=== PATIENT | female | born 1955 | race African-American/Black ===

== ENCOUNTER 2016-06-04 17:39 | Emergency (ER) | payer OTHER ==
[~2016-06-04] VITALS: Ht 170.2 cm; Wt 108.9 kg
[~2016-06-04 17:39] MED LIST: AMIT25TA PO; AMLO5TAB2 PO; ASPI81TA9 PO; ATOR20TA58 PO; ATOR40TA59 PO; BACL10TA PO; BUME1TAB PO; DICY10CA3 PO; GLYB5TAB3 PO; HYDR-2762 PO; HYDR25TA9 PO; INSU100I17 SQ; INSU100I27 SQ; LISI40TA PO; METF10002 PO; METO25TA4 PO; OMEP20CA9 PO; SERT100T8 PO; SPIR25TA PO
[2016-06-04 19:06] VITALS: BP 163/85
--- NOTE | 2016-06-04 19:37 | PHYS DOC ---
Past Medical History Past Medical History: Depression, Diabetes-Type II, GERD, High Cholesterol, Hypertension Past Surgical History: Tubal ligation, Other Additional Past Surgical Histo: BREAST REDUCTION Alcohol Use: None Drug Use: None Adult General Chief Complaint Chief Complaint: UPPER EXTREMITY PAIN HPI HPI Patient is a 60 year old female presents to emergency department stating that she has having stinging tingling pain in her left arm. Patient states this is been occurring for the last 2-3 months. Patient had appeared to be hospitalized here in February for altered mental status. Patient states during that time she thinks she had been bitten by some type of a bug with the poison going down into her left arm. She'll states that she is unable to open her hand up or unable to solar project engineer or do anything with the right hand. Patient does has equal solar project engineer bilaterally. Peripheral pulses are 2+ cap refill brisk less than 2 seconds. Shunt denies any injury or trauma to the arm. She states that she has been using [id number]-[id number] medication without relief. Patient states that she has been unable to maintain personal hygiene habits due to the left hand numbness and tingling. Patient does appear to be well-kept. She is right-hand dominant Review of Systems Review of Systems Constitutional: Denies fever or chills [] Eyes: Denies change in visual acuity, redness, or eye pain [] HENT: Denies nasal congestion or sore throat [] Respiratory: Denies cough or shortness of breath [] Cardiovascular: No additional information not addressed in HPI [] Musculoskeletal: Denies back pain. C/o numbness and tingling to the left hand Integument: Denies rash or skin lesions [] Neurologic: Denies headache, focal weakness or sensory changes [] Allergies Allergies Allergies Coded Allergies Type Severity Reaction Last Updated Verified No Known Drug Allergies 07/20/13 No Physical Exam Physical Exam Constitutional: Well developed, well nourished, no acute distress, non-toxic appearance. [] HENT: Normocephalic, atraumatic, bilateral external ears normal, oropharynx moist, no oral exudates, nose normal. [] Eyes: PERRLA, EOMI, conjunctiva normal, no discharge. [] Neck: Normal range of motion, no tenderness, supple, no stridor. [] Cardiovascular:Heart rate regular rhythm, no murmur [] Lungs & Thorax: Bilateral breath sounds clear to auscultation [] Skin: Warm, dry, no erythema, no rash. [] Back: No tenderness Extremities: No tenderness, no cyanosis, no clubbing, ROM intact, no edema. Peripheral pulses 2+. Patient with equal subeditor bilaterally equal strength noted in upper extremity. Neurologic: Alert and oriented X 3, normal motor function, normal sensory function, no focal deficits noted. [] Psychologic: Affect normal, judgement normal, mood normal. [] Current Patient Data Vital Signs Vital Signs Date Time Temp Pulse Resp B/P Pulse Ox O2 Delivery O2 Flow Rate FiO2 06/04/16 19:06 98.4 75 18 95 Room Air 98.4 EKG EKG [] Radiology/Procedures Radiology/Procedures [] Course & Med Decision Making Course & Med Decision Making Pertinent Labs and Imaging studies reviewed. (See chart for details) This time I do not feel that an x-ray is necessary as the patient has had no injury or trauma. Patient has been hospitalized since the numbness and tingling had started with a no workup noted as well as no report of the symptoms. Patient will be placed in a wrist splint with recommendations to follow-up with orthopedic recommended elevation as much as possible Tylenol and ibuprofen for pain and discomfort. Patient will be discharged home in stable condition signs and symptoms to return back to emergency department as been provided. [] Dragon Disclaimer Dragon Disclaimer This electronic medical record was generated, in whole or in part, using a voice recognition dictation system. Departure Departure Impression: Primary Impression: Hand pain, left Disposition: 01 HOME, SELF-CARE Condition: STABLE Referrals: NO PCP (PCP) Patient Instructions: Sprain Additional Instructions: Wear the splint on the left hand for the next 3-5 days. Ice packs on 20 minutes off 20 minutes several times a day. Elevation as much as possible. Follow-up with orthopedic in the next week. Return back to emergency prior signs symptoms become worse. ELI ODONNELL NP Jun 04, 2016 19:37
== END 2016-06-04 19:45 | disposition home or self-care (01) ==
LOC: ER 17:39
DX: M79.642 Pain in left hand (principal); R20.2 Paresthesia of skin; E11.9 Type 2 diabetes mellitus without complications; E78.00 Pure hypercholesterolemia, unspecified; I10 Essential (primary) hypertension; F32.9 Major depressive disorder, single episode, unspecified
CPT/HCPCS: 99281

== ENCOUNTER 2020-12-13 22:40 | Emergency (ER) | payer MEDICAID, OTHER ==
[~2020-12-13] VITALS: Ht 177.8 cm; Wt 86.3 kg
[~2020-12-13 22:40] MED LIST changes: +AMLO-186 PO; -AMLO5TAB2 PO; +AMOX1TAB61 PO; +ASPI-886 PO; -ASPI81TA9 PO; -BUME1TAB PO; +BUME1TAB3 PO; +HYDR-2145 PO; -HYDR-2762 PO; +HYDR-2765 PO; -HYDR25TA9 PO; +LISI-130 PO; -LISI40TA PO; -METF10002 PO; +METF10007 PO; +OMEP20CA16 PO; -OMEP20CA9 PO; +SERT-268 PO; -SERT100T8 PO
[2020-12-13 22:50] VITALS: BP 170/83
--- NOTE | 2020-12-13 23:04 | PHYS DOC ---
Past Medical History Past Medical History: Depression, Diabetes-Type II, GERD, High Cholesterol, Hypertension Past Surgical History: Tubal ligation, Other Additional Past Surgical Histo: BREAST REDUCTION Smoking Status: Unknown if ever smoked Alcohol Use: None Drug Use: None General Adult EDM: Chief Complaint: PAIN ON URINATION HPI: HPI: Patient is a 65 year old female presents presents via EMS from [facility] for the evaluation of dysuria and altered mental status. assisted states patient complained of dysuria today. assisted also states this evening patient was in the [place] and was aggressive towards other residents. On exam patient is alert to self which I was told was her baseline. She is not combative or argumentative. Patient is calm and cooperative. Patient denies any any pain. Patient specifically denies any pain on urination. Review of Systems: Review of Systems: Unable to obtain due to medical condition Heart Score: C/O Chest Pain: N/A Risk Factors: Risk Factors: DM, Current or recent (<one month) smoker, HTN, HLP, family history of CAD, obesity. Risk Scores: Score 0 - 3: 2.5% MACE over next 6 weeks - Discharge Home Score 4 - 6: 20.3% MACE over next 6 weeks - Admit for Clinical Observation Score 7 - 10: 72.7% MACE over next 6 weeks - Early Invasive Strategies Allergies: Allergies: Allergies Coded Allergies Type Severity Reaction Last Updated Verified No Known Drug Allergies 07/20/13 No Physical Exam: PE: Constitutional: Well developed, well nourished, no acute distress, non-toxic appearance. [] HENT: Normocephalic, atraumatic, bilateral external ears normal, oropharynx moist, no oral exudates, nose normal. [] Eyes: PERRLA, EOMI, conjunctiva normal, no discharge. [] Neck: Normal range of motion, no tenderness, supple, no stridor. [] Cardiovascular:Heart rate regular rhythm, no murmur [] Lungs & Thorax: Bilateral breath sounds clear to auscultation [] Abdomen: Bowel sounds normal, soft, no tenderness, no masses, no pulsatile masses. [] Skin: Warm, dry, no erythema, no rash. [] Back: No tenderness, no CVA tenderness. [] Extremities: No tenderness, no cyanosis, no clubbing, ROM intact, no edema. [] Neurologic: Alert, normal motor function, normal sensory function, no focal deficits noted. [] EKG: EKG: [] Radiology/Procedures: Radiology/Procedures: [] Impression: R CHEST 1V INDICATION: altered mental status / Spl. Instructions: / History: . COMPARISON STUDY: 01/23/2018. FINDINGS: Lungs: Low lung volume. No pulmonary mass or consolidation. The tracheobronchial tree and hilar structures are normal. Pleura: No pleural effusion or pneumothorax. Heart and Mediastinum: Cardiomegaly. Great vessels of the thorax are normal. IMPRESSION: Low lung volume. No consolidation. Course & Med Decision Making: Course & Med Decision Making Pertinent Labs and Imaging studies reviewed. (See chart for details) [] Dragon Disclaimer: Dragon Disclaimer: This electronic medical record was generated, in whole or in part, using a voice recognition dictation system. Departure Departure Impression: Primary Impression: Dysuria Disposition: HOME / SELF CARE / HOMELESS Condition: STABLE Referrals: CRISTIANO CEBALLOS MD, [facility] (PCP) Patient Instructions: Dysuria Scripts Nitrofurantoin Monohyd/M-Cryst (MACROBID 100 MG CAPSULE) 100 Mg Capsule 1 CAP PO BID for 5 Days, #10 CAP 0 Refills Prov: MAGNO CAN DO 12/14/20 MAGNO CAN DO Dec 13, 2020 23:04
[2020-12-13 23:32] LABS: BILIRUBIN,URINE NEGATIVE (NEG); CLARITY,URINE CLEAR; COLOR,URINE YELLOW; NITRITE,URINE NEGATIVE (NEG); PH,URINE 6.5 (<5.0-8.0); PROTEIN,URINE >=300 mg/dL (NEG-TRACE)
[2020-12-13 23:36] LABS: BACTERIA,URINE 0 /HPF (0-FEW); RBC,URINE OCC /HPF (0-2)
[2020-12-13 23:37] LABS: AMORPHOUS SEDIMENT,UR PRESENT /HPF; WBC,URINE RARE /HPF (0-4)
[2020-12-13 23:46] LABS: BASO # 0.1 x10^3/uL (0.0-0.2); BASO % 1 % (0-3); EOS # 0.4 x10^3/uL (0.0-0.7); EOS % 3 % (0-3); HEMATOCRIT 33.4 % (36.0-47.0); HEMOGLOBIN 10.4 g/dL (12.0-15.5); LYMPH # 1.1 x10^3/uL (1.0-4.8); LYMPH % 9 % (24-48); MEAN CORPUSCULAR HEMOGLOBIN 24 pg (25-35); MEAN CORPUSCULAR HGB CONC 31 g/dL (31-37); MEAN CORPUSCULAR VOLUME 79 fL (79-100); MONO # 0.8 x10^3/uL (0.0-1.1); MONO % 6 % (0-9); NEUT # 9.6 x10^3/uL (1.8-7.7); NEUT % 81 % (31-73); PLATELET COUNT 371 x10^3/uL (140-400); RED BLOOD COUNT 4.25 x10^6/uL (3.50-5.40); RED CELL DISTRIBUTION WIDTH 20.6 % (11.5-14.5)
[2020-12-13 23:55] LABS: CALCIUM 9.2 mg/dL (8.5-10.1); CREATININE 1.5 mg/dL (0.6-1.0); GFR 42.3; POTASSIUM 3.3 mmol/L (3.5-5.1)
[2020-12-14 00:03] LABS: ALBUMIN 2.4 g/dL (3.4-5.0); ALBUMIN/GLOBULIN RATIO 0.5 (1.0-1.7); TOTAL BILIRUBIN 0.4 mg/dL (0.2-1.0); TOTAL PROTEIN 7.2 g/dL (6.4-8.2)
[2020-12-14 00:18] LABS: PLT ESTIMATE ADEQUATE (ADEQUATE)
[2020-12-14 00:19] LABS: ANISOCYTOSIS MOD; HYPOCHROMIA SLIGHT
--- NOTE | 2020-12-14 01:07 | RAD ---
XR CHEST 1V INDICATION: altered mental status / Spl. Instructions: / History: . COMPARISON STUDY: 01/23/2018. FINDINGS: Lungs: Low lung volume. No pulmonary mass or consolidation. The tracheobronchial tree and hilar struc tures are normal. Pleura: No pleural effusion or pneumothorax. Heart and Mediastinum: Cardiomegaly. Great vessels of the thorax are normal. IMPRESSION: Low lung volume. No consolidation. Electronically signed by: Oswald Perez MD (12/14/2020 1:05 AM) [facility]
[2020-12-14] MEDS ORDERED: NITR100C62 PO (02:14)
[2020-12-14] MEDS ORDERED: FUROSEMIDE 40 MG/4 ML VIAL. IVP ONE (02:15)
== END 2020-12-14 02:20 | disposition home or self-care (01) ==
LOC: ER 22:40
DX: R30.0 Dysuria (principal); R41.82 Altered mental status, unspecified; E11.9 Type 2 diabetes mellitus without complications; E78.00 Pure hypercholesterolemia, unspecified; I10 Essential (primary) hypertension; K21.9 Gastro-esophageal reflux disease without esophagitis; Z98.51 Tubal ligation status
CPT/HCPCS: 36415; 71045; 80053; 81001; 84484; 85025; 99284

== ENCOUNTER 2020-12-20 18:31 | Emergency (ER) | payer MEDICAID ==
[~2020-12-20] VITALS: Ht 170.2 cm; Wt 76.0 kg
[~2020-12-20 18:31] MED LIST changes: +NITR100C62 PO
[2020-12-20] MEDS ORDERED: LIDOCAINE (700MG/PATCH) PATCH. ONE (18:56)
--- NOTE | 2020-12-20 19:00 | PHYS DOC ---
Past Medical History Past Medical History: Depression, Diabetes-Type II, GERD, High Cholesterol, Hypertension Past Surgical History: Tubal ligation, Other Additional Past Surgical Histo: BREAST REDUCTION Smoking Status: Unknown if ever smoked Alcohol Use: None Drug Use: None General Adult HPI: HPI: 65 yo F PMH Depression, DM, GERD, HTN and HLD presents to the ed BIBEM[facility] with c/o left shoulder and left scapular pain after pt fell from her wheelchair. Pt denies any head or neck injury. History limited due to patient's underlying dementia. Initially, on ED arrival. History obtained from RN, nursing documents and EMS verbal report to RN. Review of Systems: Review of Systems: Review of systems limited Heart Score: C/O Chest Pain: No Risk Factors: Risk Factors: DM, Current or recent (<one month) smoker, HTN, HLP, family history of CAD, obesity. Risk Scores: Score 0 - 3: 2.5% MACE over next 6 weeks - Discharge Home Score 4 - 6: 20.3% MACE over next 6 weeks - Admit for Clinical Observation Score 7 - 10: 72.7% MACE over next 6 weeks - Early Invasive Strategies Current Medications: Current Medications Medications (Trade) Dose Ordered Sig/Es Start Time Stop Time Status Last Admin Dose Admin Lidocaine (Lidoderm) 1 patch DAILY 12/21/20 09:00 UNV Allergies: Allergies: Allergies Coded Allergies Type Severity Reaction Last Updated Verified No Known Drug Allergies 07/20/13 No Physical Exam: PE: Constitutional: no acute distress, non-toxic appearance. HENT: Normocephalic, atraumatic, no signs of trauma Eyes: EOMI, conjunctiva normal, no discharge. Neck: Normal range of motion, nexus C-spine criteria are negative: There is no post midline tenderness, the patient is not intoxicated, there is a normal level of alertness, there are no focal neurologic deficits and there are no distracting injuries, Cardiovascular: S1/2 present, regular rhythm Lungs & Thorax: Speaking in full sentences, bilateral equal chest rise, no tachypnea or increased work of breathing Abdomen: soft, no tenderness, Skin: Warm, dry, no erythema, no rash, no skin break, no signs of contusion /petechiae or injury Back: No tenderness, no CVA tenderness. [] Extremities: No tenderness, no cyanosis, no joint deformities, points to anterior left shoulder as site of pain although patient with full L shoulder/elbow/hand range of motion, shoulder abduction/adduction/internal and external rotation intact, equal radial pulses, also points to the left upper trapezius muscle tenderness and pain just above the spine of the scapula, Neurologic: Alert -no she is at [place], normal motor function, normal se nsory function, no focal deficits noted. [] Psychologic: Initially, normal affect EKG: EKG: [] Radiology/Procedures: Radiology/Procedures: IMAGING REPORT Signed PATIENT: MERA HENLEY AACCOUNT: [id number] : 1955 LOCATION: ER AGE: 65 SEX: F EXAM STATUS: REG ER ORD. PHYSICIAN: TAJ SMITH DO REASON: fall? PROCEDURE: CT HEAD AND CERVICAL SPINE WO CT head without contrast. CT cervical spine without contrast. PQRS statement: CT scans at this facility use dose reduction including either au tomated exposure control, iterative reconstructions, and /or weight based radiation dosing via mA and kV modification when appropriate to reduce radiation dose to as low as reasonably achievable. HISTORY: Fall injury. CT head findings: There is encephalomalacia left occipital lobe consistent with a chronic WATCH BAND ASSEMBLER territory infarct. This is new from prior imaging. Areas of cerebral white matter hypoattenuation may represent chronic microvascular ischemic injury. No acute ischemic injury evident. No intracranial hemorrhage, mass or hydrocephalus. Orbits, mastoids and bones are unremarkable. IMPRESSION: No acute intracranial abnormality. 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 See above. CT cervical spine findings: Cervical scoliosis. Craniocervical junction intact. Cervical vertebral body height and alignment intact. No fracture of the cervical spine. Cervical disc bulges/protrusions and disc osteophytes along with uncovertebral spurring contributes to spinal canal, lateral recess and neural foraminal stenoses with the greatest degree of stenotic disease likely present at C3-C4, C4-C5 and C5-C6. IMPRESSION: No acute osseous injury of the cervical spine. Cervical disc disease as described above. Electronically signed by: Nessa Spence MD (12/20/2020 8:02 PM) [facility] [place] DICTATED and SIGNED BY: NESSA SPENCE MD DATE: 12/20/[id number] 0 IMAGING REPORT Signed PATIENT: MERA HENLEY AACCOUNT: [id number] : 1955 LOCATION: ER AGE: 65 SEX: F EXAM STATUS: REG ER ORD. PHYSICIAN: TAJ SMITH DO REASON: left shoulder pain PROCEDURE: SHOULDER 2+V LEFT Exam: Left shoulder 3 views. Left scapula 2 views INDICATION: Left shoulder pain TECHNIQUE: Frontal view of the left shoulder with internal and external rotation and transscapular Y views. Frontal and lateral views of the scapula Comparisons: None FINDINGS: Shoulder: Bone mineralization is normal. No acute or healed fractures. Soft tissues are unremarkable. Joint spaces are well-maintained. Scapula: Bone mineralization is normal. No acute or healed fractures. Soft tissues are unremarkable. Joint spaces are well-maintained. IMPRESSION: No acute osseous abnormality of the left shoulder or left scapula. Electronically signed by: Khushbu Lopez MD (12/20/2020 8:24 PM) [facility] DICTATED and SIGNED BY: KHUSHBU LOPEZ MD DATE: 12/20/[id number] 0 Course & Med Decision Making: Course & Med Decision Making Pertinent Labs and Imaging studies reviewed. (See chart for details) Concern for fall from wheelchair with no apparent injury on physical exam. CT imaging and x-ray imaging with no obvious fracture. Patient with full range of motion of extremities and neck. In ED patient became agitated and was screa jessica, demanding to be sent back home, was unable to be verbally deescalated. Facility reported that patient has suspected underlying dementia-IM Geodon was given to calm patient prior to transfer. Patient tolerated this medication and was stable at time of transfer. Patient with no complications with this medication, no delirium or apnea/stable at time of transfer. Will discharge home with strict ED return precautions were given for focal neurologic deficits, headache, persistent nausea or vomiting or repeat head injury. Encouraged urgent outpatient follow-up with PMD. Life-threatening processes were considered but are low suspicion at this time, given history, physical exam and ED workup. Pt was educated on all prescription medications and adverse effects. All patient's questions were answered and pt was stable at time of discharge. Life/limb-threatening differential includes but is not limited to, intracranial hemorrhage, diffuse axonal injury, spinal cord syndrome, unstable cervical fracture or SCIWORA, fractures or joint dislocations, neurovascular injuries, organ injury or laceration, pneumothorax, pneumoperitoneum, pericardial tamponade, unstable pelvic fracture, compartment syndrome, flail chest or respiratory distress, burn injury or asphyxiation I have spoken with the patient and/or caregivers. I explained the patient's condition, diagnoses and treatment plan based on the information available to me at this time. I have answered the patient and/or caregiver's questions and addressed any concerns. The patient and/or caregivers have a good understanding of patient's diagnosis, condition and treatment plan as can be expected at this point. Vital signs have been stable. Patient's condition is stable and appropriate for discharge from the emergency department. Patient will pursue further outpatient evaluation with primary care physician or other designated or consulting physician as outlined in the discharge instructions. The patient and/or caregivers are agreeable to this plan of care and follow-up instructions have been explained in detail. The patient and/or caregivers have received these instructions in written form and have expressed an understanding of the discharge instructions. The patient and/or caregivers are aware that any significant change of condition or worsening of symptoms should prompt immediate return to this or the closest emergency department or c all to 911. Donya Disclaimer: Donya Disclaimer: This electronic medical record was generated, in whole or in part, using a voice recognition dictation system. Departure Departure Impression: Primary Impression: Left shoulder pain Additional Impressions: Dementia Agitation requiring sedation protocol Disposition: HOME / SELF CARE / HOMELESS Condition: STABLE Referrals: CRISTIANO CEBALLOS MD, [facility] (PCP) in 1-2 days Patient Instructions: Dementia, Shoulder Pain, Ziprasidone injection Additional Instructions: EMERGENCY DEPARTMENT GENERAL DISCHARGE INSTRUCTIONS Thank you for coming to [facility] Emergency Department (ED) today and trusting us with you care. We trust that you had a positive experience in our Emergency Department. If you wish to speak to the department management, you may call the Director at [phone]. YOUR FOLLOW UP INSTRUCTIONS ARE FOLLOWS: 1. Do you have a private Doctor? If you do not have a private doctor, please ask for a resource list of physicians or clinics that may be able to assist you with follow up care. 2. The Emergency Physicain has interpreted your x-rays. The X-Ray specialist will also review them. If there is a change in the findings, you will be notified in 48 hours when at all possible. ADDITIONAL INSTRUCTIONS AND INFORMATION: 1. Your care today has been supervised by a physician who is specially trained in emergency care. Many problems require more than one evaluation for a complete diagnosis and treatment. We recommend that you schedule your follow up appointment as recommended to ensure complete treatment of you illness or injury. If you are unable to obtain follow up care and continue to have a problem, or if your condition worsens, we recommend that you return to the ED. 2. We are not able to safely determine your condition over the phone nor are we able to give sound medical advice over the phone. For these safety reasons, if you call for medical advice we will ask you to come to the ED for further evaluation. 3. If you have any questions regarding these discharge instructions please call the ED at [phone]. SAFETY INFORMATION: In the interest of safety, wellness, and injury prevention; we encourage you to wear your sealbelt, if you smoke; quite smoking, and we encourage family to use a protective helmet for bicycling and other sporting events that present an increased risk for head injury. IF YOUR SYMPTOMS WORSEN OR NEW SYMPTOMS DEVELOP, OR YOU HAVE CONCERNS ABOUT YOUR CONDITION; OR IF YOUR CONDITION WORSENS WHILE YOU ARE WAITING FOR YOUR FOLLOW UP APPOINTMENT; EITHER CONTACT YOUR PRIMARY CARE DOCTOR, THE PHYSICIAN WHOSE NAME AND NUMBER YOU WERE GIVEN, OR RETURN TO THE ED IMMEDIATELY. TAJ HOWELL DO Dec 20, 2020 19:00
[2020-12-20 20:02] LABS: BILIRUBIN,URINE NEGATIVE (NEG); CLARITY,URINE CLEAR; COLOR,URINE YELLOW; NITRITE,URINE NEGATIVE (NEG); PROTEIN,URINE >=300 mg/dL (NEG-TRACE)
--- NOTE | 2020-12-20 20:04 | RAD ---
CT head without contrast. CT cervical spine without contrast. PQRS statement: CT scans at this facility use dose reduction including either automated exposure cont rol, iterative reconstructions, and /or weight based radiation dosing via mA and kV modification when appropriate to reduce radiation dose to as low as reasonably achievable. HISTORY: Fall injury. CT head findings: There is encephalomalacia left occipital lobe consistent with a chronic WARD NURSE territo ry infarct. This is new from prior imaging. Areas of cerebral white matter hypoattenuation may repres ent chronic microvascular ischemic injury. No acute ischemic injury evident. No intracranial hemorrha ge, mass or hydrocephalus. Orbits, mastoids and bones are unremarkable. IMPRESSION: No acute intracranial abnormality. Chronic left WARD NURSE territory infarct with encephalomalac ia of the left occipital lobe. See above. CT cervical spine findings: Cervical scoliosis. Craniocervical junction intact. Cervical vertebral margarita dy height and alignment intact. No fracture of the cervical spine. Cervical disc bulges/protrusions a nd disc osteophytes along with uncovertebral spurring contributes to spinal canal, lateral recess and neural foraminal stenoses with the greatest degree of stenotic disease likely present at C3-C4, C4-C 5 and C5-C6. IMPRESSION: No acute osseous injury of the cervical spine. Cervical disc disease as described above. Electronically signed by: Donnell Spence MD (12/20/2020 8:02 PM) [facility]
[2020-12-20 20:08] LABS: BACTERIA,URINE 0 /HPF (0-FEW); HYALINE CASTS, URINE FEW /HPF; RBC,URINE 0 /HPF (0-2); WBC,URINE OCC /HPF (0-4)
--- NOTE | 2020-12-20 20:26 | RAD ---
Exam: Left shoulder 3 views. Left scapula 2 views INDICATION: Left shoulder pain TECHNIQUE: Frontal view of the left shoulder with internal and external rotation and transscapular Y views. Frontal and lateral views of the scapula Comparisons: None FINDINGS: Shoulder: Bone mineralization is normal. No acute or healed fractures. Soft tissues are unremarkable. Joint spa yun are well-maintained. Scapula: Bone mineralization is normal. No acute or healed fractures. Soft tissues are unremarkable. Joint spa yun are well-maintained. IMPRESSION: No acute osseous abnormality of the left shoulder or left scapula. Electronically signed by: Khushbu Sena MD (12/20/2020 8:24 PM) [facility]
[2020-12-20] MEDS ORDERED: ZIPRASIDONE IM 20 MG VIAL. IM ONE ×2 (20:40→21:00)
[2020-12-20 21:25] VITALS: BP 167/101
[2020-12-21] MEDS ORDERED: LIDOCAINE (700MG/PATCH) PATCH. TD SCH (09:00)
== END 2020-12-20 22:30 | disposition home or self-care (01) ==
LOC: ER 18:31
DX: M25.512 Pain in left shoulder (principal); G89.11 Acute pain due to trauma; F03.90 Unspecified dementia, unspecified severity, without behavioral disturbance, psychotic disturbance, mood disturbance, and anxiety; R45.1 Restlessness and agitation; E11.9 Type 2 diabetes mellitus without complications; K21.9 Gastro-esophageal reflux disease without esophagitis; E78.00 Pure hypercholesterolemia, unspecified; I10 Essential (primary) hypertension; W05.0XXA Fall from non-moving wheelchair, initial encounter; Y93.89 Activity, other specified; Y92.89 Other specified places as the place of occurrence of the external cause; Y99.8 Other external cause status
CPT/HCPCS: 51701; 70450; 72125; 73010; 73030; 81001; 96372; 99285; J3486

== ENCOUNTER 2021-01-29 18:56 | Inpatient (IN) | payer MEDICAID ==
[~2021-01-29] VITALS: Ht 170.2 cm; Wt 81.0 kg
[2021-01-29] MEDS ORDERED: IV NORMAL SALINE 1000ML BAG 1,000 ML IV ONE ×3 (19:30→22:00)
[2021-01-29 19:33] LABS: BILIRUBIN,URINE MODERATE (NEG); CLARITY,URINE CLOUDY; COLOR,URINE AMBER; NITRITE,URINE NEGATIVE (NEG); PROTEIN,URINE >=300 mg/dL (NEG-TRACE)
[2021-01-29 19:39] LABS: BARBITURATES NEG (NEG); BENZODIAZEPINES POS (NEG); CANNABINOIDS NEG (NEG); COCAINE NEG (NEG); HYALINE CASTS, URINE MANY /HPF; METHADONE NEG (NEG); OPIATES NEG (NEG); PHENCYCLIDINE NEG (NEG)
[2021-01-29 19:40] LABS: AMORPHOUS SEDIMENT,UR PRESENT /HPF; BACTERIA,URINE FEW /HPF (0-FEW)
[2021-01-29 19:41] LABS: AMPHETAMINE/METHAMPHETAMINE NEG (NEG)
[2021-01-29 20:10] LABS: BASO # 0.1 x10^3/uL (0.0-0.2); BASO % 1 % (0-3); EOS % 0 % (0-3); HEMATOCRIT 34.1 % (36.0-47.0); LYMPH % 9 % (24-48); MEAN CORPUSCULAR HEMOGLOBIN 28 pg (25-35); MEAN CORPUSCULAR HGB CONC 32 g/dL (31-37); MEAN CORPUSCULAR VOLUME 86 fL (79-100); MONO # 0.5 x10^3/uL (0.0-1.1); MONO % 4 % (0-9); NEUT # 10.4 x10^3/uL (1.8-7.7); NEUT % 87 % (31-73); PLATELET COUNT 255 x10^3/uL (140-400); RED BLOOD COUNT 3.98 x10^6/uL (3.50-5.40)
[2021-01-29 20:21] LABS: CALCIUM 9.5 mg/dL (8.5-10.1); CREATININE 3.2 mg/dL (0.6-1.0); GFR 17.6; POTASSIUM 4.7 mmol/L (3.5-5.1)
[2021-01-29 20:27] LABS: ALBUMIN 2.6 g/dL (3.4-5.0); ALBUMIN/GLOBULIN RATIO 0.5 (1.0-1.7); MAGNESIUM 1.9 mg/dL (1.8-2.4); TOTAL BILIRUBIN 0.4 mg/dL (0.2-1.0); TOTAL PROTEIN 7.6 g/dL (6.4-8.2)
[2021-01-29] MEDS ORDERED: levETIRAcetam 1,000 MG in IV DEXTROSE 5% 100ML 100 ML IV ONE (20:30)
--- NOTE | 2021-01-29 20:55 | RAD ---
Exam: CT head INDICATION: Seizure TECHNIQUE: Sequential axial images through the head were obtained without the administration of IV co ntrast. Exposure: One or more of the following in the visualized dose reduction techniques were utilized for this examination: 1. Automated exposure control 2. Adjustment of the MA and/or KV according to patient size 3. Use of iterative of reconstructive technique Comparisons: 12/20/2020 FINDINGS: No focal parenchymal lesion or hemorrhage is identified. There is no midline shift or sulcal effaceme nt. Chronic infarct at the left ELECTRIC METER TESTER SHOP distribution. There is patchy hypodensity in the periventricular whit e matter is similar when compared to the prior exam. No acute vascular territory infarction is identi fied. Perez-white distinction is preserved. The ventricular system is within normal limits without compression hydrocephalus. The basal cisterns are well maintained. The visualized portions of the paranasal sinuses and mastoid air cells are well-pneumatized. No acute fractures. IMPRESSION: Chronic changes without acute intracranial abnormality. Electronically signed by: Khushbu Sena MD (01/29/2021 8:52 PM) [facility]
[2021-01-29 20:57] LABS: % LYMPHS 7 % (24-48); % MONOS 3 % (0-10); % SEGS 90 % (35-66); PLT ESTIMATE ADEQUATE (ADEQUATE)
--- NOTE | 2021-01-29 21:07 | PHYS DOC ---
Past Medical History Past Medical History: Depression, Diabetes-Type II, GERD, High Cholesterol, Hypertension (MASHA PELAYO TIGER MACHINE OPERATOR) Past Surgical History: Tubal ligation, Other Additional Past Surgical Histo: BREAST REDUCTION (MASHA PELAYO TIGER MACHINE OPERATOR) Smoking Status: Never Smoker Alcohol Use: None Drug Use: None (MASHA PELAYO TIGER MACHINE OPERATOR) General Adult EDM: Chief Complaint: SEIZURE HPI: HPI: Patient is a 65 year old female with a history of diabetes type 2, blindness, hypertension, high cholesterol, among other illnesses who presents to the ED today via EMS from a local alf. Patient is nonverbal, we do not know her baseline. Patient was sent to the ED for having seizures since 2 PM today. Patient has history of seizures. jail staff also informed EMS patient has nasal congestion and difficulty swallowing, unknown when this began. (MASHA PELAYO TIGER MACHINE OPERATOR) Review of Systems: Review of Systems: Constitutional: Unable to assess due to mentation HENT: jail staff reports nasal congestion. [] Respiratory: Unable to assess due to mentation h. [] Cardiovascular: Unable to assess due to mentation GI: Unable to assess due to mentation : Unable to assess due to mentation Musculoskeletal: Unable to assess due to mentation Neurologic: EMS reports seizures. Psychiatric: Unable to assess due to mentation (LONGMASHA BOWMAN TIGER MACHINE OPERATOR) Heart Score: C/O Chest Pain: N/A Risk Factors: Risk Factors: DM, Current or recent (<one month) smoker, HTN, HLP, family history of CAD, obesity. Risk Scores: Score 0 - 3: 2.5% MACE over next 6 weeks - Discharge Home Score 4 - 6: 20.3% MACE over next 6 weeks - Admit for Clinical Observation Score 7 - 10: 72.7% MACE over next 6 weeks - Early Invasive Strategies (MASHA PELAYO TIGER MACHINE OPERATOR) Current Medications: Current Medications Medications (Trade) Dose Ordered Sig/Es Start Time Stop Time Status Last Admin Dose Admin Levetiracetam 1000 mg/Dextrose 110 ml @ 440 mls/hr 1X ONCE 01/29/21 20:30 01/29/21 20:44 DC 01/29/21 20:43 440 MLS/HR Lorazepam (Ativan Inj) 1 mg 1X ONCE 01/29/21 19:45 01/29/21 19:46 DC 01/29/21 19:45 1 MG Sodium Chloride 1,000 ml @ 1,000 mls/hr 1X ONCE 01/29/21 21:00 01/29/21 21:59 (MASHA PELAYO TIGER MACHINE OPERATOR) Allergies: Allergies: Allergies Coded Allergies Type Severity Reaction Last Updated Verified No Known Drug Allergies 07/20/13 No (MASHA PELAYO TIGER MACHINE OPERATOR) Physical Exam: PE: Constitutional: Well developed, well nourished, no acute distress, non-toxic appearance. [] HENT: Normocephalic, atraumatic, bilateral external ears normal, oropharynx moist, no oral exudates, nose normal. [] Eyes: Patient is blind, conjunctiva normal, no discharge. [] Neck: Normal range of motion, no tenderness, supple, no stridor. [] Cardiovascular:Heart rate regular rhythm Lungs & Thorax: Diminished breath sounds Abdomen: Bowel sounds normal, soft, no tenderness, no masses, no pulsatile masses. [] Skin: Dry skin Back: No tenderness, no CVA tenderness. [] Extremities: No tenderness, no cyanosis, no clubbing, ROM intact, no edema. [] Neurologic: Alert and oriented X 1, normal motor function, normal sensory function, no focal deficits noted. Cranial nerves II through XII intact Psychologic: Flat affect (MASHA PELAYO TIGER MACHINE OPERATOR) Current Patient Data: Labs: Laboratory Tests Test 01/29/21 19:15 01/29/21 20:00 Urine Collection Type U cath Urine Color Betty Urine Clarity Cloudy Urine pH 5.0 (<5.0-8.0) Urine Specific [place] >=1.030 (1.000-1.030) Urine Protein >=300 mg/dL (NEG-TRACE) Urine Glucose (UA) 100 mg/dL (NEG) Urine Ketones (Stick) Trace mg/dL (NEG) Urine Blood Small (NEG) Urine Nitrite Negative (NEG) Urine Bilirubin Moderate (NEG) Urine Urobilinogen Dipstick 1.0 mg/dL (0.2 mg/dL) Urine Leukocyte Esterase Small (NEG) Urine RBC 1-2 /HPF (0-2) Urine WBC 5-10 /HPF (0-4) Urine Squamous Epithelial Cells Many /LPF Urine Amorphous Sediment Present /HPF Urine Bacteria Few /HPF (0-FEW) Urine Hyaline Casts Many /HPF Urine Mucus Marked /LPF Urine Opiates Screen Neg (NEG) Urine Methadone Screen Neg (NEG) Urine Barbiturates Neg (NEG) Urine Phencyclidine Screen Neg (NEG) Urine Amphetamine/Methamphetamine Neg (NEG) Urine Benzodiazepines Screen Pos (NEG) Urine Cocaine Screen Neg (NEG) Urine Cannabinoids Screen Neg (NEG) Urine Ethyl Alcohol Neg (NEG) White Blood Count 12.0 x10^3/uL (4.0-11.0) H Red Blood Count 3.98 x10^6/uL (3.50-5.40) Hemoglobin 11.0 g/dL (12.0-15.5) L Hematocrit 34.1 % (36.0-47.0) L Mean Corpuscular Volume 86 fL (79-100) Mean Corpuscular Hemoglobin 28 pg (25-35) Mean Corpuscular Hemoglobin Concent 32 g/dL (31-37) Red Cell Distribution Width 17.0 % (11.5-14.5) H Platelet Count 255 x10^3/uL (140-400) Neutrophils (%) (Auto) 87 % (31-73) H Lymphocytes (%) (Auto) 9 % (24-48) L Monocytes (%) (Auto) 4 % (0-9) Eosinophils (%) (Auto) 0 % (0-3) Basophils (%) (Auto) 1 % (0-3) Neutrophils # (Auto) 10.4 x10^3/uL (1.8-7.7) H Lymphocytes # (Auto) 1.0 x10^3/uL (1.0-4.8) Monocytes # (Auto) 0.5 x10^3/uL (0.0-1.1) Eosinophils # (Auto) 0.0 x10^3/uL (0.0-0.7) Basophils # (Auto) 0.1 x10^3/uL (0.0-0.2) Segmented Neutrophils % 90 % (35-66) H Lymphocytes % 7 % (24-48) L Monocytes % 3 % (0-10) Platelet Estimate Adequate (ADEQUATE) Sodium Level 144 mmol/L (136-145) Potassium Level 4.7 mmol/L (3.5-5.1) Chloride Level 108 mmol/L (98-107) H Carbon Dioxide Level 28 mmol/L (21-32) Anion Gap 8 (6-14) Blood Urea Nitrogen 34 mg/dL (7-20) H Creatinine 3.2 mg/dL (0.6-1.0) H Estimated GFR (Cockcroft-Gault) 17.6 BUN/Creatinine Ratio 11 (6-20) Glucose Level 179 mg/dL (70-99) H Calcium Level 9.5 mg/dL (8.5-10.1) Magnesium Level 1.9 mg/dL (1.8-2.4) Total Bilirubin 0.4 mg/dL (0.2-1.0) Aspartate Amino Transferase (AST) 26 U/L (15-37) Alanine Aminotransferase (ALT) 31 U/L (14-59) Alkaline Phosphatase 138 U/L (46-116) H Troponin I Quantitative 0.028 ng/mL (0.000-0.055) FQ-Ptr-Z-Type Natriuretic Peptide 604 pg/mL (0-124) H Total Protein 7.6 g/dL (6.4-8.2) Albumin 2.6 g/dL (3.4-5.0) L Albumin/Globulin Ratio 0.5 (1.0-1.7) L Thyroid Stimulating Hormone (TSH) 1.144 uIU/mL (0.358-3.74) Laboratory Tests 01/29/21 20:00 Laboratory Tests 01/29/21 20:00 Vital Signs: Vital Signs Date Time Temp Pulse Resp B/P (MAP) Pulse Ox O2 Delivery O2 Flow Rate FiO2 01/29/21 20:34 94 16 100 01/29/21 19:00 99.2 153/88 (123) Nasal Cannula 2.0 99.2 (MASHA PELAYO TIGER MACHINE OPERATOR) EKG: EK interpreted by Dr. Blunt sinus rhythm, nonspecific ST depressions no STEMI [address] Blunt sinus rhythm heart rate [address] depressions, no STEMI EKG compared to the one done in [address] depressions are noted on this EKG that is similar to to the ones on the 2 EKGs done today. (MASHA PELAYO APRN) Radiology/Procedures: Radiology/Procedures: []PROCEDURE: CT HEAD WO CONTRAST Exam: CT head INDICATION: Seizure TECHNIQUE: Sequential axial images through the head were obtained without the administration of IV contrast. Exposure: One or more of the following in the visualized dose reduction techniques were utilized for this examination: 1. Automated exposure control 2. Adjustment of the MA and/or KV according to patient size 3. Use of iterative of reconstructive technique Comparisons: 12/20/2020 FINDINGS: No focal parenchymal lesion or hemorrhage is identified. There is no midline shift or sulcal effacement. 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 There is patchy hypodensity in the periventricular white matter is similar when compared to the prior exam. No acute vascular territory infarction is identified. Perez-white distinction is preserved. The ventricular system is within normal limits without compression hydrocephalus. The basal cisterns are well maintained. The visualized portions of the paranasal sinuses and mastoid air cells are well- pneumatized. No acute fractures. IMPRESSION: Chronic changes without acute intracranial abnormality. Electronically signed by: Khushbu Lopez MD (01/29/2021 8:52 PM) [facility] DICTATED and SIGNED BY: KHUSHBU LOPEZ MD DATE: 01/29/[id number] 0 PROCEDURE: PORTABLE CHEST 1V Exam: Chest one view INDICATION: Altered mental status TECHNIQUE: Frontal view of the chest Comparisons: 12/14/2020 FINDINGS: Heart is enlarged. Pulmonary vessels are within normal limits. The lung and pleural spaces are clear. IMPRESSION: No acute pulmonary process. Electronically signed by: Khushbu Lopez MD (01/29/2021 10:07 PM) [facility] DICTATED and SIGNED BY: KHUSHBU LOPEZ MD DATE: 01/29/[id number] 0 (MASHA PELAYO APRN) Course & Med Decision Making: Course & Med Decision Making Pertinent Labs and Imaging studies reviewed. (See chart for details) This is a 65-year-old female patient presented to the ED today from a alf to be evaluated after having seizures since 2 PM. Patient is nonverbal, unknown if this is her baseline. Vitals on arrival to the ED temperature 99.2, heart rate 98, O2 sats 99% on room air, respirations 16, blood pressure 153/88 Patient had a seizure on arrival to the ED. Was given Ativan CT of the head is negative for any acute findings, chest x-ray is negative. EKG noted for nonspecific ST depressions. CT of the head is negative for any acute findings. Chest x-ray is negative for any acute findings CBC with a WBC of 12.0, hemoglobin 11.0, hematocrit 34.1. CMP with creatinine of 3.2, BUN of 34, sodium was 144, potassium is normal, glucose 179. Patient was started on IV fluids in the ED, 2 L given while in the ED. I spoke to Dr. Casillas, he requested we continue giving patient IV fluids I spoke with Dr. Bain who accepted patient for admission (MASHA PELAYO APRN) Dragon Disclaimer: Dragon Disclaimer: This electronic medical record was generated, in whole or in part, using a voice recognition dictation system. (MASHA PELAYO APRN) Departure Departure Impression: Primary Impression: Altered mental status Qualified Codes: R41.82 - Altered mental status, unspecified Additional Impressions: Acute renal failure Qualified Codes: N17.9 - Acute kidney failure, unspecified Seizure Urinary tract infection Qualified Codes: N39.0 - Urinary tract infection, site not specified Disposition: ADMITTED INPATIENT Condition: STABLE Referrals: CRISTIANO CEBALLOS MD, M[facility] (PCP) Attending Signature Attending Signature I have reviewed the PA/MARKETING AMBASSADOR's note and plan of care. I was available for consultation as needed during the patient's visit in the emergency department. I agree with the clinical impression, plan, and disposition. (ALYSSA BLUNT DO) MASHA PELAYO APRN Jan 29, 2021 21:07 ALYSSA BLUNT DO Jan 30, 2021 00:42
[2021-01-29 21:19] LABS: INFLUENZA A PATIENT NEGATIVE (NEGATIVE); INFLUENZA B PATIENT NEGATIVE (NEGATIVE)
[2021-01-29] MEDS ORDERED: cefTRIAXone IV Push 1 GM VIAL. IVP ONE (22:00)
[2021-01-29] MEDS ORDERED: ONDANSETRON PF 4 MG/2 ML VIAL. IVP PRN (22:00)
--- NOTE | 2021-01-29 22:10 | RAD ---
Exam: Chest one view INDICATION: Altered mental status TECHNIQUE: Frontal view of the chest Comparisons: 12/14/2020 FINDINGS: Heart is enlarged. Pulmonary vessels are within normal limits. The lung and pleural spaces are clear. IMPRESSION: No acute pulmonary process. Electronically signed by: Khushbu Sena MD (01/29/2021 10:07 PM) RUPERTO
[2021-01-29 23:00] VITALS: BP 140/91
[2021-01-29] MEDS ORDERED: LACO200T PO (23:21)
[2021-01-29] MEDS ORDERED: METF500T16 PO (23:21)
[2021-01-29] MEDS ORDERED: LEVE500T56 PO (23:21)
[2021-01-29] MEDS ORDERED: ALPR1TAB6 PO (23:21)
[2021-01-29] MEDS ORDERED: OLAN20TA3 PO (23:21)
[2021-01-29] MEDS ORDERED: ACET325T9 PO (23:21)
[2021-01-29] MEDS ORDERED: CARV25TA2 PO (23:21)
[2021-01-29] MEDS ORDERED: AMLO-187 PO (23:21)
[2021-01-29] MEDS ORDERED: TRAZ-118 PO (23:21)
--- NOTE | 2021-01-30 00:48 | EKG ---
[facility] [address] [place] [address] Test Date: 2021-01-29 Test Time: 19:56:29 Pat Name: MERA HENLEY Department: Room: Gender: F College President: : 1955 Requested By: MASHA PELAYO Order Number: [id number] Reading MD: Measurements Intervals [place] Rate: 93 P: 13 RI: 170 QRS: 36 QRSD: 92 T: 176 QT: 354 QTc: 443 Interpretive Statements SINUS RHYTHM LEFT ATRIAL ABNORMALITY ST & T ABNORMALITY, CONSIDER ANTEROLATERAL ISCHEMIA OR LEFT VENTRICULAR STRAIN T ABNORMALITY IN INFEROLATERAL LEADS ABNORMAL ECG RI6.02 Compared to ECG 01/29/2021 19:12:50 No significant changes
--- NOTE | 2021-01-30 00:49 | EKG ---
[facility] [address] [place] [address] Test Date: 2021-01-29 Test Time: 19:12:50 Pat Name: MERA HENLEY Department: Room: Gender: F Call Center Manager: : 1955 Requested By: MASHA PELAYO Order Number: [id number] Reading MD: Measurements Intervals [place] Rate: 96 P: 3 MD: 164 QRS: 26 QRSD: 92 T: 164 QT: 352 QTc: 451 Interpretive Statements SINUS RHYTHM LEFT ATRIAL ABNORMALITY ST & T ABNORMALITY, CONSIDER ANTEROLATERAL ISCHEMIA OR LEFT VENTRICULAR STRAIN T ABNORMALITY IN INFEROLATERAL LEADS ABNORMAL ECG RI6.02 No previous ECG available for comparison
[2021-01-30 03:31] VITALS: BP 150/81
[2021-01-30 07:00] VITALS: BP 168/79
[2021-01-30 07:08] LABS: BASO % 0 % (0-3); EOS # 0.1 x10^3/uL (0.0-0.7); EOS % 1 % (0-3); HEMATOCRIT 30.5 % (36.0-47.0); HEMOGLOBIN 9.7 g/dL (12.0-15.5); LYMPH # 1.8 x10^3/uL (1.0-4.8); LYMPH % 16 % (24-48); MEAN CORPUSCULAR HEMOGLOBIN 27 pg (25-35); MEAN CORPUSCULAR HGB CONC 32 g/dL (31-37); MEAN CORPUSCULAR VOLUME 86 fL (79-100); MONO # 1.3 x10^3/uL (0.0-1.1); MONO % 12 % (0-9); NEUT % 72 % (31-73); PLATELET COUNT 279 x10^3/uL (140-400); RED BLOOD COUNT 3.54 x10^6/uL (3.50-5.40); RED CELL DISTRIBUTION WIDTH 16.8 % (11.5-14.5); WHITE BLOOD COUNT 11.1 x10^3/uL (4.0-11.0)
[2021-01-30 07:44] LABS: CREATININE 2.3 mg/dL (0.6-1.0); GFR 25.8
[2021-01-30 07:48] LABS: ALBUMIN/GLOBULIN RATIO 0.4 (1.0-1.7); CALCIUM 8.7 mg/dL (8.5-10.1); POTASSIUM 4.4 mmol/L (3.5-5.1); TOTAL BILIRUBIN 0.4 mg/dL (0.2-1.0); TOTAL PROTEIN 6.5 g/dL (6.4-8.2)
[2021-01-30] MEDS ORDERED: ACETAMINOPHEN 325 MG TABLET. PO PRN (08:45)
[2021-01-30] MEDS: ASPIRIN ENTERIC COATED 81 MG TABLET.DR. PO SCH (09:00)
[2021-01-30] MEDS: CARVEDILOL 12.5 MG TABLET. PO SCH ×2 (09:00→14:17)
[2021-01-30] MEDS ORDERED: LACOSAMIDE 200 MG TABLET PO SCH (09:00)
[2021-01-30] MEDS: SERTRALINE 50 MG TABLET. PO SCH ×2 (09:00→19:42)
[2021-01-30] MEDS ORDERED: levETIRAcetam 500 MG TABLET PO SCH (09:00)
[2021-01-30] MEDS: PANTOPRAZOLE 40 MG TABLET.DR. PO SCH (09:00)
[2021-01-30] MEDS: IV NORMAL SALINE 1000ML BAG 1,000 ML IV SCH (10:23)
[2021-01-30] MEDS: hydrALAZINE 20 MG/ML VIAL. IVP PRN ×2 (10:23→20:26)
[2021-01-30] MEDS ORDERED: levETIRAcetam 500 MG in IV DEXTROSE 5% 100ML 100 ML IV SCH (10:30)
[2021-01-30 11:00] VITALS: BP 147/77
[2021-01-30] MEDS: INSULIN LISPRO 300 UNITS/3 ML VIAL. SQ SCH ×2 (11:40→16:49)
--- NOTE | 2021-01-30 14:03 | CONS ---
DATE OF CONSULTATION: 01/30/2021 NEPHROLOGY CONSULTATION REFERRING PHYSICIAN: Hospitalist. REASON FOR CONSULTATION: Renal failure. HISTORY OF PRESENT ILLNESS: A 65-year-old female with history of diabetes mellitus, hypertension, blindness, and apparent nonverbal state with unknown baseline as to the same. The patient admitted to the hospital with a seizure from her nursing facility. She has an increased level of azotemia and as such, Nephrology evaluation requested. It is unknown as to whether there is a history of underlying chronic kidney disease. PAST MEDICAL HISTORY: Diabetes mellitus, hypertension, hyperlipidemia, blindness. ALLERGIES: None. MEDICATIONS: Reviewed per medication list. FAMILY HISTORY: Unknown. SOCIAL HISTORY: The patient resides at [facility]. REVIEW OF SYSTEMS: Unable to assess due to the patient's mental state. PHYSICAL EXAMINATION: Due to PUI COVID-19, bedside examination not pursued. LABORATORY DATA: White count 11.1, hemoglobin 9.7, hematocrit 30.5, platelets are 279. On presentation creatinine 3.2, GFR 17.6. Currently, sodium 146, potassium 4.4, chloride 112, CO2 of 24, BUN 34, creatinine 2.3, GFR 25.8. Urine specific gravity greater than 1.030, 100 mg percent glucose, trace ketones, small blood, negative nitrite. IMPRESSION: Renal failure -- acute, likely at least in part dehydration. Unknown underlying renal status. She does have a history of diabetes mellitus, hypertension, which certainly could be contributing to underlying renal insufficiency. Overall, her renal function is improving with hydration. RECOMMENDATION: Continue hydration. Trend labs. Further investigation is warranted per response to the above. XENIA DR: Lyndsay TID: [id number]
[2021-01-30 15:00] VITALS: BP 143/101
--- NOTE | 2021-01-30 15:26 | PDOC1 ---
History and Physical Date of Service: DOS: DATE: 01/30/21 TIME: 15:18 Chief Complaint: Problems: (1) Altered mental status (2) Seizure (3) Acute renal failure (4) Hyperglycemia Chief Complain: Seizure History of Present Illness: HPI: HPI from emergency room "Patient is a 65 year old female with a history of diabetes type 2, blindness, hypertension, high cholesterol, among other illnesses who presents to the ED today [facility]. Patient is nonverbal, we do not know her baseline. Patient was sent to the ED for having seizures since 2 PM today. Patient has history of seizures. [facility] staff also informed EMS patient has nasal congestion and difficulty swallowing, unknown when this began." When I evaluated the patient she was in bed saying many nonsensical things. Unable to take any further history and patient unable to follow any commands.. Will attempt to contact her facility to establish some sort of baseline for the patient. Nephro and neurology consulted. Past Medical/Surgical History: PMH/PSH: Type 2 diabetes, hypertension, hyperlipidemia, blindness, depression Allergies: Allergies: Coded Allergies: No Known Drug Allergies (Unverified , 07/20/13) Family History: Family History: Unknown Social History: Social History: No alcohol tobacco or drug use per outside documentation. Current Medications: Current Medications Current Medications Lorazepam (Ativan Inj) 2 mg STK-MED ONCE .ROUTE ; Start 01/29/21 at 19:07; Stop 01/29/21 at 19:08; Status DC Lorazepam (Ativan Inj) 1 mg 1X ONCE IVP Last administered on 01/29/21at 19:45; Start 01/29/21 at 19:45; Stop 01/29/21 at 19:46; Status DC Sodium Chloride 1,000 ml @ 1,000 mls/hr 1X ONCE IV Last administered on 01/29/21at 20:42; Start 01/29/21 at 19:30; Stop 01/29/21 at 20:29; Status DC Levetiracetam 1000 mg/Dextrose 110 ml @ 440 mls/hr 1X ONCE IV Last administered on 01/29/21at 20:43; Start 01/29/21 at 20:30; Stop 01/29/21 at 20:44; Status DC Sodium Chloride 1,000 ml @ 1,000 mls/hr 1X ONCE IV Last administered on 01/29/21at 21:00; Start 01/29/21 at 21:00; Stop 01/29/21 at 21:59; Status DC Ondansetron HCl (Zofran) 4 mg PRN Q8HRS PRN IVP NAUSEA/VOMITING; Start 01/29/21 at 22:00; Stop 01/30/21 at 21:59 Sodium Chloride 1,000 ml @ 150 mls/hr 1X ONCE IV Last administered on 01/30/21at 00:16; Start 01/29/21 at 22:00; Stop 01/30/21 at 04:39; Status DC Ceftriaxone Sodium (Rocephin) 1 gm 1X ONCE IVP Last administered on 01/29/21at 23:38; Start 01/29/21 at 22:00; Stop 01/29/21 at 22:12; Status DC Acetaminophen (Tylenol) 650 mg PRN Q4HRS PRN PO MILD PAIN / TEMP > 100.3'F; Start 01/30/21 at 08:45 Amitriptyline HCl (Elavil) 25 mg HS PO ; Start 01/30/21 at 21:00 Amlodipine Besylate (Norvasc) 10 mg DAILY PO ; Start 01/30/21 at 09:00 Aspirin (Ecotrin) 81 mg DAILYWBKFT PO ; Start 01/30/21 at 09:00 Atorvastatin Calcium (Lipitor) 40 mg QHS PO ; Start 01/30/21 at 21:00 Lacosamide (Vimpat) 200 mg BID PO ; Start 01/30/21 at 09:00 Levetiracetam (Keppra) 500 mg BID PO ; Start 01/30/21 at 09:00; Stop 01/30/21 at 09:51; Status DC Trazodone HCl (Desyrel) 50 mg QHS PO ; Start 01/30/21 at 21:00 Carvedilol (Coreg) 25 mg BIDWMEALS PO ; Start 01/30/21 at 09:00 Insulin Human Lispro (HumaLOG) 4 units TIDWMEALS SQ Last administered on 01/30/21at 11:40; Start 01/30/21 at 12:00 Insulin Glargine (Lantus Syringe) 20 unit QHS SQ ; Start 01/30/21 at 21:00 Pantoprazole Sodium (Protonix) 40 mg DAILYAC PO ; Start 01/30/21 at 09:00 Sertraline HCl (Zoloft) 100 mg BID PO ; Start 01/30/21 at 09:00 Lorazepam (Ativan Inj) 2 mg PRN Q4HRS PRN IVP seizure Last administered on 01/30/21at 15:05; Start 01/30/21 at 08:45 Levetiracetam 500 mg/Dextrose 105 ml @ 420 mls/hr Q12HR IV Last administered on 01/30/21at 10:23; Start 01/30/21 at 10:30 Hydralazine HCl (Apresoline Inj) 10 mg PRN Q4HRS PRN IVP ELEVATED BP, SEE COMMENTS Last administered on 01/30/21at 10:23; Start 01/30/21 at 10:00 Sodium Chloride 1,000 ml @ 75 mls/hr [id number] IV Last administered on 01/30/21at 10:23; Start 01/30/21 at 10:00 Active Scripts Active Macrobid 100 Mg Capsule (Nitrofurantoin Monohyd/M-Cryst) 100 Mg Capsule 1 Cap PO BID 5 Days Augmentin 875-125 Tablet (Amoxicillin/Potassium Clav) 1 Each Tablet 1 Tab PO BID Aldactone (Spironolactone) 25 Mg Tablet 25 Mg PO DAILY 30 Days Metoprolol Tartrate 25 Mg Tablet 25 Mg PO BID 30 Days Levemir Flextouch (Insulin Detemir) 100 Unit/1 Ml Insuln.pen 20 Units SQ QHS 30 Days Novolog Flexpen (Insulin Aspart) 100 Unit/1 Ml Insuln.pen 4 Units SQ TIDAC 30 Days Bumetanide 1 Mg Tablet 1 Mg PO DAILY 30 Days Atorvastatin Calcium 40 Mg Tablet 40 Mg PO QHS 30 Days Aspirin Ec (Aspirin) 81 Mg Tablet.dr 81 Mg PO DAILYWBKFT 30 Days Reported Zyprexa (Olanzapine) 20 Mg Tablet 25 Mg PO DAILY Trazodone Hcl 50 Mg Tablet 1 Tab PO QHS Metformin Hcl 500 Mg Tablet 500 Mg PO DAILY Vimpat (Lacosamide) 200 Mg Tablet 200 Mg PO BID Keppra (Levetiracetam) 500 Mg Tablet 1 Tab PO BID 30 Days Carvedilol 25 Mg Tablet 25 Mg PO BIDWMEALS Amlodipine Besylate 10 Mg Tablet 10 Mg PO DAILY Alprazolam 1 Mg Tablet 1 Tab PO TID Tylenol (Acetaminophen) 325 Mg Tablet 2 Tab PO PRN Q4HRS Hydrocodone-Apap 7.5-325 (Hydrocodone Bit/Acetaminophen) 1 Each Tablet 1 Tab PO PRN Q6HRS PRN Amlodipine Besylate 5 Mg Tablet 5 Mg PO DAILY Baclofen 10 Mg Tablet 10 Mg PO BID Amitriptyline Hcl 25 Mg Tablet 25 Mg PO HS Hydrochlorothiazide Tablet (Hydrochlorothiazide) 25 Mg Tablet 25 Mg PO DAILY Dicyclomine Hcl 10 Mg Capsule 10 Mg PO BID Glyburide 5 Mg Tablet 5 Mg PO DAILY Lisinopril 40 Mg Tablet 40 Mg PO DAILY Sertraline Hcl 100 Mg Tablet 100 Mg PO BID Omeprazole 20 Mg Capsule.dr 20 Mg PO DAILY ROS: Review of Systems Review of System Cannot obtain Physical Exam: Vital Signs: Vital Signs Date Time Temp Pulse Resp B/P (MAP) Pulse Ox O2 Delivery O2 Flow Rate FiO2 01/30/21 14:17 98 147/77 01/30/21 11:00 98.2 18 99 Nasal Cannula 2.0 98.2 Physcial Exam: GEN: AAO x0, unintelligible speech HEENT: Normal cephalic, atraumatic, poor dentition EYES: Extraocular muscles are intact, MUSCULOSKELETAL: Well developed , well nourished, good range of motion LUNGS: Clear to auscultation in all lung holcomb without rhonchi or wheezing HEART: RRR, S1, S2 present. Peripheral pulses intact, no obvious murmurs noted ABDOMEN: Soft, nontender. Positive bowel sounds, no organomegaly, normal bowel sounds EXTREMITIES: Without clubbing, cyanosis, or edema. Pedal pulses intact. Negative Homans sign NEUROLOGIC: Unable to understand speech A&O x 0, moves all extremities, PSYCHIATRIC: Cannot be obtained SKIN: No ulcerations or rashes, good skin turgor, no jaundice VASCULAR: Good capillary refill, neurovascular bundle appears to be intact Labs: Labs: Laboratory Tests Test 01/29/21 19:15 01/29/21 20:00 01/29/21 20:45 01/29/21 21:00 Urine Collection Type U cath Urine Color Betty Urine Clarity Cloudy Urine pH 5.0 (<5.0-8.0) Urine Specific [place] >=1.030 (1.000-1.030) Urine Protein >=300 mg/dL (NEG-TRACE) Urine Glucose (UA) 100 mg/dL (NEG) Urine Ketones (Stick) Trace mg/dL (NEG) Urine Blood Small (NEG) Urine Nitrite Negative (NEG) Urine Bilirubin Moderate (NEG) Urine Urobilinogen Dipstick 1.0 mg/dL (0.2 mg/dL) Urine Leukocyte Esterase Small (NEG) Urine RBC 1-2 /HPF (0-2) Urine WBC 5-10 /HPF (0-4) Urine Squamous Epithelial Cells Many /LPF Urine Amorphous Sediment Present /HPF Urine Bacteria Few /HPF (0-FEW) Urine Hyaline Casts Many /HPF Urine Mucus Marked /LPF Urine Opiates Screen Neg (NEG) Urine Methadone Screen Neg (NEG) Urine Barbiturates Neg (NEG) Urine Phencyclidine Screen Neg (NEG) Urine Amphetamine/Methamphetamine Neg (NEG) Urine Benzodiazepines Screen Pos (NEG) Urine Cocaine Screen Neg (NEG) Urine Cannabinoids Screen Neg (NEG) Urine Ethyl Alcohol Neg (NEG) White Blood Count 12.0 x10^3/uL (4.0-11.0) Red Blood Count 3.98 x10^6/uL (3.50-5.40) Hemoglobin 11.0 g/dL (12.0-15.5) Hematocrit 34.1 % (36.0-47.0) Mean Corpuscular Volume 86 fL (79-100) Mean Corpuscular Hemoglobin 28 pg (25-35) Mean Corpuscular Hemoglobin Concent 32 g/dL (31-37) Red Cell Distribution Width 17.0 % (11.5-14.5) Platelet Count 255 x10^3/uL (140-400) Neutrophils (%) (Auto) 87 % (31-73) Lymphocytes (%) (Auto) 9 % (24-48) Monocytes (%) (Auto) 4 % (0-9) Eosinophils (%) (Auto) 0 % (0-3) Basophils (%) (Auto) 1 % (0-3) Neutrophils # (Auto) 10.4 x10^3/uL (1.8-7.7) Lymphocytes # (Auto) 1.0 x10^3/uL (1.0-4.8) Monocytes # (Auto) 0.5 x10^3/uL (0.0-1.1) Eosinophils # (Auto) 0.0 x10^3/uL (0.0-0.7) Basophils # (Auto) 0.1 x10^3/uL (0.0-0.2) Segmented Neutrophils % 90 % (35-66) Lymphocytes % 7 % (24-48) Monocytes % 3 % (0-10) Platelet Estimate Adequate (ADEQUATE) Sodium Level 144 mmol/L (136-145) Potassium Level 4.7 mmol/L (3.5-5.1) Chloride Level 108 mmol/L (98-107) Carbon Dioxide Level 28 mmol/L (21-32) Anion Gap 8 (6-14) Blood Urea Nitrogen 34 mg/dL (7-20) Creatinine 3.2 mg/dL (0.6-1.0) Estimated GFR (Cockcroft-Gault) 17.6 BUN/Creatinine Ratio 11 (6-20) Glucose Level 179 mg/dL (70-99) Calcium Level 9.5 mg/dL (8.5-10.1) Magnesium Level 1.9 mg/dL (1.8-2.4) Total Bilirubin 0.4 mg/dL (0.2-1.0) Aspartate Amino Transf (AST/SGOT) 26 U/L (15-37) Alanine Aminotransferase (ALT/SGPT) 31 U/L (14-59) Alkaline Phosphatase 138 U/L (46-116) Troponin I Quantitative 0.028 ng/mL (0.000-0.055) YC-Lnx-O-Type Natriuretic Peptide 604 pg/mL (0-124) Total Protein 7.6 g/dL (6.4-8.2) Albumin 2.6 g/dL (3.4-5.0) Albumin/Globulin Ratio 0.5 (1.0-1.7) Procalcitonin 0.10 ng/mL (0.00-0.10) Thyroid Stimulating Hormone (TSH) 1.144 uIU/mL (0.358-3.74) Influenza Type A Antigen Negative (NEGATIVE) Influenza Type B Antigen Negative (NEGATIVE) SARS-CoV-2 RNA (CARLA) Negative (Negative) SARS-CoV-2 Antigen (Rapid) Negative (NEGATIVE) Lactic Acid Level 1.3 mmol/L (0.4-2.0) Test 01/30/21 01:50 9/6/21 04:55 01/30/21 08:12 01/30/21 11:30 Troponin I Quantitative 0.041 ng/mL (0.000-0.055) White Blood Count 11.1 x10^3/uL (4.0-11.0) Red Blood Count 3.54 x10^6/uL (3.50-5.40) Hemoglobin 9.7 g/dL (12.0-15.5) Hematocrit 30.5 % (36.0-47.0) Mean Corpuscular Volume 86 fL (79-100) Mean Corpuscular Hemoglobin 27 pg (25-35) Mean Corpuscular Hemoglobin Concent 32 g/dL (31-37) Red Cell Distribution Width 16.8 % (11.5-14.5) Platelet Count 279 x10^3/uL (140-400) Neutrophils (%) (Auto) 72 % (31-73) Lymphocytes (%) (Auto) 16 % (24-48) Monocytes (%) (Auto) 12 % (0-9) Eosinophils (%) (Auto) 1 % (0-3) Basophils (%) (Auto) 0 % (0-3) Neutrophils # (Auto) 8.0 x10^3/uL (1.8-7.7) Lymphocytes # (Auto) 1.8 x10^3/uL (1.0-4.8) Monocytes # (Auto) 1.3 x10^3/uL (0.0-1.1) Eosinophils # (Auto) 0.1 x10^3/uL (0.0-0.7) Basophils # (Auto) 0.0 x10^3/uL (0.0-0.2) Sodium Level 146 mmol/L (136-145) Potassium Level 4.4 mmol/L (3.5-5.1) Chloride Level 112 mmol/L (98-107) Carbon Dioxide Level 24 mmol/L (21-32) Anion Gap 10 (6-14) Blood Urea Nitrogen 34 mg/dL (7-20) Creatinine 2.3 mg/dL (0.6-1.0) Estimated GFR (Cockcroft-Gault) 25.8 BUN/Creatinine Ratio 15 (6-20) Glucose Level 118 mg/dL (70-99) Calcium Level 8.7 mg/dL (8.5-10.1) Total Bilirubin 0.4 mg/dL (0.2-1.0) Aspartate Amino Transf (AST/SGOT) 33 U/L (15-37) Alanine Aminotransferase (ALT/SGPT) 24 U/L (14-59) Alkaline Phosphatase 110 U/L (46-116) Total Protein 6.5 g/dL (6.4-8.2) Albumin 2.0 g/dL (3.4-5.0) Albumin/Globulin Ratio 0.4 (1.0-1.7) Glucose (Fingerstick) 121 mg/dL (70-99) 190 mg/dL (70-99) Laboratory Tests Test 01/29/21 19:15 01/29/21 20:00 01/29/21 20:45 01/29/21 21:00 Urine Collection Type U cath Urine Color Betty Urine Clarity Cloudy Urine pH 5.0 (<5.0-8.0) Urine Specific [place] >=1.030 (1.000-1.030) Urine Protein >=300 mg/dL (NEG-TRACE) Urine Glucose (UA) 100 mg/dL (NEG) Urine Ketones (Stick) Trace mg/dL (NEG) Urine Blood Small (NEG) Urine Nitrite Negative (NEG) Urine Bilirubin Moderate (NEG) Urine Urobilinogen Dipstick 1.0 mg/dL (0.2 mg/dL) Urine Leukocyte Esterase Small (NEG) Urine RBC 1-2 /HPF (0-2) Urine WBC 5-10 /HPF (0-4) Urine Squamous Epithelial Cells Many /LPF Urine Amorphous Sediment Present /HPF Urine Bacteria Few /HPF (0-FEW) Urine Hyaline Casts Many /HPF Urine Mucus Marked /LPF Urine Opiates Screen Neg (NEG) Urine Methadone Screen Neg (NEG) Urine Barbiturates Neg (NEG) Urine Phencyclidine Screen Neg (NEG) Urine Amphetamine/Methamphetamine Neg (NEG) Urine Benzodiazepines Screen Pos (NEG) Urine Cocaine Screen Neg (NEG) Urine Cannabinoids Screen Neg (NEG) Urine Ethyl Alcohol Neg (NEG) White Blood Count 12.0 x10^3/uL (4.0-11.0) Red Blood Count 3.98 x10^6/uL (3.50-5.40) Hemoglobin 11.0 g/dL (12.0-15.5) Hematocrit 34.1 % (36.0-47.0) Mean Corpuscular Volume 86 fL (79-100) Mean Corpuscular Hemoglobin 28 pg (25-35) Mean Corpuscular Hemoglobin Concent 32 g/dL (31-37) Red Cell Distribution Width 17.0 % (11.5-14.5) Platelet Count 255 x10^3/uL (140-400) Neutrophils (%) (Auto) 87 % (31-73) Lymphocytes (%) (Auto) 9 % (24-48) Monocytes (%) (Auto) 4 % (0-9) Eosinophils (%) (Auto) 0 % (0-3) Basophils (%) (Auto) 1 % (0-3) Neutrophils # (Auto) 10.4 x10^3/uL (1.8-7.7) Lymphocytes # (Auto) 1.0 x10^3/uL (1.0-4.8) Monocytes # (Auto) 0.5 x10^3/uL (0.0-1.1) Eosinophils # (Auto) 0.0 x10^3/uL (0.0-0.7) Basophils # (Auto) 0.1 x10^3/uL (0.0-0.2) Segmented Neutrophils % 90 % (35-66) Lymphocytes % 7 % (24-48) Monocytes % 3 % (0-10) Platelet Estimate Adequate (ADEQUATE) Sodium Level 144 mmol/L (136-145) Potassium Level 4.7 mmol/L (3.5-5.1) Chloride Level 108 mmol/L (98-107) Carbon Dioxide Level 28 mmol/L (21-32) Anion Gap 8 (6-14) Blood Urea Nitrogen 34 mg/dL (7-20) Creatinine 3.2 mg/dL (0.6-1.0) Estimated GFR (Cockcroft-Gault) 17.6 BUN/Creatinine Ratio 11 (6-20) Glucose Level 179 mg/dL (70-99) Calcium Level 9.5 mg/dL (8.5-10.1) Magnesium Level 1.9 mg/dL (1.8-2.4) Total Bilirubin 0.4 mg/dL (0.2-1.0) Aspartate Amino Transf (AST/SGOT) 26 U/L (15-37) Alanine Aminotransferase (ALT/SGPT) 31 U/L (14-59) Alkaline Phosphatase 138 U/L (46-116) Troponin I Quantitative 0.028 ng/mL (0.000-0.055) LN-Piz-L-Type Natriuretic Peptide 604 pg/mL (0-124) Total Protein 7.6 g/dL (6.4-8.2) Albumin 2.6 g/dL (3.4-5.0) Albumin/Globulin Ratio 0.5 (1.0-1.7) Procalcitonin 0.10 ng/mL (0.00-0.10) Thyroid Stimulating Hormone (TSH) 1.144 uIU/mL (0.358-3.74) Influenza Type A Antigen Negative (NEGATIVE) Influenza Type B Antigen Negative (NEGATIVE) SARS-CoV-2 RNA (CARLA) Negative (Negative) SARS-CoV-2 Antigen (Rapid) Negative (NEGATIVE) Lactic Acid Level 1.3 mmol/L (0.4-2.0) Test 01/30/21 01:50 01/30/21 04:55 01/30/21 08:12 01/30/21 11:30 Troponin I Quantitative 0.041 ng/mL (0.000-0.055) White Blood Count 11.1 x10^3/uL (4.0-11.0) Red Blood Count 3.54 x10^6/uL (3.50-5.40) Hemoglobin 9.7 g/dL (12.0-15.5) Hematocrit 30.5 % (36.0-47.0) Mean Corpuscular Volume 86 fL (79-100) Mean Corpuscular Hemoglobin 27 pg (25-35) Mean Corpuscular Hemoglobin Concent 32 g/dL (31-37) Red Cell Distribution Width 16.8 % (11.5-14.5) Platelet Count 279 x10^3/uL (140-400) Neutrophils (%) (Auto) 72 % (31-73) Lymphocytes (%) (Auto) 16 % (24-48) Monocytes (%) (Auto) 12 % (0-9) Eosinophils (%) (Auto) 1 % (0-3) Basophils (%) (Auto) 0 % (0-3) Neutrophils # (Auto) 8.0 x10^3/uL (1.8-7.7) Lymphocytes # (Auto) 1.8 x10^3/uL (1.0-4.8) Monocytes # (Auto) 1.3 x10^3/uL (0.0-1.1) Eosinophils # (Auto) 0.1 x10^3/uL (0.0-0.7) Basophils # (Auto) 0.0 x10^3/uL (0.0-0.2) Sodium Level 146 mmol/L (136-145) Potassium Level 4.4 mmol/L (3.5-5.1) Chloride Level 112 mmol/L (98-107) Carbon Dioxide Level 24 mmol/L (21-32) Anion Gap 10 (6-14) Blood Urea Nitrogen 34 mg/dL (7-20) Creatinine 2.3 mg/dL (0.6-1.0) Estimated GFR (Cockcroft-Gault) 25.8 BUN/Creatinine Ratio 15 (6-20) Glucose Level 118 mg/dL (70-99) Calcium Level 8.7 mg/dL (8.5-10.1) Total Bilirubin 0.4 mg/dL (0.2-1.0) Aspartate Amino Transf (AST/SGOT) 33 U/L (15-37) Alanine Aminotransferase (ALT/SGPT) 24 U/L (14-59) Alkaline Phosphatase 110 U/L (46-116) Total Protein 6.5 g/dL (6.4-8.2) Albumin 2.0 g/dL (3.4-5.0) Albumin/Globulin Ratio 0.4 (1.0-1.7) Glucose (Fingerstick) 121 mg/dL (70-99) 190 mg/dL (70-99) Assessment/Plan Assessment/Plan Seizure disorder, altered mental status, acute kidney injury secondary to vasomotor nephropathy, type 2 diabetes -Presented from outside facility with altered mental status and seizure-like activity -Had seizure in emergency room and she was given Ativan along with Keppra loaded with seizure cessation -Unknown patient's baseline status, no family around at bedside will attempt to contact her facility -Neurology consulted -Elevated creatinine on presentation, suspect due to dehydration; nephrology following -Home meds resumed as indicated -Patient started on insulin for blood sugar control -N.p.o. until speech evaluation Justifications for Admission Other Justification ALEXANDRIA ALVARADO MD Jan 30, 2021 15:26
[2021-01-30 19:00] VITALS: BP 181/91
[2021-01-30] MEDS ORDERED: LACOSAMIDE 200 MG in IV DEXTROSE 5% 50 ML IV ONE (19:30)
[2021-01-30] MEDS: INSULIN GLARGINE SYRINGE. SQ SCH (19:37)
[2021-01-30] MEDS: AMITRIPTYLINE HCL 25 MG TABLET. PO SCH (19:42)
[2021-01-30] MEDS: ATORVASTATIN CALCIUM 40 MG TABLET. PO SCH (19:42)
[2021-01-30] MEDS: traZODone 50 MG TABLET. PO SCH (19:42)
[2021-01-30] MEDS: levETIRAcetam 250 MG in IV DEXTROSE 5% 100ML 100 ML IV SCH (21:00)
[2021-01-30 23:30] VITALS: BP 174/100
[2021-01-31] MEDS: IV NORMAL SALINE 1000ML BAG 1,000 ML IV SCH (00:20)
[2021-01-31] MEDS: hydrALAZINE 20 MG/ML VIAL. IVP PRN ×2 (00:27→04:27)
[2021-01-31] MEDS ORDERED: HALOPERIDOL LACTATE 5 MG/ML VIAL. IM ONE (01:00)
--- NOTE | 2021-01-31 01:48 | CONS ---
DATE OF CONSULTATION: 01/30/2021 REFERRING PHYSICIAN: Dr. Werner Soriano. REASON FOR CONSULTATION: Seizure. HISTORY OF PRESENT ILLNESS: The patient is a 65-year-old woman who is residing in a [facility]. They contacted EMS because of nasal congestion, difficulty swallowing and seizure. At the time of presentation to our emergency room, she was nonverbal and the baseline was not known. She had a seizure at 2:00 p.m. today. According to the records, she does have a history of seizure, but it does not sound as if she was on anticonvulsant. She also has a history of diabetes, blindness, hypertension and high cholesterol. In review of some of her records, she also has a history of polysubstance abuse with overdosage requiring ventilatory support. The patient is not able to provide any meaningful history. I did speak with her nurse who states that the day nurses did contact the facility and her baseline is confused and talking to people that are not there. PAST MEDICAL HISTORY: 1. Type 2 diabetes. 2. Hypertension. 3. Hyperlipidemia. 4. Blindness. 5. Depression. 6. History of substance abuse with overdose. ALLERGIES: No known allergies to drugs. MEDICATIONS PRIOR TO ADMISSION: Tylenol as needed, alprazolam 1 mg 3 times per day, amitriptyline 25 mg at night, amlodipine 10 mg daily, Augmentin twice per day for 14 days, aspirin 81 mg, atorvastatin 40 mg, baclofen 10 mg twice per day, bumetanide 1 mg, carvedilol 25 mg twice per day, dicyclomine 10 mg twice per day, glyburide 5 mg, hydrochlorothiazide 25 mg, hydrocodone/acetaminophen every 6 hours as needed, insulin, lacosamide 200 mg twice per day, levetiracetam 500 mg twice per day, lisinopril 40 mg, metformin 500 mg, metoprolol 25 mg twice per day, nitrofurantoin twice per day, olanzapine 25 mg, omeprazole 20 mg, sertraline 100 mg twice per day, spironolactone 25 mg and trazodone 50 mg at night. FAMILY HISTORY: Noncontributory. SOCIAL HISTORY: She is residing in a facility. REVIEW OF SYSTEMS: She is not a reliable historian. She denies pain. She denies shortness of breath. PHYSICAL EXAMINATION: VITAL SIGNS: Blood pressure was 143/100, pulse 93, respirations 18, temperature 98.7 degrees Fahrenheit. Oximetry was 98% on 2 liters nasal cannula. Her weight was 84.1 kilograms, height 67 inches with a calculated body mass index of 29. NEUROLOGIC: She was in her bed towards the top of her bed, putting her weight on her side and on her right shoulder. She would not lie back. She was minimally cooperative for the examination. She was able to say a few words. She was not oriented in the slightest. Examination of the cranial nerves revealed that visual holcomb were not testable due to blindness. The eyes were conjugate. Pupils appeared 3 mm. Facial sensation was intact to sharp. She had a left facial droop. Hearing was intact to loud clap. She did try to protrude her tongue, but did not accomplish the task. Muscle bulk appeared symmetric. She resisted movement. Power was difficult to assess due to lack of cooperation. Reflexes appeared 1-2/4 and symmetric. Toes were not upgoing. Sensory exam was intact to cold thermal, vibration and sharp. Gait was not testable. Auscultation of the carotid arteries did not reveal a bruit. HEART: Rhythm was regular. EXTREMITIES: Peripheral pulses were symmetric in the wrists. LABORATORY RESULTS: CBC revealed a white count of 11.1, hemoglobin of 9.7, hematocrit 30.5 and platelet count 279. Chemistries were performed on 01/30/2021 revealing a sodium of 146. Chloride was elevated to 112. Potassium and CO2 were normal. BUN was elevated to 34 and creatinine 2.3 with a GFR that calculated at 25.8. Glucose was 118. Calcium was normal. Liver enzymes were not elevated. Total protein was normal, but albumin was low at 2. TSH from 01/29/2021 was normal. Procalcitonin from the same date was not elevated. Troponin was not elevated. BNP was elevated to 604. Urine drug screen was positive for benzodiazepine. Serology revealed SARS-CoV-2 RNA as well as antigen were both negative. Influenza negative. Urinalysis revealed a high specific gravity of urine of greater than 1.030. There were 300 mg/dL of protein, 100 mg/dL of glucose, trace ketones, small blood, moderate bilirubin, small leukocyte esterase, 1-2 red cells, 5-10 white cells, many squamous epithelial cells, few bacteria and many, hyaline casts. DIAGNOSTIC RESULTS: Head CT was performed on 01/29/2021 revealing chronic changes without any acute intracranial abnormality. Chest x-ray was performed on 01/29/2021 revealing no acute pulmonary process. IMPRESSION: The patient is a 65-year-old woman who resides in a [facility] with severe cognitive deficit. In review of records, she was here in 2018 and 2016. These admissions were related to substance abuse and overdose. I am not certain what has happened in the intervening 3 years. It sounds as if her baseline is now confused. Her current state makes it very difficult to perform an exam and she is awake enough to resist. She would not get off of her left side in a curled up position. RECOMMENDATIONS: We will arrange for an MRI brain for the morning to see if there is evidence for an acute process. In looking at her medications, she is already on anticonvulsants at good dosages. I have taken the liberty to temporarily reduce the levetiracetam dosage until her renal function improves due to it would be accumulating. Her GFR only calculates to 25. I have reduced the levetiracetam to 250 mg twice per day. She is receiving extra 1000 mg in the emergency room. I appreciate being involved in her care. JOSEPH/ROMANA/ALYSSIA DR: Maciej TID: [id number] CC: MARICEL TORRES MD
[2021-01-31 03:07] VITALS: BP 197/125
[2021-01-31 06:33] LABS: ALBUMIN 2.4 g/dL (3.4-5.0); ALBUMIN/GLOBULIN RATIO 0.5 (1.0-1.7); CREATININE 1.3 mg/dL (0.6-1.0); GFR 49.9; POTASSIUM 3.7 mmol/L (3.5-5.1); TOTAL BILIRUBIN 0.6 mg/dL (0.2-1.0); TOTAL PROTEIN 7.1 g/dL (6.4-8.2)
[2021-01-31 07:00] VITALS: BP 168/81
[2021-01-31] MEDS: INSULIN LISPRO 300 UNITS/3 ML VIAL. SQ SCH ×3 (08:00→18:25)
[2021-01-31] MEDS: PANTOPRAZOLE 40 MG TABLET.DR. PO SCH (08:21)
[2021-01-31] MEDS: CARVEDILOL 12.5 MG TABLET. PO SCH ×2 (08:21→18:21)
[2021-01-31] MEDS: ASPIRIN ENTERIC COATED 81 MG TABLET.DR. PO SCH (08:22)
[2021-01-31] MEDS: SERTRALINE 50 MG TABLET. PO SCH ×2 (08:22→20:55)
[2021-01-31] MEDS: LACOSAMIDE 150 MG in IV DEXTROSE 5% 50 ML IV SCH ×2 (08:24→20:53)
[2021-01-31] MEDS: levETIRAcetam 250 MG in IV DEXTROSE 5% 100ML 100 ML IV SCH (09:59)
--- NOTE | 2021-01-31 10:50 | NUR ---
SW following. Discussed with RN. PT from [facility], 2L, NPO -speech eval pending. PT/OT/ST ordered. COVID-19 negative. Pt on IV Keppra. SW will continue to follow.
[2021-01-31 11:00] VITALS: BP 155/72
--- NOTE | 2021-01-31 11:23 | PDOC ---
Renal-Progress Notes Subjective Notes Notes NO COMPLAINTS History of Present Illness Hx of present illness CONFUSED Vitals Vitals Vital Signs Date Time Temp Pulse Resp B/P (MAP) Pulse Ox O2 Delivery O2 Flow Rate FiO2 01/31/21 07:00 98.2 90 20 168/81 (110) 99 Nasal Cannula 2.0 98.2 Weight Weight [ ] I.O. Intake and Output Intake and Output 01/31/21 07:00 Intake Total 0 ml Balance 0 ml Intake Oral 0 ml # Voids 4 Labs Labs Laboratory Tests Test 01/30/21 11:30 01/30/21 16:46 01/30/21 19:22 01/31/21 05:55 Glucose (Fingerstick) 190 mg/dL (70-99) 113 mg/dL (70-99) 144 mg/dL (70-99) Sodium Level 149 mmol/L (136-145) Potassium Level 3.7 mmol/L (3.5-5.1) Chloride Level 115 mmol/L (98-107) Carbon Dioxide Level 26 mmol/L (21-32) Anion Gap 8 (6-14) Blood Urea Nitrogen 18 mg/dL (7-20) Creatinine 1.3 mg/dL (0.6-1.0) Estimated GFR (Cockcroft-Gault) 49.9 BUN/Creatinine Ratio 14 (6-20) Glucose Level 161 mg/dL (70-99) Calcium Level 9.0 mg/dL (8.5-10.1) Total Bilirubin 0.6 mg/dL (0.2-1.0) Aspartate Amino Transf (AST/SGOT) 36 U/L (15-37) Alanine Aminotransferase (ALT/SGPT) 24 U/L (14-59) Alkaline Phosphatase 123 U/L (46-116) Total Protein 7.1 g/dL (6.4-8.2) Albumin 2.4 g/dL (3.4-5.0) Albumin/Globulin Ratio 0.5 (1.0-1.7) Test 01/31/21 08:26 Glucose (Fingerstick) 188 mg/dL (70-99) Micro Micro Microbiology 01/29/21 Blood Culture - Preliminary, Resulted NO GROWTH AFTER 1 DAY Review of Systems Constitutional: yes: other (CONFUSED) Physical Exam General Appearance: no apparent distress Skin: warm Respiratory: bilateral CTA Heart: S1S2 Abdomen: soft, bowel sounds present Musculoskeletal: Osteoarthritis Assessment Assessment IMP MEHDI-IMIPROVED WITH CR OF 1.3 FROM 3.2-NO CKD DEHYDRATION HYPERNATREMIA SEIZURE DM II PLAN CONT SUPPORTIVE CARE CHANGE IV TO HYPOTONIC SALINE LABS IN AM WILL FOLLOW QAMAR DOUGLAS MD Jan 31, 2021 11:23
[2021-01-31] MEDS: IV 1/2 NORMAL SALINE 1,000 ML IV SCH (12:08)
--- NOTE | 2021-01-31 14:46 | PDOC ---
PROGRESS NOTES Date of Service DATE: 01/31/21 TIME: 14:37 Assessment Problems Medical Problems: (1) Acute renal failure Status: Acute (2) Altered mental status Status: Acute (3) Seizure Status: Acute (4) Urinary tract infection Status: Acute Epilepsy, seizure, shelter resident Metabolic encephalopathy, urinary tract infection, acute kidney injury with dehydration and hypernatremia Blindness History of polysubstance abuse with overdoses Type 2 diabetes, hypertension, hyperlipidemia, depression. Plan Await MRI brain Temporarily reduced the levetiracetam dosage until her renal function improves, continue lacosasmide, both IV for now Treat medical issues Objective Vital Signs Date Time Temp Pulse Resp B/P (MAP) Pulse Ox O2 Delivery O2 Flow Rate FiO2 01/31/21 11:00 97.7 94 18 155/72 (99) 98 Nasal Cannula 2.0 97.7 Intake and Output 01/31/21 07:00 Intake Total 0 ml Balance 0 ml Intake Oral 0 ml # Voids 4 PHYSICAL EXAM Alert. Oriented only to person. PERRL. EOMI. CN: Bilateral blindness Muscle tone: gegenhalten tone Muscle strength: 3/5 DTR: 1+ Plantar reflex: silent Gait: not examined in bed. Sensory exam: no abnormal findings. No cerebellar signs elicited. Review of Relevant I have reviewed the following items toan (where applicable) has been applied. Labs Laboratory Tests Test 01/29/21 19:15 01/29/21 20:00 01/29/21 20:45 01/29/21 21:00 Urine Collection Type U cath Urine Color Betty Urine Clarity Cloudy Urine pH 5.0 (<5.0-8.0) Urine Specific [place] >=1.030 (1.000-1.030) Urine Protein >=300 mg/dL (NEG-TRACE) Urine Glucose (UA) 100 mg/dL (NEG) Urine Ketones (Stick) Trace mg/dL (NEG) Urine Blood Small (NEG) Urine Nitrite Negative (NEG) Urine Bilirubin Moderate (NEG) Urine Urobilinogen Dipstick 1.0 mg/dL (0.2 mg/dL) Urine Leukocyte Esterase Small (NEG) Urine RBC 1-2 /HPF (0-2) Urine WBC 5-10 /HPF (0-4) Urine Squamous Epithelial Cells Many /LPF Urine Amorphous Sediment Present /HPF Urine Bacteria Few /HPF (0-FEW) Urine Hyaline Casts Many /HPF Urine Mucus Marked /LPF Urine Opiates Screen Neg (NEG) Urine Methadone Screen Neg (NEG) Urine Barbiturates Neg (NEG) Urine Phencyclidine Screen Neg (NEG) Urine Amphetamine/Methamphetamine Neg (NEG) Urine Benzodiazepines Screen Pos (NEG) Urine Cocaine Screen Neg (NEG) Urine Cannabinoids Screen Neg (NEG) Urine Ethyl Alcohol Neg (NEG) White Blood Count 12.0 x10^3/uL (4.0-11.0) Red Blood Count 3.98 x10^6/uL (3.50-5.40) Hemoglobin 11.0 g/dL (12.0-15.5) Hematocrit 34.1 % (36.0-47.0) Mean Corpuscular Volume 86 fL (79-100) Mean Corpuscular Hemoglobin 28 pg (25-35) Mean Corpuscular Hemoglobin Concent 32 g/dL (31-37) Red Cell Distribution Width 17.0 % (11.5-14.5) Platelet Count 255 x10^3/uL (140-400) Neutrophils (%) (Auto) 87 % (31-73) Lymphocytes (%) (Auto) 9 % (24-48) Monocytes (%) (Auto) 4 % (0-9) Eosinophils (%) (Auto) 0 % (0-3) Basophils (%) (Auto) 1 % (0-3) Neutrophils # (Auto) 10.4 x10^3/uL (1.8-7.7) Lymphocytes # (Auto) 1.0 x10^3/uL (1.0-4.8) Monocytes # (Auto) 0.5 x10^3/uL (0.0-1.1) Eosinophils # (Auto) 0.0 x10^3/uL (0.0-0.7) Basophils # (Auto) 0.1 x10^3/uL (0.0-0.2) Segmented Neutrophils % 90 % (35-66) Lymphocytes % 7 % (24-48) Monocytes % 3 % (0-10) Platelet Estimate Adequate (ADEQUATE) Sodium Level 144 mmol/L (136-145) Potassium Level 4.7 mmol/L (3.5-5.1) Chloride Level 108 mmol/L (98-107) Carbon Dioxide Level 28 mmol/L (21-32) Anion Gap 8 (6-14) Blood Urea Nitrogen 34 mg/dL (7-20) Creatinine 3.2 mg/dL (0.6-1.0) Estimated GFR (Cockcroft-Gault) 17.6 BUN/Creatinine Ratio 11 (6-20) Glucose Level 179 mg/dL (70-99) Calcium Level 9.5 mg/dL (8.5-10.1) Magnesium Level 1.9 mg/dL (1.8-2.4) Total Bilirubin 0.4 mg/dL (0.2-1.0) Aspartate Amino Transf (AST/SGOT) 26 U/L (15-37) Alanine Aminotransferase (ALT/SGPT) 31 U/L (14-59) Alkaline Phosphatase 138 U/L (46-116) Troponin I Quantitative 0.028 ng/mL (0.000-0.055) EX-Gxp-B-Type Natriuretic Peptide 604 pg/mL (0-124) Total Protein 7.6 g/dL (6.4-8.2) Albumin 2.6 g/dL (3.4-5.0) Albumin/Globulin Ratio 0.5 (1.0-1.7) Procalcitonin 0.10 ng/mL (0.00-0.10) Thyroid Stimulating Hormone (TSH) 1.144 uIU/mL (0.358-3.74) Influenza Type A Antigen Negative (NEGATIVE) Influenza Type B Antigen Negative (NEGATIVE) SARS-CoV-2 RNA (CARLA) Negative (Negative) SARS-CoV-2 Antigen (Rapid) Negative (NEGATIVE) Lactic Acid Level 1.3 mmol/L (0.4-2.0) Test 01/30/21 01:50 01/30/21 04:55 01/30/21 08:12 01/30/21 11:30 Troponin I Quantitative 0.041 ng/mL (0.000-0.055) White Blood Count 11.1 x10^3/uL (4.0-11.0) Red Blood Count 3.54 x10^6/uL (3.50-5.40) Hemoglobin 9.7 g/dL (12.0-15.5) Hematocrit 30.5 % (36.0-47.0) Mean Corpuscular Volume 86 fL (79-100) Mean Corpuscular Hemoglobin 27 pg (25-35) Mean Corpuscular Hemoglobin Concent 32 g/dL (31-37) Red Cell Distribution Width 16.8 % (11.5-14.5) Platelet Count 279 x10^3/uL (140-400) Neutrophils (%) (Auto) 72 % (31-73) Lymphocytes (%) (Auto) 16 % (24-48) Monocytes (%) (Auto) 12 % (0-9) Eosinophils (%) (Auto) 1 % (0-3) Basophils (%) (Auto) 0 % (0-3) Neutrophils # (Auto) 8.0 x10^3/uL (1.8-7.7) Lymphocytes # (Auto) 1.8 x10^3/uL (1.0-4.8) Monocytes # (Auto) 1.3 x10^3/uL (0.0-1.1) Eosinophils # (Auto) 0.1 x10^3/uL (0.0-0.7) Basophils # (Auto) 0.0 x10^3/uL (0.0-0.2) Sodium Level 146 mmol/L (136-145) Potassium Level 4.4 mmol/L (3.5-5.1) Chloride Level 112 mmol/L (98-107) Carbon Dioxide Level 24 mmol/L (21-32) Anion Gap 10 (6-14) Blood Urea Nitrogen 34 mg/dL (7-20) Creatinine 2.3 mg/dL (0.6-1.0) Estimated GFR (Cockcroft-Gault) 25.8 BUN/Creatinine Ratio 15 (6-20) Glucose Level 118 mg/dL (70-99) Calcium Level 8.7 mg/dL (8.5-10.1) Total Bilirubin 0.4 mg/dL (0.2-1.0) Aspartate Amino Transf (AST/SGOT) 33 U/L (15-37) Alanine Aminotransferase (ALT/SGPT) 24 U/L (14-59) Alkaline Phosphatase 110 U/L (46-116) Total Protein 6.5 g/dL (6.4-8.2) Albumin 2.0 g/dL (3.4-5.0) Albumin/Globulin Ratio 0.4 (1.0-1.7) Glucose (Fingerstick) 121 mg/dL (70-99) 190 mg/dL (70-99) Test 01/30/21 16:46 01/30/21 19:22 01/31/21 05:55 01/31/21 08:26 Glucose (Fingerstick) 113 mg/dL (70-99) 144 mg/dL (70-99) 188 mg/dL (70-99) Sodium Level 149 mmol/L (136-145) Potassium Level 3.7 mmol/L (3.5-5.1) Chloride Level 115 mmol/L (98-107) Carbon Dioxide Level 26 mmol/L (21-32) Anion Gap 8 (6-14) Blood Urea Nitrogen 18 mg/dL (7-20) Creatinine 1.3 mg/dL (0.6-1.0) Estimated GFR (Cockcroft-Gault) 49.9 BUN/Creatinine Ratio 14 (6-20) Glucose Level 161 mg/dL (70-99) Calcium Level 9.0 mg/dL (8.5-10.1) Total Bilirubin 0.6 mg/dL (0.2-1.0) Aspartate Amino Transf (AST/SGOT) 36 U/L (15-37) Alanine Aminotransferase (ALT/SGPT) 24 U/L (14-59) Alkaline Phosphatase 123 U/L (46-116) Total Protein 7.1 g/dL (6.4-8.2) Albumin 2.4 g/dL (3.4-5.0) Albumin/Globulin Ratio 0.5 (1.0-1.7) Test 01/31/21 11:54 Glucose (Fingerstick) 192 mg/dL (70-99) Laboratory Tests Test 01/30/21 16:46 01/30/21 19:22 01/31/21 05:55 01/31/21 08:26 Glucose (Fingerstick) 113 mg/dL (70-99) 144 mg/dL (70-99) 188 mg/dL (70-99) Sodium Level 149 mmol/L (136-145) Potassium Level 3.7 mmol/L (3.5-5.1) Chloride Level 115 mmol/L (98-107) Carbon Dioxide Level 26 mmol/L (21-32) Anion Gap 8 (6-14) Blood Urea Nitrogen 18 mg/dL (7-20) Creatinine 1.3 mg/dL (0.6-1.0) Estimated GFR (Cockcroft-Gault) 49.9 BUN/Creatinine Ratio 14 (6-20) Glucose Level 161 mg/dL (70-99) Calcium Level 9.0 mg/dL (8.5-10.1) Total Bilirubin 0.6 mg/dL (0.2-1.0) Aspartate Amino Transf (AST/SGOT) 36 U/L (15-37) Alanine Aminotransferase (ALT/SGPT) 24 U/L (14-59) Alkaline Phosphatase 123 U/L (46-116) Total Protein 7.1 g/dL (6.4-8.2) Albumin 2.4 g/dL (3.4-5.0) Albumin/Globulin Ratio 0.5 (1.0-1.7) Test 01/31/21 11:54 Glucose (Fingerstick) 192 mg/dL (70-99) Microbiology 01/29/21 Blood Culture - Preliminary, Resulted NO GROWTH AFTER 1 DAY Medications Current Medications Lorazepam (Ativan Inj) 2 mg STK-MED ONCE .ROUTE ; Start 01/29/21 at 19:07; Stop 01/29/21 at 19:08; Status DC Lorazepam (Ativan Inj) 1 mg 1X ONCE IVP Last administered on 01/29/21at 19:45; Start 01/29/21 at 19:45; Stop 01/29/21 at 19:46; Status DC Sodium Chloride 1,000 ml @ 1,000 mls/hr 1X ONCE IV Last administered on 01/29/21at 20:42; Start 01/29/21 at 19:30; Stop 01/29/21 at 20:29; Status DC Levetiracetam 1000 mg/Dextrose 110 ml @ 440 mls/hr 1X ONCE IV Last administered on 01/29/21at 20:43; Start 01/29/21 at 20:30; Stop 01/29/21 at 20:44; Status DC Sodium Chloride 1,000 ml @ 1,000 mls/hr 1X ONCE IV Last administered on 01/29/21at 21:00; Start 01/29/21 at 21:00; Stop 01/29/21 at 21:59; Status DC Ondansetron HCl (Zofran) 4 mg PRN Q8HRS PRN IVP NAUSEA/VOMITING; Start 01/29/21 at 22:00; Stop 01/30/21 at 21:59; Status DC Sodium Chloride 1,000 ml @ 150 mls/hr 1X ONCE IV Last administered on 01/30/21at 00:16; Start 01/29/21 at 22:00; Stop 01/30/21 at 04:39; Status DC Ceftriaxone Sodium (Rocephin) 1 gm 1X ONCE IVP Last administered on 01/29/21at 23:38; Start 01/29/21 at 22:00; Stop 01/29/21 at 22:12; Status DC Acetaminophen (Tylenol) 650 mg PRN Q4HRS PRN PO MILD PAIN / TEMP > 100.3'F; Start 01/30/21 at 08:45 Amitriptyline HCl (Elavil) 25 mg HS PO ; Start 01/30/21 at 21:00 Amlodipine Besylate (Norvasc) 10 mg DAILY PO ; Start 01/30/21 at 09:00 Aspirin (Ecotrin) 81 mg DAILYWBKFT PO ; Start 01/30/21 at 09:00 Atorvastatin Calcium (Lipitor) 40 mg QHS PO ; Start 01/30/21 at 21:00 Lacosamide (Vimpat) 200 mg BID PO ; Start 01/30/21 at 09:00; Stop 01/30/21 at 19:23; Status DC Levetiracetam (Keppra) 500 mg BID PO ; Start 01/30/21 at 09:00; Stop 01/30/21 at 09:51; Status DC Trazodone HCl (Desyrel) 50 mg QHS PO ; Start 01/30/21 at 21:00 Carvedilol (Coreg) 25 mg BIDWMEALS PO ; Start 01/30/21 at 09:00 Insulin Human Lispro (HumaLOG) 4 units TIDWMEALS SQ Last administered on 01/30/21at 11:40; Start 01/30/21 at 12:00 Insulin Glargine (Lantus Syringe) 20 unit QHS SQ ; Start 01/30/21 at 21:00 Pantoprazole Sodium (Protonix) 40 mg DAILYAC PO ; Start 01/30/21 at 09:00 Sertraline HCl (Zoloft) 100 mg BID PO ; Start 01/30/21 at 09:00 Lorazepam (Ativan Inj) 2 mg PRN Q4HRS PRN IVP seizure Last administered on 01/31/21at 04:28; Start 01/30/21 at 08:45 Levetiracetam 500 mg/Dextrose 105 ml @ 420 mls/hr Q12HR IV Last administered on 01/30/21at 10:23; Start 01/30/21 at 10:30; Stop 01/30/21 at 18:43; Status DC Hydralazine HCl (Apresoline Inj) 10 mg PRN Q4HRS PRN IVP ELEVATED BP, SEE COMMENTS Last administered on 01/31/21at 04:27; Start 01/30/21 at 10:00 Sodium Chloride 1,000 ml @ 75 mls/hr [id number] IV Last administered on 01/31/21at 00:20; Start 01/30/21 at 10:00; Stop 01/31/21 at 11:24; Status DC Levetiracetam 250 mg/Dextrose 102.5 ml @ 420 mls/hr Q12HR IV Last administered on 01/31/21at 09:59; Start 01/30/21 at 21:00 Lacosamide 200 mg/ Dextrose 70 ml @ 120 mls/hr ONCE ONCE IV Last administered on 01/30/21at 20:02; Start 01/30/21 at 19:30; Stop 01/30/21 at 20:04; Status DC Lacosamide 150 mg/ Dextrose 65 ml @ 120 mls/hr BID IV Last administered on 01/31/21at 08:24; Start 01/31/21 at 09:00 Haloperidol Lactate (Haldol Inj) 5 mg 1X ONCE IM Last administered on 01/31/21at 01:10; Start 01/31/21 at 01:00; Stop 01/31/21 at 01:03; Status DC Sodium Chloride 1,000 ml @ 75 mls/hr [id number] IV Last administered on 01/31/21at 12:08; Start 01/31/21 at 11:30 Active Scripts Active Macrobid 100 Mg Capsule (Nitrofurantoin Monohyd/M-Cryst) 100 Mg Capsule 1 Cap PO BID 5 Days Augmentin 875-125 Tablet (Amoxicillin/Potassium Clav) 1 Each Tablet 1 Tab PO BID Aldactone (Spironolactone) 25 Mg Tablet 25 Mg PO DAILY 30 Days Metoprolol Tartrate 25 Mg Tablet 25 Mg PO BID 30 Days Levemir Flextouch (Insulin Detemir) 100 Unit/1 Ml Insuln.pen 20 Units SQ QHS 30 Days Novolog Flexpen (Insulin Aspart) 100 Unit/1 Ml Insuln.pen 4 Units SQ TIDAC 30 Days Bumetanide 1 Mg Tablet 1 Mg PO DAILY 30 Days Atorvastatin Calcium 40 Mg Tablet 40 Mg PO QHS 30 Days Aspirin Ec (Aspirin) 81 Mg Tablet.dr 81 Mg PO DAILYWBKFT 30 Days Reported Zyprexa (Olanzapine) 20 Mg Tablet 25 Mg PO DAILY Trazodone Hcl 50 Mg Tablet 1 Tab PO QHS Metformin Hcl 500 Mg Tablet 500 Mg PO DAILY Vimpat (Lacosamide) 200 Mg Tablet 200 Mg PO BID Keppra (Levetiracetam) 500 Mg Tablet 1 Tab PO BID 30 Days Carvedilol 25 Mg Tablet 25 Mg PO BIDWMEALS Amlodipine Besylate 10 Mg Tablet 10 Mg PO DAILY Alprazolam 1 Mg Tablet 1 Tab PO TID Tylenol (Acetaminophen) 325 Mg Tablet 2 Tab PO PRN Q4HRS Hydrocodone-Apap 7.5-325 (Hydrocodone Bit/Acetaminophen) 1 Each Tablet 1 Tab PO PRN Q6HRS PRN Amlodipine Besylate 5 Mg Tablet 5 Mg PO DAILY Baclofen 10 Mg Tablet 10 Mg PO BID Amitriptyline Hcl 25 Mg Tablet 25 Mg PO HS Hydrochlorothiazide Tablet (Hydrochlorothiazide) 25 Mg Tablet 25 Mg PO DAILY Dicyclomine Hcl 10 Mg Capsule 10 Mg PO BID Glyburide 5 Mg Tablet 5 Mg PO DAILY Lisinopril 40 Mg Tablet 40 Mg PO DAILY Sertraline Hcl 100 Mg Tablet 100 Mg PO BID Omeprazole 20 Mg Capsule.dr 20 Mg PO DAILY Vitals/I & O Vital Sign - Last 24 Hours 01/30/21 01/30/21 01/30/21 01/30/21 15:00 19:00 20:00 20:26 Temp 98.7 98.1 98.7 98.1 Pulse 93 88 88 Resp 18 18 B/P (MAP) 143/101 (115) 181/91 (121) 181/91 Pulse Ox 98 97 O2 Delivery Nasal Cannula Nasal Cannula Nasal Cannula O2 Flow Rate 2.0 2.0 2.0 01/30/21 01/31/21 01/31/21 01/31/21 23:30 00:27 03:07 04:27 Temp 98.3 97.8 98.3 97.8 Pulse 98 98 105 105 Resp 20 20 B/P (MAP) 174/100 (124) 174/100 197/125 (149) 197/125 Pulse Ox 97 100 O2 Delivery Nasal Cannula Nasal Cannula O2 Flow Rate 2.0 2.0 01/31/21 01/31/21 07:00 11:00 Temp 98.2 97.7 98.2 97.7 Pulse 90 94 Resp 20 18 B/P (MAP) 168/81 (110) 155/72 (99) Pulse Ox 99 98 O2 Delivery Nasal Cannula Nasal Cannula O2 Flow Rate 2.0 2.0 Intake and Output 01/30/21 01/30/21 01/31/21 15:00 23:00 07:00 Intake Total 0 ml Balance 0 ml Justicifation of Admission Dx: Justifications for Admission: Justification of Admission Dx: N/A MARICEL TORRES MD Jan 31, 2021 14:46
[2021-01-31 15:00] VITALS: BP 163/83
--- NOTE | 2021-01-31 15:46 | PDOC ---
[facility] PROGRESS NOTE Date of Service DOS: DATE: 01/31/21 TIME: 15:44 Chief Complaint Chief Complaint Seizure History of Present Illness History of Present Illness HPI: HPI from emergency room "Patient is a 65 year old female with a history of diabetes type 2, blindness, hypertension, high cholesterol, among other illnesses who presents to the ED today via [facility] local [facility]. Patient is nonverbal, we do not know her baseline. Patient was sent to the ED for having seizures since 2 PM today. Patient has history of seizures. snf staff also informed EMS patient has nasal congestion and difficulty swallowing, unknown when this began." When I evaluated the patient she was in bed saying many nonsensical things. Unable to take any further history and patient unable to follow any commands.. Will attempt to contact her facility to establish some sort of baseline for the patient. Nephro and neurology consulted 01/31 No major clinical changes. Was working with speech therapy when evaluated. Still not following commands. Will remain n.p.o. further assessment. Otherwise continue current plan. Vitals/I&O Vitals/I&O: Vital Signs Date Time Temp Pulse Resp B/P (MAP) Pulse Ox O2 Delivery O2 Flow Rate FiO2 01/31/21 11:00 97.7 94 18 155/72 (99) 98 Nasal Cannula 2.0 97.7 I & O 01/30/21 01/30/21 01/31/21 15:00 23:00 07:00 Intake Total 0 ml Balance 0 ml Physical Exam General: Alert, Cooperative, No acute distress Heart: Regular rate, Normal S1 Lungs: Crackles Abdomen: Normal bowel sounds, Soft Extremities: No edema, Normal pulses Skin: No significant lesion Labs Labs: Laboratory Tests Test 01/30/21 16:46 01/30/21 19:22 01/31/21 05:55 01/31/21 08:26 Glucose (Fingerstick) 113 mg/dL (70-99) 144 mg/dL (70-99) 188 mg/dL (70-99) Sodium Level 149 mmol/L (136-145) Potassium Level 3.7 mmol/L (3.5-5.1) Chloride Level 115 mmol/L (98-107) Carbon Dioxide Level 26 mmol/L (21-32) Anion Gap 8 (6-14) Blood Urea Nitrogen 18 mg/dL (7-20) Creatinine 1.3 mg/dL (0.6-1.0) Estimated GFR (Cockcroft-Gault) 49.9 BUN/Creatinine Ratio 14 (6-20) Glucose Level 161 mg/dL (70-99) Calcium Level 9.0 mg/dL (8.5-10.1) Total Bilirubin 0.6 mg/dL (0.2-1.0) Aspartate Amino Transf (AST/SGOT) 36 U/L (15-37) Alanine Aminotransferase (ALT/SGPT) 24 U/L (14-59) Alkaline Phosphatase 123 U/L (46-116) Total Protein 7.1 g/dL (6.4-8.2) Albumin 2.4 g/dL (3.4-5.0) Albumin/Globulin Ratio 0.5 (1.0-1.7) Test 01/31/21 11:54 Glucose (Fingerstick) 192 mg/dL (70-99) Review of Systems Review of Systems: Could not obtain Assessment and Plan Assessmemt and Plan Problems Medical Problems: (1) Acute renal failure Status: Acute (2) Altered mental status Status: Acute (3) Seizure Status: Acute (4) Urinary tract infection Status: Acute Assessment/Plan Seizure disorder, altered mental status, acute kidney injury secondary to vasomotor nephropathy, type 2 diabetes -Presented from outside facility with altered mental status and seizure-like activity -Had seizure in emergency room and she was given Ativan along with Keppra loaded with seizure cessation -Unknown patient's baseline status, no family around at bedside will attempt to contact her facility -Neurology consulted -Elevated creatinine on presentation, suspect due to dehydration; nephrology following -Home meds resumed as indicated -Patient started on insulin for blood sugar control -N.p.o. until speech evaluation Comment Review of Relevant I have reviewed the following items toan (where applicable) has been applied. Medications: Current Medications Medications (Trade) Dose Ordered Sig/Es Route PRN Reason Start Time Stop Time Status Last Admin Dose Admin Levetiracetam 250 mg/Dextrose 102.5 ml @ 420 mls/hr Q12HR IV 01/30/21 21:00 01/31/21 09:59 Lacosamide 200 mg/ Dextrose 70 ml @ 120 mls/hr ONCE ONCE IV 01/30/21 19:30 01/30/21 20:04 DC 01/30/21 20:02 Lacosamide 150 mg/ Dextrose 65 ml @ 120 mls/hr BID IV 01/31/21 09:00 01/31/21 08:24 Haloperidol Lactate (Haldol Inj) 5 mg 1X ONCE IM 01/31/21 01:00 01/31/21 01:03 DC 01/31/21 01:10 Sodium Chloride 1,000 ml @ 75 mls/hr [id number] IV 01/31/21 11:30 01/31/21 12:08 Justifications for Admission Other Justification ALEXANDRIA ALVARADO MD Jan 31, 2021 15:46
--- NOTE | 2021-01-31 15:56 | RAD ---
EXAMINATION: Magnetic resonance imaging (MRI) of the brain and brainstem without contrast 01/31/2021 1: 48 PM HISTORY: Increased seizures TECHNIQUE: Multiplanar multi-weighted MRI of the brain and brainstem was performed without intravenou s contrast using the seizure brain protocol. COMPARISON: CT head 01/29/2021 FINDINGS: The scalp and calvarium are normal. The superior sagittal sinus demonstrates normal venous flow. The corpus callosum is normal in shape and signal intensity. There is a remote lacunar infarct involving the left cerebellum. The pituitary and sella are normal. The brainstem and craniocervical junction are unremarkable. There are T2/FLAIR signal hyperintense foci in the periventricular and subcortical white matter with areas of confluence most suggestive of moderate chronic small vessel ischemic caballero ges. There is large territory cystic encephalomalacia involving the left occipital lobe with intrinsi c T1 signal hyperintensity compatible with areas of laminar necrosis. There is ex vacuo dilatation of the occipital horn of left lateral ventricle. Remote lacunar infarcts are identified within the basa l ganglia bilaterally (right : series 8, image 13) and (left: Series 7, image 15). Limited evaluation hippocampi secondary to motion. Hippocampi are otherwise symmetric in signal intensity and morpholog y. No heterotopic murguia matter. No malformation of cortical development identified. Diffusion weighted images reveal no hyperintensities to suggest acute cerebral infarction. The suscep tibility weighted sequences reveal no evidence of acute or chronic hemorrhage. Ventricles, sulci and basal cisterns are prominent compatible with moderate generalized cerebral volume loss. The paranasal sinuses are normal. The visualized portions of the mastoids are unremarkable. The orbi ts appear normal. Normal flow voids are demonstrated in the carotid arteries and basilar artery. IMPRESSION: 1. No evidence for acute or subacute ischemia. 2. Large territory cystic encephalomalacia involving the left occipital lobe and inferior left pariet al lobule. Findings favor sequela of remote infarct. 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 3. Moderate generalized cerebral volume loss. There are T2/FLAIR signal hyperintense foci in the la nena ventricular and subcortical white matter with areas of confluence most suggestive of moderate chronic small vessel ischemic changes. 4. Remote lacunar infarcts involving the left cerebellum and bilateral basal ganglia. Electronically signed by: Annika Vazquez MD (01/31/2021 3:54 PM) [id number]
[2021-01-31 19:00] VITALS: BP 147/82
[2021-01-31] MEDS: AMITRIPTYLINE HCL 25 MG TABLET. PO SCH (20:55)
[2021-01-31] MEDS: traZODone 50 MG TABLET. PO SCH (20:55)
[2021-01-31] MEDS: ATORVASTATIN CALCIUM 40 MG TABLET. PO SCH (20:55)
[2021-01-31] MEDS ORDERED: levETIRAcetam 250 MG in IV DEXTROSE 5% 100ML 100 ML IV SCH ×2 (21:00→21:30)
[2021-01-31] MEDS: INSULIN GLARGINE SYRINGE. SQ SCH (21:14)
[2021-01-31 23:31] VITALS: BP 177/97
[2021-02-01 03:39] VITALS: BP 132/83
[2021-02-01] MEDS: IV 1/2 NORMAL SALINE 1,000 ML IV SCH (05:00)
[2021-02-01 06:36] LABS: CALCIUM 9.1 mg/dL (8.5-10.1); CREATININE 1.2 mg/dL (0.6-1.0); GFR 54.7; POTASSIUM 3.7 mmol/L (3.5-5.1)
[2021-02-01 07:00] VITALS: BP 141/91
[2021-02-01] MEDS: INSULIN LISPRO 300 UNITS/3 ML VIAL. SQ SCH ×2 (08:00→12:45)
--- NOTE | 2021-02-01 08:27 | PDOC ---
PROGRESS NOTES Date of Service DATE: 02/01/21 TIME: 08:25 Assessment Problems Medical Problems: (1) Acute renal failure Status: Acute (2) Altered mental status Status: Acute (3) Seizure Status: Acute (4) Urinary tract infection Status: Acute Epilepsy, seizure, [facility] resident Negative brain MRI Metabolic encephalopathy, urinary tract infection, acute kidney injury with dehydration and hypernatremia Blindness History of polysubstance abuse with overdoses Type 2 diabetes, hypertension, hyperlipidemia, depression Plan With improved renal function, increase the levetiracetam dose back to its original, switch lacosamide and levetiracetam to oral Treat medical issues Okay for discharge Follow-up with neurology as needed Subjective Denies pain Objective Vital Signs Date Time Temp Pulse Resp B/P (MAP) Pulse Ox O2 Delivery O2 Flow Rate FiO2 02/01/21 03:39 97.5 87 18 132/83 (99) 95 Nasal Cannula 2.0 97.5 Intake and Output 02/01/21 07:00 Intake Total 167 ml Balance 167 ml IV Total 167 ml # Voids 2 # Bowel Movements 1 PHYSICAL EXAM Alert. Oriented only to person. PERRL. EOMI. CN: Bilateral blindness Muscle tone: gegenhalten tone Muscle strength: 3/5 DTR: 1+ Plantar reflex: silent Gait: not examined in bed. Sensory exam: no abnormal findings. No cerebellar signs elicited. Review of Relevant I have reviewed the following items toan (where applicable) has been applied. Labs Laboratory Tests Test 01/30/21 11:30 01/30/21 16:46 01/30/21 19:22 01/31/21 05:55 Glucose (Fingerstick) 190 mg/dL (70-99) 113 mg/dL (70-99) 144 mg/dL (70-99) Sodium Level 149 mmol/L (136-145) Potassium Level 3.7 mmol/L (3.5-5.1) Chloride Level 115 mmol/L (98-107) Carbon Dioxide Level 26 mmol/L (21-32) Anion Gap 8 (6-14) Blood Urea Nitrogen 18 mg/dL (7-20) Creatinine 1.3 mg/dL (0.6-1.0) Estimated GFR (Cockcroft-Gault) 49.9 BUN/Creatinine Ratio 14 (6-20) Glucose Level 161 mg/dL (70-99) Calcium Level 9.0 mg/dL (8.5-10.1) Total Bilirubin 0.6 mg/dL (0.2-1.0) Aspartate Amino Transf (AST/SGOT) 36 U/L (15-37) Alanine Aminotransferase (ALT/SGPT) 24 U/L (14-59) Alkaline Phosphatase 123 U/L (46-116) Total Protein 7.1 g/dL (6.4-8.2) Albumin 2.4 g/dL (3.4-5.0) Albumin/Globulin Ratio 0.5 (1.0-1.7) Test 01/31/21 08:26 01/31/21 11:54 01/31/21 16:28 01/31/21 19:40 Glucose (Fingerstick) 188 mg/dL (70-99) 192 mg/dL (70-99) 182 mg/dL (70-99) 220 mg/dL (70-99) Test 02/01/21 04:10 02/01/21 08:13 Sodium Level 147 mmol/L (136-145) Potassium Level 3.7 mmol/L (3.5-5.1) Chloride Level 112 mmol/L (98-107) Carbon Dioxide Level 26 mmol/L (21-32) Anion Gap 9 (6-14) Blood Urea Nitrogen 19 mg/dL (7-20) Creatinine 1.2 mg/dL (0.6-1.0) Estimated GFR (Cockcroft-Gault) 54.7 Glucose Level 199 mg/dL (70-99) Calcium Level 9.1 mg/dL (8.5-10.1) Glucose (Fingerstick) 196 mg/dL (70-99) Laboratory Tests Test 01/31/21 08:26 01/31/21 11:54 01/31/21 16:28 01/31/21 19:40 Glucose (Fingerstick) 188 mg/dL (70-99) 192 mg/dL (70-99) 182 mg/dL (70-99) 220 mg/dL (70-99) Test 02/01/21 04:10 02/01/21 08:13 Sodium Level 147 mmol/L (136-145) Potassium Level 3.7 mmol/L (3.5-5.1) Chloride Level 112 mmol/L (98-107) Carbon Dioxide Level 26 mmol/L (21-32) Anion Gap 9 (6-14) Blood Urea Nitrogen 19 mg/dL (7-20) Creatinine 1.2 mg/dL (0.6-1.0) Estimated GFR (Cockcroft-Gault) 54.7 Glucose Level 199 mg/dL (70-99) Calcium Level 9.1 mg/dL (8.5-10.1) Glucose (Fingerstick) 196 mg/dL (70-99) Microbiology 01/29/21 Blood Culture - Preliminary, Resulted NO GROWTH AFTER 2 DAYS 01/29/21 Urine Culture - Final, Complete Medications Current Medications Lorazepam (Ativan Inj) 2 mg STK-MED ONCE .ROUTE ; Start 01/29/21 at 19:07; Stop 01/29/21 at 19:08; Status DC Lorazepam (Ativan Inj) 1 mg 1X ONCE IVP Last administered on 01/29/21at 19:45; Start 01/29/21 at 19:45; Stop 01/29/21 at 19:46; Status DC Sodium Chloride 1,000 ml @ 1,000 mls/hr 1X ONCE IV Last administered on 01/29/21at 20:42; Start 01/29/21 at 19:30; Stop 01/29/21 at 20:29; Status DC Levetiracetam 1000 mg/Dextrose 110 ml @ 440 mls/hr 1X ONCE IV Last administered on 01/29/21at 20:43; Start 01/29/21 at 20:30; Stop 01/29/21 at 20:44; Status DC Sodium Chloride 1,000 ml @ 1,000 mls/hr 1X ONCE IV Last administered on 01/29/21at 21:00; Start 01/29/21 at 21:00; Stop 01/29/21 at 21:59; Status DC Ondansetron HCl (Zofran) 4 mg PRN Q8HRS PRN IVP NAUSEA/VOMITING; Start 01/29/21 at 22:00; Stop 01/30/21 at 21:59; Status DC Sodium Chloride 1,000 ml @ 150 mls/hr 1X ONCE IV Last administered on 01/30/21at 00:16; Start 01/29/21 at 22:00; Stop 01/30/21 at 04:39; Status DC Ceftriaxone Sodium (Rocephin) 1 gm 1X ONCE IVP Last administered on 01/29/21at 23:38; Start 01/29/21 at 22:00; Stop 01/29/21 at 22:12; Status DC Acetaminophen (Tylenol) 650 mg PRN Q4HRS PRN PO MILD PAIN / TEMP > 100.3'F; Start 01/30/21 at 08:45 Amitriptyline HCl (Elavil) 25 mg HS PO Last administered on 01/31/21at 20:55; Start 01/30/21 at 21:00 Amlodipine Besylate (Norvasc) 10 mg DAILY PO ; Start 01/30/21 at 09:00 Aspirin (Ecotrin) 81 mg DAILYWBKFT PO ; Start 01/30/21 at 09:00 Atorvastatin Calcium (Lipitor) 40 mg QHS PO Last administered on 01/31/21at 20:55; Start 01/30/21 at 21:00 Lacosamide (Vimpat) 200 mg BID PO ; Start 01/30/21 at 09:00; Stop 01/30/21 at 19:23; Status DC Levetiracetam (Keppra) 500 mg BID PO ; Start 01/30/21 at 09:00; Stop 01/30/21 at 09:51; Status DC Trazodone HCl (Desyrel) 50 mg QHS PO Last administered on 01/31/21at 20:55; Start 01/30/21 at 21:00 Carvedilol (Coreg) 25 mg BIDWMEALS PO Last administered on 01/31/21at 18:21; S tart 01/30/21 at 09:00 Insulin Human Lispro (HumaLOG) 4 units TIDWMEALS SQ Last administered on 01/31/21at 18:25; Start 01/30/21 at 12:00 Insulin Glargine (Lantus Syringe) 20 unit QHS SQ Last administered on 01/31/21at 21:14; Start 01/30/21 at 21:00 Pantoprazole Sodium (Protonix) 40 mg DAILYAC PO ; Start 01/30/21 at 09:00 Sertraline HCl (Zoloft) 100 mg BID PO Last administered on 01/31/21at 20:55; Start 01/30/21 at 09:00 Lorazepam (Ativan Inj) 2 mg PRN Q4HRS PRN IVP seizure Last administered on 01/31/21at 18:38; Start 01/30/21 at 08:45 Levetiracetam 500 mg/Dextrose 105 ml @ 420 mls/hr Q12HR IV Last administered on 01/30/21at 10:23; Start 01/30/21 at 10:30; Stop 01/30/21 at 18:43; Status DC Hydralazine HCl (Apresoline Inj) 10 mg PRN Q4HRS PRN IVP ELEVATED BP, SEE COMMENTS Last administered on 01/31/21at 04:27; Start 01/30/21 at 10:00 Sodium Chloride 1,000 ml @ 75 mls/hr [id number] IV Last administered on 01/31/21at 00:20; Start 01/30/21 at 10:00; Stop 01/31/21 at 11:24; Status DC Levetiracetam 250 mg/Dextrose 102.5 ml @ 420 mls/hr Q12HR IV Last administered on 01/31/21at 09:59; Start 01/30/21 at 21:00; Stop 01/31/21 at 20:55; Status DC Lacosamide 200 mg/ Dextrose 70 ml @ 120 mls/hr ONCE ONCE IV Last administered on 01/30/21at 20:02; Start 01/30/21 at 19:30; Stop 01/30/21 at 20:04; Status DC Lacosamide 150 mg/ Dextrose 65 ml @ 120 mls/hr BID IV Last administered on 01/31/21at 20:53; Start 01/31/21 at 09:00 Haloperidol Lactate (Haldol Inj) 5 mg 1X ONCE IM Last administered on 01/31/21at 01:10; Start 01/31/21 at 01:00; Stop 01/31/21 at 01:03; Status DC Sodium Chloride 1,000 ml @ 75 mls/hr [id number] IV Last administered on 02/01/21at 05:00; Start 01/31/21 at 11:30 Levetiracetam 250 mg/Dextrose 102.5 ml @ 420 mls/hr Q12HR IV ; Start 01/31/21 at 21:00; Stop 01/31/21 at 20:56; Status DC Levetiracetam 250 mg/Dextrose 102.5 ml @ 420 mls/hr Q12HR IV Last administered on 01/31/21at 21:13; Start 01/31/21 at 21:30 Active Scripts Active Macrobid 100 Mg Capsule (Nitrofurantoin Monohyd/M-Cryst) 100 Mg Capsule 1 Cap PO BID 5 Days Augmentin 875-125 Tablet (Amoxicillin/Potassium Clav) 1 Each Tablet 1 Tab PO BID Aldactone (Spironolactone) 25 Mg Tablet 25 Mg PO DAILY 30 Days Metoprolol Tartrate 25 Mg Tablet 25 Mg PO BID 30 Days Levemir Flextouch (Insulin Detemir) 100 Unit/1 Ml Insuln.pen 20 Units SQ QHS 30 Days Novolog Flexpen (Insulin Aspart) 100 Unit/1 Ml Insuln.pen 4 Units SQ TIDAC 30 Days Bumetanide 1 Mg Tablet 1 Mg PO DAILY 30 Days Atorvastatin Calcium 40 Mg Tablet 40 Mg PO QHS 30 Days Aspirin Ec (Aspirin) 81 Mg Tablet.dr 81 Mg PO DAILYWBKFT 30 Days Reported Zyprexa (Olanzapine) 20 Mg Tablet 25 Mg PO DAILY Trazodone Hcl 50 Mg Tablet 1 Tab PO QHS Metformin Hcl 500 Mg Tablet 500 Mg PO DAILY Vimpat (Lacosamide) 200 Mg Tablet 200 Mg PO BID Keppra (Levetiracetam) 500 Mg Tablet 1 Tab PO BID 30 Days Carvedilol 25 Mg Tablet 25 Mg PO BIDWMEALS Amlodipine Besylate 10 Mg Tablet 10 Mg PO DAILY Alprazolam 1 Mg Tablet 1 Tab PO TID Tylenol (Acetaminophen) 325 Mg Tablet 2 Tab PO PRN Q4HRS Hydrocodone-Apap 7.5-325 (Hydrocodone Bit/Acetaminophen) 1 Each Tablet 1 Tab PO PRN Q6HRS PRN Amlodipine Besylate 5 Mg Tablet 5 Mg PO DAILY Baclofen 10 Mg Tablet 10 Mg PO BID Amitriptyline Hcl 25 Mg Tablet 25 Mg PO HS Hydrochlorothiazide Tablet (Hydrochlorothiazide) 25 Mg Tablet 25 Mg PO DAILY Dicyclomine Hcl 10 Mg Capsule 10 Mg PO BID Glyburide 5 Mg Tablet 5 Mg PO DAILY Lisinopril 40 Mg Tablet 40 Mg PO DAILY Sertraline Hcl 100 Mg Tablet 100 Mg PO BID Omeprazole 20 Mg Capsule.dr 20 Mg PO DAILY Vitals/I & O Vital Sign - Last 24 Hours 01/31/21 01/31/21 01/31/21 01/31/21 11:00 15:00 18:21 19:00 Temp 97.7 98.8 98.1 97.7 98.8 98.1 Pulse 94 91 91 94 Resp 18 20 18 B/P (MAP) 155/72 (99) 163/83 (109) 163/83 147/82 (103) Pulse Ox 98 100 98 O2 Delivery Nasal Cannula Nasal Cannula Nasal Cannula O2 Flow Rate 2.0 2.0 2.0 01/31/21 01/31/21 02/01/21 20:10 23:31 03:39 Temp 98.3 97.5 98.3 97.5 Pulse 85 87 Resp 20 18 B/P (MAP) 177/97 (123) 132/83 (99) Pulse Ox 99 95 O2 Delivery Nasal Cannula Nasal Cannula Nasal Cannula O2 Flow Rate 2.0 2.0 2.0 Intake and Output 01/31/21 01/31/21 02/01/21 15:00 23:00 07:00 Intake Total 167 ml Balance 167 ml Images MRI brain, 01/31/2021: The scalp and calvarium are normal. The superior sagittal sinus demonstrates normal venous flow. The corpus callosum is normal in shape and signal intensity. There is a remote lacunar infarct involving the left cerebellum. The pituitary and sella are normal. The brainstem and craniocervical junction are unremarkable. There are T2/FLAIR signal hyperintense foci in the periventricular and subcortical white matter with areas of confluence most suggestive of moderate chronic small vessel ischemic changes. There is large territory cystic encephalomalacia involving the left occipital lobe with intrinsic T1 signal hyperintensity compatible with areas of laminar necrosis. There is ex vacuo dilatation of the occipital horn of left lateral ventricle. Remote lacunar infarcts are identified within the basal ganglia bilaterally (right : series 8, image 13) and (left: Series 7, image 15). Limited evaluation hippocampi secondary to motion. Hippocampi are otherwise symmetric in signal intensity and morphology. No heterotopic murguia matter. No malformation of cortical development identified. Diffusion weighted images reveal no hyperintensities to suggest acute cerebral infarction. The susceptibility weighted sequences reveal no evidence of acute or chronic hemorrhage. Ventricles, sulci and basal cisterns are prominent compatible with moderate generalized cerebral volume loss. The paranasal sinuses are normal. The visualized portions of the mastoids are unremarkable. The orbits appear normal. Normal flow voids are demonstrated in the carotid arteries and basilar artery. IMPRESSION: 1. No evidence for acute or subacute ischemia. 2. Large territory cystic encephalomalacia involving the left occipital lobe and inferior left parietal lobule. Findings favor sequela of remote infarct. 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 3. Moderate generalized cerebral volume loss. There are T2/FLAIR signal hyperintense foci in the periventricular and subcortical white matter with areas of confluence most suggestive of moderate chronic small vessel ischemic changes. 4. Remote lacunar infarcts involving the left cerebellum and bilateral basal ganglia. Justicifation of Admission Dx: Justifications for Admission: Justification of Admission Dx: N/A MARICEL TORRES MD Feb 01, 2021 08:27
[2021-02-01] MEDS ORDERED: levETIRAcetam 500 MG TABLET PO SCH (09:00)
[2021-02-01] MEDS ORDERED: LACOSAMIDE 50 MG TABLET PO SCH (09:00)
--- NOTE | 2021-02-01 09:03 | SNU/HH DC ---
DISCHARGE ORDERS DISCHARGE INFORMATION: FINAL DIAGNOSIS Problems Medical Problems: (1) Acute renal failure Status: Acute (2) Altered mental status Status: Acute (3) Seizure Status: Acute (4) Urinary tract infection Status: Acute CONDITION ON DISCHARGE: Stable CODE STATUS: Code Status: Full LONGTERM: SNF STAY <30 DAYS: No HOSPICE: HOSPICE: No HOSPICE EVAL & TREAT: No LTAC: ADMIT TO LTAC: No POST DISCHARGE ORDERS: ACTIVITY ORDERS: No restrictions WEIGHT BEARING STATUS: No restrictions DIET AFTER DISCHARGE: Resume previous diet CHECKS AFTER DISCHARGE: CHECKS AFTER DISCHARGE: Check blood press - daily, Check blood sugar, ac/hs DISCHARGE MEDICATIONS: Home Meds Active Scripts Nitrofurantoin Monohyd/M-Cryst (MACROBID 100 MG CAPSULE) 100 Mg Capsule, 1 CAP PO BID for 5 Days, #10 CAP 0 Refills Prov:MAGNO CAN DO 12/14/20 Amoxicillin/Potassium Clav (AUGMENTIN 875-125 TABLET) 1 Each Tablet, 1 TAB PO BID, #14 TAB Prov:CLIFTON BARKER MD 01/24/18 Spironolactone (ALDACTONE) 25 Mg Tablet, 25 MG PO DAILY for 30 Days Prov:FAVIO CHESTER MD 01/21/16 Metoprolol Tartrate (METOPROLOL TARTRATE) 25 Mg Tablet, 25 MG PO BID for 30 Days Prov:FAVIO CHESTER MD 01/21/16 Insulin Detemir (Levemir Flextouch) 100 Unit/1 Ml Insuln.pen, 20 UNITS SQ QHS for 30 Days Prov:FAVIO CHESTER MD 01/21/16 Insulin Aspart (NOVOLOG FLEXPEN) 100 Unit/1 Ml Insuln.pen, 4 UNITS SQ TIDAC for 30 Days Prov:FAVIO CHESTER MD 01/21/16 Bumetanide (BUMETANIDE) 1 Mg Tablet, 1 MG PO DAILY for 30 Days Prov:FAVIO CHESTER MD 01/21/16 Atorvastatin Calcium (ATORVASTATIN CALCIUM) 40 Mg Tablet, 40 MG PO QHS for 30 D ays Prov:FAVIO CHESTER MD 01/21/16 Aspirin (ASPIRIN EC) 81 Mg Tablet.dr, 81 MG PO DAILYWBKFT for 30 Days Prov:FAVIO CHESTER MD 01/21/16 Reported Medications Olanzapine (ZYPREXA) 20 Mg Tablet, 25 MG PO DAILY for agitation , #30 TAB 01/29/21 Trazodone Hcl (TRAZODONE HCL) 50 Mg Tablet, 1 TAB PO QHS for insomnia, #30 TAB 1 Refill 01/29/21 Metformin Hcl (METFORMIN HCL) 500 Mg Tablet, 500 MG PO DAILY for ANTI-DIABETIC, TAB 0 Refills 01/29/21 Lacosamide (VIMPAT) 200 Mg Tablet, 200 MG PO BID for seizures, TAB 01/29/21 Levetiracetam (KEPPRA) 500 Mg Tablet, 1 TAB PO BID for seizures for 30 Days, #60 TAB 0 Refills 01/29/21 Carvedilol (CARVEDILOL) 25 Mg Tablet, 25 MG PO BIDWMEALS for HTN, #2 TAB 01/29/21 Amlodipine Besylate (AMLODIPINE BESYLATE) 10 Mg Tablet, 10 MG PO DAILY for HTN, TAB 01/29/21 Alprazolam (ALPRAZOLAM) 1 Mg Tablet, 1 TAB PO TID for agitation, #60 TAB 01/29/21 Acetaminophen (TYLENOL) 325 Mg Tablet, 2 TAB PO PRN Q4HRS for pain or fever , #30 TAB 01/29/21 Hydrocodone Bit/Acetaminophen (HYDROCODONE-APAP 7.5-325 ) 1 Each Tablet, 1 TAB PO PRN Q6HRS PRN for PAIN, TAB 0 Refills 01/12/16 Amlodipine Besylate (AMLODIPINE BESYLATE) 5 Mg Tablet, 5 MG PO DAILY, #30 01/12/16 Baclofen (BACLOFEN) 10 Mg Tablet, 10 MG PO BID, #120 01/12/16 Amitriptyline Hcl (AMITRIPTYLINE HCL) 25 Mg Tablet, 25 MG PO HS, #30 01/12/16 Hydrochlorothiazide (HYDROCHLOROTHIAZIDE TABLET ) 25 Mg Tablet, 25 MG PO DAILY, #30 01/12/16 Dicyclomine Hcl (DICYCLOMINE HCL) 10 Mg Capsule, 10 MG PO BID, #120 01/12/16 Glyburide (GLYBURIDE) 5 Mg Tablet, 5 MG PO DAILY, #60 01/12/16 Lisinopril (LISINOPRIL) 40 Mg Tablet, 40 MG PO DAILY, #30 01/12/16 Sertraline Hcl (SERTRALINE HCL) 100 Mg Tablet, 100 MG PO BID, #60 01/12/16 Omeprazole (OMEPRAZOLE) 20 Mg Capsule., 20 MG PO DAILY, #30 01/12/16 JOSE PACK III DO Feb 01, 2021 09:03
--- NOTE | 2021-02-01 09:04 | PDOC ---
[facility] PROGRESS NOTE Date of Service DOS: DATE: 02/01/21 TIME: 08:51 Chief Complaint Chief Complaint Seizure Seizure disorder Altered mental status Acute kidney injury secondary to vasomotor nephropathy Type 2 diabetes History of Present Illness History of Present Illness HPI: HPI from emergency room "Patient is a 65 year old female with a history of diabetes type 2, blindness, hypertension, high cholesterol, among other illnesses who presents to the ED today [facility]. Patient is nonverbal, we do not know her baseline. Patient was sent to the ED for having seizures since 2 PM today. Patient has history of seizures. senior living staff also informed EMS patient has nasal congestion and difficulty swallowing, unknown when this began." When I evaluated the patient she was in bed saying many nonsensical things. Unable to take any further history and patient unable to follow any commands.. Will attempt to contact her facility to establish some sort of baseline for the patient. Nephro and neurology consulted 01/31 No major clinical changes. Was working with speech therapy when evaluated. Still not following commands. Will remain n.p.o. further assessment. Otherwise continue current plan. 02/01/2021: Patient seen and examined. Her eyes are open and seems confused. She has mitts on for patient safety and is on 2 L of oxygen. She is NPO. Her sodium is at 147. Yesterday she was switched to hypotonic saline. She has no UTI based off of culture results from today. Her MRI of the brain on 01/31 showed no evidence for acute or subacute ischemia. Large territory cystic encephalomalacia involving the left occipital lobe and inferior left parietal lobule. Findings favor sequela of remote infarct. 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 Moderate generalized cerebral volume loss. There are T2/FLAIR signal hyperintense foci in the periventricular and subcortical white matter with areas of confluence most suggestive of moderate chronic small vessel ischemic changes. Remote lacunar infarcts involving the left cerebellum and bilateral basal ganglia. Discussed with RN. Chart reviewed. Vitals/I&O Vitals/I&O: Vital Signs Date Time Temp Pulse Resp B/P (MAP) Pulse Ox O2 Delivery O2 Flow Rate FiO2 02/01/21 07:00 98.9 81 20 141/91 (108) 98 Nasal Cannula 2.0 98.9 I & O 01/31/21 01/31/21 02/01/21 15:00 23:00 07:00 Intake Total 167 ml Balance 167 ml Physical Exam General: Alert, Cooperative, No acute distress Heart: Regular rate, Normal S1 Lungs: Crackles Abdomen: Normal bowel sounds, Soft Extremities: No edema, Normal pulses Skin: No significant lesion Labs Labs: Laboratory Tests Test 01/31/21 11:54 01/31/21 16:28 01/31/21 19:40 02/01/21 04:10 Glucose (Fingerstick) 192 mg/dL (70-99) 182 mg/dL (70-99) 220 mg/dL (70-99) Sodium Level 147 mmol/L (136-145) Potassium Level 3.7 mmol/L (3.5-5.1) Chloride Level 112 mmol/L (98-107) Carbon Dioxide Level 26 mmol/L (21-32) Anion Gap 9 (6-14) Blood Urea Nitrogen 19 mg/dL (7-20) Creatinine 1.2 mg/dL (0.6-1.0) Estimated GFR (Cockcroft-Gault) 54.7 Glucose Level 199 mg/dL (70-99) Calcium Level 9.1 mg/dL (8.5-10.1) Test 02/01/21 08:13 Glucose (Fingerstick) 196 mg/dL (70-99) Review of Systems Review of Systems: Gastrointestinal: No nausea or vomiting. Heart: No chest pain or heart palpitations. Assessment and Plan Assessmemt and Plan Problems Medical Problems: (1) Acute renal failure Status: Acute (2) Altered mental status Status: Acute (3) Seizure Status: Acute (4) Urinary tract infection Status: Acute Seizure disorder Altered mental status Acute kidney injury secondary to vasomotor nephropathy Type 2 diabetes Plan: 1) Continue lacosamide and levetiracetam 2) Continue IV hypotonic IV fluids 3) Trend sodium (147 on 02/01) and creatinine (1.2 on 02/01) 4) Appreciate subspecialty consultation - Neurology (02/01): With improved renal function, increase the levetiracetam dose back to its original, switch lacosamide and levetiracetam to oral. Treat medical issues. - Nephrology (01/31): Continue supportive care. Change IV to hypotonic saline. Labs in AM. 5) Continue insulin for blood sugar control 6) Continue NPO 7) Home medications 8) Full code Comment Review of Relevant I have reviewed the following items toan (where applicable) has been applied. Medications: Current Medications Medications (Trade) Dose Ordered Sig/Es Route PRN Reason Start Time Stop Time Status Last Admin Dose Admin Lacosamide 150 mg/ Dextrose 65 ml @ 120 mls/hr BID IV 01/31/21 09:00 02/01/21 08:25 DC 01/31/21 20:53 Sodium Chloride 1,000 ml @ 75 mls/hr [id number] IV 01/31/21 11:30 02/01/21 05:00 Levetiracetam 250 mg/Dextrose 102.5 ml @ 420 mls/hr Q12HR IV 01/31/21 21:30 02/01/21 08:25 DC 01/31/21 21:13 Justifications for Admission Other Justification JOSE PACK III DO Feb 01, 2021 09:04
--- NOTE | 2021-02-01 09:40 | PDOC2 ---
HAMLET LINDSEY TAX TECHNICIAN 02/01/21 0940: CARDIAC CONSULT DATE OF CONSULT Date of Consult DATE: 02/01/21 TIME: 09:08 REASON FOR CONSULT Reason for Consult: ST depression EKG REFERRING PHYSICIAN Referring Physician: Jonathan SOURCE Source: Chart review, Patient HISTORY OF PRESENT ILLNESS HISTORY OF PRESENT ILLNESS This is a 65 yo female admitted for noted seizures at the [facility]. She has been treated by neurology. Further evaluation noted that she has a UTI. Presently she appears sedated and has mittens on. No notation of any chest pain or SOA. Presently unable to communicate with her current mentation otherwise no noted discomfort. PAST MEDICAL HISTORY Past Medical History EENT: Blind Cardiovascular: CHF, HTN, Other (NICM) Neurology: Seizures Pulmonary: Asthma GI: Diverticulosis, GERD Heme/Onc: Anemia NOS Musculoskeletal: Osteoarthritis Renal/: Chronic renal insuff (stage 3) PAST SURGICAL HISTORY Past Surgical History: Tubal Ligation, Other (LHC; breast reduction) FAMILY HISTORY Family History noncontributory to CV SOCIAL HISTORY Smoke: No ALCOHOL: none Drugs: Cocaine (past) Lives: with Family CURRENT MEDICATIONS CURRENT MEDICATIONS Current Medications Medications (Trade) Dose Ordered Sig/Es Route PRN Reason Start Time Stop Time Status Last Admin Dose Admin Sodium Chloride 1,000 ml @ 75 mls/hr [id number] IV 01/31/21 11:30 02/01/21 05:00 Levetiracetam 250 mg/Dextrose 102.5 ml @ 420 mls/hr Q12HR IV 01/31/21 21:30 02/01/21 08:25 DC 01/31/21 21:13 ALLERGIES ALLERGIES: Coded Allergies: No Known Drug Allergies (Unverified , 07/20/13) PHYSICAL EXAM General: No acute distress HEENT: Atraumatic, Mucous membr. moist/pink, Other (blind) Lungs: Clear to auscultation Heart: Regular rate (SR), Normal S1, Normal S2 Abdomen: Soft, No tenderness Extremities: No cyanosis, No edema Skin: No rashes Neuro: Other (drowsy) MUSCULOSKELETAL: Osteoarthritic changes both hands VITALS/I&O VITALS/I&O: Vital Signs Date Time Temp Pulse Resp B/P (MAP) Pulse Ox O2 Delivery O2 Flow Rate FiO2 02/01/21 07:00 98.9 81 20 141/91 (108) 98 Nasal Cannula 2.0 98.9 I & O 01/31/21 01/31/21 02/01/21 15:00 23:00 07:00 Intake Total 167 ml Balance 167 ml LABS Lab: Laboratory Tests Test 01/31/21 11:54 01/31/21 16:28 01/31/21 19:40 02/01/21 04:10 Glucose (Fingerstick) 192 mg/dL (70-99) H 182 mg/dL (70-99) H 220 mg/dL (70-99) H Sodium Level 147 mmol/L (136-145) H Potassium Level 3.7 mmol/L (3.5-5.1) Chloride Level 112 mmol/L (98-107) H Carbon Dioxide Level 26 mmol/L (21-32) Anion Gap 9 (6-14) Blood Urea Nitrogen 19 mg/dL (7-20) Creatinine 1.2 mg/dL (0.6-1.0) H Estimated GFR (Cockcroft-Gault) 54.7 Glucose Level 199 mg/dL (70-99) H Calcium Level 9.1 mg/dL (8.5-10.1) Test 02/01/21 08:13 Glucose (Fingerstick) 196 mg/dL (70-99) H Laboratory Tests 02/01/21 04:10 ECHOCARDIOGRAM ECHOCARDIOGRAM 06/22/2019 [facility] Normal LV size and systolic function. Estimated LVEF is 60-65%. No regional wall motion abnormalities. Severe left ventricular hypertrophy. Normal RV size and systolic function. Normal sized biatria. The aortic valve is sclerotic. No stenosis. No regurgitation. No other significant valvular abnormalities. No pericardial effusion. ASSESSMENT/PLAN ASSESSMENT/PLAN 1. Seizures with prior hx 2. HTN: controlled 3. HLP 4. DM2 5. Abnormal EKG: nml trops and no cardiac symptoms. 6. Debility/blindness 7. MEHDI: better 8. Chronid diastolic CHF with hx of recovered NICM: compensated Recommendations EKG SR with LV strain pattern. ST changes are diffuse and nonspecific with associated initial hypokalemia. By comparison this is no different from previous. No further cardiac testing Continue secondary prevention measures ADELAIDA STUART MD 02/01/21 1722: HAMLET LINDSEY APRN Feb 01, 2021 09:40 ADELAIDA STUART MD Feb 01, 2021 17:22
--- NOTE | 2021-02-01 10:38 | PDOC ---
Renal-Progress Notes Subjective Notes Notes NO NEW COMPLAINTS History of Present Illness Hx of present illness STABLE Vitals Vitals Vital Signs Date Time Temp Pulse Resp B/P (MAP) Pulse Ox O2 Delivery O2 Flow Rate FiO2 02/01/21 07:00 98.9 81 20 141/91 (108) 98 Nasal Cannula 2.0 98.9 Weight Weight [ ] I.O. Intake and Output Intake and Output 02/01/21 07:00 Intake Total 167 ml Balance 167 ml IV Total 167 ml # Voids 2 # Bowel Movements 1 Labs Labs Laboratory Tests Test 01/31/21 11:54 01/31/21 16:28 01/31/21 19:40 02/01/21 04:10 Glucose (Fingerstick) 192 mg/dL (70-99) 182 mg/dL (70-99) 220 mg/dL (70-99) Sodium Level 147 mmol/L (136-145) Potassium Level 3.7 mmol/L (3.5-5.1) Chloride Level 112 mmol/L (98-107) Carbon Dioxide Level 26 mmol/L (21-32) Anion Gap 9 (6-14) Blood Urea Nitrogen 19 mg/dL (7-20) Creatinine 1.2 mg/dL (0.6-1.0) Estimated GFR (Cockcroft-Gault) 54.7 Glucose Level 199 mg/dL (70-99) Calcium Level 9.1 mg/dL (8.5-10.1) Test 02/01/21 08:13 Glucose (Fingerstick) 196 mg/dL (70-99) Micro Micro Microbiology 01/29/21 Blood Culture - Preliminary, Resulted NO GROWTH AFTER 2 DAYS 01/29/21 Urine Culture - Final, Complete Review of Systems Constitutional: yes: other (CONFUSED) Physical Exam General Appearance: no apparent distress Skin: warm Respiratory: bilateral CTA Heart: S1S2 Abdomen: soft, bowel sounds present Musculoskeletal: Osteoarthritis Assessment Assessment IMP MEHDI-IMIPROVED WITH CR OF 1.2 FROM 3.2-NO CKD DEHYDRATION HYPERNATREMIA SEIZURE DM II PLAN CONT SUPPORTIVE CARE CONT HYPOTONIC SALINE LABS IN AM WILL FOLLOW QAMAR DOUGLAS MD Feb 01, 2021 10:38
--- NOTE | 2021-02-01 10:53 | NUR ---
SW following. Discussed with RN, updates and discharge orders faxed to [facility]. Transportation arranged for between [id number]. RN notified. SW will continue to follow.
[2021-02-01 11:00] VITALS: BP 141/87
--- NOTE | 2021-02-01 14:00 | NUR ---
Discharge Note: Patient was discharged back to [facility] where patient resides. RN did not administer AM meds due to patient being too drowsy/lethargic to eat or drink or to process how to take pills. Patients IV was discontinued without any complications, per [facility]REL [facility]. Report was called to NATANAEL Steele she was made aware of patient being too drowsy to take her meds or eat. RN stated she usually sleep during the morning and then wakes up towards the afternoon. Patient was transferred to facility, via stretcher. Patient did not have any belongings with her.
--- NOTE | 2021-02-01 15:14 | DS ---
DATE OF DISCHARGE: 02/01/2021 ADMITTING DIAGNOSES: Seizures once, but breakthrough seizures; acute kidney injury, dehydration, hyponatremia and diabetes. DISCHARGE DIAGNOSIS: Resolving breakthrough seizures. CONSULTS: Dr. Gtz, Dr. Ann, and Dr. Alegre. PROCEDURES: None. HOSPITAL COURSE: The patient is a pleasant, middle-aged female who resides in a long-term. She has multiple comorbidities and she does have known seizures. She presented with breakthrough seizure. She also had a bump in her creatinine up to 3.2. We admitted the patient. The above consults were obtained. We gave her fluids and adjust her seizure meds. Now her creatinine is down to 1.2. I saw and examined this morning. She is at her baseline. We plan to discharge back to her long-term. DISPOSITION: Home. ACTIVITY: As tolerated. DIET: Low sodium. DISCHARGE MEDICATIONS: Please see the MRAD. P.r.n. Tylenol, Xanax 1 t.i.d., amitriptyline 25 at bedtime, amlodipine 5 a day and 10 at bedtime, Augmentin 875 b.i.d., aspirin 81 a day, atorvastatin 40 a day, baclofen 10 b.i.d., carvedilol 25 b.i.d., dicyclomine 10 b.i.d., glyburide 5 a day, hydrochlorothiazide 25 a day, hydrocodone 7.5 mg q.6 hours p.r.n., 4 units of NovoLog FlexPen t.i.d. before meals, she also gets Levemir 20 units at bedtime, Vimpat 200 b.i.d., Keppra 500 b.i.d., lisinopril 40 daily, metformin 500 daily, metoprolol 25 b.i.d., nitrofurantoin 100 b.i.d., Zyprexa 25 a day, omeprazole 20 a day, sertraline 100 b.i.d., Aldactone 25 a day and trazodone 50 at bedtime. TOTAL TIME: [address]: Estrella TID: [id number]
== END 2021-02-01 13:45 | DRG 100 ==
LOC: ER 18:56 → 5 NORTH 21:30
PROVIDERS: ADMIT Family Medicine; ATTEND Family Medicine
DX: G40.909 Epilepsy, unspecified, not intractable, without status epilepticus (principal); N17.0 Acute kidney failure with tubular necrosis; G93.41 Metabolic encephalopathy; I13.0 Hypertensive heart and chronic kidney disease with heart failure and stage 1 through stage 4 chronic kidney disease, or unspecified chronic kidney disease; I50.30 Unspecified diastolic (congestive) heart failure; E87.0 Hyperosmolality and hypernatremia; N39.0 Urinary tract infection, site not specified; K21.9 Gastro-esophageal reflux disease without esophagitis; E78.00 Pure hypercholesterolemia, unspecified; Z98.51 Tubal ligation status; Z20.822 Contact with and (suspected) exposure to COVID-19; Z82.49 Family history of ischemic heart disease and other diseases of the circulatory system; E78.5 Hyperlipidemia, unspecified; E11.65 Type 2 diabetes mellitus with hyperglycemia; E11.22 Type 2 diabetes mellitus with diabetic chronic kidney disease; N18.30 Chronic kidney disease, stage 3 unspecified; F32.9 Major depressive disorder, single episode, unspecified; H54.7 Unspecified visual loss; E86.0 Dehydration; R53.81 Other malaise; R94.31 Abnormal electrocardiogram [ECG] [EKG]
CPT/HCPCS: 36415; 70450; 70551; 71045; 80048; 80053; 80307; 81001; 82962; 83605; 83735; 83880; 84145; 84443; 84484; 85007; 85025; 87040; 87086; 87426; 87804; 93005; 96365; 96375; C9254; J0360; J0696; J1630; J1815; J1953; J2060; J3490; J7030; J7060; U0003; U0005; 92526-GN; 92610-GN; 99285-25; G0378

== ENCOUNTER 2021-02-22 11:28 | Inpatient (IN) | payer MEDICAID ==
[~2021-02-22] VITALS: Ht 165.1 cm; Wt 87.5 kg
[~2021-02-22 11:28] MED LIST changes: +ACET325T9 PO; +ALPR1TAB6 PO; +AMLO-187 PO; +CARV25TA2 PO; +LACO200T PO; +LEVE500T56 PO; +METF500T16 PO; +OLAN20TA3 PO; +TRAZ-118 PO
[2021-02-22 11:54] LABS: BASO # 0.1 x10^3/uL (0.0-0.2); BASO % 0 % (0-3); EOS % 0 % (0-3); HEMATOCRIT 29.8 % (36.0-47.0); HEMOGLOBIN 9.1 g/dL (12.0-15.5); LYMPH # 0.6 x10^3/uL (1.0-4.8); LYMPH % 2 % (24-48); MEAN CORPUSCULAR HEMOGLOBIN 27 pg (25-35); MEAN CORPUSCULAR HGB CONC 31 g/dL (31-37); MEAN CORPUSCULAR VOLUME 87 fL (79-100); MONO # 1.5 x10^3/uL (0.0-1.1); MONO % 5 % (0-9); NEUT # 29.3 x10^3/uL (1.8-7.7); NEUT % 93 % (31-73); PLATELET COUNT 369 x10^3/uL (140-400); RED BLOOD COUNT 3.43 x10^6/uL (3.50-5.40); WHITE BLOOD COUNT 31.4 x10^3/uL (4.0-11.0)
--- NOTE | 2021-02-22 12:03 | PHYS DOC ---
Past Medical History Past Medical History: Depression, Diabetes-Type II, GERD, High Cholesterol, Hypertension, Seizure Past Surgical History: Tubal ligation, Other Additional Past Surgical Histo: BREAST REDUCTION Smoking Status: Never Smoker Alcohol Use: None Drug Use: None General Adult EDM: Chief Complaint: ALTERED MENTAL STATUS HPI: HPI: Patient is a 65 year old female with history of seizures and baseline neuro deficits who presents with decreased level of consciousness for the past month and labored breathing since 1000 this morning. Per EMS, patient was unresponsive to shelter staff onset 45 minutes ago. The patient does have a history of seizures and is on Keppra and lacosamide daily, there was no witnessed seizure today. senior living staff reports EMS with the patient was s atting in the low 80s on room air so they put her on 3 L nasal cannula. Her oxygen saturation then raised to 92%. Patient was more alert but remained nonverbal in route. She is baseline alert and aware x2 and wheelchair-bound. She has no O2 requirement daily. Patient has a history of agitation that requires Ativan, but since the patient second Covid vaccine (SERPs) on 01/27, vanna león has not required Ativan. No falls or head trauma reported. Review of Systems: Review of Systems: Unable to obtain secondary to patient's nonverbal status. Heart Score: C/O Chest Pain: N/A (Unable to obtain) Allergies: Allergies: Allergies Coded Allergies Type Severity Reaction Last Updated Verified No Known Drug Allergies 07/20/13 No Physical Exam: PE: Constitutional: Well developed, well nourished, no acute distress, non-toxic appearance. HENT: Normocephalic, atraumatic, bilateral external ears normal, oropharynx moist, nose normal. Eyes: PERRLA, leukocoria noted in OD, conjunctiva normal, minimal watery discharge bilaterally. Neck: No tenderness, supple, no stridor. Cardiovascular: Elevated heart rate with regular rhythm, no murmur. Lungs & Thorax: Decreased breath sounds in bilateral bases. Otherwise without wheezing rales or rhonchi. Abdomen: Bowel sounds normal, soft, no tenderness, periumbilical hernia noted, no pulsatile masses. Skin: Warm, dry, no erythema, no rash. Back: No step-offs, no bony tenderness, no CVA tenderness. Extremities: No tenderness, no cyanosis, no clubbing, passive ROM intact, no edema. Neurologic: Patient is alert to verbal stimuli, but nonverbal. No movement upper and lower extremities, patient does attempt to sit up in bed. She also has a abdominal thoracic tic that does not seem to be related to her breathing. Psychologic: Unable to evaluate. Current Patient Data: Labs: Laboratory Tests Test 02/22/21 11:40 02/22/21 12:10 White Blood Count 31.4 x10^3/uL (4.0-11.0) Red Blood Count 3.43 x10^6/uL (3.50-5.40) Hemoglobin 9.1 g/dL (12.0-15.5) Hematocrit 29.8 % (36.0-47.0) Mean Corpuscular Volume 87 fL (79-100) Mean Corpuscular Hemoglobin 27 pg (25-35) Mean Corpuscular Hemoglobin Concent 31 g/dL (31-37) Red Cell Distribution Width 15.0 % (11.5-14.5) Platelet Count 369 x10^3/uL (140-400) Neutrophils (%) (Auto) 93 % (31-73) Lymphocytes (%) (Auto) 2 % (24-48) Monocytes (%) (Auto) 5 % (0-9) Eosinophils (%) (Auto) 0 % (0-3) Basophils (%) (Auto) 0 % (0-3) Neutrophils # (Auto) 29.3 x10^3/uL (1.8-7.7) Lymphocytes # (Auto) 0.6 x10^3/uL (1.0-4.8) Monocytes # (Auto) 1.5 x10^3/uL (0.0-1.1) Eosinophils # (Auto) 0.0 x10^3/uL (0.0-0.7) Basophils # (Auto) 0.1 x10^3/uL (0.0-0.2) Segmented Neutrophils % 97 % (35-66) Lymphocytes % 1 % (24-48) Monocytes % 2 % (0-10) Platelet Estimate Adequate (ADEQUATE) Sodium Level 152 mmol/L (136-145) Potassium Level 4.0 mmol/L (3.5-5.1) Chloride Level 117 mmol/L (98-107) Carbon Dioxide Level 23 mmol/L (21-32) Anion Gap 12 (6-14) Blood Urea Nitrogen 108 mg/dL (7-20) Creatinine 3.3 mg/dL (0.6-1.0) Estimated GFR (Cockcroft-Gault) 17.0 BUN/Creatinine Ratio 33 (6-20) Glucose Level 161 mg/dL (70-99) Lactic Acid Level 1.2 mmol/L (0.4-2.0) Calcium Level 9.2 mg/dL (8.5-10.1) Total Bilirubin 0.5 mg/dL (0.2-1.0) Aspartate Amino Transf (AST/SGOT) 29 U/L (15-37) Alanine Aminotransferase (ALT/SGPT) 16 U/L (14-59) Alkaline Phosphatase 103 U/L (46-116) Troponin I Quantitative 0.266 ng/mL (0.000-0.055) Total Protein 7.7 g/dL (6.4-8.2) Albumin 1.7 g/dL (3.4-5.0) Albumin/Globulin Ratio 0.3 (1.0-1.7) Salicylates Level < 2.8 mg/dL (2.8-20.0) Salicylate Last Dose Date Unknown Salicylate Last Dose Time Unknown Acetaminophen Level < 2 mcg/ml (10-30) Acetaminophen Last Dose Date Unknown Acetaminophen Last Dose Time Unknown Urine Collection Type U cath Urine Color Yellow Urine Clarity Cloudy Urine pH 5.0 (<5.0-8.0) Urine Specific [place] 1.015 (1.000-1.030) Urine Protein 100 mg/dL (NEG-TRACE) Urine Glucose (UA) Negative mg/dL (NEG) Urine Ketones (Stick) Negative mg/dL (NEG) Urine Blood Small (NEG) Urine Nitrite Negative (NEG) Urine Bilirubin Small (NEG) Urine Urobilinogen Dipstick 1.0 mg/dL (0.2 mg/dL) Urine Leukocyte Esterase Moderate (NEG) Urine RBC Occ /HPF (0-2) Urine WBC 5-10 /HPF (0-4) Urine Squamous Epithelial Cells Many /LPF Urine Amorphous Sediment Present /HPF Urine Bacteria Few /HPF (0-FEW) Urine Hyaline Casts Moderate /HPF Urine Mucus Slight /LPF Urine Yeast Present /HPF Vital Signs: Vital Signs Date Time Temp Pulse Resp B/P (MAP) Pulse Ox O2 Delivery O2 Flow Rate FiO2 02/22/21 11:44 99.7 104 18 144/87 (106) 99 Nasal Cannula 3.0 99.7 EKG: EKG: EKG Interpreted by Dr. Rico: Significant artifact. Cannot appreciate any acute STEMI. Radiology/Procedures: Radiology/Procedures: PROCEDURE: PORTABLE CHEST 1V Single AP view of the chest. Comparison: 01/29/2021. Indication: Altered mental status Findings: Scarring of the left midlung is stable. The heart is enlarged but stable. There is no pneumothorax or effusion. No air space or interstitial disease. Impression: 1. No acute cardiopulmonary process. Electronically signed by: Christopher Interiano MD (02/22/2021 12:39 PM) [id number] PROCEDURE: CT HEAD WO CONTRAST EXAMINATION: CT head without IV contrast INDICATION:65 years, Female, altered mental status. COMPARISON: 01/29/2021 and 01/31/2021 TECHNIQUE: Spiral acquisition of contiguous images from the skull base to the vertex were obtained. Sagittal and coronal 2D reformatted series were provided by the technologist. Soft tissue and bone window algorithms were reviewed. Exposure: One or more of the following individualized dose reduction techniques were utilized for this examination: 1. Automated exposure control 2. Adjustment of the mA and/or kV according to patient size 3. Use of iterative reconstruction technique. FINDINGS: Neither mass, midline shift, intracranial hemorrhage, acute/subacute ischemic changes, nor extraaxial fluid collections are seen. Moderate brain parenchymal volume loss. Unchanged supratentorial periventricular white matter hypodensities, indeterminate but most likely representing chronic microangiopathic disease. 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 Old lacunar infarct in the left cerebellum. The paranasal sinuses, mastoid air cells, and middle ears are clear.The orbital contents appear within normal limits. IMPRESSION: 1. No evidence of acute intracranial abnormality. 2. Similar other chronic/incidental findings, as above. Electronically signed by: Jan Clemens MD (02/22/2021 12:33 PM) [id number] Course & Med Decision Making: Course & Med Decision Making Pertinent Labs and Imaging studies reviewed. (See chart for details) Patient reports given by EMS versus shelter are inconsistent. Patient will be worked up as syncope versus sepsis. Patient has a severely elevated white count as well as evidence of UTI and myocardial infarction with troponin 0.266. Severe sepsis met: HR 100bpm, WBC 31.4 with source of infection and acute on chronic kidney damage. Case discussed with Dr. Rico in the department. Patient will be admitted to hospital under Dr. Ferrer. He noted some concern for possible L hip pain, so XR was ordered to evaluate. It came back negative for fracture and dislocation. Dragon Disclaimer: Dragon Disclaimer: This electronic medical record was generated, in whole or in part, using a voice recognition dictation system. Departure Departure Impression: Primary Impression: Sepsis Qualified Codes: A41.9 - Sepsis, unspecified organism; R65.20 - Severe sepsis without septic shock; G93.40 - Encephalopathy, unspecified Additional Impressions: UTI (urinary tract infection) Qualified Codes: N39.0 - Urinary tract infection, site not specified; R31.9 - Hematuria, unspecified Acute kidney injury superimposed on chronic kidney disease NSTEMI (non-ST elevated myocardial infarction) Acute encephalopathy Disposition: ADMITTED INPATIENT Admitting Physician: AVERY (Carissa) Condition: GUARDED Referrals: CRISTIANO CEBALLOS MD, MPH (PCP) YOLI GONZALEZ Feb 22, 2021 12:03
[2021-02-22 12:04] LABS: CALCIUM 9.2 mg/dL (8.5-10.1); CREATININE 3.3 mg/dL (0.6-1.0)
[2021-02-22 12:09] LABS: ALBUMIN 1.7 g/dL (3.4-5.0); ALBUMIN/GLOBULIN RATIO 0.3 (1.0-1.7); TOTAL BILIRUBIN 0.5 mg/dL (0.2-1.0); TOTAL PROTEIN 7.7 g/dL (6.4-8.2)
[2021-02-22 12:10] LABS: ACETAMIN < 2 mcg/ml (10-30); SALIC < 2.8 mg/dL (2.8-20.0)
[2021-02-22 12:25] LABS: BILIRUBIN,URINE SMALL (NEG); CLARITY,URINE CLOUDY; COLOR,URINE YELLOW; NITRITE,URINE NEGATIVE (NEG); PROTEIN,URINE 100 mg/dL (NEG-TRACE)
--- NOTE | 2021-02-22 12:35 | RAD ---
EXAMINATION: CT head without IV contrast INDICATION:65 years, Female, altered mental status. COMPARISON: 01/29/2021 and 01/31/2021 TECHNIQUE: Spiral acquisition of contiguous images from the skull base to the vertex were obtained. S agittal and coronal 2D reformatted series were provided by the technologist. Soft tissue and bone win natividad algorithms were reviewed. Exposure: One or more of the following individualized dose reduction techniques were utilized for thi s examination: 1. Automated exposure control 2. Adjustment of the mA and/or kV according to patient size 3. Use of iterative reconstruction technique. FINDINGS: Neither mass, midline shift, intracranial hemorrhage, acute/subacute ischemic changes, nor extraaxial fluid collections are seen. Moderate brain parenchymal volume loss. Unchanged supratentorial periven tricular white matter hypodensities, indeterminate but most likely representing chronic microangiopat hic disease. 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 Old lacunar infarct in the left cerebellum. The paranasal sinuses, mastoid air cells, and middle ears are clear.The orbital contents appear withi n normal limits. IMPRESSION: 1. No evidence of acute intracranial abnormality. 2. Similar other chronic/incidental findings, as above. Electronically signed by: Jan Clemens MD (02/22/2021 12:33 PM) [id number]
--- NOTE | 2021-02-22 12:41 | RAD ---
Single AP view of the chest. Comparison: 01/29/2021. Indication: Altered mental status Findings: Scarring of the left midlung is stable. The heart is enlarged but stable. There is no pneumothorax o r effusion. No air space or interstitial disease. Impression: 1. No acute cardiopulmonary process. Electronically signed by: Christopher Interiano MD (02/22/2021 12:39 PM) [id number]
[2021-02-22 12:46] LABS: BACTERIA,URINE FEW /HPF (0-FEW); RBC,URINE OCC /HPF (0-2)
[2021-02-22 12:47] LABS: AMORPHOUS SEDIMENT,UR PRESENT /HPF; HYALINE CASTS, URINE MODERATE /HPF
[2021-02-22 12:48] LABS: YEAST,URINE PRESENT /HPF
[2021-02-22 12:55] LABS: % LYMPHS 1 % (24-48); % MONOS 2 % (0-10); % SEGS 97 % (35-66)
[2021-02-22 12:56] LABS: PLT ESTIMATE ADEQUATE (ADEQUATE)
[2021-02-22] MEDS ORDERED: VANCOMYCIN PER PHARMACY MC PRN (13:30)
[2021-02-22] MEDS ORDERED: PIPERACILLIN/TAZOBACTAM 4.5 GM in IV NORMAL SALINE 100ML 100 ML IV ONE (13:30)
[2021-02-22] MEDS ORDERED: VANCOMYCIN 1.25 GM in IV NORMAL SALINE 250ML 250 ML IV ONE (13:45)
[2021-02-22] MEDS ORDERED: PIPERACILLIN/TAZOBACTAM 2.25 GM in IV NORMAL SALINE 50ML 50 ML IV ONE (14:00)
--- NOTE | 2021-02-22 15:32 | RAD ---
Single AP view of the pelvis with AP and crosstable lateral views of the left hip were obtained. History: Left hip pain Comparison: none. No fracture is seen about the left proximal femur acetabulum. The femoral head is located in the rosa maria tabulum. Mild diffuse degenerative changes are identified. Electronically signed by: Christopher Interiano MD (02/22/2021 3:29 PM) [facility]
--- NOTE | 2021-02-22 18:06 | EKG ---
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
--- NOTE | 2021-02-22 18:31 | PDOC1 ---
History and Physical Date of Admission Date of Admission DATE: 02/22/21 TIME: 18:31 Identification/Chief Complaint Chief Complaint Acute encephalopathy Source Source: Caregiver, Chart review History of Present Illness History of Present Illness Ms Bentley is a 65 year old female with history of seizures, cocaine use disorder, DM2, depression, GERD, HLD, HTN who is a retirement SNF resident who comes to the ED via EMS due to unresponsiveness. Per SNF staff has been less active for the past month and had irregular breathing since 1000 this morning. [facility] staff reports O2 saturations in the low 80s on room air so they put her on 3 L nasal cannula. Her oxygen saturation then raised to 92%. No witnessed seizure activity and she has reportedly been taking her Keppra and vimpat BID. Nonverbal enroute. She is baseline alert and aware x2 and wheelchair-bound. No falls or head trauma reported. She is unable to give any history and her daughter is listed as contact, voicemail box is full. Patient opens her eyes to painful stimuli and makes eye contact, does not follow any commands. Of note, she was admitted for similar complaints just a month ago. WBC 31.4, Hb 9.1, Platelets 369, Na 152, K 4, Cl 117, HCO3 23, BUN 108, Cr 3.3, glucose 161, lactic acid 1.2, ca 9.2, bili 0.5, AST 29, ALT 16, Alk phos 103, Trop 0.266, Albumin 1.7. Urine with blood and + leukocyte esterase EKG sinus rate of 99 bpm with TWI in inferolateral leads unchanged from prior EKG, significant baseline artefact, No ST elevations, QTc 509, CXR and CT head with no acute findings. Given leukocytosis and likely sepsis related to UTI, given empiric antibiotics and fluids and admitted for further care. Past Medical History Cardiovascular: CHF, HTN, Other Pulmonary: Asthma CENTRAL NERVOUS SYSTEM: Other GI: Diverticulosis, GERD Heme/Onc: Anemia NOS Hepatobiliary: No pertinent hx Psych: No pertinent hx, Addictions Musculoskeletal: Osteoarthritis Rheumatologic: No pertinent hx Infectious disease: No pertinent hx Renal/: Chronic renal insuff Endocrine: Diabetes Past Surgical History Past Surgical History: Tubal Ligation, Other Family History Family History: Alcohol Abuse, Coronary Artery Disease Family History: Parent Social History Smoke: No ALCOHOL: none Drugs: Cocaine Current Problem List Problem List Problems Medical Problems: (1) Acute encephalopathy Status: Acute (2) Acute kidney injury superimposed on chronic kidney disease Status: Acute (3) NSTEMI (non-ST elevated myocardial infarction) Status: Acute (4) Sepsis Status: Acute (5) UTI (urinary tract infection) Status: Acute Current Medications Current Medications Current Medications Piperacillin Sod/ Tazobactam Sod 4.5 gm/Sodium Chloride 100 ml @ 200 mls/hr 1X ONCE IV ; Start 02/22/21 at 13:30; Stop 02/22/21 at 13:59; Status UNV Vancomycin HCl (Vanco Per Pharmacy) 1 each PRN DAILY PRN MC SEE COMMENTS; Start 02/22/21 at 13:30; Status UNV Piperacillin Sod/ Tazobactam Sod 2.25 gm/Sodium Chloride 50 ml @ 100 mls/hr 1X ONCE IV Last administered on 02/22/21at 13:46; Start 02/22/21 at 14:00; Stop 02/22/21 at 17:30; Status DC Vancomycin HCl 1.25 gm/Sodium Chloride 250 ml @ 166.667 mls/hr 1X ONCE IV Last administered on 02/22/21at 14:33; Start 02/22/21 at 13:45; Stop 02/22/21 at 17:31; Status DC Active Scripts Active Macrobid 100 Mg Capsule (Nitrofurantoin Monohyd/M-Cryst) 100 Mg Capsule 1 Cap PO BID 5 Days Augmentin 875-125 Tablet (Amoxicillin/Potassium Clav) 1 Each Tablet 1 Tab PO BID Aldactone (Spironolactone) 25 Mg Tablet 25 Mg PO DAILY 30 Days Metoprolol Tartrate 25 Mg Tablet 25 Mg PO BID 30 Days Levemir Flextouch (Insulin Detemir) 100 Unit/1 Ml Insuln.pen 20 Units SQ QHS 30 Days Novolog Flexpen (Insulin Aspart) 100 Unit/1 Ml Insuln.pen 4 Units SQ TIDAC 30 Days Bumetanide 1 Mg Tablet 1 Mg PO DAILY 30 Days Atorvastatin Calcium 40 Mg Tablet 40 Mg PO QHS 30 Days Aspirin Ec (Aspirin) 81 Mg Tablet.dr 81 Mg PO DAILYWBKFT 30 Days Reported Zyprexa (Olanzapine) 20 Mg Tablet 25 Mg PO DAILY Trazodone Hcl 50 Mg Tablet 1 Tab PO QHS Metformin Hcl 500 Mg Tablet 500 Mg PO DAILY Vimpat (Lacosamide) 200 Mg Tablet 200 Mg PO BID Keppra (Levetiracetam) 500 Mg Tablet 1 Tab PO BID 30 Days Carvedilol 25 Mg Tablet 25 Mg PO BIDWMEALS Amlodipine Besylate 10 Mg Tablet 10 Mg PO DAILY Alprazolam 1 Mg Tablet 1 Tab PO TID Tylenol (Acetaminophen) 325 Mg Tablet 2 Tab PO PRN Q4HRS Hydrocodone-Apap 7.5-325 (Hydrocodone Bit/Acetaminophen) 1 Each Tablet 1 Tab PO PRN Q6HRS PRN Amlodipine Besylate 5 Mg Tablet 5 Mg PO DAILY Baclofen 10 Mg Tablet 10 Mg PO BID Amitriptyline Hcl 25 Mg Tablet 25 Mg PO HS Hydrochlorothiazide Tablet (Hydrochlorothiazide) 25 Mg Tablet 25 Mg PO DAILY Dicyclomine Hcl 10 Mg Capsule 10 Mg PO BID Glyburide 5 Mg Tablet 5 Mg PO DAILY Lisinopril 40 Mg Tablet 40 Mg PO DAILY Sertraline Hcl 100 Mg Tablet 100 Mg PO BID Omeprazole 20 Mg Capsule.dr 20 Mg PO DAILY Allergies Allergies: Coded Allergies: No Known Drug Allergies (Unverified , 02/22/21) ROS Review of System Unable to obtain due to altered mentation Physical Exam General: moderate distress HEENT: Atraumatic, PERRLA, EOMI, Mucous membr. moist/pink Lungs: Clear to auscultation, Normal air movement Heart: S1S2, RRR, no thrills, no rubs, no gallops, no murmurs Abdomen: Normal bowel sounds, Soft, No tenderness, No hepatosplenomegaly, No masses Rectal Exam: not examined Extremities: No clubbing, No cyanosis, No edema, Normal pulses, No tenderness/swelling Skin: No rashes, No breakdown, No significant lesion Neuro: Normal tone, Sensation intact, Cranial nerves 3-12 NL, Reflexes 2+, Other (Moving all 4 limbs, more pain on left leg movement) Psych/Mental Status: Other (Obtunded) Vitals Vitals Vital Signs Date Time Temp Pulse Resp B/P (MAP) Pulse Ox O2 Delivery O2 Flow Rate FiO2 02/22/21 17:39 84 15 136/72 (93) 97 Nasal Cannula 3.0 02/22/21 11:44 99.7 99.7 Labs Labs Laboratory Tests Test 02/22/21 11:40 02/22/21 12:10 02/22/21 13:49 White Blood Count 31.4 x10^3/uL (4.0-11.0) Red Blood Count 3.43 x10^6/uL (3.50-5.40) Hemoglobin 9.1 g/dL (12.0-15.5) Hematocrit 29.8 % (36.0-47.0) Mean Corpuscular Volume 87 fL (79-100) Mean Corpuscular Hemoglobin 27 pg (25-35) Mean Corpuscular Hemoglobin Concent 31 g/dL (31-37) Red Cell Distribution Width 15.0 % (11.5-14.5) Platelet Count 369 x10^3/uL (140-400) Neutrophils (%) (Auto) 93 % (31-73) Lymphocytes (%) (Auto) 2 % (24-48) Monocytes (%) (Auto) 5 % (0-9) Eosinophils (%) (Auto) 0 % (0-3) Basophils (%) (Auto) 0 % (0-3) Neutrophils # (Auto) 29.3 x10^3/uL (1.8-7.7) Lymphocytes # (Auto) 0.6 x10^3/uL (1.0-4.8) Monocytes # (Auto) 1.5 x10^3/uL (0.0-1.1) Eosinophils # (Auto) 0.0 x10^3/uL (0.0-0.7) Basophils # (Auto) 0.1 x10^3/uL (0.0-0.2) Segmented Neutrophils % 97 % (35-66) Lymphocytes % 1 % (24-48) Monocytes % 2 % (0-10) Platelet Estimate Adequate (ADEQUATE) Sodium Level 152 mmol/L (136-145) Potassium Level 4.0 mmol/L (3.5-5.1) Chloride Level 117 mmol/L (98-107) Carbon Dioxide Level 23 mmol/L (21-32) Anion Gap 12 (6-14) Blood Urea Nitrogen 108 mg/dL (7-20) Creatinine 3.3 mg/dL (0.6-1.0) Estimated GFR (Cockcroft-Gault) 17.0 BUN/Creatinine Ratio 33 (6-20) Glucose Level 161 mg/dL (70-99) Lactic Acid Level 1.2 mmol/L (0.4-2.0) Calcium Level 9.2 mg/dL (8.5-10.1) Total Bilirubin 0.5 mg/dL (0.2-1.0) Aspartate Amino Transf (AST/SGOT) 29 U/L (15-37) Alanine Aminotransferase (ALT/SGPT) 16 U/L (14-59) Alkaline Phosphatase 103 U/L (46-116) Troponin I Quantitative 0.266 ng/mL (0.000-0.055) Total Protein 7.7 g/dL (6.4-8.2) Albumin 1.7 g/dL (3.4-5.0) Albumin/Globulin Ratio 0.3 (1.0-1.7) Salicylates Level < 2.8 mg/dL (2.8-20.0) Salicylate Last Dose Date Unknown Salicylate Last Dose Time Unknown Acetaminophen Level < 2 mcg/ml (10-30) Acetaminophen Last Dose Date Unknown Acetaminophen Last Dose Time Unknown Urine Collection Type U cath Urine Color Yellow Urine Clarity Cloudy Urine pH 5.0 (<5.0-8.0) Urine Specific Cunningham 1.015 (1.000-1.030) Urine Protein 100 mg/dL (NEG-TRACE) Urine Glucose (UA) Negative mg/dL (NEG) Urine Ketones (Stick) Negative mg/dL (NEG) Urine Blood Small (NEG) Urine Nitrite Negative (NEG) Urine Bilirubin Small (NEG) Urine Urobilinogen Dipstick 1.0 mg/dL (0.2 mg/dL) Urine Leukocyte Esterase Moderate (NEG) Urine RBC Occ /HPF (0-2) Urine WBC 5-10 /HPF (0-4) Urine Squamous Epithelial Cells Many /LPF Urine Amorphous Sediment Present /HPF Urine Bacteria Few /HPF (0-FEW) Urine Hyaline Casts Moderate /HPF Urine Mucus Slight /LPF Urine Yeast Present /HPF SARS-CoV-2 Antigen (Rapid) Negative (NEGATIVE) Laboratory Tests Test 02/22/21 11:40 02/22/21 12:10 02/22/21 13:49 White Blood Count 31.4 x10^3/uL (4.0-11.0) Red Blood Count 3.43 x10^6/uL (3.50-5.40) Hemoglobin 9.1 g/dL (12.0-15.5) Hematocrit 29.8 % (36.0-47.0) Mean Corpuscular Volume 87 fL (79-100) Mean Corpuscular Hemoglobin 27 pg (25-35) Mean Corpuscular Hemoglobin Concent 31 g/dL (31-37) Red Cell Distribution Width 15.0 % (11.5-14.5) Platelet Count 369 x10^3/uL (140-400) Neutrophils (%) (Auto) 93 % (31-73) Lymphocytes (%) (Auto) 2 % (24-48) Monocytes (%) (Auto) 5 % (0-9) Eosinophils (%) (Auto) 0 % (0-3) Basophils (%) (Auto) 0 % (0-3) Neutrophils # (Auto) 29.3 x10^3/uL (1.8-7.7) Lymphocytes # (Auto) 0.6 x10^3/uL (1.0-4.8) Monocytes # (Auto) 1.5 x10^3/uL (0.0-1.1) Eosinophils # (Auto) 0.0 x10^3/uL (0.0-0.7) Basophils # (Auto) 0.1 x10^3/uL (0.0-0.2) Segmented Neutrophils % 97 % (35-66) Lymphocytes % 1 % (24-48) Monocytes % 2 % (0-10) Platelet Estimate Adequate (ADEQUATE) Sodium Level 152 mmol/L (136-145) Potassium Level 4.0 mmol/L (3.5-5.1) Chloride Level 117 mmol/L (98-107) Carbon Dioxide Level 23 mmol/L (21-32) Anion Gap 12 (6-14) Blood Urea Nitrogen 108 mg/dL (7-20) Creatinine 3.3 mg/dL (0.6-1.0) Estimated GFR (Cockcroft-Gault) 17.0 BUN/Creatinine Ratio 33 (6-20) Glucose Level 161 mg/dL (70-99) Lactic Acid Level 1.2 mmol/L (0.4-2.0) Calcium Level 9.2 mg/dL (8.5-10.1) Total Bilirubin 0.5 mg/dL (0.2-1.0) Aspartate Amino Transf (AST/SGOT) 29 U/L (15-37) Alanine Aminotransferase (ALT/SGPT) 16 U/L (14-59) Alkaline Phosphatase 103 U/L (46-116) Troponin I Quantitative 0.266 ng/mL (0.000-0.055) Total Protein 7.7 g/dL (6.4-8.2) Albumin 1.7 g/dL (3.4-5.0) Albumin/Globulin Ratio 0.3 (1.0-1.7) Salicylates Level < 2.8 mg/dL (2.8-20.0) Salicylate Last Dose Date Unknown Salicylate Last Dose Time Unknown Acetaminophen Level < 2 mcg/ml (10-30) Acetaminophen Last Dose Date Unknown Acetaminophen Last Dose Time Unknown Urine Collection Type U cath Urine Color Yellow Urine Clarity Cloudy Urine pH 5.0 (<5.0-8.0) Urine Specific Cunningham 1.015 (1.000-1.030) Urine Protein 100 mg/dL (NEG-TRACE) Urine Glucose (UA) Negative mg/dL (NEG) Urine Ketones (Stick) Negative mg/dL (NEG) Urine Blood Small (NEG) Urine Nitrite Negative (NEG) Urine Bilirubin Small (NEG) Urine Urobilinogen Dipstick 1.0 mg/dL (0.2 mg/dL) Urine Leukocyte Esterase Moderate (NEG) Urine RBC Occ /HPF (0-2) Urine WBC 5-10 /HPF (0-4) Urine Squamous Epithelial Cells Many /LPF Urine Amorphous Sediment Present /HPF Urine Bacteria Few /HPF (0-FEW) Urine Hyaline Casts Moderate /HPF Urine Mucus Slight /LPF Urine Yeast Present /HPF SARS-CoV-2 Antigen (Rapid) Negative (NEGATIVE) Images Images Single AP view of the chest Radiograph: Scarring of the left midlung is stable. The heart is enlarged but stable. There is no pneumothorax or effusion. No air space or interstitial disease. Impression: 1. No acute cardiopulmonary process. CT HEAD WO CONTRAST: Neither mass, midline shift, intracranial hemorrhage, acute/subacute ischemic changes, nor extraaxial fluid collections are seen. Moderate brain parenchymal v olume loss. Unchanged supratentorial periventricular white matter hypodensities, indeterminate but most likely representing chronic microangiopathic disease. 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 Old lacunar infarct in the left cerebellum. The paranasal sinuses, mastoid air cells, and middle ears are clear.The orbital contents appear within normal limits. IMPRESSION: 1. No evidence of acute intracranial abnormality. 2. Similar other chronic/incidental findings, as above. VTE Prophylaxis Ordered VTE Prophylaxis Devices: No VTE Pharmacological Prophylaxi: Yes Assessment/Plan Assessment/Plan A/P: Acute encephalopathy - multifactorial, metabolic due to uremia, no SDH or CVA symptoms. less likely post-ictal. possibly related to sepsis as well Hypoxia - note clear as she is not hypoxic in ED. CXR reviewed with no abnormalities Hypernatremia - likely free water deficit, was on numerous diuretics prior to admit, will hold Sepsis - empiric vancomycin and zosyn given. Will change to cefepime for renal failure. pharmacy to help dosing vancomycin. Fluids given MEHDI - likely vasomotor nephropathy possibly from free water deficit, sepsis. Will hydrate with bicarbonate fluids. Consult nephrology Anemia - likely of chronic disease, will check iron studies, B12 Severe protein calorie malnutrition - will need early nutrition when mentation improves. Speech to see for swallow assessment Seizures - will dose IV keppra while confused. Prn ativan for seizure activity DM2 - basal bolus plus insulin Depression - hold meds while npo. PRN zyprexa odt for agitation or ativan GERD - IV protonix HLD - hold statin while NPO HTN - prn hydralazine, prn metoprolol H/o cocaine use disorder - in remission in SNF Elevated troponin - likely demand ischemia due to above, will trend FEN - NPO PPX - heparin FULL CODE Dispo - inpatient Justifications for Admission Other Justification ALEXANDRIA MCFARLAND MD Feb 22, 2021 18:31
[2021-02-22 18:35] VITALS: BP 109/61
[2021-02-22] MEDS ORDERED: ASCO500C PO (19:33)
[2021-02-22] MEDS ORDERED: ESOM20CA PO (19:36)
[2021-02-22] MEDS ORDERED: GLIP5TAB10 PO (19:37)
[2021-02-22] MEDS ORDERED: GLUC1KIT IM (19:40)
[2021-02-22] MEDS ORDERED: [UNRECOGNIZED DRUG - OTHER] PO (19:42)
[2021-02-22] MEDS ORDERED: LIDO5JEL3 TP (19:48)
--- NOTE | 2021-02-22 20:00 | NUR ---
Admit at shift change from ER Hold. Resides at [facility]. Restless. Admit with Dx AMS/Seizure. History of seizures. NPO. Non-Verbal. VSS. O2 5L NC. Wound to coccyx noted on arrival. Pictures taken and placed on chart. Orientated to POC. Unable to verbalize understanding. Seizure precautions ordered. Bed rails padded. Frequent rounds made.
[2021-02-22] MEDS ORDERED: DEXTROSE 50% 25 GM / 50ML DISP.SYRIN. IV PRN (21:30)
[2021-02-22] MEDS ORDERED: PANTOPRAZOLE IV PUSH 40 MG VIAL. IVP ONE (22:00)
[2021-02-22] MEDS: INSULIN GLARGINE SYRINGE. SQ SCH (22:00)
[2021-02-22] MEDS: CEFEPIME HCL IV Push 1 GM VIAL. IVP SCH (22:13)
[2021-02-22] MEDS: levETIRAcetam 500 MG in IV DEXTROSE 5% 100ML 100 ML IV SCH (22:13)
[2021-02-22] MEDS: HEPARIN for SUB-Q USE 5,000 UNIT/ML VIAL. SQ SCH (22:32)
[2021-02-22 22:48] VITALS: BP 102/52
[2021-02-22] MEDS: SODIUM BICARBONATE VIAL 50 MEQ in IV 1/2 NORMAL SALINE 1,000 ML IV SCH (23:25)
[2021-02-23 02:51] VITALS: BP 92/47
--- NOTE | 2021-02-23 03:11 | NUR ---
Pharmacy Vancomycin Dosing Note S:Consulted to monitor and dose vancomycin started 02/22/21. O:MERA HENLEY is a 65 year old F with Sepsis . Height: 5 feet, 5 inches Weight: 89.3 kg Java Body Weight: 57.00 Adjusted Body Weight: 69.92 Dosing Weight: Actual Other Antibiotics: CEFEPIME 02/22 - LABS: Last BUN: 108 Last Creatinine: 3.3 Creatinine Clearance: 19 mL/min Last WBC: 31.4 Last Procalcitonin: - Tmax (past 24 hours): 99.7 Microbiology: I/O: Drug Levels: Last level: on at Last dose given 02/22/21 at 1400 Vancomycin Dosing: Loading Dose: x1 Dosing Weight: Actual Target Trough: 15-20 A: Based on: WEIGHT, CRCL~19 WITH MEHDI, P: 1. INITIATE Vancomycin 1250 mg IV q48h 2. Follow up Trough level on 02/26/21 at 1330 3. Pharmacy will continue to monitor, follow and adjust therapy as needed. ELENI ALVARADO [facility], 02/23/21 2400
--- NOTE | 2021-02-23 03:44 | NUR ---
History for admission pulled from old records and senior living record sent with patient to hospital.
[2021-02-23 04:06] LABS: BASO % 0 % (0-3); EOS % 0 % (0-3); HEMATOCRIT 25.5 % (36.0-47.0); HEMOGLOBIN 7.6 g/dL (12.0-15.5); LYMPH # 0.8 x10^3/uL (1.0-4.8); LYMPH % 2 % (24-48); MEAN CORPUSCULAR HEMOGLOBIN 27 pg (25-35); MEAN CORPUSCULAR HGB CONC 30 g/dL (31-37); MEAN CORPUSCULAR VOLUME 89 fL (79-100); MONO # 2.1 x10^3/uL (0.0-1.1); MONO % 7 % (0-9); NEUT # 28.8 x10^3/uL (1.8-7.7); NEUT % 91 % (31-73); PLATELET COUNT 300 x10^3/uL (140-400); RED BLOOD COUNT 2.87 x10^6/uL (3.50-5.40); RED CELL DISTRIBUTION WIDTH 15.3 % (11.5-14.5); WHITE BLOOD COUNT 31.7 x10^3/uL (4.0-11.0)
[2021-02-23 04:31] LABS: ALBUMIN 1.5 g/dL (3.4-5.0); ALBUMIN/GLOBULIN RATIO 0.3 (1.0-1.7); CALCIUM 8.8 mg/dL (8.5-10.1); CREATININE 3.6 mg/dL (0.6-1.0); GFR 15.4; POTASSIUM 3.9 mmol/L (3.5-5.1); TOTAL BILIRUBIN 0.5 mg/dL (0.2-1.0); TOTAL PROTEIN 6.2 g/dL (6.4-8.2)
[2021-02-23] MEDS: PANTOPRAZOLE IV PUSH 40 MG VIAL. IVP SCH (05:49)
[2021-02-23] MEDS: HEPARIN for SUB-Q USE 5,000 UNIT/ML VIAL. SQ SCH ×3 (05:51→22:25)
[2021-02-23 06:42] VITALS: BP 84/52
--- NOTE | 2021-02-23 10:26 | NUR ---
SS following for discharge planning. SS reviewed pt chart and discussed with pt RN. Pt is LTC resident from [facility], ; fax [phone]. COVID19 negative. Pt is currently requiring oxygen at five liters nasal canula. Pt on IV Cefepime, IV Vancomycin, and IV Keppra. SS spoke with [facility] and was notified that at facility pt was a 1:1 feed, Mechanical Soft diet with thin liquids. Pt was being given 2 Allan Supplement for times that she did not eat so well. They reported that pt recently had a ST evaluation and passed. They reported that pt did not use oxygen at facility. SS discussed with Dr. Ferrer. SS will continue to follow for discharge planning.
--- NOTE | 2021-02-23 10:50 | PDOC ---
[employer] PROGRESS NOTE Date of Service DOS: DATE: 02/23/21 TIME: 10:46 Chief Complaint Chief Complaint A/P: Acute encephalopathy - multifactorial, metabolic due to uremia, no SDH or CVA symptoms. less likely post-ictal. possibly related to sepsis as well Hypoxia - note clear as she is not hypoxic in ED. CXR reviewed with no abnormalities Hypernatremia - likely free water deficit, was on numerous diuretics prior to admit, will hold Sepsis - empiric vancomycin and zosyn given for likely gluteal ulcer as source. Will change to cefepime for renal failure. pharmacy to help dosing vancomycin. Fluids given MEHDI - likely vasomotor nephropathy possibly from free water deficit, sepsis. Wi ll hydrate with bicarbonate fluids. Consult nephrology Gluteal ulcer - unstageable. Wound care and general surgery to see. possible sepsis source Anemia - likely of chronic disease, will check iron studies, B12 Severe protein calorie malnutrition - will need early nutrition when mentation improves. Speech to see for swallow assessment Seizures - will dose IV keppra while confused. Prn ativan for seizure activity DM2 - basal bolus plus insulin Depression - hold meds while npo. PRN zyprexa odt for agitation or ativan GERD - IV protonix HLD - hold statin while NPO HTN - prn hydralazine, prn metoprolol H/o cocaine use disorder - in remission in SNF Elevated troponin - likely demand ischemia due to above, will trend FEN - NPO PPX - heparin FULL CODE Dispo - inpatient. D/w [place], next of kin History of Present Illness History of Present Illness Ms Bentley is a 65 year old female with history of seizures, cocaine use disorder, DM2, depression, GERD, HLD, HTN who is a [facility] resident who comes to the ED via EMS due to unresponsiveness. Per SNF staff has been less active for the past month and had irregular breathing since 1000 this morning. [facility] staff reports O2 saturations in the low 80s on room air so they put her on 3 L nasal cannula. Her oxygen saturation then raised to 92%. No witnessed seizure activity and she has reportedly been taking her Keppra and vimpat BID. Nonverbal enroute. She is baseline alert and aware x2 and wheelchair-bound. No falls or head trauma reported. She is unable to give any history and her daughter is listed as contact, voicemail box is full. Patient opens her eyes to painful stimuli and makes eye contact, does not follow any commands. Of note, she was admitted for similar complaints just a month ago. WBC 31.4, Hb 9.1, Platelets 369, Na 152, K 4, Cl 117, HCO3 23, BUN 108, Cr 3.3, glucose 161, lactic acid 1.2, ca 9.2, bili 0.5, AST 29, ALT 16, Alk phos 103, Trop 0.266, Albumin 1.7. Urine with blood and + leukocyte esterase EKG sinus rate of 99 bpm with TWI in inferolateral leads unchanged from prior EKG, significant baseline artefact, No ST elevations, QTc 509, CXR and CT head with no acute findings. Given leukocytosis and likely sepsis related to UTI, given empiric antibiotics and fluids and admitted for further care. Afebrile overnight. WBC 31.7, Hb 7.6, platelets 300, NA 156, K3.9, BUN 119, CR 3.6, glucose 153, troponin 1.3. Covid negative. Breathing improved, but not communicating. Offloading for bedsore. Vitals/I&O Vitals/I&O: Vital Signs Date Time Temp Pulse Resp B/P (MAP) Pulse Ox O2 Delivery O2 Flow Rate FiO2 02/23/21 06:42 98.8 96 18 84/52 (63) 100 Nasal Cannula 5.0 98.8 I & O 02/22/21 02/22/21 02/23/21 15:00 23:00 07:00 Intake Total 105 ml 0 ml Output Total 325 ml Balance 105 ml -325 ml Physical Exam General: moderate distress Lungs: Crackles Abdomen: Normal bowel sounds, Soft, No tenderness, No hepatosplenomegaly, No masses Extremities: No clubbing, No cyanosis, No edema, Normal pulses, No tenderness/swelling Skin: No rashes, No breakdown, No significant lesion Labs Labs: Laboratory Tests Test 02/22/21 11:40 02/22/21 12:10 02/22/21 13:49 02/23/21 03:30 White Blood Count 31.4 x10^3/uL (4.0-11.0) 31.7 x10^3/uL (4.0-11.0) Red Blood Count 3.43 x10^6/uL (3.50-5.40) 2.87 x10^6/uL (3.50-5.40) Hemoglobin 9.1 g/dL (12.0-15.5) 7.6 g/dL (12.0-15.5) Hematocrit 29.8 % (36.0-47.0) 25.5 % (36.0-47.0) Mean Corpuscular Volume 87 fL (79-100) 89 fL (79-100) Mean Corpuscular Hemoglobin 27 pg (25-35) 27 pg (25-35) Mean Corpuscular Hemoglobin Concent 31 g/dL (31-37) 30 g/dL (31-37) Red Cell Distribution Width 15.0 % (11.5-14.5) 15.3 % (11.5-14.5) Platelet Count 369 x10^3/uL (140-400) 300 x10^3/uL (140-400) Neutrophils (%) (Auto) 93 % (31-73) 91 % (31-73) Lymphocytes (%) (Auto) 2 % (24-48) 2 % (24-48) Monocytes (%) (Auto) 5 % (0-9) 7 % (0-9) Eosinophils (%) (Auto) 0 % (0-3) 0 % (0-3) Basophils (%) (Auto) 0 % (0-3) 0 % (0-3) Neutrophils # (Auto) 29.3 x10^3/uL (1.8-7.7) 28.8 x10^3/uL (1.8-7.7) Lymphocytes # (Auto) 0.6 x10^3/uL (1.0-4.8) 0.8 x10^3/uL (1.0-4.8) Monocytes # (Auto) 1.5 x10^3/uL (0.0-1.1) 2.1 x10^3/uL (0.0-1.1) Eosinophils # (Auto) 0.0 x10^3/uL (0.0-0.7) 0.0 x10^3/uL (0.0-0.7) Basophils # (Auto) 0.1 x10^3/uL (0.0-0.2) 0.0 x10^3/uL (0.0-0.2) Segmented Neutrophils % 97 % (35-66) Lymphocytes % 1 % (24-48) Monocytes % 2 % (0-10) Platelet Estimate Adequate (ADEQUATE) Sodium Level 152 mmol/L (136-145) 156 mmol/L (136-145) Potassium Level 4.0 mmol/L (3.5-5.1) 3.9 mmol/L (3.5-5.1) Chloride Level 117 mmol/L (98-107) 119 mmol/L (98-107) Carbon Dioxide Level 23 mmol/L (21-32) 25 mmol/L (21-32) Anion Gap 12 (6-14) 12 (6-14) Blood Urea Nitrogen 108 mg/dL (7-20) 119 mg/dL (7-20) Creatinine 3.3 mg/dL (0.6-1.0) 3.6 mg/dL (0.6-1.0) Estimated GFR (Cockcroft-Gault) 17.0 15.4 BUN/Creatinine Ratio 33 (6-20) 33 (6-20) Glucose Level 161 mg/dL (70-99) 153 mg/dL (70-99) Lactic Acid Level 1.2 mmol/L (0.4-2.0) Calcium Level 9.2 mg/dL (8.5-10.1) 8.8 mg/dL (8.5-10.1) Iron Level 11 ug/dL (50-170) Total Iron Binding Capacity 170 ug/dL (250-450) Iron Saturation 6 % (15-34) Total Bilirubin 0.5 mg/dL (0.2-1.0) 0.5 mg/dL (0.2-1.0) Aspartate Amino Transf (AST/SGOT) 29 U/L (15-37) 38 U/L (15-37) Alanine Aminotransferase (ALT/SGPT) 16 U/L (14-59) 25 U/L (14-59) Alkaline Phosphatase 103 U/L (46-116) 92 U/L (46-116) Troponin I Quantitative 0.266 ng/mL (0.000-0.055) 0.300 ng/mL (0.000-0.055) Total Protein 7.7 g/dL (6.4-8.2) 6.2 g/dL (6.4-8.2) Albumin 1.7 g/dL (3.4-5.0) 1.5 g/dL (3.4-5.0) Albumin/Globulin Ratio 0.3 (1.0-1.7) 0.3 (1.0-1.7) Vitamin B12 Level 1007 pg/mL (247-911) Salicylates Level < 2.8 mg/dL (2.8-20.0) Salicylate Last Dose Date Unknown Salicylate Last Dose Time Unknown Acetaminophen Level < 2 mcg/ml (10-30) Acetaminophen Last Dose Date Unknown Acetaminophen Last Dose Time Unknown Urine Collection Type U cath Urine Color Yellow Urine Clarity Cloudy Urine pH 5.0 (<5.0-8.0) Urine Specific [place] 1.015 (1.000-1.030) Urine Protein 100 mg/dL (NEG-TRACE) Urine Glucose (UA) Negative mg/dL (NEG) Urine Ketones (Stick) Negative mg/dL (NEG) Urine Blood Small (NEG) Urine Nitrite Negative (NEG) Urine Bilirubin Small (NEG) Urine Urobilinogen Dipstick 1.0 mg/dL (0.2 mg/dL) Urine Leukocyte Esterase Moderate (NEG) Urine RBC Occ /HPF (0-2) Urine WBC 5-10 /HPF (0-4) Urine Squamous Epithelial Cells Many /LPF Urine Amorphous Sediment Present /HPF Urine Bacteria Few /HPF (0-FEW) Urine Hyaline Casts Moderate /HPF Urine Mucus Slight /LPF Urine Yeast Present /HPF SARS-CoV-2 RNA (CARLA) Negative (Negative) SARS-CoV-2 Antigen (Rapid) Negative (NEGATIVE) Assessment and Plan Assessmemt and Plan Problems Medical Problems: (1) Acute encephalopathy Status: Acute (2) Acute kidney injury superimposed on chronic kidney disease Status: Acute (3) NSTEMI (non-ST elevated myocardial infarction) Status: Acute (4) Sepsis Status: Acute (5) UTI (urinary tract infection) Status: Acute Comment Review of Relevant I have reviewed the following items toan (where applicable) has been applied. Medications: Current Medications Medications (Trade) Dose Ordered Sig/Es Route PRN Reason Start Time Stop Time Status Last Admin Dose Admin Vancomycin HCl (Vanco Per Pharmacy) 1 each PRN DAILY PRN MC SEE COMMENTS 02/22/21 13:30 02/23/21 03:10 Piperacillin Sod/ Tazobactam Sod 2.25 gm/Sodium Chloride 50 ml @ 100 mls/hr 1X ONCE IV 02/22/21 14:00 02/22/21 17:30 DC 02/22/21 13:46 Vancomycin HCl 1.25 gm/Sodium Chloride 250 ml @ 166.667 mls/hr 1X ONCE IV 02/22/21 13:45 02/22/21 17:31 DC 02/22/21 14:33 Sodium Bicarbonate 50 meq/Sodium Chloride 1,050 ml @ 125 mls/hr Q8H24M IV 02/22/21 21:30 02/22/21 23:25 Levetiracetam 500 mg/Dextrose 105 ml @ 420 mls/hr Q12HR IV 02/22/21 21:30 02/22/21 22:13 Heparin Sodium (Porcine) (Heparin Sodium) 5,000 unit Q8HRS SQ 02/22/21 22:00 02/23/21 05:51 Cefepime HCl (Maxipime) 1 gm Q24H IVP 02/22/21 21:30 02/22/21 22:13 Lorazepam (Ativan Inj) 0.5 mg PRN Q4HRS PRN IVP ANXIETY / AGITATION 02/22/21 21:30 02/23/21 01:52 Pantoprazole Sodium (PROTONIX VIAL for IV PUSH) 40 mg DAILYAC IVP 02/23/21 07:30 02/23/21 05:49 Pantoprazole Sodium (PROTONIX VIAL for IV PUSH) 40 mg 1X ONCE IVP 02/22/21 22:00 02/22/21 22:01 DC 02/22/21 22:16 Justifications for Admission General Conditions Poss Metaboilic Acidosis?: Yes Justification for admission: Patient has tachycardia (> 100 beats per minute) or hypotension (SBP < 90 mm Hg) leading to inadequate systemic perfusion as indicated by metabolic acidosis with arterial pH of less than 7.35. Other Justification ALEXANDRIA MCFARLAND MD Feb 23, 2021 10:50
[2021-02-23] MEDS: SODIUM BICARBONATE VIAL 50 MEQ in IV 1/2 NORMAL SALINE 1,000 ML IV SCH (10:54)
[2021-02-23] MEDS: levETIRAcetam 500 MG in IV DEXTROSE 5% 100ML 100 ML IV SCH ×2 (10:54→22:24)
[2021-02-23] MEDS: INSULIN LISPRO 300 UNITS/3 ML VIAL. SQ SCH ×3 (10:55→17:00)
[2021-02-23 11:13] VITALS: BP 101/56
[2021-02-23] MEDS ORDERED: IV 1/2 NORMAL SALINE 1,000 ML IV PRN (12:15)
--- NOTE | 2021-02-23 12:23 | PDOC2 ---
CONSULT Date of Consult Date of Consult DATE: 02/23/21 TIME: 11:59 Reason for Consult Reason for Consult: MHEDI Identification/Chief Complaint Chief Complaint Unable to obtain from pt- NOn verbal Source Source: Chart review History of Present Illness Reason for Visit: Patient is a 65 year old AA female with history of seizures, cocaine use disorder, DM2, depression, GERD, HTN who is a group home SNF resident who comes to the ED via EMS due to unresponsiveness. Per SNF staff has been less active for the past month and had irregular breathing [facility] staff reported O2 saturations in the low 80s on room air so they put her on 3 L nasal cannula. Her oxygen saturation then raised to 92%. No witnessed seizure activity and she has reportedly been taking her Keppra and vimpat BID. Nonverbal enroute. She is baseline alert and aware x2 and wheelchair-bound. No falls or head trauma reported. She is unable to give any history Patient opens her eyes to painful stimuli and makes eye contact, does not follow any commands. No reported N/V/D. No CP or SOB. No F/C . She was admitted for similar complaints just a month ago- non verbal state Past Medical History Cardiovascular: CHF, HTN, Other Pulmonary: Asthma CENTRAL NERVOUS SYSTEM: Other GI: Diverticulosis, GERD Heme/Onc: Anemia NOS Hepatobiliary: No pertinent hx Psych: No pertinent hx, Addictions Musculoskeletal: Osteoarthritis Rheumatologic: No pertinent hx Infectious disease: No pertinent hx Renal/: Chronic renal insuff Endocrine: Diabetes Past Surgical History Past Surgical History: Tubal Ligation, Other Family History Family History: Alcohol Abuse, Coronary Artery Disease Social History Social History: Parent No ALCOHOL: none Drugs: Cocaine Lives: with Family Current Problem List Problem List Problems Medical Problems: (1) Acute encephalopathy Status: Acute (2) Acute kidney injury superimposed on chronic kidney disease Status: Acute (3) NSTEMI (non-ST elevated myocardial infarction) Status: Acute (4) Sepsis Status: Acute (5) UTI (urinary tract infection) Status: Acute Current Medications Current Medications Current Medications Piperacillin Sod/ Tazobactam Sod 4.5 gm/Sodium Chloride 100 ml @ 200 mls/hr 1X ONCE IV ; Start 02/22/21 at 13:30; Stop 02/22/21 at 13:59; Status UNV Vancomycin HCl (Vanco Per Pharmacy) 1 each PRN DAILY PRN [facility] SEE COMMENTS Last administered on 02/23/21at 03:10; Start 02/22/21 at 13:30 Piperacillin Sod/ Tazobactam Sod 2.25 gm/Sodium Chloride 50 ml @ 100 mls/hr 1X ONCE IV Last administered on 02/22/21at 13:46; Start 02/22/21 at 14:00; Stop 02/22/21 at 17:30; Status DC Vancomycin HCl 1.25 gm/Sodium Chloride 250 ml @ 166.667 mls/hr 1X ONCE IV Last administered on 02/22/21at 14:33; Start 02/22/21 at 13:45; Stop 02/22/21 at 17:31; Status DC Olanzapine (ZyPREXA ZYDIS) 5 mg PRN BID PRN PO ANXIETY / AGITATION; Start 02/22/21 at 21:15 Ondansetron HCl (Zofran) 4 mg PRN Q4HRS PRN IVP NAUSEA/VOMITING; Start 02/22/21 at 21:15 Acetaminophen (Tylenol Supp) 650 mg PRN Q6HRS PRN [place] MILD PAIN / TEMP > 100.3'F; Start 02/22/21 at 21:15 Bisacodyl (Dulcolax Supp) 10 mg PRN DAILY PRN [place] CONSTIPATION; Start 02/22/21 a t 21:15 Sodium Bicarbonate 50 meq/Sodium Chloride 1,050 ml @ 125 mls/hr Q8H24M IV Last administered on 02/23/21at 10:54; Start 02/22/21 at 21:30 Levetiracetam 500 mg/Dextrose 105 ml @ 420 mls/hr Q12HR IV Last administered on 02/23/21at 10:54; Start 02/22/21 at 21:30 Heparin Sodium (Porcine) (Heparin Sodium) 5,000 unit Q8HRS SQ Last administered on 02/23/21at 05:51; Start 02/22/21 at 22:00 Insulin Human Lispro (HumaLOG) 0-9 UNITS TIDWMEALS SQ ; Start 02/23/21 at 08:00 Dextrose (Dextrose 50%-Water Syringe) 12.5 gm PRN Q15MIN PRN IV SEE COMMENTS; Start 02/22/21 at 21:30 Cefepime HCl (Maxipime) 1 gm Q24H IVP Last administered on 02/22/21at 22:13; Start 02/22/21 at 21:30 Lorazepam (Ativan Inj) 0.5 mg PRN Q4HRS PRN IVP ANXIETY / AGITATION Last administered on 02/23/21at 10:58; Start 02/22/21 at 21:30 Pantoprazole Sodium (PROTONIX VIAL for IV PUSH) 40 mg DAILYAC IVP Last administered on 02/23/21at 05:49; Start 02/23/21 at 07:30 Pantoprazole Sodium (PROTONIX VIAL for IV PUSH) 40 mg 1X ONCE IVP Last administered on 02/22/21at 22:16; Start 02/22/21 at 22:00; Stop 02/22/21 at 22:01; Status DC Insulin Glargine (Lantus Syringe) 10 unit QHS SQ ; Start 02/22/21 at 22:00 Vancomycin HCl 1.25 gm/Sodium Chloride 250 ml @ 167 mls/hr Q48H IV ; Start 02/24/21 at 14:00 Vancomycin HCl (Vancomycin Trough Level) 1 each 1X ONCE MC ; Start 02/26/21 at 13:30; Stop 02/26/21 at 13:31 Active Scripts Active Aldactone (Spironolactone) 25 Mg Tablet 25 Mg PO DAILY 30 Days Metoprolol Tartrate 25 Mg Tablet 25 Mg PO BID 30 Days Levemir Flextouch (Insulin Detemir) 100 Unit/1 Ml Insuln.pen 20 Units SQ QHS 30 Days Novolog Flexpen (Insulin Aspart) 100 Unit/1 Ml Insuln.pen 4 Units SQ TIDAC 30 Days Bumetanide 1 Mg Tablet 1 Mg PO DAILY 30 Days Atorvastatin Calcium 40 Mg Tablet 40 Mg PO QHS 30 Days Aspirin Ec (Aspirin) 81 Mg Tablet. 81 Mg PO DAILYWBKFT 30 Days Reported Lidocaine Hcl 5 Ml Jel..ml. 1 Ema TP BID [glucose GE] 1 Packet PO Q15 MIN PRN Glucagon Emergency Kit (Glucagon,Human Recombinant) 1 Mg Kit 1 Mg IM Q15 MINUTES Glipizide 5 Mg Tablet 5 Mg PO DAILY Nexium Capsule (Esomeprazole Magnesium) 20 Mg Capsule. 20 Mg PO DAILYAC Vitamin C (Ascorbic Acid) 500 Mg Capsule.er 500 Mg PO DAILY Zyprexa (Olanzapine) 20 Mg Tablet 25 Mg PO HS Trazodone Hcl 50 Mg Tablet 1 Tab PO QHS Metformin Hcl 500 Mg Tablet 500 Mg PO DAILY Vimpat (Lacosamide) 200 Mg Tablet 200 Mg PO BID Keppra (Levetiracetam) 500 Mg Tablet 1 Tab PO BID 30 Days Carvedilol 25 Mg Tablet 25 Mg PO BIDWMEALS Amlodipine Besylate 10 Mg Tablet 10 Mg PO DAILY Alprazolam 1 Mg Tablet 1 Tab PO TID Tylenol (Acetaminophen) 325 Mg Tablet 2 Tab PO PRN Q4HRS Hydrocodone-Apap 7.5-325 (Hydrocodone Bit/Acetaminophen) 1 Each Tablet 1 Tab PO PRN Q6HRS PRN Amlodipine Besylate 5 Mg Tablet 5 Mg PO DAILY Baclofen 10 Mg Tablet 10 Mg PO BID Amitriptyline Hcl 25 Mg Tablet 25 Mg PO HS Hydrochlorothiazide Tablet (Hydrochlorothiazide) 25 Mg Tablet 25 Mg PO DAILY Dicyclomine Hcl 10 Mg Capsule 10 Mg PO BID Lisinopril 40 Mg Tablet 40 Mg PO DAILY Sertraline Hcl 100 Mg Tablet 100 Mg PO BID Omeprazole 20 Mg Capsule.dr 20 Mg PO DAILY Allergies Allergies: Coded Allergies: No Known Drug Allergies (Unverified , 02/22/21) ROS Review of System As per HPI, Pt poor historian Unable to Obtain details- Non verbal Physical Exam Physical Exam General: NAD HEENT: Atraumatic, PERRLA, EOMI, Mucous membr. moist/pink Neck Supple Lungs: Clear to auscultation, Non labored Heart: S1S2, RRR, no thrills, no rubs, no gallops, no murmurs Abdomen: Normal bowel sounds, Soft, No tenderness, No hepatosplenomegaly, No masses Extremities: No clubbing, No cyanosis, No edema, Skin: No rashes, NeurO Grossly No neurological deficit Psych/Mental Status: Obtunded [place] + Vital Signs Vital Signs Date Time Temp Pulse Resp B/P (MAP) Pulse Ox O2 Delivery O2 Flow Rate FiO2 02/23/21 11:13 100.3 100 20 101/56 (71) 97 Nasal Cannula 2.0 100.3 Assessment & Plan MEHDI - ATN vs AIN- Low BP's, Intravascular depletion (on Diuretics per home med list ) On Vanc . Non Oliguric, BUN elevated Supportive care, Maintain hydration , Avoid Nephrotoxins , Vanc levels per pharmacy , strict I/O . If no improvement , will need dialysis and temp HDC , re-evaluate in the morning . Recent MEHDI- early Jan as well, resolved at dc was 2/2 dehydration Hypotension - BP low for her baseline HyperNatremia- On Diuretics per home med list . Hold. Bicarb normal. Recommend DC IV Bicarb , switch to 1/2 NS Acute encephalopathy - ? baseline per her recent hospitalization no SDH or CVA symptoms Sepsis -On empiric vancomycin Anemia Noted decrease in Hgb from her recent hospitalization. Defer to primary Seizures DM2 H/o cocaine use disorder - in remission in SNF Labs Labs Laboratory Tests Test 02/22/21 11:40 02/22/21 12:10 02/22/21 13:49 02/23/21 03:30 White Blood Count 31.4 x10^3/uL (4.0-11.0) 31.7 x10^3/uL (4.0-11.0) Red Blood Count 3.43 x10^6/uL (3.50-5.40) 2.87 x10^6/uL (3.50-5.40) Hemoglobin 9.1 g/dL (12.0-15.5) 7.6 g/dL (12.0-15.5) Hematocrit 29.8 % (36.0-47.0) 25.5 % (36.0-47.0) Mean Corpuscular Volume 87 fL (79-100) 89 fL (79-100) Mean Corpuscular Hemoglobin 27 pg (25-35) 27 pg (25-35) Mean Corpuscular Hemoglobin Concent 31 g/dL (31-37) 30 g/dL (31-37) Red Cell Distribution Width 15.0 % (11.5-14.5) 15.3 % (11.5-14.5) Platelet Count 369 x10^3/uL (140-400) 300 x10^3/uL (140-400) Neutrophils (%) (Auto) 93 % (31-73) 91 % (31-73) Lymphocytes (%) (Auto) 2 % (24-48) 2 % (24-48) Monocytes (%) (Auto) 5 % (0-9) 7 % (0-9) Eosinophils (%) (Auto) 0 % (0-3) 0 % (0-3) Basophils (%) (Auto) 0 % (0-3) 0 % (0-3) Neutrophils # (Auto) 29.3 x10^3/uL (1.8-7.7) 28.8 x10^3/uL (1.8-7.7) Lymphocytes # (Auto) 0.6 x10^3/uL (1.0-4.8) 0.8 x10^3/uL (1.0-4.8) Monocytes # (Auto) 1.5 x10^3/uL (0.0-1.1) 2.1 x10^3/uL (0.0-1.1) Eosinophils # (Auto) 0.0 x10^3/uL (0.0-0.7) 0.0 x10^3/uL (0.0-0.7) Basophils # (Auto) 0.1 x10^3/uL (0.0-0.2) 0.0 x10^3/uL (0.0-0.2) Segmented Neutrophils % 97 % (35-66) Lymphocytes % 1 % (24-48) Monocytes % 2 % (0-10) Platelet Estimate Adequate (ADEQUATE) Sodium Level 152 mmol/L (136-145) 156 mmol/L (136-145) Potassium Level 4.0 mmol/L (3.5-5.1) 3.9 mmol/L (3.5-5.1) Chloride Level 117 mmol/L (98-107) 119 mmol/L (98-107) Carbon Dioxide Level 23 mmol/L (21-32) 25 mmol/L (21-32) Anion Gap 12 (6-14) 12 (6-14) Blood Urea Nitrogen 108 mg/dL (7-20) 119 mg/dL (7-20) Creatinine 3.3 mg/dL (0.6-1.0) 3.6 mg/dL (0.6-1.0) Estimated GFR (Cockcroft-Gault) 17.0 15.4 BUN/Creatinine Ratio 33 (6-20) 33 (6-20) Glucose Level 161 mg/dL (70-99) 153 mg/dL (70-99) Lactic Acid Level 1.2 mmol/L (0.4-2.0) Calcium Level 9.2 mg/dL (8.5-10.1) 8.8 mg/dL (8.5-10.1) Iron Level 11 ug/dL (50-170) Total Iron Binding Capacity 170 ug/dL (250-450) Iron Saturation 6 % (15-34) Total Bilirubin 0.5 mg/dL (0.2-1.0) 0.5 mg/dL (0.2-1.0) Aspartate Amino Transf (AST/SGOT) 29 U/L (15-37) 38 U/L (15-37) Alanine Aminotransferase (ALT/SGPT) 16 U/L (14-59) 25 U/L (14-59) Alkaline Phosphatase 103 U/L (46-116) 92 U/L (46-116) Troponin I Quantitative 0.266 ng/mL (0.000-0.055) 0.300 ng/mL (0.000-0.055) Total Protein 7.7 g/dL (6.4-8.2) 6.2 g/dL (6.4-8.2) Albumin 1.7 g/dL (3.4-5.0) 1.5 g/dL (3.4-5.0) Albumin/Globulin Ratio 0.3 (1.0-1.7) 0.3 (1.0-1.7) Vitamin B12 Level 1007 pg/mL (247-911) Salicylates Level < 2.8 mg/dL (2.8-20.0) Salicylate Last Dose Date Unknown Salicylate Last Dose Time Unknown Acetaminophen Level < 2 mcg/ml (10-30) Acetaminophen Last Dose Date Unknown Acetaminophen Last Dose Time Unknown Urine Collection Type U cath Urine Color Yellow Urine Clarity Cloudy Urine pH 5.0 (<5.0-8.0) Urine Specific [place] 1.015 (1.000-1.030) Urine Protein 100 mg/dL (NEG-TRACE) Urine Glucose (UA) Negative mg/dL (NEG) Urine Ketones (Stick) Negative mg/dL (NEG) Urine Blood Small (NEG) Urine Nitrite Negative (NEG) Urine Bilirubin Small (NEG) Urine Urobilinogen Dipstick 1.0 mg/dL (0.2 mg/dL) Urine Leukocyte Esterase Moderate (NEG) Urine RBC Occ /HPF (0-2) Urine WBC 5-10 /HPF (0-4) Urine Squamous Epithelial Cells Many /LPF Urine Amorphous Sediment Present /HPF Urine Bacteria Few /HPF (0-FEW) Urine Hyaline Casts Moderate /HPF Urine Mucus Slight /LPF Urine Yeast Present /HPF SARS-CoV-2 RNA (CARLA) Negative (Negative) SARS-CoV-2 Antigen (Rapid) Negative (NEGATIVE) Laboratory Tests Test 02/22/21 12:10 02/22/21 13:49 02/23/21 03:30 Urine Collection Type U cath Urine Color Yellow Urine Clarity Cloudy Urine pH 5.0 (<5.0-8.0) Urine Specific [place] 1.015 (1.000-1.030) Urine Protein 100 mg/dL (NEG-TRACE) Urine Glucose (UA) Negative mg/dL (NEG) Urine Ketones (Stick) Negative mg/dL (NEG) Urine Blood Small (NEG) Urine Nitrite Negative (NEG) Urine Bilirubin Small (NEG) Urine Urobilinogen Dipstick 1.0 mg/dL (0.2 mg/dL) Urine Leukocyte Esterase Moderate (NEG) Urine RBC Occ /HPF (0-2) Urine WBC 5-10 /HPF (0-4) Urine Squamous Epithelial Cells Many /LPF Urine Amorphous Sediment Present /HPF Urine Bacteria Few /HPF (0-FEW) Urine Hyaline Casts Moderate /HPF Urine Mucus Slight /LPF Urine Yeast Present /HPF SARS-CoV-2 RNA (CARLA) Negative (Negative) SARS-CoV-2 Antigen (Rapid) Negative (NEGATIVE) White Blood Count 31.7 x10^3/uL (4.0-11.0) Red Blood Count 2.87 x10^6/uL (3.50-5.40) Hemoglobin 7.6 g/dL (12.0-15.5) Hematocrit 25.5 % (36.0-47.0) Mean Corpuscular Volume 89 fL (79-100) Mean Corpuscular Hemoglobin 27 pg (25-35) Mean Corpuscular Hemoglobin Concent 30 g/dL (31-37) Red Cell Distribution Width 15.3 % (11.5-14.5) Platelet Count 300 x10^3/uL (140-400) Neutrophils (%) (Auto) 91 % (31-73) Lymphocytes (%) (Auto) 2 % (24-48) Monocytes (%) (Auto) 7 % (0-9) Eosinophils (%) (Auto) 0 % (0-3) Basophils (%) (Auto) 0 % (0-3) Neutrophils # (Auto) 28.8 x10^3/uL (1.8-7.7) Lymphocytes # (Auto) 0.8 x10^3/uL (1.0-4.8) Monocytes # (Auto) 2.1 x10^3/uL (0.0-1.1) Eosinophils # (Auto) 0.0 x10^3/uL (0.0-0.7) Basophils # (Auto) 0.0 x10^3/uL (0.0-0.2) Sodium Level 156 mmol/L (136-145) Potassium Level 3.9 mmol/L (3.5-5.1) Chloride Level 119 mmol/L (98-107) Carbon Dioxide Level 25 mmol/L (21-32) Anion Gap 12 (6-14) Blood Urea Nitrogen 119 mg/dL (7-20) Creatinine 3.6 mg/dL (0.6-1.0) Estimated GFR (Cockcroft-Gault) 15.4 BUN/Creatinine Ratio 33 (6-20) Glucose Level 153 mg/dL (70-99) Calcium Level 8.8 mg/dL (8.5-10.1) Total Bilirubin 0.5 mg/dL (0.2-1.0) Aspartate Amino Transf (AST/SGOT) 38 U/L (15-37) Alanine Aminotransferase (ALT/SGPT) 25 U/L (14-59) Alkaline Phosphatase 92 U/L (46-116) Troponin I Quantitative 0.300 ng/mL (0.000-0.055) Total Protein 6.2 g/dL (6.4-8.2) Albumin 1.5 g/dL (3.4-5.0) Albumin/Globulin Ratio 0.3 (1.0-1.7) Review All relevant outside records, renal labs, imaging studies, telemetry/EKG's were reviewed. Images Images Altered mental status Findings: Scarring of the left midlung is stable. The heart is enlarged but stable. There is no pneumothorax or effusion. No air space or interstitial disease. Impression: 1. No acute cardiopulmonary process. AZAEL VANCE MD Feb 23, 2021 12:22
[2021-02-23 14:10] VITALS: BP 107/65
--- NOTE | 2021-02-23 15:24 | NUR ---
Wound/Ostomy Care Wound Type/Assessment: Wound care consult for sacrum PU unstageable, right medial foot DFU. Multiple scabs noted on both legs that are now healed. No other wounds noted. Sacrum PU is necrotic, slough and eschar cover with foul smell and moderate drainage. All wounds cleansed and measured, right medial foot was pictured. No other wounds noted on head to toe skin assessment. Treatment Recommendations/Plan: Cleanse all wounds with saline or wound wash and pat dry. Sacrum: apply therahoney gel, xeroform, abd and tape, change every 2-3 days and as needed if saturated. Right medial foot: skin prep daily. Education provided: unable to educate pt d/t mental status Offloading surface/device: Turn Q2H left to right only, back only for meals, pillows to offload heels and purple wedge, P500 bed (ordered) Recommended Referrals/Tests: general surgery consult for possible debridement Discharge Recommendations for dressings: same as above unless surgery team has different orders after eval.
[2021-02-23] MEDS: ACETAMINOPHEN 650 MG SUPP.RECT. PR PRN (16:11)
[2021-02-23 19:40] VITALS: BP 98/53
[2021-02-23] MEDS: INSULIN GLARGINE SYRINGE. SQ SCH (21:00)
[2021-02-23] MEDS: CEFEPIME HCL IV Push 1 GM VIAL. IVP SCH (22:23)
[2021-02-23 23:03] VITALS: BP 90/42
[2021-02-24 02:41] VITALS: BP 109/51
[2021-02-24 04:45] LABS: BASO % 0 % (0-3); EOS % 0 % (0-3); HEMATOCRIT 25.9 % (36.0-47.0); LYMPH # 0.7 x10^3/uL (1.0-4.8); LYMPH % 2 % (24-48); MEAN CORPUSCULAR HEMOGLOBIN 28 pg (25-35); MEAN CORPUSCULAR HGB CONC 31 g/dL (31-37); MEAN CORPUSCULAR VOLUME 89 fL (79-100); MONO # 1.8 x10^3/uL (0.0-1.1); MONO % 6 % (0-9); NEUT # 28.1 x10^3/uL (1.8-7.7); NEUT % 92 % (31-73); PLATELET COUNT 316 x10^3/uL (140-400); RED CELL DISTRIBUTION WIDTH 15.4 % (11.5-14.5); WHITE BLOOD COUNT 30.6 x10^3/uL (4.0-11.0)
[2021-02-24 05:11] LABS: ALBUMIN 1.3 g/dL (3.4-5.0); CALCIUM 8.9 mg/dL (8.5-10.1); CREATININE 3.7 mg/dL (0.6-1.0); GFR 14.9; PHOSPHORUS 5.1 mg/dL (2.6-4.7); POTASSIUM 3.9 mmol/L (3.5-5.1)
[2021-02-24] MEDS: PANTOPRAZOLE IV PUSH 40 MG VIAL. IVP SCH (05:52)
[2021-02-24] MEDS: HEPARIN for SUB-Q USE 5,000 UNIT/ML VIAL. SQ SCH ×3 (05:53→21:58)
[2021-02-24 07:29] VITALS: BP 93/47
[2021-02-24] MEDS: INSULIN LISPRO 300 UNITS/3 ML VIAL. SQ SCH ×3 (08:00→17:00)
[2021-02-24] MEDS ORDERED: LIDOCAINE WITH 8.4% SOD BICARB 3 ML DISP.SYRIN. ONE (08:05)
[2021-02-24] MEDS ORDERED: LIDOCAINE WITH 8.4% SOD BICARB 3 ML DISP.SYRIN. INJ ONE (09:00)
[2021-02-24] MEDS: levETIRAcetam 500 MG in IV DEXTROSE 5% 100ML 100 ML IV SCH ×2 (09:00→20:41)
[2021-02-24 10:11] VITALS: BP 119/60
--- NOTE | 2021-02-24 11:45 | NUR ---
SS following up with discharge planning. SS reviewed pt chart and discussed with pt RN. Pt is currently requiring oxygen at two liters nasal canula. COVID19 negative. Pt on IV Vancomycin, IV Keppra, and IV Cefepime. Wound care consulted for sacral wound. NPO. ST consulted. Nephrology following. Temp HD cath placed today. Surgery consulted. Pt is LTC resident from [facility] [place], ; fax [phone]. Clinical updates phoned and faxed to [facility]. SS will continue to follow for discharge planning.
--- NOTE | 2021-02-24 11:52 | PDOC ---
[employer] PROGRESS NOTE Date of Service DOS: DATE: 02/24/21 TIME: 11:50 Chief Complaint Chief Complaint A/P: Acute encephalopathy - multifactorial, metabolic due to uremia, no SDH or CVA symptoms. less likely post-ictal. possibly related to sepsis as well Hypoxia - note clear as she is not hypoxic in ED. CXR reviewed with no abnormalities Hypernatremia - likely free water deficit, was on numerous diuretics prior to admit, will hold Sepsis - empiric vancomycin and zosyn given for likely gluteal ulcer as source. Will change to cefepime for renal failure. pharmacy to help dosing vancomycin. Fluids given MEHDI - likely vasomotor nephropathy possibly from free water deficit, sepsis. Wi ll hydrate with bicarbonate fluids. Consult nephrology Gluteal ulcer - unstageable. Wound care and general surgery to see. possible sepsis source Anemia - likely of chronic disease, will check iron studies, B12 Severe protein calorie malnutrition - will need early nutrition when mentation improves. Speech to see for swallow assessment Seizures - will dose IV keppra while confused. Prn ativan for seizure activity DM2 - basal bolus plus insulin Depression - hold meds while npo. PRN zyprexa odt for agitation or ativan GERD - IV protonix HLD - hold statin while NPO HTN - prn hydralazine, prn metoprolol H/o cocaine use disorder - in remission in SNF Elevated troponin - likely demand ischemia due to above, will trend FEN - NPO PPX - heparin FULL CODE Dispo - inpatient. 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 Per SNF staff has been less active for the past month and had irregular breathing since 1000 this morning. long term staff reports O2 saturations in the low 80s on room air so they put her on 3 L nasal cannula. Her oxygen saturation then raised to 92%. No witnessed seizure activity and she has reportedly been taking her Keppra and vimpat BID. Nonverbal enroute. She is baseline alert and aware x2 and wheelchair-bound. No falls or head trauma reported. She is unable to give any history and her daughter is listed as contact, voicemail box is full. Patient opens her eyes to painful stimuli and makes eye contact, does not follow any commands. Of note, she was admitted for similar complaints just a month ago. WBC 31.4, Hb 9.1, Platelets 369, Na 152, K 4, Cl 117, HCO3 23, BUN 108, Cr 3.3, glucose 161, lactic acid 1.2, ca 9.2, bili 0.5, AST 29, ALT 16, Alk phos 103, Trop 0.266, Albumin 1.7. Urine with blood and + leukocyte esterase EKG sinus rate of 99 bpm with TWI in inferolateral leads unchanged from prior EKG, significant baseline artefact, No ST elevations, QTc 509, CXR and CT head with no acute findings. Given leukocytosis and likely sepsis related to UTI, given empiric antibiotics and fluids and admitted for further care. 02/23: Afebrile. WBC 31.7, Hb 7.6, platelets 300, NA 156, K3.9, BUN 119, CR 3.6, glucose 153, alb 1.3. Covid neg. Breathing improved, but not communicating. Offloading for bedsore. Afebrile. WBC still elevated patient septic. Son consented for dialysis catheter placement. BUN 128 today. Still very confused. Discussed with general surgery is poor surgical candidate but very large wound needs offloading possibly chemical debridement and consideration of wound VAC. Continue cefepime and vancomycin. Discussed with family overall goals of care. Vitals/I&O Vitals/I&O: Vital Signs Date Time Temp Pulse Resp B/P (MAP) Pulse Ox O2 Delivery O2 Flow Rate FiO2 02/24/21 10:11 99.0 95 16 119/60 (79) 98 Nasal Cannula 2.0 99.0 I & O 02/23/21 02/23/21 02/24/21 15:00 23:00 07:00 Intake Total 0 ml 105 ml 0 ml Output Total 300 ml 175 ml Balance 0 ml -195 ml -175 ml Physical Exam General: moderate distress Lungs: Crackles Abdomen: Normal bowel sounds, Soft, No tenderness, No hepatosplenomegaly, No masses Extremities: No clubbing, No cyanosis, No edema, Normal pulses, No tenderness/swelling Skin: No rashes, No breakdown, No significant lesion Labs Labs: Laboratory Tests Test 02/23/21 12:17 02/23/21 17:34 02/23/21 20:45 02/24/21 04:15 Glucose (Fingerstick) 155 mg/dL (70-99) 131 mg/dL (70-99) 122 mg/dL (70-99) White Blood Count 30.6 x10^3/uL (4.0-11.0) Red Blood Count 2.90 x10^6/uL (3.50-5.40) Hemoglobin 8.0 g/dL (12.0-15.5) Hematocrit 25.9 % (36.0-47.0) Mean Corpuscular Volume 89 fL (79-100) Mean Corpuscular Hemoglobin 28 pg (25-35) Mean Corpuscular Hemoglobin Concent 31 g/dL (31-37) Red Cell Distribution Width 15.4 % (11.5-14.5) Platelet Count 316 x10^3/uL (140-400) Neutrophils (%) (Auto) 92 % (31-73) Lymphocytes (%) (Auto) 2 % (24-48) Monocytes (%) (Auto) 6 % (0-9) Eosinophils (%) (Auto) 0 % (0-3) Basophils (%) (Auto) 0 % (0-3) Neutrophils # (Auto) 28.1 x10^3/uL (1.8-7.7) Lymphocytes # (Auto) 0.7 x10^3/uL (1.0-4.8) Monocytes # (Auto) 1.8 x10^3/uL (0.0-1.1) Eosinophils # (Auto) 0.0 x10^3/uL (0.0-0.7) Basophils # (Auto) 0.0 x10^3/uL (0.0-0.2) Sodium Level 155 mmol/L (136-145) Potassium Level 3.9 mmol/L (3.5-5.1) Chloride Level 118 mmol/L (98-107) Carbon Dioxide Level 24 mmol/L (21-32) Anion Gap 13 (6-14) Blood Urea Nitrogen 124 mg/dL (7-20) Creatinine 3.7 mg/dL (0.6-1.0) Estimated GFR (Cockcroft-Gault) 14.9 Glucose Level 151 mg/dL (70-99) Calcium Level 8.9 mg/dL (8.5-10.1) Phosphorus Level 5.1 mg/dL (2.6-4.7) Albumin 1.3 g/dL (3.4-5.0) Assessment and Plan Assessmemt and Plan Problems Medical Problems: (1) Acute encephalopathy Status: Acute (2) Acute kidney injury superimposed on chronic kidney disease Status: Acute (3) NSTEMI (non-ST elevated myocardial infarction) Status: Acute (4) Sepsis Status: Acute (5) UTI (urinary tract infection) Status: Acute Comment Review of Relevant I have reviewed the following items toan (where applicable) has been applied. Medications: Current Medications Medications (Trade) Dose Ordered Sig/Es Route PRN Reason Start Time Stop Time Status Last Admin Dose Admin Sodium Chloride 1,000 ml @ 100 mls/hr CONT PRN IV FLUID 02/23/21 12:15 02/24/21 11:26 Lidocaine HCl (Buffered Lidocaine 1%) 3 ml 1X ONCE INJ 02/24/21 09:00 02/24/21 09:01 DC 02/24/21 09:00 Justifications for Admission General Conditions Poss Metaboilic Acidosis?: Yes Justification for admission: Patient has tachycardia (> 100 beats per minute) or hypotension (SBP < 90 mm Hg) leading to inadequate systemic perfusion as indicated by metabolic acidosis with arterial pH of less than 7.35. Other Justification ALEXANDRIA MCFARLAND MD Feb 24, 2021 11:52
--- NOTE | 2021-02-24 12:24 | PDOC2 ---
BALJINDER [employer] 02/24/21 1224: CONSULT Date of Consult Date of Consult DATE: 02/24/21 TIME: 12:19 Reason for Consult Reason for Consult: sacral wound Referring Physician Referring Physician: Dr Carias Identification/Chief Complaint Chief Complaint Acute encephalopathy Source Source: Caregiver, Chart review History of Present Illness Reason for Visit: Patient unable to provide history Admitted from care facility with unresponsiveness Multiple medical issues Sacral wound concerning for underlying infection Past Medical History Cardiovascular: CHF, HTN, Other Pulmonary: Asthma CENTRAL NERVOUS SYSTEM: Other GI: Diverticulosis, GERD Heme/Onc: Anemia NOS Hepatobiliary: No pertinent hx Psych: No pertinent hx, Addictions Musculoskeletal: Osteoarthritis Rheumatologic: No pertinent hx Infectious disease: No pertinent hx Renal/: Chronic renal insuff Endocrine: Diabetes Past Surgical History Past Surgical History: Tubal Ligation, Other Family History Family History: Alcohol Abuse, Coronary Artery Disease Social History Social History: Parent No ALCOHOL: none Drugs: Cocaine Lives: with Family Current Problem List Problem List Problems Medical Problems: (1) Acute encephalopathy Status: Acute (2) Acute kidney injury superimposed on chronic kidney disease Status: Acute (3) NSTEMI (non-ST elevated myocardial infarction) Status: Acute (4) Sepsis Status: Acute (5) UTI (urinary tract infection) Status: Acute Current Medications Current Medications Current Medications Piperacillin Sod/ Tazobactam Sod 4.5 gm/Sodium Chloride 100 ml @ 200 mls/hr 1X ONCE IV ; Start 02/22/21 at 13:30; Stop 02/22/21 at 13:59; Status UNV Vancomycin HCl (Vanco Per Pharmacy) 1 each PRN DAILY PRN MC SEE COMMENTS Last administered on 02/23/21at 03:10; Start 02/22/21 at 13:30 Piperacillin Sod/ Tazobactam Sod 2.25 gm/Sodium Chloride 50 ml @ 100 mls/hr 1X ONCE IV Last administered on 02/22/21at 13:46; Start 02/22/21 at 14:00; Stop 02/22/21 at 17:30; Status DC Vancomycin HCl 1.25 gm/Sodium Chloride 250 ml @ 166.667 mls/hr 1X ONCE IV Last administered on 02/22/21at 14:33; Start 02/22/21 at 13:45; Stop 02/22/21 at 17:31; Status DC Olanzapine (ZyPREXA ZYDIS) 5 mg PRN BID PRN PO ANXIETY / AGITATION; Start 02/22/21 at 21:15 Ondansetron HCl (Zofran) 4 mg PRN Q4HRS PRN IVP NAUSEA/VOMITING; Start 02/22/21 at 21:15 Acetaminophen (Tylenol Supp) 650 mg PRN Q6HRS PRN RI MILD PAIN / TEMP > 100.3'F Last administered on 02/23/21at 16:11; Start 02/22/21 at 21:15 Bisacodyl (Dulcolax Supp) 10 mg PRN DAILY PRN RI CONSTIPATION; Start 02/22/21 at 21:15 Sodium Bicarbonate 50 meq/Sodium Chloride 1,050 ml @ 125 mls/hr Q8H24M IV Last administered on 02/23/21 10:54; Start 02/22/21 at 21:30; Stop 02/23/21 at 12:14; Status DC Levetiracetam 500 mg/Dextrose 105 ml @ 420 mls/hr Q12HR IV Last administered on 02/24/21at 09:00; Start 02/22/21 at 21:30 Heparin Sodium (Porcine) (Heparin Sodium) 5,000 unit Q8HRS SQ Last administered on 02/24/21 05:53; Start 02/22/21 at 22:00 Insulin Human Lispro (HumaLOG) 0-9 UNITS TIDWMEALS SQ ; Start 02/23/21 at 08:00 Dextrose (Dextrose 50%-Water Syringe) 12.5 gm PRN Q15MIN PRN IV SEE COMMENTS; Start 02/22/21 at 21:30 Cefepime HCl (Maxipime) 1 gm Q24H IVP Last administered on 02/23/21at 22:23; Start 02/22/21 at 21:30 Lorazepam (Ativan Inj) 0.5 mg PRN Q4HRS PRN IVP ANXIETY / AGITATION Last administered on 02/23/21 10:58; Start 02/22/21 at 21:30 Pantoprazole Sodium (PROTONIX VIAL for IV PUSH) 40 mg DAILYAC IVP Last administered on 02/24/21 05:52; Start 02/23/21 at 07:30 Pantoprazole Sodium (PROTONIX VIAL for IV PUSH) 40 mg 1X ONCE IVP Last administered on 9/29/21at 22:16; Start 02/22/21 at 22:00; Stop 02/22/21 at 22:01; Status DC Insulin Glargine (Lantus Syringe) 10 unit QHS SQ ; Start 02/22/21 at 22:00 Vancomycin HCl 1.25 gm/Sodium Chloride 250 ml @ 167 mls/hr Q48H IV ; Start 02/24/21 at 14:00 Vancomycin HCl (Vancomycin Trough Level) 1 each 1X ONCE MC ; Start 02/26/21 at 13:30; Stop 02/26/21 at 13:31 Sodium Chloride 1,000 ml @ 100 mls/hr CONT PRN IV FLUID Last administered on 02/24/21at 11:26; Start 02/23/21 at 12:15 Lidocaine HCl (Buffered Lidocaine 1%) 3 ml STK-MED ONCE .ROUTE ; Start 02/24/21 at 08:05; Stop 02/24/21 at 08:05; Status DC Lidocaine HCl (Buffered Lidocaine 1%) 3 ml 1X ONCE INJ Last administered on 02/24/21at 09:00; Start 02/24/21 at 09:00; Stop 02/24/21 at 09:01; Status DC Active Scripts Active Aldactone (Spironolactone) 25 Mg Tablet 25 Mg PO DAILY 30 Days Metoprolol Tartrate 25 Mg Tablet 25 Mg PO BID 30 Days Levemir Flextouch (Insulin Detemir) 100 Unit/1 Ml Insuln.pen 20 Units SQ QHS 30 Days Novolog Flexpen (Insulin Aspart) 100 Unit/1 Ml Insuln.pen 4 Units SQ TIDAC 30 Days Bumetanide 1 Mg Tablet 1 Mg PO DAILY 30 Days Atorvastatin Calcium 40 Mg Tablet 40 Mg PO QHS 30 Days Aspirin Ec (Aspirin) 81 Mg Tablet. 81 Mg PO DAILYWBKFT 30 Days Reported Lidocaine Hcl 5 Ml Jel..ml. 1 Ema TP BID [glucose GE] 1 Packet PO Q15 MIN PRN Glucagon Emergency Kit (Glucagon,Human Recombinant) 1 Mg Kit 1 Mg IM Q15 MINUTES Glipizide 5 Mg Tablet 5 Mg PO DAILY Nexium Capsule (Esomeprazole Magnesium) 20 Mg Capsule. 20 Mg PO DAILYAC Vitamin C (Ascorbic Acid) 500 Mg Capsule.er 500 Mg PO DAILY Zyprexa (Olanzapine) 20 Mg Tablet 25 Mg PO HS Trazodone Hcl 50 Mg Tablet 1 Tab PO QHS Metformin Hcl 500 Mg Tablet 500 Mg PO DAILY Vimpat (Lacosamide) 200 Mg Tablet 200 Mg PO BID Keppra (Levetiracetam) 500 Mg Tablet 1 Tab PO BID 30 Days Carvedilol 25 Mg Tablet 25 Mg PO BIDWMEALS Amlodipine Besylate 10 Mg Tablet 10 Mg PO DAILY Alprazolam 1 Mg Tablet 1 Tab PO TID Tylenol (Acetaminophen) 325 Mg Tablet 2 Tab PO PRN Q4HRS Hydrocodone-Apap 7.5-325 (Hydrocodone Bit/Acetaminophen) 1 Each Tablet 1 Tab PO PRN Q6HRS PRN Amlodipine Besylate 5 Mg Tablet 5 Mg PO DAILY Baclofen 10 Mg Tablet 10 Mg PO BID Amitriptyline Hcl 25 Mg Tablet 25 Mg PO HS Hydrochlorothiazide Tablet (Hydrochlorothiazide) 25 Mg Tablet 25 Mg PO DAILY Dicyclomine Hcl 10 Mg Capsule 10 Mg PO BID Lisinopril 40 Mg Tablet 40 Mg PO DAILY Sertraline Hcl 100 Mg Tablet 100 Mg PO BID Omeprazole 20 Mg Capsule.dr 20 Mg PO DAILY Allergies Allergies: Coded Allergies: No Known Drug Allergies (Unverified , 02/22/21) ROS Review of System unable to obtain Physical Exam General: No acute distress, Other (eyes open, however does not respond to questions ) HEENT: Atraumatic, Mucous membr. moist/pink Lungs: Other (diminished ) Heart: Normal S1, Normal S2, Other (mild tachy ) Abdomen: Soft Extremities: Other (contracted ) Skin: Other (large sacral wound with necrosis, odor) Vitals VITALS Vital Signs Date Time Temp Pulse Resp B/P (MAP) Pulse Ox O2 Delivery O2 Flow Rate FiO2 02/24/21 10:11 99.0 95 16 119/60 (79) 98 Nasal Cannula 2.0 99.0 Labs Labs Laboratory Tests Test 02/22/21 13:49 02/23/21 03:30 02/23/21 12:17 02/23/21 17:34 SARS-CoV-2 RNA (CARLA) Negative (Negative) SARS-CoV-2 Antigen (Rapid) Negative (NEGATIVE) White Blood Count 31.7 x10^3/uL (4.0-11.0) Red Blood Count 2.87 x10^6/uL (3.50-5.40) Hemoglobin 7.6 g/dL (12.0-15.5) Hematocrit 25.5 % (36.0-47.0) Mean Corpuscular Volume 89 fL (79-100) Mean Corpuscular Hemoglobin 27 pg (25-35) Mean Corpuscular Hemoglobin Concent 30 g/dL (31-37) Red Cell Distribution Width 15.3 % (11.5-14.5) Platelet Count 300 x10^3/uL (140-400) Neutrophils (%) (Auto) 91 % (31-73) Lymphocytes (%) (Auto) 2 % (24-48) Monocytes (%) (Auto) 7 % (0-9) Eosinophils (%) (Auto) 0 % (0-3) Basophils (%) (Auto) 0 % (0-3) Neutrophils # (Auto) 28.8 x10^3/uL (1.8-7.7) Lymphocytes # (Auto) 0.8 x10^3/uL (1.0-4.8) Monocytes # (Auto) 2.1 x10^3/uL (0.0-1.1) Eosinophils # (Auto) 0.0 x10^3/uL (0.0-0.7) Basophils # (Auto) 0.0 x10^3/uL (0.0-0.2) Sodium Level 156 mmol/L (136-145) Potassium Level 3.9 mmol/L (3.5-5.1) Chloride Level 119 mmol/L (98-107) Carbon Dioxide Level 25 mmol/L (21-32) Anion Gap 12 (6-14) Blood Urea Nitrogen 119 mg/dL (7-20) Creatinine 3.6 mg/dL (0.6-1.0) Estimated GFR (Cockcroft-Gault) 15.4 BUN/Creatinine Ratio 33 (6-20) Glucose Level 153 mg/dL (70-99) Calcium Level 8.8 mg/dL (8.5-10.1) Total Bilirubin 0.5 mg/dL (0.2-1.0) Aspartate Amino Transf (AST/SGOT) 38 U/L (15-37) Alanine Aminotransferase (ALT/SGPT) 25 U/L (14-59) Alkaline Phosphatase 92 U/L (46-116) Troponin I Quantitative 0.300 ng/mL (0.000-0.055) Total Protein 6.2 g/dL (6.4-8.2) Albumin 1.5 g/dL (3.4-5.0) Albumin/Globulin Ratio 0.3 (1.0-1.7) Glucose (Fingerstick) 155 mg/dL (70-99) 131 mg/dL (70-99) Test 02/23/21 20:45 02/24/21 04:15 02/24/21 11:49 Glucose (Fingerstick) 122 mg/dL (70-99) 136 mg/dL (70-99) White Blood Count 30.6 x10^3/uL (4.0-11.0) Red Blood Count 2.90 x10^6/uL (3.50-5.40) Hemoglobin 8.0 g/dL (12.0-15.5) Hematocrit 25.9 % (36.0-47.0) Mean Corpuscular Volume 89 fL (79-100) Mean Corpuscular Hemoglobin 28 pg (25-35) Mean Corpuscular Hemoglobin Concent 31 g/dL (31-37) Red Cell Distribution Width 15.4 % (11.5-14.5) Platelet Count 316 x10^3/uL (140-400) Neutrophils (%) (Auto) 92 % (31-73) Lymphocytes (%) (Auto) 2 % (24-48) Monocytes (%) (Auto) 6 % (0-9) Eosinophils (%) (Auto) 0 % (0-3) Basophils (%) (Auto) 0 % (0-3) Neutrophils # (Auto) 28.1 x10^3/uL (1.8-7.7) Lymphocytes # (Auto) 0.7 x10^3/uL (1.0-4.8) Monocytes # (Auto) 1.8 x10^3/uL (0.0-1.1) Eosinophils # (Auto) 0.0 x10^3/uL (0.0-0.7) Basophils # (Auto) 0.0 x10^3/uL (0.0-0.2) Sodium Level 155 mmol/L (136-145) Potassium Level 3.9 mmol/L (3.5-5.1) Chloride Level 118 mmol/L (98-107) Carbon Dioxide Level 24 mmol/L (21-32) Anion Gap 13 (6-14) Blood Urea Nitrogen 124 mg/dL (7-20) Creatinine 3.7 mg/dL (0.6-1.0) Estimated GFR (Cockcroft-Gault) 14.9 Glucose Level 151 mg/dL (70-99) Calcium Level 8.9 mg/dL (8.5-10.1) Phosphorus Level 5.1 mg/dL (2.6-4.7) Albumin 1.3 g/dL (3.4-5.0) Laboratory Tests Test 02/23/21 17:34 02/23/21 20:45 02/24/21 04:15 02/24/21 11:49 Glucose (Fingerstick) 131 mg/dL (70-99) 122 mg/dL (70-99) 136 mg/dL (70-99) White Blood Count 30.6 x10^3/uL (4.0-11.0) Red Blood Count 2.90 x10^6/uL (3.50-5.40) Hemoglobin 8.0 g/dL (12.0-15.5) Hematocrit 25.9 % (36.0-47.0) Mean Corpuscular Volume 89 fL (79-100) Mean Corpuscular Hemoglobin 28 pg (25-35) Mean Corpuscular Hemoglobin Concent 31 g/dL (31-37) Red Cell Distribution Width 15.4 % (11.5-14.5) Platelet Count 316 x10^3/uL (140-400) Neutrophils (%) (Auto) 92 % (31-73) Lymphocytes (%) (Auto) 2 % (24-48) Monocytes (%) (Auto) 6 % (0-9) Eosinophils (%) (Auto) 0 % (0-3) Basophils (%) (Auto) 0 % (0-3) Neutrophils # (Auto) 28.1 x10^3/uL (1.8-7.7) Lymphocytes # (Auto) 0.7 x10^3/uL (1.0-4.8) Monocytes # (Auto) 1.8 x10^3/uL (0.0-1.1) Eosinophils # (Auto) 0.0 x10^3/uL (0.0-0.7) Basophils # (Auto) 0.0 x10^3/uL (0.0-0.2) Sodium Level 155 mmol/L (136-145) Potassium Level 3.9 mmol/L (3.5-5.1) Chloride Level 118 mmol/L (98-107) Carbon Dioxide Level 24 mmol/L (21-32) Anion Gap 13 (6-14) Blood Urea Nitrogen 124 mg/dL (7-20) Creatinine 3.7 mg/dL (0.6-1.0) Estimated GFR (Cockcroft-Gault) 14.9 Glucose Level 151 mg/dL (70-99) Calcium Level 8.9 mg/dL (8.5-10.1) Phosphorus Level 5.1 mg/dL (2.6-4.7) Albumin 1.3 g/dL (3.4-5.0) Assessment/Plan Assessment/Plan sacral wound renal failure medical management, wound care, abx--if stable and wound still needing debridement can work on this next week--however pt is a very poor surgical candidate MICHAELA FRANK MD 02/25/21 1051: CONSULT Assessment/Plan Assessment/Plan Patient seen and examined by me currently resting comfortably in bed denies any pain. Area of sacral wound was visualized minimal erythema there is a wound with some necrotic eschar appears superficial no drainage. Agree with Delbert assessment and plan BALJINDER SMALL APRN Feb 24, 2021 12:24 MICHAELA FRANK MD Feb 25, 2021 10:51
[2021-02-24] MEDS ORDERED: VANCOMYCIN 1.25 GM in IV NORMAL SALINE 250ML 250 ML IV SCH (14:00)
--- NOTE | 2021-02-24 14:02 | PDOC ---
DATE OF SERVICE DATE: 02/24/21 TIME: 14:02 SUBJECTIVE ROS no change in MS No N/V OBJECTIVE Vital Signs Vital Signs Date Time Temp Pulse Resp B/P (MAP) Pulse Ox O2 Delivery O2 Flow Rate FiO2 02/24/21 10:11 99.0 95 16 119/60 (79) 98 Nasal Cannula 2.0 99.0 I & 0 Intake and Output 02/24/21 07:00 Intake Total 105 ml Output Total 475 ml Balance -370 ml Intake Oral 0 ml IV Total 105 ml Output Urine Total 475 ml # Bowel Movements 2 PHYSICAL EXAM Physical Exam General: NAD HEENT: Atraumatic, PERRLA, EOMI, Mucous membr. moist/pink Neck Supple Lungs: Clear to auscultation, Non labored Heart: S1S2, RRR, no thrills, no rubs, no gallops, no murmurs Abdomen: Normal bowel sounds, Soft, No tenderness, No hepatosplenomegaly, No masses Extremities: No clubbing, No cyanosis, No edema, Skin: No rashes, NeurO Grossly No neurological deficit Psych/Mental Status: Obtunded Palacio + DIAGNOSIS/ASSESSMENT Assessment & Plan MEHDI - ATN vs AIN- Low BP's, Intravascular depletion (on Diuretics per home med list ) On Vanc . Non Oliguric, BUN elevated Supportive care, Maintain hydration , Avoid Nephrotoxins , Vanc levels per pharmacy , strict I/O . Has Temp HDC , did not get IVF yesterday . Will Give IVF, if No improvement i renal function will need Dialyssi, re-eval in am Recent MEHDI- early Jan as well, resolved at dc was 2/2 dehydration Hypotension - BP low for her baseline HyperNatremia- On Diuretics per home med list . Hold. Bicarb normal. Recommend DC IV Bicarb , switched to 1/2 NS (did not receive) Acute encephalopathy - ? baseline per her recent hospitalization no SDH or CVA symptoms Sepsis -On empiric vancomycin Anemia Noted decrease in Hgb from her recent hospitalization. Defer to primary Seizures DM2 H/o cocaine use disorder - in remission in SNF COMMENT/RELEVANT DATA Meds Current Medications Medications (Trade) Dose Ordered Sig/Es Start Time Stop Time Status Last Admin Dose Admin Acetaminophen (Tylenol Supp) 650 mg PRN Q6HRS PRN 02/22/21 21:15 02/23/21 16:11 650 MG Bisacodyl (Dulcolax Supp) 10 mg PRN DAILY PRN 02/22/21 21:15 Cefepime HCl (Maxipime) 1 gm Q24H 02/22/21 21:30 02/23/21 22:23 1 GM Dextrose (Dextrose 50%-Water Syringe) 12.5 gm PRN Q15MIN PRN 02/22/21 21:30 Heparin Sodium (Porcine) (Heparin Sodium) 5,000 unit Q8HRS 02/22/21 22:00 02/24/21 05:53 5,000 UNIT Insulin Glargine (Lantus Syringe) 10 unit QHS 02/22/21 22:00 Insulin Human Lispro (HumaLOG) 0-9 UNITS TIDWMEALS 02/23/21 08:00 Levetiracetam 500 mg/Dextrose 105 ml @ 420 mls/hr Q12HR 02/22/21 21:30 02/24/21 09:00 420 MLS/HR Lidocaine HCl (Buffered Lidocaine 1%) 3 ml 1X ONCE 02/24/21 09:00 02/24/21 09:01 DC 02/24/21 09:00 5 ML Linezolid/Dextrose 300 ml @ 300 mls/hr Q12HR 02/24/21 14:30 Lorazepam (Ativan Inj) 0.5 mg PRN Q4HRS PRN 02/22/21 21:30 02/23/21 10:58 0.5 MG Olanzapine (ZyPREXA ZYDIS) 5 mg PRN BID PRN 02/22/21 21:15 Ondansetron HCl (Zofran) 4 mg PRN Q4HRS PRN 02/22/21 21:15 Pantoprazole Sodium (PROTONIX VIAL for IV PUSH) 40 mg 1X ONCE 02/22/21 22:00 02/22/21 22:01 DC 02/22/21 22:16 40 MG Piperacillin Sod/ Tazobactam Sod 2.25 gm/Sodium Chloride 50 ml @ 100 mls/hr 1X ONCE 02/22/21 14:00 02/22/21 17:30 DC 02/22/21 13:46 100 MLS/HR Piperacillin Sod/ Tazobactam Sod 4.5 gm/Sodium Chloride 100 ml @ 200 mls/hr 1X ONCE 02/22/21 13:30 02/22/21 13:59 UNV Sodium Bicarbonate 50 meq/Sodium Chloride 1,050 ml @ 125 mls/hr Q8H24M 02/22/21 21:30 02/23/21 12:14 DC 02/23/21 10:54 125 MLS/HR Sodium Chloride 1,000 ml @ 100 mls/hr CONT PRN 02/23/21 12:15 02/24/21 11:26 100 MLS/HR Vancomycin HCl (Vanco Per Pharmacy) 1 each PRN DAILY PRN 02/22/21 13:30 02/24/21 13:58 DC 02/23/21 03:10 1 EACH Vancomycin HCl (Vancomycin Trough Level) 1 each 1X ONCE 02/26/21 13:30 02/24/21 13:58 DC Vancomycin HCl 1.25 gm/Sodium Chloride 250 ml @ 167 mls/hr Q48H 02/24/21 14:00 02/24/21 13:58 DC Lab Laboratory Tests Test 02/23/21 17:34 02/23/21 20:45 02/24/21 04:15 02/24/21 11:49 Glucose (Fingerstick) 131 mg/dL (70-99) 122 mg/dL (70-99) 136 mg/dL (70-99) White Blood Count 30.6 x10^3/uL (4.0-11.0) Red Blood Count 2.90 x10^6/uL (3.50-5.40) Hemoglobin 8.0 g/dL (12.0-15.5) Hematocrit 25.9 % (36.0-47.0) Mean Corpuscular Volume 89 fL (79-100) Mean Corpuscular Hemoglobin 28 pg (25-35) Mean Corpuscular Hemoglobin Concent 31 g/dL (31-37) Red Cell Distribution Width 15.4 % (11.5-14.5) Platelet Count 316 x10^3/uL (140-400) Neutrophils (%) (Auto) 92 % (31-73) Lymphocytes (%) (Auto) 2 % (24-48) Monocytes (%) (Auto) 6 % (0-9) Eosinophils (%) (Auto) 0 % (0-3) Basophils (%) (Auto) 0 % (0-3) Neutrophils # (Auto) 28.1 x10^3/uL (1.8-7.7) Lymphocytes # (Auto) 0.7 x10^3/uL (1.0-4.8) Monocytes # (Auto) 1.8 x10^3/uL (0.0-1.1) Eosinophils # (Auto) 0.0 x10^3/uL (0.0-0.7) Basophils # (Auto) 0.0 x10^3/uL (0.0-0.2) Sodium Level 155 mmol/L (136-145) Potassium Level 3.9 mmol/L (3.5-5.1) Chloride Level 118 mmol/L (98-107) Carbon Dioxide Level 24 mmol/L (21-32) Anion Gap 13 (6-14) Blood Urea Nitrogen 124 mg/dL (7-20) Creatinine 3.7 mg/dL (0.6-1.0) Estimated GFR (Cockcroft-Gault) 14.9 Glucose Level 151 mg/dL (70-99) Calcium Level 8.9 mg/dL (8.5-10.1) Phosphorus Level 5.1 mg/dL (2.6-4.7) Albumin 1.3 g/dL (3.4-5.0) Results All relevant outside records, renal labs, imaging studies, telemetry/EKG's were reviewed. Justicifation of Admission Dx: Justifications for Admission: Justification of Admission Dx: N/A AZAEL VANCE MD Feb 24, 2021 14:02
--- NOTE | 2021-02-24 14:13 | RAD ---
Procedure: Temporary dialysis catheter under fluoroscopy. 02/24/2021 12:08 PM Clinical Indication: Renal failure. Discussion: The risks and benefits of the procedure were discussed the patient and/or their inventory representative. Informed consent was obtained. A timeout procedure was performed. All elements of maximal sterile barrier technique including the use of a cap, mask, sterile gown, sterile gloves, large sterile sheet, appropriate hand hygiene, and 2% chlorhexidine for cutaneous antisepsis (or acceptable alternative antiseptic per current guidelines) were followed for this procedure. The patient was prepped and draped in the usual sterile fashion. Ultrasound interrogation of the right neck revealed patency and compressibility of the right internal jugular vein. A 21-gauge micropuncture was then used to gain access to this vein under ultrasound guidance. A hard copy ultrasound image was recorded. A guidewire was advanced centrally. 5 Chadian sheath was placed. Over a wire following dilatation, a triple-lumen temporary dialysis catheter was advanced centrally. Catheter was evaluated under fluoroscopy and found to have its tip in the proximal right atrium with the patient supine. Catheter was found to flush and aspirate normally. Follow-up chest radiograph demonstrates tip at the cavoatrial junction. Catheter secured in place and a sterile dressing was applied. No immediate complications were identified. Total fluoroscopy time: 0.2 minutes Dose area product: 1 murguia centimeters squared Impression: Successful ultrasound-guided placement of right internal jugular jugular triple-lumen temporary dialysis catheter
--- NOTE | 2021-02-24 14:15 | NUR ---
Wound/Ostomy Care Wound Type/Assessment: Patient seen again today per wound care for wound vac placement. Dressing removed, patient and dressing soiled. Patient cleansed and chux changed, wound cleansed and assessed. Skin prepped for vac placement and ostomy ring applied to la nena-wound. 1 piece of waffle foam and 1 piece of ruiz cleanse applied to wound, a good seal maintained at 125mmHg with 10mL instilled every 3 hours for a dwell time of 3 minutes. Treatment Recommendations/Plan: Recommendations to continue with veraflo as patient is currently not a surgical candidate per general surgery. Education provided: Unable to educate due to mental status. Offloading surface/device: Patient is currently on a P-500 bed at this time. Patient repositioned to right side using wedge. Bilateral heels floated. Recommended Referrals/Tests: N/A Discharge Recommendations for dressings: Continue current treatment and wound care will reassess on Saturday02/27/21 for wound vac dressing change. Bed lowered and bed alarm turned on .
[2021-02-24 15:25] VITALS: BP 112/65
[2021-02-24 19:50] VITALS: BP 136/69
[2021-02-24] MEDS: CEFEPIME HCL IV Push 1 GM VIAL. IVP SCH (21:58)
[2021-02-24] MEDS: INSULIN GLARGINE SYRINGE. SQ SCH (21:59)
[2021-02-24 23:45] VITALS: BP 129/63
[2021-02-25] VITALS (7 sets, daily range): BP systolic 106–145; BP diastolic 51–70
[2021-02-25] MEDS: HEPARIN for SUB-Q USE 5,000 UNIT/ML VIAL. SQ SCH ×3 (06:08→20:34)
[2021-02-25 06:53] LABS: BASO % 0 % (0-3); EOS % 0 % (0-3); HEMATOCRIT 23.3 % (36.0-47.0); LYMPH # 0.5 x10^3/uL (1.0-4.8); LYMPH % 2 % (24-48); MEAN CORPUSCULAR HEMOGLOBIN 26 pg (25-35); MEAN CORPUSCULAR HGB CONC 30 g/dL (31-37); MEAN CORPUSCULAR VOLUME 89 fL (79-100); MONO # 2.1 x10^3/uL (0.0-1.1); MONO % 7 % (0-9); NEUT % 91 % (31-73); PLATELET COUNT 290 x10^3/uL (140-400); RED BLOOD COUNT 2.63 x10^6/uL (3.50-5.40); RED CELL DISTRIBUTION WIDTH 15.5 % (11.5-14.5); WHITE BLOOD COUNT 28.7 x10^3/uL (4.0-11.0)
[2021-02-25 07:05] LABS: HEMOGLOBIN 6.9 g/dL (12.0-15.5)
--- NOTE | 2021-02-25 07:29 | PDOC ---
[employer] PROGRESS NOTE Date of Service DOS: DATE: 02/25/21 TIME: 07:29 Chief Complaint Chief Complaint A/P: Acute encephalopathy - multifactorial, metabolic due to uremia, no SDH or CVA symptoms. less likely post-ictal. possibly related to sepsis as well Hypoxia - note clear as she is not hypoxic in ED. CXR reviewed with no abnormalities Hypernatremia - likely free water deficit, was on numerous diuretics prior to admit, will hold Sepsis - empiric vancomycin and zosyn given for likely gluteal ulcer as source. Will change to cefepime for renal failure. pharmacy to help dosing vancomycin. Fluids given MEHDI - likely vasomotor nephropathy possibly from free water deficit, sepsis. Wi ll hydrate with bicarbonate fluids. Consult nephrology Gluteal ulcer - unstageable. Wound care and general surgery to see. possible sepsis source Anemia - likely of chronic disease, will check iron studies, B12 Severe protein calorie malnutrition - will need early nutrition when mentation improves. Speech to see for swallow assessment Seizures - will dose IV keppra while confused. Prn ativan for seizure activity DM2 - basal bolus plus insulin Depression - hold meds while npo. PRN zyprexa odt for agitation or ativan GERD - IV protonix HLD - hold statin while NPO HTN - prn hydralazine, prn metoprolol H/o cocaine use disorder - in remission in SNF Elevated troponin - likely demand ischemia due to above, will trend FEN - NPO PPX - heparin FULL CODE Dispo - inpatient. D/w [place], next of kin History of Present Illness History of Present Illness Ms Bentley is a 65 year old female with history of seizures, cocaine use disorder, DM2, depression, GERD, HLD, HTN who is a [employer] SNF resident who comes to the ED via EMS due to unresponsiveness. Per SNF staff has been less active for the past month and had irregular breathing since 1000 this morning. senior care staff reports O2 saturations in the low 80s on room air so they put her on 3 L nasal cannula. Her oxygen saturation then raised to 92%. No witnessed seizure activity and she has reportedly been taking her Keppra and vimpat BID. Nonverbal enroute. She is baseline alert and aware x2 and wheelchair-bound. No falls or head trauma reported. She is unable to give any history and her daughter is listed as contact, voicemail box is full. Patient opens her eyes to painful stimuli and makes eye contact, does not follow any commands. Of note, she was admitted for similar complaints just a month ago. WBC 31.4, Hb 9.1, Platelets 369, Na 152, K 4, Cl 117, HCO3 23, BUN 108, Cr 3.3, glucose 161, lactic acid 1.2, ca 9.2, bili 0.5, AST 29, ALT 16, Alk phos 103, Trop 0.266, Albumin 1.7. Urine with blood and + leukocyte esterase EKG sinus rate of 99 bpm with TWI in inferolateral leads unchanged from prior EKG, significant baseline artefact, No ST elevations, QTc 509, CXR and CT head with no acute findings. Given leukocytosis and likely sepsis related to UTI, given empiric antibiotics and fluids and admitted for further care. 02/23: Afebrile. WBC 31.7, Hb 7.6, platelets 300, NA 156, K3.9, BUN 119, CR 3.6, glucose 153, alb 1.3. Covid neg. Breathing improved, but not communicating. Offloading for bedsore. 02/24: Afebrile. WBC still elevated patient septic. Son consented for dialysis catheter placement. BUN 128 today. Still very confused. Discussed with general surgery is poor surgical candidate but very large wound needs offloading possibly chemical debridement and consideration of wound VAC. Continue cefepime and vancomycin. Discussed with family overall goals of care. Afebrile. Hb dropped to 6.9. To dialysis today for transfusion. Urine culture with Nancy glabrata. Vitals/I&O Vitals/I&O: Vital Signs Date Time Temp Pulse Resp B/P (MAP) Pulse Ox O2 Delivery O2 Flow Rate FiO2 02/25/21 03:55 98.1 81 17 133/60 (84) 98 Nasal Cannula 2.0 98.1 I & O 02/24/21 02/24/21 02/25/21 15:00 23:00 07:00 Intake Total 0 ml 0 ml 0 ml Output Total 300 ml 400 ml Balance 0 ml -300 ml -400 ml Physical Exam General: No acute distress, Other (eyes open, however does not respond to questions ) Heart: Normal S1, Normal S2, Other (mild tachy ) Lungs: Crackles Abdomen: Soft Extremities: Other (contracted ) Skin: Other (large sacral wound with necrosis, odor) Labs Labs: Laboratory Tests Test 02/24/21 11:49 02/24/21 17:32 02/24/21 20:36 02/25/21 06:20 Glucose (Fingerstick) 136 mg/dL (70-99) 141 mg/dL (70-99) 127 mg/dL (70-99) White Blood Count 28.7 x10^3/uL (4.0-11.0) Red Blood Count 2.63 x10^6/uL (3.50-5.40) Hemoglobin 6.9 g/dL (12.0-15.5) Hematocrit 23.3 % (36.0-47.0) Mean Corpuscular Volume 89 fL (79-100) Mean Corpuscular Hemoglobin 26 pg (25-35) Mean Corpuscular Hemoglobin Concent 30 g/dL (31-37) Red Cell Distribution Width 15.5 % (11.5-14.5) Platelet Count 290 x10^3/uL (140-400) Neutrophils (%) (Auto) 91 % (31-73) Lymphocytes (%) (Auto) 2 % (24-48) Monocytes (%) (Auto) 7 % (0-9) Eosinophils (%) (Auto) 0 % (0-3) Basophils (%) (Auto) 0 % (0-3) Neutrophils # (Auto) 26.0 x10^3/uL (1.8-7.7) Lymphocytes # (Auto) 0.5 x10^3/uL (1.0-4.8) Monocytes # (Auto) 2.1 x10^3/uL (0.0-1.1) Eosinophils # (Auto) 0.0 x10^3/uL (0.0-0.7) Basophils # (Auto) 0.0 x10^3/uL (0.0-0.2) Assessment and Plan Assessmemt and Plan Problems Medical Problems: (1) Acute encephalopathy Status: Acute (2) Acute kidney injury superimposed on chronic kidney disease Status: Acute (3) NSTEMI (non-ST elevated myocardial infarction) Status: Acute (4) Sepsis Status: Acute (5) UTI (urinary tract infection) Status: Acute Comment Review of Relevant I have reviewed the following items toan (where applicable) has been applied. Medications: Current Medications Medications (Trade) Dose Ordered Sig/Es Route PRN Reason Start Time Stop Time Status Last Admin Dose Admin Lidocaine HCl (Buffered Lidocaine 1%) 3 ml 1X ONCE INJ 02/24/21 09:00 02/24/21 09:01 DC 02/24/21 09:00 Linezolid/Dextrose 300 ml @ 300 mls/hr Q12HR IV 02/24/21 14:30 02/24/21 22:44 Justifications for Admission General Conditions Poss Metaboilic Acidosis?: Yes Justification for admission: Patient has tachycardia (> 100 beats per minute) or hypotension (SBP < 90 mm Hg) leading to inadequate systemic perfusion as indicated by metabolic acidosis with arterial pH of less than 7.35. Other Justification ALEXANDRIA MCFARLAND MD Feb 25, 2021 07:29
[2021-02-25] MEDS: PANTOPRAZOLE IV PUSH 40 MG VIAL. IVP SCH (07:30)
[2021-02-25] MEDS: INSULIN LISPRO 300 UNITS/3 ML VIAL. SQ SCH ×3 (08:00→17:00)
[2021-02-25 08:40] LABS: CALCIUM 8.6 mg/dL (8.5-10.1); CREATININE 3.2 mg/dL (0.6-1.0); GFR 17.6; POTASSIUM 3.4 mmol/L (3.5-5.1)
[2021-02-25] MEDS: levETIRAcetam 500 MG in IV DEXTROSE 5% 100ML 100 ML IV SCH ×2 (10:09→20:32)
[2021-02-25] MEDS ORDERED: ALBUMIN HUMAN 25% 200 ML IV PRN (13:30)
[2021-02-25] MEDS ORDERED: IV NORMAL SALINE 1000ML BAG 1,000 ML IV PRN (13:30)
--- NOTE | 2021-02-25 14:27 | PDOC ---
DATE OF SERVICE DATE: 02/25/21 TIME: 14:27 SUBJECTIVE ROS Initiated on dialysis No complaints or concerns OBJECTIVE Vital Signs Vital Signs Date Time Temp Pulse Resp B/P (MAP) Pulse Ox O2 Delivery O2 Flow Rate FiO2 02/25/21 11:00 98.7 82 16 112/51 (71) 99 Nasal Cannula 2.0 98.7 I & 0 Intake and Output 02/25/21 07:00 Intake Total 0 ml Output Total 700 ml Balance -700 ml Intake Oral 0 ml Output Urine Total 700 ml PHYSICAL EXAM Physical Exam General: NAD HEENT: Atraumatic, PERRLA, EOMI, Mucous membr. moist/pink Neck Supple Lungs: Clear to auscultation, Non labored Heart: S1S2, RRR, no thrills, no rubs, no gallops, no murmurs Abdomen: Normal bowel sounds, Soft, No tenderness, No hepatosplenomegaly, No masses Extremities: No clubbing, No cyanosis, No edema, Skin: No rashes, NeurO Grossly No neurological deficit Psych/Mental Status: Obtunded Palacio + DIAGNOSIS/ASSESSMENT Assessment & Plan MEHDI - ATN vs AIN- Non Oliguric, worsening renal function, initiated dialysis , seen during treatment , tolerating well , continue as ordered, Vaibhav Kahn Supportive care,, Avoid Nephrotoxins ,strict I/O . Access temp HDC Hypotension - BP low for her baseline HyperNatremia- On Diuretics per home med list . Held. Bicarb normal. Dialysate Na adjusted Acute encephalopathy - ? baseline per her recent hospitalization no SDH or CVA symptoms Sepsis -On empiric vancomycin Anemia Noted decrease in Hgb from her recent hospitalization at [facility], Today Hgb < 7, defer to primary Seizures DM2 H/o cocaine use disorder - in remission in SNF COMMENT/RELEVANT DATA Meds Current Medications Medications (Trade) Dose Ordered Sig/Es Start Time Stop Time Status Last Admin Dose Admin Acetaminophen (Tylenol Supp) 650 mg PRN Q6HRS PRN 02/22/21 21:15 02/23/21 16:11 650 MG Bisacodyl (Dulcolax Supp) 10 mg PRN DAILY PRN 02/22/21 21:15 Cefepime HCl (Maxipime) 1 gm Q24H 02/22/21 21:30 02/24/21 21:58 1 GM Dextrose (Dextrose 50%-Water Syringe) 12.5 gm PRN Q15MIN PRN 02/22/21 21:30 Heparin Sodium (Porcine) (Heparin Sodium) 5,000 unit Q8HRS 02/22/21 22:00 02/25/21 06:08 5,000 UNIT Insulin Glargine (Lantus Syringe) 10 unit QHS 02/22/21 22:00 02/24/21 21:59 10 UNIT Insulin Human Lispro (HumaLOG) 0-9 UNITS TIDWMEALS 02/23/21 08:00 Levetiracetam 500 mg/Dextrose 105 ml @ 420 mls/hr Q12HR 02/22/21 21:30 02/25/21 10:09 420 MLS/HR Lidocaine HCl (Buffered Lidocaine 1%) 3 ml 1X ONCE 02/24/21 09:00 02/24/21 09:01 DC 02/24/21 09:00 5 ML Linezolid/Dextrose 300 ml @ 300 mls/hr Q12HR 02/24/21 14:30 02/25/21 10:09 300 MLS/HR Lorazepam (Ativan Inj) 0.5 mg PRN Q4HRS PRN 02/22/21 21:30 02/23/21 10:58 0.5 MG Olanzapine (ZyPREXA ZYDIS) 5 mg PRN BID PRN 02/22/21 21:15 Ondansetron HCl (Zofran) 4 mg PRN Q4HRS PRN 02/22/21 21:15 Pantoprazole Sodium (PROTONIX VIAL for IV PUSH) 40 mg 1X ONCE 02/22/21 22:00 02/22/21 22:01 DC 02/22/21 22:16 40 MG Piperacillin Sod/ Tazobactam Sod 2.25 gm/Sodium Chloride 50 ml @ 100 mls/hr 1X ONCE 02/22/21 14:00 02/22/21 17:30 DC 02/22/21 13:46 100 MLS/HR Piperacillin Sod/ Tazobactam Sod 4.5 gm/Sodium Chloride 100 ml @ 200 mls/hr 1X ONCE 02/22/21 13:30 02/22/21 13:59 UNV Sodium Bicarbonate 50 meq/Sodium Chloride 1,050 ml @ 125 mls/hr Q8H24M 02/22/21 21:30 02/23/21 12:14 DC 02/23/21 10:54 125 MLS/HR Sodium Chloride 1,000 ml @ 100 mls/hr CONT PRN 02/23/21 12:15 02/24/21 11:26 100 MLS/HR Vancomycin HCl (Vanco Per Pharmacy) 1 each PRN DAILY PRN 02/22/21 13:30 02/24/21 13:58 DC 02/23/21 03:10 1 EACH Vancomycin HCl (Vancomycin Trough Level) 1 each 1X ONCE 02/26/21 13:30 02/24/21 13:58 DC Vancomycin HCl 1.25 gm/Sodium Chloride 250 ml @ 167 mls/hr Q48H 02/24/21 14:00 02/24/21 13:58 DC Lab Laboratory Tests Test 02/24/21 17:32 02/24/21 20:36 02/25/21 06:20 02/25/21 08:02 Glucose (Fingerstick) 141 mg/dL (70-99) 127 mg/dL (70-99) 143 mg/dL (70-99) White Blood Count 28.7 x10^3/uL (4.0-11.0) Red Blood Count 2.63 x10^6/uL (3.50-5.40) Hemoglobin 6.9 g/dL (12.0-15.5) Hematocrit 23.3 % (36.0-47.0) Mean Corpuscular Volume 89 fL (79-100) Mean Corpuscular Hemoglobin 26 pg (25-35) Mean Corpuscular Hemoglobin Concent 30 g/dL (31-37) Red Cell Distribution Width 15.5 % (11.5-14.5) Platelet Count 290 x10^3/uL (140-400) Neutrophils (%) (Auto) 91 % (31-73) Lymphocytes (%) (Auto) 2 % (24-48) Monocytes (%) (Auto) 7 % (0-9) Eosinophils (%) (Auto) 0 % (0-3) Basophils (%) (Auto) 0 % (0-3) Neutrophils # (Auto) 26.0 x10^3/uL (1.8-7.7) Lymphocytes # (Auto) 0.5 x10^3/uL (1.0-4.8) Monocytes # (Auto) 2.1 x10^3/uL (0.0-1.1) Eosinophils # (Auto) 0.0 x10^3/uL (0.0-0.7) Basophils # (Auto) 0.0 x10^3/uL (0.0-0.2) Sodium Level 151 mmol/L (136-145) Potassium Level 3.4 mmol/L (3.5-5.1) Chloride Level 115 mmol/L (98-107) Carbon Dioxide Level 23 mmol/L (21-32) Anion Gap 13 (6-14) Blood Urea Nitrogen 129 mg/dL (7-20) Creatinine 3.2 mg/dL (0.6-1.0) Estimated GFR (Cockcroft-Gault) 17.6 Glucose Level 157 mg/dL (70-99) Calcium Level 8.6 mg/dL (8.5-10.1) Hepatitis B Surface Antigen Nonreactive (Nonreactive) Hepatitis B Surface Antibody Nonreactive Test 02/25/21 12:21 Glucose (Fingerstick) 162 mg/dL (70-99) Results All relevant outside records, renal labs, imaging studies, telemetry/EKG's were reviewed. Justicifation of Admission Dx: Justifications for Admission: Justification of Admission Dx: N/A AZAEL VANCE MD Feb 25, 2021 14:27
[2021-02-25] MEDS ORDERED: DIALYSIS PATIENT. MC PRN ×2 (16:15)
[2021-02-25] MEDS: CEFEPIME HCL IV Push 1 GM VIAL. IVP SCH (20:33)
[2021-02-25] MEDS: INSULIN GLARGINE SYRINGE. SQ SCH (20:34)
[2021-02-26 02:38] VITALS: BP 98/55
[2021-02-26] MEDS: PANTOPRAZOLE IV PUSH 40 MG VIAL. IVP SCH ×2 (06:32→09:24)
[2021-02-26] MEDS: HEPARIN for SUB-Q USE 5,000 UNIT/ML VIAL. SQ SCH ×3 (06:32→21:24)
[2021-02-26 07:00] VITALS: BP 123/57
--- NOTE | 2021-02-26 07:41 | PDOC ---
[employer] PROGRESS NOTE Date of Service DOS: DATE: 02/26/21 TIME: 07:39 Chief Complaint Chief Complaint A/P: Acute encephalopathy - multifactorial, metabolic due to uremia, no SDH or CVA symptoms. less likely post-ictal. possibly related to sepsis as well Hypoxia - note clear as she is not hypoxic in ED. CXR reviewed with no abnormalities Hypernatremia - likely free water deficit, was on numerous diuretics prior to admit, will hold Sepsis - empiric vancomycin and zosyn given for likely gluteal ulcer as source. Will change to cefepime for renal failure. pharmacy to help dosing vancomycin. Fluids given MEHDI - likely vasomotor nephropathy possibly from free water deficit, sepsis. Wi ll hydrate with bicarbonate fluids. Consult nephrology Gluteal ulcer - unstageable. Wound care and general surgery to see. possible sepsis source Anemia - likely of chronic disease, will check iron studies, B12 Severe protein calorie malnutrition - will need early nutrition when mentation improves. Speech to see for swallow assessment Seizures - will dose IV keppra while confused. Prn ativan for seizure activity DM2 - basal bolus plus insulin Depression - hold meds while npo. PRN zyprexa odt for agitation or ativan GERD - IV protonix HLD - hold statin while NPO HTN - prn hydralazine, prn metoprolol H/o cocaine use disorder - in remission in SNF Elevated troponin - likely demand ischemia due to above, will trend FEN - NPO PPX - heparin FULL CODE Dispo - inpatient. 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 Per SNF staff has been less active for the past month and had irregular breathing since 1000 this morning. long-term staff reports O2 saturations in the low 80s on room air so they put her on 3 L nasal cannula. Her oxygen saturation then raised to 92%. No witnessed seizure activity and she has reportedly been taking her Keppra and vimpat BID. Nonverbal enroute. She is baseline alert and aware x2 and wheelchair-bound. No falls or head trauma reported. She is unable to give any history and her daughter is listed as contact, voicemail box is full. Patient opens her eyes to painful stimuli and makes eye contact, does not follow any commands. Of note, she was admitted for similar complaints just a month ago. WBC 31.4, Hb 9.1, Platelets 369, Na 152, K 4, Cl 117, HCO3 23, BUN 108, Cr 3.3, glucose 161, lactic acid 1.2, ca 9.2, bili 0.5, AST 29, ALT 16, Alk phos 103, Trop 0.266, Albumin 1.7. Urine with blood and + leukocyte esterase EKG sinus rate of 99 bpm with TWI in inferolateral leads unchanged from prior EKG, significant baseline artefact, No ST elevations, QTc 509, CXR and CT head with no acute findings. Given leukocytosis and likely sepsis related to UTI, given empiric antibiotics and fluids and admitted for further care. 02/23: Afebrile. WBC 31.7, Hb 7.6, platelets 300, NA 156, K3.9, BUN 119, CR 3.6, glucose 153, alb 1.3. Covid neg. Breathing improved, but not communicating. Offloading for bedsore. 02/24: Afebrile. WBC still elevated patient septic. Son consented for dialysis catheter placement. BUN 128 today. Still very confused. Discussed with general surgery is poor surgical candidate but very large wound needs offloading possibly chemical debridement and consideration of wound VAC. Continue cefepime and vancomycin. Discussed with family overall goals of care. 02/25: Afebrile. Hb dropped to 6.9. To dialysis today for transfusion. Urine culture with Nancy glabrata. Afebrile. Glucose 67 this morning. Shaking Lasix. Low-grade axillary temp. Discussed with ID urine culture less likely to be source. Labs pending. Insulin adjusted Vitals/I&O Vitals/I&O: Vital Signs Date Time Temp Pulse Resp B/P (MAP) Pulse Ox O2 Delivery O2 Flow Rate FiO2 02/26/21 02:38 97.7 90 16 98/55 (69) 96 Nasal Cannula 2.0 97.7 I & O 02/25/21 02/25/21 02/26/21 15:00 23:00 07:00 Intake Total 25 ml 25 ml Output Total 2 ml 400 ml Balance 25 ml 23 ml -400 ml Physical Exam General: No acute distress, Other (eyes open, however does not respond to quest ions ) Heart: Normal S1, Normal S2, Other (mild tachy ) Lungs: Crackles Abdomen: Soft Extremities: Other (contracted ) Skin: Other (large sacral wound with necrosis, odor) Labs Labs: Laboratory Tests Test 02/25/21 08:02 02/25/21 12:21 02/25/21 18:31 02/25/21 20:20 Glucose (Fingerstick) 143 mg/dL (70-99) 162 mg/dL (70-99) 90 mg/dL (70-99) 67 mg/dL (70-99) Assessment and Plan Assessmemt and Plan Problems Medical Problems: (1) Acute encephalopathy Status: Acute (2) Acute kidney injury superimposed on chronic kidney disease Status: Acute (3) NSTEMI (non-ST elevated myocardial infarction) Status: Acute (4) Sepsis Status: Acute (5) UTI (urinary tract infection) Status: Acute Comment Review of Relevant I have reviewed the following items toan (where applicable) has been applied. Justifications for Admission General Conditions Poss Metaboilic Acidosis?: Yes Justification for admission: Patient has tachycardia (> 100 beats per minute) or hypotension (SBP < 90 mm Hg) leading to inadequate systemic perfusion as indicated by metabolic acidosis with arterial pH of less than 7.35. Other Justification ALEXANDRIA MCFARLAND MD Feb 26, 2021 07:41
[2021-02-26] MEDS: INSULIN LISPRO 300 UNITS/3 ML VIAL. SQ SCH ×3 (08:00→17:00)
[2021-02-26] MEDS: levETIRAcetam 500 MG in IV DEXTROSE 5% 100ML 100 ML IV SCH ×2 (09:24→21:12)
--- NOTE | 2021-02-26 09:56 | PDOC ---
Infectious Disease Note ROS: ROS Unable to obtain Vital Signs: Vital Signs Vital Signs Date Time Temp Pulse Resp B/P (MAP) Pulse Ox O2 Delivery O2 Flow Rate FiO2 02/26/21 02:38 97.7 90 16 98/55 (69) 96 Nasal Cannula 2.0 97.7 Medications: Inpatient Meds: Medications reviewed. Labs: Lab Laboratory Tests Test 02/25/21 12:21 02/25/21 18:31 02/25/21 20:20 02/26/21 08:10 Glucose (Fingerstick) 162 mg/dL (70-99) 90 mg/dL (70-99) 67 mg/dL (70-99) 104 mg/dL (70-99) Objective: Assessment: Patient seen and examined Plan: Plan of Care ID consultation dictated Thank you [phone] RAFIA MORALES MD Feb 26, 2021 09:56
[2021-02-26 10:53] LABS: BASO % 0 % (0-3); EOS # 0.1 x10^3/uL (0.0-0.7); EOS % 0 % (0-3); HEMOGLOBIN 7.8 g/dL (12.0-15.5); LYMPH % 3 % (24-48); MEAN CORPUSCULAR HEMOGLOBIN 27 pg (25-35); MEAN CORPUSCULAR HGB CONC 31 g/dL (31-37); MEAN CORPUSCULAR VOLUME 87 fL (79-100); MONO # 2.1 x10^3/uL (0.0-1.1); MONO % 6 % (0-9); NEUT # 30.9 x10^3/uL (1.8-7.7); NEUT % 91 % (31-73); PLATELET COUNT 285 x10^3/uL (140-400); RED BLOOD COUNT 2.88 x10^6/uL (3.50-5.40); RED CELL DISTRIBUTION WIDTH 15.8 % (11.5-14.5); WHITE BLOOD COUNT 34.2 x10^3/uL (4.0-11.0)
[2021-02-26 11:00] VITALS: BP 93/52
[2021-02-26 11:05] LABS: ALBUMIN 1.2 g/dL (3.4-5.0); CALCIUM 8.3 mg/dL (8.5-10.1); CREATININE 2.6 mg/dL (0.6-1.0); GFR 22.4; PHOSPHORUS 2.8 mg/dL (2.6-4.7); POTASSIUM 3.8 mmol/L (3.5-5.1)
--- NOTE | 2021-02-26 11:07 | CONS ---
DATE OF CONSULTATION: 02/26/2021 REFERRING PHYSICIAN: Werner Ferrer MD. REASON FOR CONSULTATION: Nancy in urine and gluteal wound. HISTORY OF PRESENT ILLNESS: A 65-year-old female with history of seizures, diabetes, depression, GERD, hypertension, hyperlipidemia, cocaine use disorder, retirement resident, was brought to the ED on 02/22/2021 with decreased level of consciousness. There was no witnessed seizure. The patient has been on anti-seizure medication. The patient was hypoxic. The patient is alert, oriented x 2 at baseline, wheelchair-bound. History obtained from chart and medical staff. Upon arrival, her white count was 31.4. Lactate was 1.2. Creatinine was 3.3. UA showed 5-10 wbc's, yeast present. Temperature was 99.7. Chest x-ray showed no acute cardiopulmonary process. CT head showed no evidence of acute intracranial abnormality. The patient was admitted for sepsis, acute encephalopathy, UTI, MEHDI and non-STEMI. The patient was started on IV vancomycin and cefepime. She was also on linezolid. Blood cultures remain negative. Urine culture showed greater than 100,000 Nancy glabrata. Hip and pelvic x-ray, chest x-ray, head CT reviewed. The patient was started on dialysis yesterday for sacral manage of wound. General Surgery was consulted. The plan for possible debridement next week; however, the patient is a very poor surgical candidate. ID consultation has been requested for urine Nancy glabrata and sacral wound. The patient is currently on cefepime and linezolid. The patient opens eyes, does not respond to any questions. History obtained from chart and medical staff. The patient's temperature was 100.2 on admission per nursing staff. Last temperature recorded was 97.7 at 2:38 last night, pulse of 90, respiratory rate 16, blood pressure 98/55, oxygen saturation 96% on 2 liters O2 by nasal cannula. PAST MEDICAL HISTORY: CHF, asthma, GERD, diverticulosis, anemia, history of addiction, osteoarthritis, diabetes, chronic renal insufficiency, sleep apnea, hyperlipidemia, hypertension, tubal ligation, DJD and breast reduction. FAMILY HISTORY: As per HPI. SOCIAL HISTORY: long term resident. No smoking, ETOH, or illicit drug use. History of cocaine use in the past. CURRENT MEDICATIONS: Cefepime, linezolid. She was also on vancomycin. ALLERGIES: No known drug allergies. REVIEW OF SYSTEMS: Unable to obtain. PHYSICAL EXAMINATION: VITAL SIGNS: As above. GENERAL: The patient is lying comfortably in bed, opens eyes, does not answer any questions. HEENT: Normocephalic, atraumatic. Anicteric. Oral mucosa moist. NECK: Supple. LUNGS: Clear bilaterally. No wheezing. HEART: S1, S2. No murmurs. ABDOMEN: Soft, nontender, nondistended. GENITOURINARY: Palacio in place, placed here. EXTREMITIES: No edema. No cyanosis. DERMATOLOGIC: Warm, dry, no generalized rash. Wound pictures noted large sacral wound with necrosis, multiple wounds over the lower extremity, does not appear infected. NEUROLOGIC: Opens eyes, does not respond to any questions. PSYCHIATRIC: Obtunded. LABORATORY DATA: WBC 28.7, hemoglobin 6.9, hematocrit 23.3, platelets 290. Sodium 151, potassium 3.4, chloride 115, bicarb 23, BUN 129, creatinine 3.2, glucose 156. Lactate 1.2. UA moderate leukocyte esterase, 5-10 wbc's. SARS-COVID negative. MICRO: Blood culture negative. Urine culture greater than 100,000 Nancy glabrata. IMPRESSION: 1. Acute encephalopathy appears multifactorial, likely metabolic from acute kidney injury with underlying chronic kidney disease. CT head negative for acute changes. 2. Leukocytosis appears chronic going back to 2019, further details about work- up unavailable at this time. 3. Infected sacral wound with necrosis and eschar. 4. History of multiple wounds. 5. History of seizures. 6. Diabetes mellitus 2. 7. Depression. 8. Anemia. 9. History of cocaine disorder, in remission. 10. Hypernatremia. 11. Hypokalemia. 12. Protein-calorie malnutrition. 13. Nancy glabrata in urine could be colonization. 14. SARS-COVID negative. RECOMMENDATIONS: 1. Discontinue cefepime. 2. Start Zosyn. 3. Continue linezolid. 4. Status post vancomycin. 5. Start micafungin. 6. Obtain CT abdomen and pelvis without. 7. General Surgery following. The patient may be a candidate for debridement per their evaluation next week 8. Palacio management per protocol. 9. Offload. 10. Continue wound care as directed. 11. Continue supportive care. 12. Monitor labs and cultures. . Prognosis is very poor. Thank you, Dr. Ferrer, for consulting Infectious Disease to participate in this patient's care. If you have any questions, do not hesitate to contact me. ORIN/GLADYS DR: Talib TID: [id number]
[2021-02-26] MEDS: PIPERACILLIN/TAZOBACTAM 2.25 GM in IV NORMAL SALINE 50ML 50 ML IV SCH ×2 (12:45→21:12)
[2021-02-26] MEDS: MICAFUNGIN 100 MG in IV DEXTROSE 5% 100ML 100 ML IV SCH (12:46)
[2021-02-26 15:00] VITALS: BP 96/52
--- NOTE | 2021-02-26 16:37 | PDOC ---
DATE OF SERVICE DATE: 02/26/21 TIME: 16:34 SUBJECTIVE ROS No concerns voiced by nursing OBJECTIVE Vital Signs Vital Signs Date Time Temp Pulse Resp B/P (MAP) Pulse Ox O2 Delivery O2 Flow Rate FiO2 02/26/21 15:00 100.1 87 16 96/52 (67) 97 Nasal Cannula 2.0 100.1 I & 0 Intake and Output 02/26/21 07:00 Intake Total 50 ml Output Total 402 ml Balance -352 ml Intake Oral 0 ml Blood Product IV Normal Saline Flush 50 ml Output Urine Total 400 ml Stool Total 2 ml # Bowel Movements 3 PHYSICAL EXAM Physical Exam General: NAD HEENT: Atraumatic, PERRLA, EOMI, Mucous membr. moist/pink Neck Supple Lungs: Clear to auscultation, Non labored Heart: S1S2, RRR, no thrills, no rubs, no gallops, no murmurs Abdomen: Normal bowel sounds, Soft, No tenderness, No hepatosplenomegaly, No masses Extremities: No clubbing, No cyanosis, No edema, Skin: No rashes, NeurO Grossly No neurological deficit Psych/Mental Status: Obtunded Palacio + DIAGNOSIS/ASSESSMENT Assessment & Plan MEHDI - ATN vs AIN- Non Oliguric, worsening renal function, initiated dialysis -1 st treatment 02/25 , No emergent indication today, Re-Eval tomorrow Supportive care,, Avoid Nephrotoxins ,strict I/O .Ur Cx Nancy, ID following Access temp HDC Hypotension - BP low for her baseline HyperNatremia- On Diuretics per home med list Dialysate Na adjusted , Normal Na today Acute encephalopathy - ? baseline per her recent hospitalization no SDH or CVA symptoms Sepsis -On empiric vancomycin Anemia Noted decrease in Hgb from her recent hospitalization at [facility], Today Hgb < 7, defer to primary Seizures DM2 H/o cocaine use disorder - in remission in SNF COMMENT/RELEVANT DATA Meds Current Medications Medications (Trade) Dose Ordered Sig/Es Start Time Stop Time Status Last Admin Dose Admin Acetaminophen (Tylenol Supp) 650 mg PRN Q6HRS PRN 02/22/21 21:15 02/23/21 16:11 650 MG Albumin Human 200 ml @ 200 mls/hr 1X PRN PRN 02/25/21 13:30 02/25/21 19:29 DC Bisacodyl (Dulcolax Supp) 10 mg PRN DAILY PRN 9/29/21 21:15 Cefepime HCl (Maxipime) 1 gm Q24H 02/22/21 21:30 02/26/21 09:54 DC 02/25/21 20:33 1 GM Dextrose (Dextrose 50%-Water Syringe) 12.5 gm PRN Q15MIN PRN 02/22/21 21:30 Heparin Sodium (Porcine) (Heparin Sodium) 5,000 unit Q8HRS 02/22/21 22:00 02/26/21 12:50 5,000 UNIT Info (PHARMACY MONITORING -- do not chart) 1 each PRN DAILY PRN 02/25/21 16:15 02/25/21 16:12 DC Insulin Glargine (Lantus Syringe) 8 unit QHS 02/26/21 21:00 Insulin Human Lispro (HumaLOG) 0-9 UNITS TIDWMEALS 02/23/21 08:00 Levetiracetam 500 mg/Dextrose 105 ml @ 420 mls/hr Q12HR 02/22/21 21:30 02/26/21 09:24 420 MLS/HR Lidocaine HCl (Buffered Lidocaine 1%) 3 ml 1X ONCE 02/24/21 09:00 02/24/21 09:01 DC 02/24/21 09:00 5 ML Linezolid/Dextrose 300 ml @ 300 mls/hr Q12HR 02/24/21 14:30 02/26/21 09:24 300 MLS/HR Lorazepam (Ativan Inj) 0.5 mg PRN Q4HRS PRN 02/22/21 21:30 02/23/21 10:58 0.5 MG Micafungin Sodium 100 mg/Dextrose 100 ml @ 100 mls/hr Q24H 02/26/21 12:00 02/26/21 12:46 100 MLS/HR Olanzapine (ZyPREXA ZYDIS) 5 mg PRN BID PRN 02/22/21 21:15 Ondansetron HCl (Zofran) 4 mg PRN Q4HRS PRN 02/22/21 21:15 Pantoprazole Sodium (PROTONIX VIAL for IV PUSH) 40 mg 1X ONCE 02/22/21 22:00 02/22/21 22:01 DC 02/22/21 22:16 40 MG Piperacillin Sod/ Tazobactam Sod 2.25 gm/Sodium Chloride 50 ml @ 100 mls/hr Q8HRS 02/26/21 11:00 02/26/21 12:45 100 MLS/HR Piperacillin Sod/ Tazobactam Sod 4.5 gm/Sodium Chloride 100 ml @ 200 mls/hr 1X ONCE 02/22/21 13:30 02/22/21 13:59 UNV Sodium Bicarbonate 50 meq/Sodium Chloride 1,050 ml @ 125 mls/hr Q8H24M 02/22/21 21:30 02/23/21 12:14 DC 02/23/21 10:54 125 MLS/HR Sodium Chloride 1,000 ml @ 1,000 mls/hr Q1H PRN 02/25/21 13:30 02/25/21 19:29 DC Vancomycin HCl (Vanco Per Pharmacy) 1 each PRN DAILY PRN 02/22/21 13:30 02/24/21 13:58 DC 02/23/21 03:10 1 EACH Vancomycin HCl (Vancomycin Trough Level) 1 each 1X ONCE 02/26/21 13:30 02/24/21 13:58 DC Vancomycin HCl 1.25 gm/Sodium Chloride 250 ml @ 167 mls/hr Q48H 02/24/21 14:00 02/24/21 13:58 DC Lab Laboratory Tests Test 02/25/21 18:31 02/25/21 20:20 02/26/21 08:10 02/26/21 10:45 Glucose (Fingerstick) 90 mg/dL (70-99) 67 mg/dL (70-99) 104 mg/dL (70-99) White Blood Count 34.2 x10^3/uL (4.0-11.0) Red Blood Count 2.88 x10^6/uL (3.50-5.40) Hemoglobin 7.8 g/dL (12.0-15.5) Hematocrit 25.0 % (36.0-47.0) Mean Corpuscular Volume 87 fL (79-100) Mean Corpuscular Hemoglobin 27 pg (25-35) Mean Corpuscular Hemoglobin Concent 31 g/dL (31-37) Red Cell Distribution Width 15.8 % (11.5-14.5) Platelet Count 285 x10^3/uL (140-400) Neutrophils (%) (Auto) 91 % (31-73) Lymphocytes (%) (Auto) 3 % (24-48) Monocytes (%) (Auto) 6 % (0-9) Eosinophils (%) (Auto) 0 % (0-3) Basophils (%) (Auto) 0 % (0-3) Neutrophils # (Auto) 30.9 x10^3/uL (1.8-7.7) Lymphocytes # (Auto) 1.0 x10^3/uL (1.0-4.8) Monocytes # (Auto) 2.1 x10^3/uL (0.0-1.1) Eosinophils # (Auto) 0.1 x10^3/uL (0.0-0.7) Basophils # (Auto) 0.0 x10^3/uL (0.0-0.2) Sodium Level 140 mmol/L (136-145) Potassium Level 3.8 mmol/L (3.5-5.1) Chloride Level 104 mmol/L (98-107) Carbon Dioxide Level 28 mmol/L (21-32) Anion Gap 8 (6-14) Blood Urea Nitrogen 62 mg/dL (7-20) Creatinine 2.6 mg/dL (0.6-1.0) Estimated GFR (Cockcroft-Gault) 22.4 Glucose Level 119 mg/dL (70-99) Calcium Level 8.3 mg/dL (8.5-10.1) Phosphorus Level 2.8 mg/dL (2.6-4.7) Albumin 1.2 g/dL (3.4-5.0) Test 02/26/21 11:50 Glucose (Fingerstick) 123 mg/dL (70-99) Results All relevant outside records, renal labs, imaging studies, telemetry/EKG's were reviewed. Justicifation of Admission Dx: Justifications for Admission: Justification of Admission Dx: N/A AZAEL VANCE MD Feb 26, 2021 16:37
[2021-02-26 19:43] VITALS: BP 93/46
[2021-02-26] MEDS: BISACODYL 10 MG SUPP.RECT. PR PRN (21:11)
[2021-02-26] MEDS: ACETAMINOPHEN 650 MG SUPP.RECT. PR PRN (21:11)
[2021-02-26] MEDS: INSULIN GLARGINE SYRINGE. SQ SCH (21:25)
[2021-02-26 22:45] VITALS: BP 117/59
[2021-02-27 03:01] VITALS: BP 100/57
--- NOTE | 2021-02-27 03:50 | RAD ---
CT abdomen pelvis without contrast dated 02/26/2021. COMPARISON: None. TECHNIQUE: Contiguous axial imaging the abdomen pelvis performed without the administration of IV or oral contra st. One or more of the following individualized dose reduction techniques were utilized for this examinat ion: 1. Automated exposure control 2. Adjustment of the mA and/or kV according to patient size 3. Use of iterative reconstruction technique. FINDINGS: Limited images of lung bases are clear. Heart size is mildly enlarged. No pleural or pericardial effu melisa. Solid abdominal viscera not well evaluated in the absence of contrast material. No apparent attenuati on abnormality of the liver or spleen. The gallbladder is surgically absent. Pancreas, adrenal glands and kidneys are unremarkable. No stone or hydronephrosis. Unopacified GI tract normal in caliber and contour. No focal bowel wall thickening. No ascites or lym phadenopathy. Prominent supraumbilical ventral hernia containing only fat. There is fecal impaction a t the rectal vault with mild diffuse rectal wall thickening. Abdominal aorta normal in caliber. Images of pelvis show a ulcerative defect posteriorly over the coccygeal tip/sacrum. There is soft ti ssue gas that extends to cortical bone no definite erosive change or bone destruction. There is soft tissue gas that extends into the inferior gluteal folds and perineum bilaterally. There are possible small fluid collections, right greater than left measuring approximately 4.5 and 2.5 cm respectively. There is a Palacio catheter within a collapsed urinary bladder. There are a few borderline enlarged ing uinal lymph nodes. No iliac chain adenopathy. Bone windows show no acute findings. Multilevel spondylosis. IMPRESSION: 1. There is a decubitus ulcer over the sacrococcygeal region posteriorly that with associated soft ti ssue gas. This appears to extend to cortical bone without evidence of bone destruction or osteomyelit is at this time. 2. Additional pockets of fluid and gas extend more inferiorly into the medial gluteal folds. This is difficult to accurately assess in the absence of contrast material but could represent small abscesse s. 3. Fecal impaction at the rectal vault with circumferential wall thickening of the distal rectum. Thi s could be related to associated infectious or inflammatory proctitis. 4. Prominent supraumbilical ventral hernia containing only fat. Electronically signed by: Luis Armando Chapa MD (02/27/2021 3:47 AM) [facility]
[2021-02-27] MEDS: PIPERACILLIN/TAZOBACTAM 2.25 GM in IV NORMAL SALINE 50ML 50 ML IV SCH ×3 (06:03→22:22)
[2021-02-27] MEDS: HEPARIN for SUB-Q USE 5,000 UNIT/ML VIAL. SQ SCH ×3 (06:04→22:57)
[2021-02-27 06:54] LABS: CALCIUM 8.3 mg/dL (8.5-10.1); CREATININE 2.9 mg/dL (0.6-1.0); GFR 19.8; POTASSIUM 3.6 mmol/L (3.5-5.1)
[2021-02-27 07:00] VITALS: BP 84/48
[2021-02-27] MEDS: INSULIN LISPRO 300 UNITS/3 ML VIAL. SQ SCH ×3 (08:00→16:21)
--- NOTE | 2021-02-27 08:42 | PDOC ---
Infectious Disease Note Vital Signs: Vital Signs Vital Signs Date Time Temp Pulse Resp B/P (MAP) Pulse Ox O2 Delivery O2 Flow Rate FiO2 02/27/21 07:00 99.1 86 16 84/48 (60) 99 Nasal Cannula 2.0 99.1 Medications: Inpatient Meds: Medications reviewed. Labs: Lab Laboratory Tests Test 02/26/21 10:45 02/26/21 11:00 02/26/21 11:50 02/26/21 17:24 White Blood Count 34.2 x10^3/uL (4.0-11.0) Red Blood Count 2.88 x10^6/uL (3.50-5.40) Hemoglobin 7.8 g/dL (12.0-15.5) Hematocrit 25.0 % (36.0-47.0) Mean Corpuscular Volume 87 fL (79-100) Mean Corpuscular Hemoglobin 27 pg (25-35) Mean Corpuscular Hemoglobin Concent 31 g/dL (31-37) Red Cell Distribution Width 15.8 % (11.5-14.5) Platelet Count 285 x10^3/uL (140-400) Neutrophils (%) (Auto) 91 % (31-73) Lymphocytes (%) (Auto) 3 % (24-48) Monocytes (%) (Auto) 6 % (0-9) Eosinophils (%) (Auto) 0 % (0-3) Basophils (%) (Auto) 0 % (0-3) Neutrophils # (Auto) 30.9 x10^3/uL (1.8-7.7) Lymphocytes # (Auto) 1.0 x10^3/uL (1.0-4.8) Monocytes # (Auto) 2.1 x10^3/uL (0.0-1.1) Eosinophils # (Auto) 0.1 x10^3/uL (0.0-0.7) Basophils # (Auto) 0.0 x10^3/uL (0.0-0.2) Sodium Level 140 mmol/L (136-145) Potassium Level 3.8 mmol/L (3.5-5.1) Chloride Level 104 mmol/L (98-107) Carbon Dioxide Level 28 mmol/L (21-32) Anion Gap 8 (6-14) Blood Urea Nitrogen 62 mg/dL (7-20) Creatinine 2.6 mg/dL (0.6-1.0) Estimated GFR (Cockcroft-Gault) 22.4 Glucose Level 119 mg/dL (70-99) Calcium Level 8.3 mg/dL (8.5-10.1) Phosphorus Level 2.8 mg/dL (2.6-4.7) Albumin 1.2 g/dL (3.4-5.0) Clostridium difficile Toxin (PCR) Negative (NEGATIVE) Glucose (Fingerstick) 123 mg/dL (70-99) 98 mg/dL (70-99) Test 02/26/21 21:07 02/27/21 06:10 Glucose (Fingerstick) 93 mg/dL (70-99) Sodium Level 137 mmol/L (136-145) Potassium Level 3.6 mmol/L (3.5-5.1) Chloride Level 101 mmol/L (98-107) Carbon Dioxide Level 26 mmol/L (21-32) Anion Gap 10 (6-14) Blood Urea Nitrogen 68 mg/dL (7-20) Creatinine 2.9 mg/dL (0.6-1.0) Estimated GFR (Cockcroft-Gault) 19.8 Glucose Level 121 mg/dL (70-99) Calcium Level 8.3 mg/dL (8.5-10.1) Objective: Assessment: Fever Plan: Plan of Care see note RAFIA MORALES MD Feb 27, 2021 08:41
[2021-02-27] MEDS ORDERED: DIALYSIS PATIENT. MC PRN ×2 (08:45)
[2021-02-27] MEDS ORDERED: IV NORMAL SALINE 1000ML BAG 1,000 ML IV PRN ×2 (08:45)
[2021-02-27] MEDS ORDERED: ALBUMIN HUMAN 25% 200 ML IV PRN (08:45)
[2021-02-27] MEDS ORDERED: 0.9 % SODIUM CHLORIDE 10 ML DISP.SYRIN. IV PRN ×2 (08:45)
[2021-02-27] MEDS: levETIRAcetam 500 MG in IV DEXTROSE 5% 100ML 100 ML IV SCH ×2 (08:46→21:08)
[2021-02-27 09:46] LABS: BASO # 0.1 x10^3/uL (0.0-0.2); BASO % 0 % (0-3); EOS # 0.2 x10^3/uL (0.0-0.7); EOS % 1 % (0-3); HEMATOCRIT 25.1 % (36.0-47.0); HEMOGLOBIN 7.8 g/dL (12.0-15.5); LYMPH # 0.8 x10^3/uL (1.0-4.8); LYMPH % 2 % (24-48); MEAN CORPUSCULAR HEMOGLOBIN 27 pg (25-35); MEAN CORPUSCULAR HGB CONC 31 g/dL (31-37); MEAN CORPUSCULAR VOLUME 87 fL (79-100); MONO % 5 % (0-9); NEUT # 34.9 x10^3/uL (1.8-7.7); NEUT % 92 % (31-73); PLATELET COUNT 284 x10^3/uL (140-400); RED BLOOD COUNT 2.88 x10^6/uL (3.50-5.40)
[2021-02-27 09:55] LABS: ALBUMIN 1.1 g/dL (3.4-5.0); ALBUMIN/GLOBULIN RATIO 0.2 (1.0-1.7); CALCIUM 8.6 mg/dL (8.5-10.1); CREATININE 2.8 mg/dL (0.6-1.0); TOTAL PROTEIN 6.4 g/dL (6.4-8.2)
[2021-02-27 09:56] LABS: GFR 20.6; POTASSIUM 3.6 mmol/L (3.5-5.1); TOTAL BILIRUBIN 0.5 mg/dL (0.2-1.0)
--- NOTE | 2021-02-27 10:42 | PDOC ---
Infectious Disease Note Subjective: Subjective pt does nor respond T MAX 101 Vital Signs: Vital Signs Vital Signs Date Time Temp Pulse Resp B/P (MAP) Pulse Ox O2 Delivery O2 Flow Rate FiO2 02/27/21 07:00 99.1 86 16 84/48 (60) 99 Nasal Cannula 2.0 99.1 Physical Exam: PHYSICAL EXAM GENERAL: The patient is lying comfortably in bed, opens eyes, does not answer any questions. HEENT: Normocephalic, atraumatic. Anicteric. Oral mucosa moist. NECK: Supple. LUNGS: Clear bilaterally. No wheezing. HEART: S1, S2. No murmurs. ABDOMEN: Soft, nontender, nondistended. GENITOURINARY: Palacio in place, placed here. EXTREMITIES: No edema. No cyanosis. DERMATOLOGIC: Warm, dry, no generalized rash. Wound pictures noted large sacral wound with necrosis, multiple wounds over the lower extremity, does not appear infected. NEUROLOGIC: Opens eyes, does not respond to any questions. PSYCHIATRIC: Obtunded. Medications: Inpatient Meds: Medications reviewed. Labs: Lab Laboratory Tests Test 02/26/21 10:45 02/26/21 11:00 02/26/21 11:50 02/26/21 17:24 White Blood Count 34.2 x10^3/uL (4.0-11.0) Red Blood Count 2.88 x10^6/uL (3.50-5.40) Hemoglobin 7.8 g/dL (12.0-15.5) Hematocrit 25.0 % (36.0-47.0) Mean Corpuscular Volume 87 fL (79-100) Mean Corpuscular Hemoglobin 27 pg (25-35) Mean Corpuscular Hemoglobin Concent 31 g/dL (31-37) Red Cell Distribution Width 15.8 % (11.5-14.5) Platelet Count 285 x10^3/uL (140-400) Neutrophils (%) (Auto) 91 % (31-73) Lymphocytes (%) (Auto) 3 % (24-48) Monocytes (%) (Auto) 6 % (0-9) Eosinophils (%) (Auto) 0 % (0-3) Basophils (%) (Auto) 0 % (0-3) Neutrophils # (Auto) 30.9 x10^3/uL (1.8-7.7) Lymphocytes # (Auto) 1.0 x10^3/uL (1.0-4.8) Monocytes # (Auto) 2.1 x10^3/uL (0.0-1.1) Eosinophils # (Auto) 0.1 x10^3/uL (0.0-0.7) Basophils # (Auto) 0.0 x10^3/uL (0.0-0.2) Sodium Level 140 mmol/L (136-145) Potassium Level 3.8 mmol/L (3.5-5.1) Chloride Level 104 mmol/L (98-107) Carbon Dioxide Level 28 mmol/L (21-32) Anion Gap 8 (6-14) Blood Urea Nitrogen 62 mg/dL (7-20) Creatinine 2.6 mg/dL (0.6-1.0) Estimated GFR (Cockcroft-Gault) 22.4 Glucose Level 119 mg/dL (70-99) Calcium Level 8.3 mg/dL (8.5-10.1) Phosphorus Level 2.8 mg/dL (2.6-4.7) Albumin 1.2 g/dL (3.4-5.0) Clostridium difficile Toxin (PCR) Negative (NEGATIVE) Glucose (Fingerstick) 123 mg/dL (70-99) 98 mg/dL (70-99) Test 02/26/21 21:07 02/27/21 06:10 Glucose (Fingerstick) 93 mg/dL (70-99) White Blood Count 38.0 x10^3/uL (4.0-11.0) Red Blood Count 2.88 x10^6/uL (3.50-5.40) Hemoglobin 7.8 g/dL (12.0-15.5) Hematocrit 25.1 % (36.0-47.0) Mean Corpuscular Volume 87 fL (79-100) Mean Corpuscular Hemoglobin 27 pg (25-35) Mean Corpuscular Hemoglobin Concent 31 g/dL (31-37) Red Cell Distribution Width 16.0 % (11.5-14.5) Platelet Count 284 x10^3/uL (140-400) Neutrophils (%) (Auto) 92 % (31-73) Lymphocytes (%) (Auto) 2 % (24-48) Monocytes (%) (Auto) 5 % (0-9) Eosinophils (%) (Auto) 1 % (0-3) Basophils (%) (Auto) 0 % (0-3) Neutrophils # (Auto) 34.9 x10^3/uL (1.8-7.7) Lymphocytes # (Auto) 0.8 x10^3/uL (1.0-4.8) Monocytes # (Auto) 2.0 x10^3/uL (0.0-1.1) Eosinophils # (Auto) 0.2 x10^3/uL (0.0-0.7) Basophils # (Auto) 0.1 x10^3/uL (0.0-0.2) Sodium Level 139 mmol/L (136-145) Potassium Level 3.6 mmol/L (3.5-5.1) Chloride Level 103 mmol/L (98-107) Carbon Dioxide Level 27 mmol/L (21-32) Anion Gap 9 (6-14) Blood Urea Nitrogen 71 mg/dL (7-20) Creatinine 2.8 mg/dL (0.6-1.0) Estimated GFR (Cockcroft-Gault) 20.6 BUN/Creatinine Ratio 25 (6-20) Glucose Level 127 mg/dL (70-99) Calcium Level 8.6 mg/dL (8.5-10.1) Total Bilirubin 0.5 mg/dL (0.2-1.0) Aspartate Amino Transf (AST/SGOT) 40 U/L (15-37) Alanine Aminotransferase (ALT/SGPT) 22 U/L (14-59) Alkaline Phosphatase 126 U/L (46-116) Total Protein 6.4 g/dL (6.4-8.2) Albumin 1.1 g/dL (3.4-5.0) Albumin/Globulin Ratio 0.2 (1.0-1.7) Objective: Assessment: 1. Acute encephalopathy appears multifactorial, likely metabolic from acute kidney injury with underlying chronic kidney disease. CT head negative for acute changes. 2. Leukocytosis appears chronic going back to 2019, further details about work- up unavailable at this time. 3. Infected sacral wound with necrosis and eschar. 4. History of multiple wounds. 5. History of seizures. 6. Diabetes mellitus 2. 7. Depression. 8. Anemia. 9. History of cocaine disorder, in remission. 10. Hypernatremia. 11. Hypokalemia. 12. Protein-calorie malnutrition. 13. Nancy glabrata in urine could be colonization. 14. SARS-COVID negative. Plan: Plan of Care Zosyn. linezolid.micafungin. Status post vancomycin. CT abdomen and pelvis without reviewed General Surgery following. The patient may be a candidate for debridement per their evaluation next week Palacio management per protocol. Offload. Continue wound care as directed. . Continue supportive care. Monitor labs and cultures. . Prognosis is very poor. RAFIA MORALES MD Feb 27, 2021 10:42
--- NOTE | 2021-02-27 10:59 | NUR ---
SS following up with discharge planning. SS reviewed pt chart and discussed with pt RN. Pt is LTC resident from [facility], ; fax [phone]. COVID19 negative. CDIFF negative. Palacio Catheter in place. NPO. Pt is currently requiring oxygen at two liters nasal canula. Wound vac in place for sacral wound. Pt on IV Micafungin, IV Zosyn, IV Zyvox, and IV Keppra. Pt's family requesting that pt not go back to [facility]. SS attempted to contact pt's son, Lauro, , and received message that voicemail box has not been set up. Pt's RN notified. SS will continue to follow for discharge planning.
--- NOTE | 2021-02-27 13:52 | PDOC ---
DATE OF SERVICE DATE: 02/27/21 TIME: 13:48 SUBJECTIVE ROS Seen during dialysis, 2 nd treatment She is able to tell her name , knows she is in the hospital, speech not clear No SOB , no other concerns OBJECTIVE Vital Signs Vital Signs Date Time Temp Pulse Resp B/P (MAP) Pulse Ox O2 Delivery O2 Flow Rate FiO2 02/27/21 08:20 Nasal Cannula 2.0 02/27/21 07:00 99.1 86 16 84/48 (60) 99 99.1 I & 0 Intake and Output 02/27/21 07:00 Intake Total 860 ml Output Total 100 ml Balance 760 ml Intake Oral 0 ml IV Total 860 ml Output Urine Total 100 ml # Bowel Movements 7 PHYSICAL EXAM Physical Exam General: NAD HEENT: Atraumatic, PERRLA, EOMI, Mucous membr. moist/pink Neck Supple Lungs: Clear to auscultation, Non labored Heart: S1S2, RRR, no thrills, no rubs, no gallops, no murmurs Abdomen: Normal bowel sounds, Soft, No tenderness, No hepatosplenomegaly, No masses Extremities: No clubbing, No cyanosis, No edema, Skin: No rashes, NeurO Grossly No neurological deficit Psych/Mental Status: Obtunded Palacio + DIAGNOSIS/ASSESSMENT Assessment & Plan MEHDI - ATN vs AIN- Non Oliguric, worsening renal function, initiated dialysis -1 st treatment 02/25 , Dialysis today 2 nd treatment- seen during, tolerating well, continue as ordered, Vaibhav Kahn Supportive care,, Avoid Nephrotoxins ,strict I/O . If No improvement will need Tunneled HDC and OP chair time prior to discharge Access temp HDC Fever - ID following; UA Nancy Glabrata Hypotension - BP low for her baseline HyperNatremia- On Diuretics per home med list Dialysate Na adjusted , Normal Na today Acute encephalopathy - ? baseline per her recent hospitalization no SDH or CVA symptoms Sepsis -On empiric vancomycin Anemia Noted decrease in Hgb from her recent hospitalization at [facility], Today Hgb < 7, defer to primary Seizures DM2 H/o cocaine use disorder - in remission in SNF COMMENT/RELEVANT DATA Meds Current Medications Medications (Trade) Dose Ordered Sig/Es Start Time Stop Time Status Last Admin Dose Admin Acetaminophen (Tylenol Supp) 650 mg PRN Q6HRS PRN 02/22/21 21:15 02/26/21 21:11 650 MG Albumin Human 200 ml @ 200 mls/hr 1X PRN PRN 02/27/21 08:45 02/27/21 14:44 Amino Acids/ Electrolytes/ Dextrose 1,000 ml @ 80 mls/hr [id number] 02/27/21 13:30 Bisacodyl (Dulcolax Supp) 10 mg PRN DAILY PRN 02/22/21 21:15 02/26/21 21:11 10 MG Cefepime HCl (Maxipime) 1 gm Q24H 02/22/21 21:30 02/26/21 09:54 DC 02/25/21 20:33 1 GM Dextrose (Dextrose 50%-Water Syringe) 12.5 gm PRN Q15MIN PRN 02/22/21 21:30 Heparin Sodium (Porcine) (Heparin Sodium) 5,000 unit Q8HRS 02/22/21 22:00 02/27/21 06:04 5,000 UNIT Info (PHARMACY MONITORING -- do not chart) 1 each PRN DAILY PRN 02/27/21 08:45 UNV Insulin Glargine (Lantus Syringe) 8 unit QHS 02/26/21 21:00 02/26/21 21:25 8 UNIT Insulin Human Lispro (HumaLOG) 0-9 UNITS TIDWMEALS 02/23/21 08:00 Levetiracetam 500 mg/Dextrose 105 ml @ 420 mls/hr Q12HR 02/22/21 21:30 02/27/21 08:46 420 MLS/HR Lidocaine HCl (Buffered Lidocaine 1%) 3 ml 1X ONCE 02/24/21 09:00 02/24/21 09:01 DC 02/24/21 09:00 5 ML Linezolid/Dextrose 300 ml @ 300 mls/hr Q12HR 02/24/21 14:30 02/27/21 13:19 300 MLS/HR Lorazepam (Ativan Inj) 0.5 mg PRN Q4HRS PRN 02/22/21 21:30 02/23/21 10:58 0.5 MG Micafungin Sodium 100 mg/Dextrose 100 ml @ 100 mls/hr Q24H 02/26/21 12:00 02/26/21 12:46 100 MLS/HR Olanzapine (ZyPREXA ZYDIS) 5 mg PRN BID PRN 02/22/21 21:15 Ondansetron HCl (Zofran) 4 mg PRN Q4HRS PRN 02/22/21 21:15 Pantoprazole Sodium (PROTONIX VIAL for IV PUSH) 40 mg 1X ONCE 02/22/21 22:00 02/22/21 22:01 DC 02/22/21 22:16 40 MG Piperacillin Sod/ Tazobactam Sod 2.25 gm/Sodium Chloride 50 ml @ 100 mls/hr Q8HRS 02/26/21 11:00 02/27/21 06:03 100 MLS/HR Piperacillin Sod/ Tazobactam Sod 4.5 gm/Sodium Chloride 100 ml @ 200 mls/hr 1X ONCE 02/22/21 13:30 02/22/21 13:59 UNV Sodium Bicarbonate 50 meq/Sodium Chloride 1,050 ml @ 125 mls/hr Q8H24M 02/22/21 21:30 02/23/21 12:14 DC 02/23/21 10:54 125 MLS/HR Sodium Chloride 1,000 ml @ 400 mls/hr Q2H30M PRN 02/27/21 08:45 02/27/21 20:44 Sodium Chloride (Normal Saline Flush) 10 ml 1X PRN PRN 02/27/21 08:45 02/28/21 08:44 Vancomycin HCl (Vanco Per Pharmacy) 1 each PRN DAILY PRN 02/22/21 13:30 02/24/21 13:58 DC 02/23/21 03:10 1 EACH Vancomycin HCl (Vancomycin Trough Level) 1 each 1X ONCE 02/26/21 13:30 02/24/21 13:58 DC Vancomycin HCl 1.25 gm/Sodium Chloride 250 ml @ 167 mls/hr Q48H 02/24/21 14:00 02/24/21 13:58 DC Lab Laboratory Tests Test 02/26/21 17:24 02/26/21 21:07 02/27/21 06:10 Glucose (Fingerstick) 98 mg/dL (70-99) 93 mg/dL (70-99) White Blood Count 38.0 x10^3/uL (4.0-11.0) Red Blood Count 2.88 x10^6/uL (3.50-5.40) Hemoglobin 7.8 g/dL (12.0-15.5) Hematocrit 25.1 % (36.0-47.0) Mean Corpuscular Volume 87 fL (79-100) Mean Corpuscular Hemoglobin 27 pg (25-35) Mean Corpuscular Hemoglobin Concent 31 g/dL (31-37) Red Cell Distribution Width 16.0 % (11.5-14.5) Platelet Count 284 x10^3/uL (140-400) Neutrophils (%) (Auto) 92 % (31-73) Lymphocytes (%) (Auto) 2 % (24-48) Monocytes (%) (Auto) 5 % (0-9) Eosinophils (%) (Auto) 1 % (0-3) Basophils (%) (Auto) 0 % (0-3) Neutrophils # (Auto) 34.9 x10^3/uL (1.8-7.7) Lymphocytes # (Auto) 0.8 x10^3/uL (1.0-4.8) Monocytes # (Auto) 2.0 x10^3/uL (0.0-1.1) Eosinophils # (Auto) 0.2 x10^3/uL (0.0-0.7) Basophils # (Auto) 0.1 x10^3/uL (0.0-0.2) Sodium Level 139 mmol/L (136-145) Potassium Level 3.6 mmol/L (3.5-5.1) Chloride Level 103 mmol/L (98-107) Carbon Dioxide Level 27 mmol/L (21-32) Anion Gap 9 (6-14) Blood Urea Nitrogen 71 mg/dL (7-20) Creatinine 2.8 mg/dL (0.6-1.0) Estimated GFR (Cockcroft-Gault) 20.6 BUN/Creatinine Ratio 25 (6-20) Glucose Level 127 mg/dL (70-99) Calcium Level 8.6 mg/dL (8.5-10.1) Total Bilirubin 0.5 mg/dL (0.2-1.0) Aspartate Amino Transf (AST/SGOT) 40 U/L (15-37) Alanine Aminotransferase (ALT/SGPT) 22 U/L (14-59) Alkaline Phosphatase 126 U/L (46-116) Total Protein 6.4 g/dL (6.4-8.2) Albumin 1.1 g/dL (3.4-5.0) Albumin/Globulin Ratio 0.2 (1.0-1.7) Results All relevant outside records, renal labs, imaging studies, telemetry/EKG's were reviewed. Justicifation of Admission Dx: Justifications for Admission: Justification of Admission Dx: N/A AZAEL VANCE MD Feb 27, 2021 13:52
[2021-02-27] MEDS ORDERED: EPOETIN ALFA-EPBX for ESRD 20,000 UNIT/ML VIAL. SQ ONE (14:00)
[2021-02-27] MEDS: MICAFUNGIN 100 MG in IV DEXTROSE 5% 100ML 100 ML IV SCH (14:17)
[2021-02-27 14:32] VITALS: BP 105/54
--- NOTE | 2021-02-27 14:53 | NUR ---
Wound/Ostomy Care Wound Type/Assessment: Patient seen again today per wound care. Dressing removed and wound cleansed, assessed, measured, and pictured. The wound does not appear to be making any progress, the wound remains necrotic with an even stronger odor and is very dry. Patient soiled and chux changed. We will increase the amount of fluid instilled and more frequently with a longer dwell time. Skin prepped for vac placement and ostomy ring applied to la nena-wound. 1 piece of waffle foam and 1 piece of ruiz cleanse applied to wound, a good seal maintained at 125mmHg with 16mL instilled every 2 hours for a dwell time of 5 minutes. Patient also has DFU to the right medial foot, wound cleansed, assessed, measured, and pictured. Treatment Recommendations/Plan: Recommendations to continue with veraflo as patient is currently not a surgical candidate per general surgery regarding the sacrum wound and skin prep to the right medial foot wound. Dressings applied. We will reassess on . Education provided: Unable to educate due to mental status, however she is more alert today than she was on Saturday answering minimal questions. Offloading surface/device: Patient is currently on a P-500 bed at this time. Patient repositioned to right side using wedge. Bilateral heels floated. Recommended Referrals/Tests: N/A Discharge Recommendations for dressings: Continue current treatment and wound care will reassess on on 03/02/21 for wound vac dressing change. Bed lowered and bed alarm turned on.
--- NOTE | 2021-02-27 15:11 | PDOC ---
[employer] PROGRESS NOTE Date of Service DOS: DATE: 02/27/21 TIME: 15:10 Chief Complaint Chief Complaint A/P: Acute encephalopathy - multifactorial, metabolic due to uremia, no SDH or CVA symptoms. less likely post-ictal. possibly related to sepsis as well Hypoxia - note clear as she is not hypoxic in ED. CXR reviewed with no abnormalities Hypernatremia - likely free water deficit, was on numerous diuretics prior to admit, will hold Sepsis - empiric vancomycin and zosyn given for likely gluteal ulcer as source. Will change to cefepime for renal failure. pharmacy to help dosing vancomycin. Fluids given MEHDI - likely vasomotor nephropathy possibly from free water deficit, sepsis. Wi ll hydrate with bicarbonate fluids. Consult nephrology Gluteal ulcer - unstageable. Wound care and general surgery to see. possible sepsis source Anemia - likely of chronic disease, will check iron studies, B12 Severe protein calorie malnutrition - will need early nutrition when mentation improves. Speech to see for swallow assessment Seizures - will dose IV keppra while confused. Prn ativan for seizure activity DM2 - basal bolus plus insulin Depression - hold meds while npo. PRN zyprexa odt for agitation or ativan GERD - IV protonix HLD - hold statin while NPO HTN - prn hydralazine, prn metoprolol H/o cocaine use disorder - in remission in SNF Elevated troponin - likely demand ischemia due to above, will trend FEN - NPO PPX - heparin FULL CODE Dispo - inpatient. 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 Per SNF staff has been less active for the past month and had irregular breathing since 1000 this morning. [facility] staff reports O2 saturations in the low 80s on room air so they put her on 3 L nasal cannula. Her oxygen saturation then raised to 92%. No witnessed seizure activity and she has reportedly been taking her Keppra and vimpat BID. Nonverbal enroute. She is baseline alert and aware x2 and wheelchair-bound. No falls or head trauma reported. She is unable to give any history and her daughter is listed as contact, voicemail box is full. Patient opens her eyes to painful stimuli and makes eye contact, does not follow any commands. Of note, she was admitted for similar complaints just a month ago. WBC 31.4, Hb 9.1, Platelets 369, Na 152, K 4, Cl 117, HCO3 23, BUN 108, Cr 3.3, glucose 161, lactic acid 1.2, ca 9.2, bili 0.5, AST 29, ALT 16, Alk phos 103, Trop 0.266, Albumin 1.7. Urine with blood and + leukocyte esterase EKG sinus rate of 99 bpm with TWI in inferolateral leads unchanged from prior EKG, significant baseline artefact, No ST elevations, QTc 509, CXR and CT head with no acute findings. Given leukocytosis and likely sepsis related to UTI, given empiric antibiotics and fluids and admitted for further care. 02/23: Afebrile. WBC 31.7, Hb 7.6, platelets 300, NA 156, K3.9, BUN 119, CR 3.6, glucose 153, alb 1.3. Covid neg. Breathing improved, but not communicating. Offloading for bedsore. 02/24: Afebrile. WBC still elevated patient septic. Son consented for dialysis catheter placement. BUN 128 today. Still very confused. Discussed with general surgery is poor surgical candidate but very large wound needs offloading possibly chemical debridement and consideration of wound VAC. Continue cefepime and vancomycin. Discussed with family overall goals of care. 02/25: Afebrile. Hb dropped to 6.9. To dialysis today for transfusion. Urine culture with Nancy glabrata. Afebrile. Glucose 67 this morning. Shaking Lasix. Low-grade axillary temp. Discussed with ID urine culture less likely to be source. Labs pending. Insulin adjusted 02/27 Patient evaluated and examined after dialysis. She was resting in bed very lethargic. Did not appear to be any clinical changes overall however. Continuing antibiotics and antifungals. Relatively poor prognosis. Vitals/I&O Vitals/I&O: Vital Signs Date Time Temp Pulse Resp B/P (MAP) Pulse Ox O2 Delivery O2 Flow Rate FiO2 02/27/21 14:32 97.8 90 16 105/54 (71) 96 Nasal Cannula 2.0 97.8 I & O 02/26/21 02/26/21 02/27/21 15:00 23:00 07:00 Intake Total 405 ml 455 ml Output Total 100 ml Balance 405 ml 455 ml -100 ml Physical Exam Physical Exam: GENERAL: The patient is lying comfortably in bed, opens eyes, does not answer any questions. HEENT: Normocephalic, atraumatic. Anicteric. Oral mucosa moist. NECK: Supple. LUNGS: Clear bilaterally. No wheezing. HEART: S1, S2. No murmurs. ABDOMEN: Soft, nontender, nondistended. GENITOURINARY: Palacio in place, placed here. EXTREMITIES: No edema. No cyanosis. DERMATOLOGIC: Warm, dry, no generalized rash. Wound pictures noted large sacral wound with necrosis, multiple wounds over the lower extremity, does not appear infected. NEUROLOGIC: Opens eyes, does not respond to any questions. PSYCHIATRIC: Obtunded. General: No acute distress, Other (eyes open, however does not respond to ques tions ) Heart: Normal S1, Normal S2, Other (mild tachy ) Lungs: Crackles Abdomen: Soft Extremities: Other (contracted ) Skin: Other (large sacral wound with necrosis, odor) Labs Labs: Laboratory Tests Test 02/26/21 17:24 02/26/21 21:07 02/27/21 06:10 Glucose (Fingerstick) 98 mg/dL (70-99) 93 mg/dL (70-99) White Blood Count 38.0 x10^3/uL (4.0-11.0) Red Blood Count 2.88 x10^6/uL (3.50-5.40) Hemoglobin 7.8 g/dL (12.0-15.5) Hematocrit 25.1 % (36.0-47.0) Mean Corpuscular Volume 87 fL (79-100) Mean Corpuscular Hemoglobin 27 pg (25-35) Mean Corpuscular Hemoglobin Concent 31 g/dL (31-37) Red Cell Distribution Width 16.0 % (11.5-14.5) Platelet Count 284 x10^3/uL (140-400) Neutrophils (%) (Auto) 92 % (31-73) Lymphocytes (%) (Auto) 2 % (24-48) Monocytes (%) (Auto) 5 % (0-9) Eosinophils (%) (Auto) 1 % (0-3) Basophils (%) (Auto) 0 % (0-3) Neutrophils # (Auto) 34.9 x10^3/uL (1.8-7.7) Lymphocytes # (Auto) 0.8 x10^3/uL (1.0-4.8) Monocytes # (Auto) 2.0 x10^3/uL (0.0-1.1) Eosinophils # (Auto) 0.2 x10^3/uL (0.0-0.7) Basophils # (Auto) 0.1 x10^3/uL (0.0-0.2) Sodium Level 139 mmol/L (136-145) Potassium Level 3.6 mmol/L (3.5-5.1) Chloride Level 103 mmol/L (98-107) Carbon Dioxide Level 27 mmol/L (21-32) Anion Gap 9 (6-14) Blood Urea Nitrogen 71 mg/dL (7-20) Creatinine 2.8 mg/dL (0.6-1.0) Estimated GFR (Cockcroft-Gault) 20.6 BUN/Creatinine Ratio 25 (6-20) Glucose Level 127 mg/dL (70-99) Calcium Level 8.6 mg/dL (8.5-10.1) Total Bilirubin 0.5 mg/dL (0.2-1.0) Aspartate Amino Transf (AST/SGOT) 40 U/L (15-37) Alanine Aminotransferase (ALT/SGPT) 22 U/L (14-59) Alkaline Phosphatase 126 U/L (46-116) Total Protein 6.4 g/dL (6.4-8.2) Albumin 1.1 g/dL (3.4-5.0) Albumin/Globulin Ratio 0.2 (1.0-1.7) Assessment and Plan Assessmemt and Plan Problems Medical Problems: (1) Acute encephalopathy Status: Acute (2) Acute kidney injury superimposed on chronic kidney disease Status: Acute (3) NSTEMI (non-ST elevated myocardial infarction) Status: Acute (4) Sepsis Status: Acute (5) UTI (urinary tract infection) Status: Acute Comment Review of Relevant I have reviewed the following items toan (where applicable) has been applied. Medications: Current Medications Medications (Trade) Dose Ordered Sig/Es Route PRN Reason Start Time Stop Time Status Last Admin Dose Admin Insulin Glargine (Lantus Syringe) 8 unit QHS SQ 02/26/21 21:00 02/26/21 21:25 Justifications for Admission General Conditions Poss Metaboilic Acidosis?: Yes Justification for admission: Patient has tachycardia (> 100 beats per minute) or hypotension (SBP < 90 mm Hg) leading to inadequate systemic perfusion as indicated by metabolic acidosis with arterial pH of less than 7.35. Other Justification ALEXANDRIA ALVARADO MD Feb 27, 2021 15:11
[2021-02-27] MEDS: AA 4.25 %/CALCIUM/LYTES/D5W 1,000 ML IV SCH (15:18)
[2021-02-27 19:55] VITALS: BP 98/54
[2021-02-27] MEDS: INSULIN GLARGINE SYRINGE. SQ SCH (22:57)
[2021-02-27 22:58] VITALS: BP 121/69
[2021-02-28] MEDS: AA 4.25 %/CALCIUM/LYTES/D5W 1,000 ML IV SCH ×2 (02:02→14:13)
[2021-02-28 02:49] VITALS: BP 112/59
[2021-02-28] MEDS: HEPARIN for SUB-Q USE 5,000 UNIT/ML VIAL. SQ SCH ×3 (06:10→22:27)
[2021-02-28] MEDS: PIPERACILLIN/TAZOBACTAM 2.25 GM in IV NORMAL SALINE 50ML 50 ML IV SCH ×3 (06:10→22:27)
[2021-02-28 06:52] LABS: CALCIUM 7.9 mg/dL (8.5-10.1); CREATININE 2.1 mg/dL (0.6-1.0); GFR 28.7; POTASSIUM 4.2 mmol/L (3.5-5.1)
[2021-02-28 07:00] VITALS: BP 109/62
[2021-02-28] MEDS: BISACODYL 10 MG SUPP.RECT. PR PRN (07:54)
[2021-02-28] MEDS: PANTOPRAZOLE IV PUSH 40 MG VIAL. IVP SCH (07:54)
[2021-02-28] MEDS: INSULIN LISPRO 300 UNITS/3 ML VIAL. SQ SCH ×3 (07:56→17:00)
[2021-02-28] MEDS: levETIRAcetam 500 MG in IV DEXTROSE 5% 100ML 100 ML IV SCH ×2 (07:57→20:38)
--- NOTE | 2021-02-28 08:43 | PDOC ---
Infectious Disease Note Subjective: Subjective Unable to obtain Fever pattern improved Discussed with nursing staff Vital Signs: Vital Signs Vital Signs Date Time Temp Pulse Resp B/P (MAP) Pulse Ox O2 Delivery O2 Flow Rate FiO2 02/28/21 07:00 97.2 91 18 109/62 (78) 99 Nasal Cannula 2.0 97.2 Physical Exam: PHYSICAL EXAM GENERAL: The patient is lying comfortably in bed, opens eyes, does not answer any questions. HEENT: Normocephalic, atraumatic. Anicteric. Oral mucosa moist. NECK: Supple. LUNGS: Clear bilaterally. No wheezing. HEART: S1, S2. No murmurs. ABDOMEN: Soft, nontender, nondistended. GENITOURINARY: Palacio in place, placed here. EXTREMITIES: No edema. No cyanosis. DERMATOLOGIC: Warm, dry, no generalized rash. Wound VAC in place intact not taken down NEUROLOGIC: Opens eyes, does not respond to any questions. PSYCHIATRIC: Obtunded. Medications: Inpatient Meds: Medications reviewed. Labs: Lab Laboratory Tests Test 02/27/21 16:13 02/27/21 20:36 02/28/21 06:15 02/28/21 07:09 Glucose (Fingerstick) 121 mg/dL (70-99) 150 mg/dL (70-99) 256 mg/dL (70-99) Sodium Level 129 mmol/L (136-145) Potassium Level 4.2 mmol/L (3.5-5.1) Chloride Level 95 mmol/L (98-107) Carbon Dioxide Level 28 mmol/L (21-32) Anion Gap 6 (6-14) Blood Urea Nitrogen 39 mg/dL (7-20) Creatinine 2.1 mg/dL (0.6-1.0) Estimated GFR (Cockcroft-Gault) 28.7 Glucose Level 254 mg/dL (70-99) Calcium Level 7.9 mg/dL (8.5-10.1) Objective: Assessment: GENERAL: The patient is lying comfortably in bed, opens eyes, does not answer any questions. HEENT: Normocephalic, atraumatic. Anicteric. Oral mucosa moist. NECK: Supple. LUNGS: Clear bilaterally. No wheezing. HEART: S1, S2. No murmurs. ABDOMEN: Soft, nontender, nondistended. GENITOURINARY: Palacio in place, placed here. EXTREMITIES: No edema. No cyanosis. DERMATOLOGIC: Warm, dry, no generalized rash. Wound pictures noted large sacral wound with necrosis, multiple wounds over the lower extremity, does not appear infected. NEUROLOGIC: Opens eyes, does not respond to any questions. PSYCHIATRIC: Obtunded. Medications: Inpatient Meds: Medications reviewed. Labs: Lab Laboratory Tests Test 02/26/21 10:45 02/26/21 11:00 02/26/21 11:50 02/26/21 17:24 White Blood Count 34.2 x10^3/uL (4.0-11.0) Red Blood Count 2.88 x10^6/uL (3.50-5.40) Hemoglobin 7.8 g/dL (12.0-15.5) Hematocrit 25.0 % (36.0-47.0) Mean Corpuscular Volume 87 fL (79-100) Mean Corpuscular Hemoglobin 27 pg (25-35) Mean Corpuscular Hemoglobin Concent 31 g/dL (31-37) Red Cell Distribution Width 15.8 % (11.5-14.5) Platelet Count 285 x10^3/uL (140-400) Neutrophils (%) (Auto) 91 % (31-73) Lymphocytes (%) (Auto) 3 % (24-48) Monocytes (%) (Auto) 6 % (0-9) Eosinophils (%) (Auto) 0 % (0-3) Basophils (%) (Auto) 0 % (0-3) Neutrophils # (Auto) 30.9 x10^3/uL (1.8-7.7) Lymphocytes # (Auto) 1.0 x10^3/uL (1.0-4.8) Monocytes # (Auto) 2.1 x10^3/uL (0.0-1.1) Eosinophils # (Auto) 0.1 x10^3/uL (0.0-0.7) Basophils # (Auto) 0.0 x10^3/uL (0.0-0.2) Sodium Level 140 mmol/L (136-145) Potassium Level 3.8 mmol/L (3.5-5.1) Chloride Level 104 mmol/L (98-107) Carbon Dioxide Level 28 mmol/L (21-32) Anion Gap 8 (6-14) Blood Urea Nitrogen 62 mg/dL (7-20) Creatinine 2.6 mg/dL (0.6-1.0) Estimated GFR (Cockcroft-Gault) 22.4 Glucose Level 119 mg/dL (70-99) Calcium Level 8.3 mg/dL (8.5-10.1) Phosphorus Level 2.8 mg/dL (2.6-4.7) Albumin 1.2 g/dL (3.4-5.0) Clostridium difficile Toxin (PCR) Negative (NEGATIVE) Glucose (Fingerstick) 123 mg/dL (70-99) 98 mg/dL (70-99) Test 02/26/21 21:07 02/27/21 06:10 Glucose (Fingerstick) 93 mg/dL (70-99) White Blood Count 38.0 x10^3/uL (4.0-11.0) Red Blood Count 2.88 x10^6/uL (3.50-5.40) Hemoglobin 7.8 g/dL (12.0-15.5) Hematocrit 25.1 % (36.0-47.0) Mean Corpuscular Volume 87 fL (79-100) Mean Corpuscular Hemoglobin 27 pg (25-35) Mean Corpuscular Hemoglobin Concent 31 g/dL (31-37) Red Cell Distribution Width 16.0 % (11.5-14.5) Platelet Count 284 x10^3/uL (140-400) Neutrophils (%) (Auto) 92 % (31-73) Lymphocytes (%) (Auto) 2 % (24-48) Monocytes (%) (Auto) 5 % (0-9) Eosinophils (%) (Auto) 1 % (0-3) Basophils (%) (Auto) 0 % (0-3) Neutrophils # (Auto) 34.9 x10^3/uL (1.8-7.7) Lymphocytes # (Auto) 0.8 x10^3/uL (1.0-4.8) Monocytes # (Auto) 2.0 x10^3/uL (0.0-1.1) Eosinophils # (Auto) 0.2 x10^3/uL (0.0-0.7) Basophils # (Auto) 0.1 x10^3/uL (0.0-0.2) Sodium Level 139 mmol/L (136-145) Potassium Level 3.6 mmol/L (3.5-5.1) Chloride Level 103 mmol/L (98-107) Carbon Dioxide Level 27 mmol/L (21-32) Anion Gap 9 (6-14) Blood Urea Nitrogen 71 mg/dL (7-20) Creatinine 2.8 mg/dL (0.6-1.0) Estimated GFR (Cockcroft-Gault) 20.6 BUN/Creatinine Ratio 25 (6-20) Glucose Level 127 mg/dL (70-99) Calcium Level 8.6 mg/dL (8.5-10.1) Total Bilirubin 0.5 mg/dL (0.2-1.0) Aspartate Amino Transf (AST/SGOT) 40 U/L (15-37) Alanine Aminotransferase (ALT/SGPT) 22 U/L (14-59) Alkaline Phosphatase 126 U/L (46-116) Total Protein 6.4 g/dL (6.4-8.2) Albumin 1.1 g/dL (3.4-5.0) Albumin/Globulin Ratio 0.2 (1.0-1.7) Objective: Assessment: 1. Acute encephalopathy appears multifactorial, likely metabolic from acute kidney injury with underlying chronic kidney disease. CT head negative for acute changes. 2. Leukocytosis 3. Infected sacral wound with necrosis and eschar. 4. History of multiple wounds. 5. History of seizures. 6. Diabetes mellitus 2. 7. Depression. 8. Anemia. 9. History of cocaine disorder, in remission. 10. Hypernatremia. 11. Hypokalemia. 12. Protein-calorie malnutrition. 13. Nancy glabrata in urine could be colonization. 14. SARS-COVID negative. Plan: Plan of Care Continue Zosyn, linezolid.micafungin. Status post vancomycin. CT abdomen and pelvis without reviewed General Surgery following. The patient may be a candidate for debridement, Antibiotics alone may not be optimal Palacio management per protocol. Placed this admission per nursing staff Offload. Continue wound care as directed. Continue supportive care. Monitor labs and cultures. Prognosis is very poor. Discussed with nursing staff RAFIA MORALES MD Feb 28, 2021 08:43
--- NOTE | 2021-02-28 10:13 | PDOC ---
DATE OF SERVICE DATE: 02/28/21 TIME: 10:12 SUBJECTIVE ROS Unable to obtain, no acute concerns per nursing No N/V. No SOB OBJECTIVE Vital Signs Vital Signs Date Time Temp Pulse Resp B/P (MAP) Pulse Ox O2 Delivery O2 Flow Rate FiO2 02/28/21 08:00 Nasal Cannula 02/28/21 07:00 97.2 91 18 109/62 (78) 99 2.0 97.2 I & 0 Intake and Output 02/28/21 07:00 Intake Total 1590 ml Output Total 200 ml Balance 1390 ml Intake Oral 0 ml IV Total 1590 ml Output Urine Total 200 ml # Bowel Movements 3 PHYSICAL EXAM Physical Exam General: NAD HEENT: Atraumatic, PERRLA, EOMI, Mucous membr. moist/pink Neck Supple Lungs: Clear to auscultation, Non labored Heart: S1S2, RRR, no thrills, no rubs, no gallops, no murmurs Abdomen: Normal bowel sounds, Soft, No tenderness, No hepatosplenomegaly, No masses Extremities: No clubbing, No cyanosis, No edema, Skin: No rashes, NeurO Grossly No neurological deficit Palacio + DIAGNOSIS/ASSESSMENT Assessment & Plan MEHDI - ATN vs AIN- Non Oliguric, worsening renal function, initiated dialysis - 02/25 , 2 nd treatment 02/27 . currently no indication today Supportive care,, Avoid Nephrotoxins ,strict I/O (UOP recorded in chart if Accurate cw Oliguria) . If No improvement will need Tunneled HDC and OP chair time prior to discharge Access temp HDC Fever - ID following; UA Nancy Glabrata Hypotension - BP low for her baseline HyperNatremia- On Diuretics per home med list Dialysate Na adjusted , Normal Na today Acute encephalopathy - ? baseline per her recent hospitalization no SDH or CVA symptoms Sepsis -On empiric vancomycin Anemia Noted decrease in Hgb from her recent hospitalization at [facility], Today Hgb < 7, defer to primary Seizures DM2 H/o cocaine use disorder - in remission in SNF COMMENT/RELEVANT DATA Meds Current Medications Medications (Trade) Dose Ordered Sig/Es Start Time Stop Time Status Last Admin Dose Admin Acetaminophen (Tylenol Supp) 650 mg PRN Q6HRS PRN 02/22/21 21:15 02/26/21 21:11 650 MG Albumin Human 200 ml @ 200 mls/hr 1X PRN PRN 02/27/21 08:45 02/27/21 14:44 DC Amino Acids/ Electrolytes/ Dextrose 1,000 ml @ 80 mls/hr [id number] 02/27/21 13:30 02/28/21 02:02 80 MLS/HR Bisacodyl (Dulcolax Supp) 10 mg PRN DAILY PRN 02/22/21 21:15 02/28/21 07:54 10 MG Cefepime HCl (Maxipime) 1 gm Q24H 02/22/21 21:30 02/26/21 09:54 DC 02/25/21 20:33 1 GM Dextrose (Dextrose 50%-Water Syringe) 12.5 gm PRN Q15MIN PRN 02/22/21 21:30 Epoetin Macho-epbx (RETACRIT for ESRD PTS) 20,000 unit 1X ONCE 02/27/21 14:00 02/27/21 15:05 DC 02/27/21 15:17 20,000 UNIT Heparin Sodium (Porcine) (Heparin Sodium) 5,000 unit Q8HRS 02/22/21 22:00 02/28/21 06:10 5,000 UNIT Info (PHARMACY MONITORING -- do not chart) 1 each PRN DAILY PRN 02/27/21 08:45 UNV Insulin Glargine (Lantus Syringe) 8 unit QHS 02/26/21 21:00 02/27/21 22:57 8 UNIT Insulin Human Lispro (HumaLOG) 0-9 UNITS TIDWMEALS 02/23/21 08:00 02/28/21 07:56 4 UNITS Levetiracetam 500 mg/Dextrose 105 ml @ 420 mls/hr Q12HR 02/22/21 21:30 02/28/21 07:57 420 MLS/HR Lidocaine HCl (Buffered Lidocaine 1%) 3 ml 1X ONCE 02/24/21 09:00 02/24/21 09:01 DC 02/24/21 09:00 5 ML Linezolid/Dextrose 300 ml @ 300 mls/hr Q12HR 02/24/21 14:30 02/28/21 07:57 300 MLS/HR Lorazepam (Ativan Inj) 0.5 mg PRN Q4HRS PRN 02/22/21 21:30 02/23/21 10:58 0.5 MG Micafungin Sodium 100 mg/Dextrose 100 ml @ 100 mls/hr Q24H 02/26/21 12:00 02/27/21 14:17 100 MLS/HR Olanzapine (ZyPREXA ZYDIS) 5 mg PRN BID PRN 02/22/21 21:15 Ondansetron HCl (Zofran) 4 mg PRN Q4HRS PRN 02/22/21 21:15 Pantoprazole Sodium (PROTONIX VIAL for IV PUSH) 40 mg 1X ONCE 02/22/21 22:00 02/22/21 22:01 DC 02/22/21 22:16 40 MG Piperacillin Sod/ Tazobactam Sod 2.25 gm/Sodium Chloride 50 ml @ 100 mls/hr Q8HRS 02/26/21 11:00 02/28/21 06:10 100 MLS/HR Piperacillin Sod/ Tazobactam Sod 4.5 gm/Sodium Chloride 100 ml @ 200 mls/hr 1X ONCE 02/22/21 13:30 02/22/21 13:59 UNV Sodium Bicarbonate 50 meq/Sodium Chloride 1,050 ml @ 125 mls/hr Q8H24M 02/22/21 21:30 02/23/21 12:14 DC 02/23/21 10:54 125 MLS/HR Sodium Chloride 1,000 ml @ 400 mls/hr Q2H30M PRN 02/27/21 08:45 02/27/21 20:44 DC Sodium Chloride (Normal Saline Flush) 10 ml 1X PRN PRN 02/27/21 08:45 02/28/21 08:44 DC Vancomycin HCl (Vanco Per Pharmacy) 1 each PRN DAILY PRN 02/22/21 13:30 02/24/21 13:58 DC 02/23/21 03:10 1 EACH Vancomycin HCl (Vancomycin Trough Level) 1 each 1X ONCE 02/26/21 13:30 02/24/21 13:58 DC Vancomycin HCl 1.25 gm/Sodium Chloride 250 ml @ 167 mls/hr Q48H 02/24/21 14:00 02/24/21 13:58 DC Lab Laboratory Tests Test 02/27/21 16:13 02/27/21 20:36 02/28/21 06:15 02/28/21 07:09 Glucose (Fingerstick) 121 mg/dL (70-99) 150 mg/dL (70-99) 256 mg/dL (70-99) Sodium Level 129 mmol/L (136-145) Potassium Level 4.2 mmol/L (3.5-5.1) Chloride Level 95 mmol/L (98-107) Carbon Dioxide Level 28 mmol/L (21-32) Anion Gap 6 (6-14) Blood Urea Nitrogen 39 mg/dL (7-20) Creatinine 2.1 mg/dL (0.6-1.0) Estimated GFR (Cockcroft-Gault) 28.7 Glucose Level 254 mg/dL (70-99) Calcium Level 7.9 mg/dL (8.5-10.1) Results All relevant outside records, renal labs, imaging studies, telemetry/EKG's were reviewed. Justicifation of Admission Dx: Justifications for Admission: Justification of Admission Dx: N/A AZAEL VANCE MD Feb 28, 2021 10:13
[2021-02-28 10:31] VITALS: BP 92/41
[2021-02-28] MEDS: MICAFUNGIN 100 MG in IV DEXTROSE 5% 100ML 100 ML IV SCH (12:38)
--- NOTE | 2021-02-28 12:46 | PDOC ---
[employer] PROGRESS NOTE Date of Service DOS: DATE: 02/28/21 TIME: 12:45 Chief Complaint Chief Complaint A/P: Acute encephalopathy - multifactorial, metabolic due to uremia, no SDH or CVA symptoms. less likely post-ictal. possibly related to sepsis as well Hypoxia - note clear as she is not hypoxic in ED. CXR reviewed with no abnormalities Hypernatremia - likely free water deficit, was on numerous diuretics prior to admit, will hold Sepsis - empiric vancomycin and zosyn given for likely gluteal ulcer as source. Will change to cefepime for renal failure. pharmacy to help dosing vancomycin. Fluids given MEHDI - likely vasomotor nephropathy possibly from free water deficit, sepsis. Wi ll hydrate with bicarbonate fluids. Consult nephrology Gluteal ulcer - unstageable. Wound care and general surgery to see. possible sepsis source Anemia - likely of chronic disease, will check iron studies, B12 Severe protein calorie malnutrition - will need early nutrition when mentation improves. Speech to see for swallow assessment Seizures - will dose IV keppra while confused. Prn ativan for seizure activity DM2 - basal bolus plus insulin Depression - hold meds while npo. PRN zyprexa odt for agitation or ativan GERD - IV protonix HLD - hold statin while NPO HTN - prn hydralazine, prn metoprolol H/o cocaine use disorder - in remission in SNF Elevated troponin - likely demand ischemia due to above, will trend FEN - NPO PPX - heparin FULL CODE Dispo - inpatient. D/w [place], next of kin History of Present Illness History of Present Illness Ms Bentley is a 65 year old female with history of seizures, cocaine use disorder, DM2, depression, GERD, HLD, HTN who is a [facility] resident who comes to the ED via EMS due to unresponsiveness. Per SNF staff has been less active for the past month and had irregular breathing since 1000 this morning. long term staff reports O2 saturations in the low 80s on room air so they put her on 3 L nasal cannula. Her oxygen saturation then raised to 92%. No witnessed seizure activity and she has reportedly been taking her Keppra and vimpat BID. Nonverbal enroute. She is baseline alert and aware x2 and wheelchair-bound. No falls or head trauma reported. She is unable to give any history and her daughter is listed as contact, voicemail box is full. Patient opens her eyes to painful stimuli and makes eye contact, does not follow any commands. Of note, she was admitted for similar complaints just a month ago. WBC 31.4, Hb 9.1, Platelets 369, Na 152, K 4, Cl 117, HCO3 23, BUN 108, Cr 3.3, glucose 161, lactic acid 1.2, ca 9.2, bili 0.5, AST 29, ALT 16, Alk phos 103, Trop 0.266, Albumin 1.7. Urine with blood and + leukocyte esterase EKG sinus rate of 99 bpm with TWI in inferolateral leads unchanged from prior EKG, significant baseline artefact, No ST elevations, QTc 509, CXR and CT head with no acute findings. Given leukocytosis and likely sepsis related to UTI, given empiric antibiotics and fluids and admitted for further care. 02/23: Afebrile. WBC 31.7, Hb 7.6, platelets 300, NA 156, K3.9, BUN 119, CR 3.6, glucose 153, alb 1.3. Covid neg. Breathing improved, but not communicating. Offloading for bedsore. 02/24: Afebrile. WBC still elevated patient septic. Son consented for dialysis catheter placement. BUN 128 today. Still very confused. Discussed with general surgery is poor surgical candidate but very large wound needs offloading possibly chemical debridement and consideration of wound VAC. Continue cefepime and vancomycin. Discussed with family overall goals of care. 02/25: Afebrile. Hb dropped to 6.9. To dialysis today for transfusion. Urine culture with Nancy glabrata. Afebrile. Glucose 67 this morning. Shaking Lasix. Low-grade axillary temp. Discussed with ID urine culture less likely to be source. Labs pending. Insulin adjusted 02/27 Patient evaluated and examined after dialysis. She was resting in bed very lethargic. Did not appear to be any clinical changes overall however. Continuing antibiotics and antifungals. Relatively poor prognosis. 02/28 Patient examined at bedside remains lethargic and altered. Clinically not much is changed. Continue antibiotics and antifungals per infectious disease very poor prognosis will attempt to contact family today regarding CODE STATUS, unable to reach will try again tomorrow. Vitals/I&O Vitals/I&O: Vital Signs Date Time Temp Pulse Resp B/P (MAP) Pulse Ox O2 Delivery O2 Flow Rate FiO2 02/28/21 10:31 98.6 83 18 92/41 (58) 100 Nasal Cannula 2.0 98.6 I & O 02/27/21 02/27/21 02/28/21 15:00 23:00 07:00 Intake Total 0 ml 150 ml 1440 ml Output Total 100 ml 100 ml Balance 0 ml 50 ml 1340 ml Physical Exam Physical Exam: GENERAL: The patient is lying comfortably in bed, opens eyes, does not answer any questions. HEENT: Normocephalic, atraumatic. Anicteric. Oral mucosa moist. NECK: Supple. LUNGS: Clear bilaterally. No wheezing. HEART: S1, S2. No murmurs. ABDOMEN: Soft, nontender, nondistended. GENITOURINARY: Palacio in place, placed here. EXTREMITIES: No edema. No cyanosis. DERMATOLOGIC: Warm, dry, no generalized rash. Wound VAC in place intact not taken down NEUROLOGIC: Opens eyes, does not respond to any questions. PSYCHIATRIC: Obtunded. General: No acute distress, Other (eyes open, however does not respond to questions ) Heart: Normal S1, Normal S2, Other (mild tachy ) Lungs: Crackles Abdomen: Soft Extremities: Other (contracted ) Skin: Other (large sacral wound with necrosis, odor) Labs Labs: Laboratory Tests Test 02/27/21 16:13 02/27/21 20:36 02/28/21 06:15 02/28/21 07:09 Glucose (Fingerstick) 121 mg/dL (70-99) 150 mg/dL (70-99) 256 mg/dL (70-99) Sodium Level 129 mmol/L (136-145) Potassium Level 4.2 mmol/L (3.5-5.1) Chloride Level 95 mmol/L (98-107) Carbon Dioxide Level 28 mmol/L (21-32) Anion Gap 6 (6-14) Blood Urea Nitrogen 39 mg/dL (7-20) Creatinine 2.1 mg/dL (0.6-1.0) Estimated GFR (Cockcroft-Gault) 28.7 Glucose Level 254 mg/dL (70-99) Calcium Level 7.9 mg/dL (8.5-10.1) Test 02/28/21 11:38 Glucose (Fingerstick) 231 mg/dL (70-99) Assessment and Plan Assessmemt and Plan Problems Medical Problems: (1) Acute encephalopathy Status: Acute (2) Acute kidney injury superimposed on chronic kidney disease Status: Acute (3) NSTEMI (non-ST elevated myocardial infarction) Status: Acute (4) Sepsis Status: Acute (5) UTI (urinary tract infection) Status: Acute Comment Review of Relevant I have reviewed the following items toan (where applicable) has been applied. Medications: Current Medications Medications (Trade) Dose Ordered Sig/Es Route PRN Reason Start Time Stop Time Status Last Admin Dose Admin Amino Acids/ Electrolytes/ Dextrose 1,000 ml @ 80 mls/hr Q40N24H IV 02/27/21 13:30 02/28/21 02:02 Epoetin Macho-epbx (RETACRIT for ESRD PTS) 20,000 unit 1X ONCE SQ 02/27/21 14:00 02/27/21 15:05 DC 02/27/21 15:17 Justifications for Admission General Conditions Poss Metaboilic Acidosis?: Yes Justification for admission: Patient has tachycardia (> 100 beats per minute) or hypotension (SBP < 90 mm Hg) leading to inadequate systemic perfusion as indicated by metabolic acidosis with arterial pH of less than 7.35. Other Justification ALEXANDRIA ALVARADO MD Feb 28, 2021 12:46
--- NOTE | 2021-02-28 14:24 | NUR ---
SS following up with discharge planning. SS reviewed pt chart and discussed with pt RN. Pt is currently requiring oxygen at two liters nasal canula. COVID19 negative. Pt NPO and on Clinimix. Pt on IV Zosyn, IV Zyvox, IV Micafungin, and IV Keppra. Wound care for sacral wound. SS discussed with physician and LTACH referral recommended. SS attempted to contact pt's son, Lauro, , to discuss and received a message that he has a voicemail box that has not been set up yet. Pt's RN notified. SS phoned and faxed referral to [facility], ; fax [phone]. SS will continue to follow for discharge planning. Addendum: 02/28/21 at 1501 by AKASH HOOPER SS Pt accepted at [facility] pending insurance approval.
[2021-02-28 15:00] VITALS: BP 104/50
--- NOTE | 2021-02-28 16:25 | NUR ---
Nurse's note: The patient's son, Italo called for an update at 1615. This nurse discussed with him current plan to transfer patient to [facility], [facility]. He verbalized understanding, and asked to call him tomorrow for any changes.
[2021-02-28 19:12] VITALS: BP 110/58
[2021-02-28] MEDS: INSULIN GLARGINE SYRINGE. SQ SCH (22:04)
[2021-02-28 22:45] VITALS: BP 94/43
[2021-03-01] MEDS: AA 4.25 %/CALCIUM/LYTES/D5W 1,000 ML IV SCH ×2 (03:36→15:29)
[2021-03-01 03:59] VITALS: BP 104/54
[2021-03-01] MEDS: HEPARIN for SUB-Q USE 5,000 UNIT/ML VIAL. SQ SCH ×3 (05:36→22:47)
[2021-03-01] MEDS: PIPERACILLIN/TAZOBACTAM 2.25 GM in IV NORMAL SALINE 50ML 50 ML IV SCH ×3 (05:36→23:55)
[2021-03-01 06:05] VITALS: BP 115/56
[2021-03-01 06:50] LABS: CALCIUM 7.8 mg/dL (8.5-10.1); CREATININE 2.7 mg/dL (0.6-1.0); GFR 21.5; POTASSIUM 4.5 mmol/L (3.5-5.1)
[2021-03-01] MEDS ORDERED: DIALYSIS PATIENT. MC PRN (07:45)
[2021-03-01] MEDS ORDERED: IV NORMAL SALINE 1000ML BAG 1,000 ML IV PRN ×2 (07:45)
[2021-03-01] MEDS: PANTOPRAZOLE IV PUSH 40 MG VIAL. IVP SCH (07:47)
[2021-03-01] MEDS: levETIRAcetam 500 MG in IV DEXTROSE 5% 100ML 100 ML IV SCH ×2 (07:47→20:16)
[2021-03-01] MEDS: INSULIN LISPRO 300 UNITS/3 ML VIAL. SQ SCH ×3 (08:30→17:18)
--- NOTE | 2021-03-01 08:59 | PDOC ---
Infectious Disease Note Subjective: Subjective Patient opens eyes to verbal stimuli but does not answer any questions Fever pattern improved Afebrile last 24 hours Discussed with nursing staff Vital Signs: Vital Signs Vital Signs Date Time Temp Pulse Resp B/P (MAP) Pulse Ox O2 Delivery O2 Flow Rate FiO2 03/01/21 06:05 99.3 84 18 115/56 (75) 99 Nasal Cannula 2.0 99.3 Physical Exam: PHYSICAL EXAM GENERAL: The patient is lying comfortably in bed, opens eyes, does not answer any questions. HEENT: Normocephalic, atraumatic. Anicteric. Oral mucosa moist. NECK: Supple. LUNGS: Clear bilaterally. No wheezing. HEART: S1, S2. No murmurs. ABDOMEN: Soft, nontender, nondistended. GENITOURINARY: Palacio in place, placed here. EXTREMITIES: No edema. No cyanosis. DERMATOLOGIC: Warm, dry, no generalized rash. Wound VAC in place intact not taken down NEUROLOGIC: Opens eyes, does not respond to any questions. PSYCHIATRIC: Obtunded. Medications: Inpatient Meds: Medications reviewed. Labs: Lab Laboratory Tests Test 02/28/21 11:38 02/28/21 17:27 02/28/21 20:58 03/01/21 06:15 Glucose (Fingerstick) 231 mg/dL (70-99) 193 mg/dL (70-99) 205 mg/dL (70-99) Sodium Level 128 mmol/L (136-145) Potassium Level 4.5 mmol/L (3.5-5.1) Chloride Level 94 mmol/L (98-107) Carbon Dioxide Level 24 mmol/L (21-32) Anion Gap 10 (6-14) Blood Urea Nitrogen 58 mg/dL (7-20) Creatinine 2.7 mg/dL (0.6-1.0) Estimated GFR (Cockcroft-Gault) 21.5 Glucose Level 203 mg/dL (70-99) Calcium Level 7.8 mg/dL (8.5-10.1) Test 03/01/21 07:24 Glucose (Fingerstick) 185 mg/dL (70-99) Objective: Assessment: GENERAL: The patient is lying comfortably in bed, opens eyes, does not answer any questions. HEENT: Normocephalic, atraumatic. Anicteric. Oral mucosa moist. NECK: Supple. LUNGS: Clear bilaterally. No wheezing. HEART: S1, S2. No murmurs. ABDOMEN: Soft, nontender, nondistended. GENITOURINARY: Palacio in place, placed here. EXTREMITIES: No edema. No cyanosis. DERMATOLOGIC: Warm, dry, no generalized rash. Wound pictures noted large sacral wound with necrosis, multiple wounds over the lower extremity, does not appear infected. NEUROLOGIC: Opens eyes, does not respond to any questions. PSYCHIATRIC: Obtunded. Medications: Inpatient Meds: Medications reviewed. Labs: Lab Laboratory Tests Test 02/26/21 10:45 02/26/21 11:00 02/26/21 11:50 02/26/21 17:24 White Blood Count 34.2 x10^3/uL (4.0-11.0) Red Blood Count 2.88 x10^6/uL (3.50-5.40) Hemoglobin 7.8 g/dL (12.0-15.5) Hematocrit 25.0 % (36.0-47.0) Mean Corpuscular Volume 87 fL (79-100) Mean Corpuscular Hemoglobin 27 pg (25-35) Mean Corpuscular Hemoglobin Concent 31 g/dL (31-37) Red Cell Distribution Width 15.8 % (11.5-14.5) Platelet Count 285 x10^3/uL (140-400) Neutrophils (%) (Auto) 91 % (31-73) Lymphocytes (%) (Auto) 3 % (24-48) Monocytes (%) (Auto) 6 % (0-9) Eosinophils (%) (Auto) 0 % (0-3) Basophils (%) (Auto) 0 % (0-3) Neutrophils # (Auto) 30.9 x10^3/uL (1.8-7.7) Lymphocytes # (Auto) 1.0 x10^3/uL (1.0-4.8) Monocytes # (Auto) 2.1 x10^3/uL (0.0-1.1) Eosinophils # (Auto) 0.1 x10^3/uL (0.0-0.7) Basophils # (Auto) 0.0 x10^3/uL (0.0-0.2) Sodium Level 140 mmol/L (136-145) Potassium Level 3.8 mmol/L (3.5-5.1) Chloride Level 104 mmol/L (98-107) Carbon Dioxide Level 28 mmol/L (21-32) Anion Gap 8 (6-14) Blood Urea Nitrogen 62 mg/dL (7-20) Creatinine 2.6 mg/dL (0.6-1.0) Estimated GFR (Cockcroft-Gault) 22.4 Glucose Level 119 mg/dL (70-99) Calcium Level 8.3 mg/dL (8.5-10.1) Phosphorus Level 2.8 mg/dL (2.6-4.7) Albumin 1.2 g/dL (3.4-5.0) Clostridium difficile Toxin (PCR) Negative (NEGATIVE) Glucose (Fingerstick) 123 mg/dL (70-99) 98 mg/dL (70-99) Test 02/26/21 21:07 02/27/21 06:10 Glucose (Fingerstick) 93 mg/dL (70-99) White Blood Count 38.0 x10^3/uL (4.0-11.0) Red Blood Count 2.88 x10^6/uL (3.50-5.40) Hemoglobin 7.8 g/dL (12.0-15.5) Hematocrit 25.1 % (36.0-47.0) Mean Corpuscular Volume 87 fL (79-100) Mean Corpuscular Hemoglobin 27 pg (25-35) Mean Corpuscular Hemoglobin Concent 31 g/dL (31-37) Red Cell Distribution Width 16.0 % (11.5-14.5) Platelet Count 284 x10^3/uL (140-400) Neutrophils (%) (Auto) 92 % (31-73) Lymphocytes (%) (Auto) 2 % (24-48) Monocytes (%) (Auto) 5 % (0-9) Eosinophils (%) (Auto) 1 % (0-3) Basophils (%) (Auto) 0 % (0-3) Neutrophils # (Auto) 34.9 x10^3/uL (1.8-7.7) Lymphocytes # (Auto) 0.8 x10^3/uL (1.0-4.8) Monocytes # (Auto) 2.0 x10^3/uL (0.0-1.1) Eosinophils # (Auto) 0.2 x10^3/uL (0.0-0.7) Basophils # (Auto) 0.1 x10^3/uL (0.0-0.2) Sodium Level 139 mmol/L (136-145) Potassium Level 3.6 mmol/L (3.5-5.1) Chloride Level 103 mmol/L (98-107) Carbon Dioxide Level 27 mmol/L (21-32) Anion Gap 9 (6-14) Blood Urea Nitrogen 71 mg/dL (7-20) Creatinine 2.8 mg/dL (0.6-1.0) Estimated GFR (Cockcroft-Gault) 20.6 BUN/Creatinine Ratio 25 (6-20) Glucose Level 127 mg/dL (70-99) Calcium Level 8.6 mg/dL (8.5-10.1) Total Bilirubin 0.5 mg/dL (0.2-1.0) Aspartate Amino Transf (AST/SGOT) 40 U/L (15-37) Alanine Aminotransferase (ALT/SGPT) 22 U/L (14-59) Alkaline Phosphatase 126 U/L (46-116) Total Protein 6.4 g/dL (6.4-8.2) Albumin 1.1 g/dL (3.4-5.0) Albumin/Globulin Ratio 0.2 (1.0-1.7) Objective: Assessment: 1. Acute encephalopathy appears multifactorial, likely metabolic from acute kidney injury with underlying chronic kidney disease. CT head negative for acute changes. 2. Leukocytosis 3. Infected sacral wound with necrosis and eschar. 4. History of multiple wounds. 5. History of seizures. 6. Diabetes mellitus 2. 7. Depression. 8. Anemia. 9. History of cocaine disorder, in remission. 10. Hypernatremia. 11. Hypokalemia. 12. Protein-calorie malnutrition. 13. Nancy glabrata in urine could be colonization. 14. SARS-COVID negative. Plan: Plan of Care Continue Zosyn, linezolid.micafungin. Status post vancomycin. CT abdomen and pelvis without reviewed General Surgery following for infected sacral decubitus ulcer Antibiotics alone may not be optimal Palacio management per protocol. Placed this admission per nursing staff Offload. Continue wound care as directed. Continue supportive care. Monitor labs and cultures. CBC ordered for a.m. Prognosis is very poor. Discussed with nursing staff RAFIA MORALES MD Mar 01, 2021 08:59
[2021-03-01 09:30] LABS: BASO # 0.1 x10^3/uL (0.0-0.2); BASO % 0 % (0-3); EOS # 0.2 x10^3/uL (0.0-0.7); EOS % 1 % (0-3); HEMATOCRIT 23.6 % (36.0-47.0); HEMOGLOBIN 7.2 g/dL (12.0-15.5); LYMPH % 3 % (24-48); MEAN CORPUSCULAR HEMOGLOBIN 27 pg (25-35); MEAN CORPUSCULAR HGB CONC 31 g/dL (31-37); MEAN CORPUSCULAR VOLUME 87 fL (79-100); MONO # 1.8 x10^3/uL (0.0-1.1); MONO % 6 % (0-9); NEUT # 27.6 x10^3/uL (1.8-7.7); NEUT % 90 % (31-73); PLATELET COUNT 273 x10^3/uL (140-400); RED BLOOD COUNT 2.71 x10^6/uL (3.50-5.40); RED CELL DISTRIBUTION WIDTH 16.3 % (11.5-14.5); WHITE BLOOD COUNT 30.7 x10^3/uL (4.0-11.0)
--- NOTE | 2021-03-01 10:06 | PDOC ---
DATE OF SERVICE DATE: 03/01/21 TIME: 10:06 SUBJECTIVE ROS no acute concerns per nursing No N/V. No SOB Seen on dialysis OBJECTIVE Vital Signs Vital Signs Date Time Temp Pulse Resp B/P (MAP) Pulse Ox O2 Delivery O2 Flow Rate FiO2 03/01/21 08:15 Nasal Cannula 2.0 03/01/21 06:05 99.3 84 18 115/56 (75) 99 99.3 I & 0 Intake and Output 03/01/21 07:00 Intake Total 2063 ml Output Total 100 ml Balance 1963 ml Intake Oral 0 ml IV Total 2063 ml Output Urine Total 100 ml # Voids 1 # Bowel Movements 4 PHYSICAL EXAM Physical Exam General: NAD HEENT: Atraumatic, PERRLA, EOMI, Mucous membr. moist/pink Neck Supple Lungs: Clear to auscultation, Non labored Heart: S1S2, RRR, no thrills, no rubs, no gallops, no murmurs Abdomen: Normal bowel sounds, Soft, No tenderness, No hepatosplenomegaly, No masses Extremities: No clubbing, No cyanosis, No edema, Skin: No rashes, NeurO Grossly No neurological deficit Palacio + DIAGNOSIS/ASSESSMENT Assessment & Plan MEHDI - ATN vs AIN- Non Oliguric, worsening renal function, initiated dialysis - 02/25 , seen during dialysis, tolerating well. Continue a sordered. Vaibhav Kahn Supportive care,, Avoid Nephrotoxins ,strict I/O (UOP recorded in chart if Accurate cw Oliguria) . If No improvement will need Tunneled HDC and OP chair time prior to discharge Access temp HDC CKD stage 2/3 A per [facility] records Fever - ID following; UA Nancy Glabrata Hypotension - BP low for her baseline HyperNatremia- On Diuretics per home med list Dialysate Na adjusted , Normal Na today Acute encephalopathy - ? baseline per her recent hospitalization no SDH or CVA symptoms Sepsis -On Abx Anemia Noted decrease in Hgb from her recent hospitalization at [facility], Today Hgb < 7, defer to primary Seizures DM2 H/o cocaine use disorder - in remission in SNF COMMENT/RELEVANT DATA Meds Current Medications Medications (Trade) Dose Ordered Sig/Es Start Time Stop Time Status Last Admin Dose Admin Acetaminophen (Tylenol Supp) 650 mg PRN Q6HRS PRN 02/22/21 21:15 02/26/21 21:11 650 MG Albumin Human 200 ml @ 200 mls/hr 1X PRN PRN 02/27/21 08:45 02/27/21 14:44 DC Amino Acids/ Electrolytes/ Dextrose 1,000 ml @ 80 mls/hr [id number] 02/27/21 13:30 03/01/21 03:36 80 MLS/HR Bisacodyl (Dulcolax Supp) 10 mg PRN DAILY PRN 02/22/21 21:15 02/28/21 07:54 10 MG Cefepime HCl (Maxipime) 1 gm Q24H 02/22/21 21:30 02/26/21 09:54 DC 02/25/21 20:33 1 GM Dextrose (Dextrose 50%-Water Syringe) 12.5 gm PRN Q15MIN PRN 02/22/21 21:30 Epoetin Macho-epbx (RETACRIT for ESRD PTS) 20,000 unit 1X ONCE 02/27/21 14:00 02/27/21 15:05 DC 02/27/21 15:17 20,000 UNIT Heparin Sodium (Porcine) (Heparin Sodium) 5,000 unit Q8HRS 02/22/21 22:00 03/01/21 05:36 5,000 UNIT Info (PHARMACY MONITORING -- do not chart) 1 each PRN DAILY PRN 03/01/21 07:45 Insulin Glargine (Lantus Syringe) 12 unit QHS 02/28/21 21:00 02/28/21 22:04 12 UNIT Insulin Human Lispro (HumaLOG) 0-9 UNITS TIDWMEALS 02/23/21 08:00 02/28/21 12:44 3 UNITS Levetiracetam 500 mg/Dextrose 105 ml @ 420 mls/hr Q12HR 02/22/21 21:30 03/01/21 07:47 420 MLS/HR Lidocaine HCl (Buffered Lidocaine 1%) 3 ml 1X ONCE 02/24/21 09:00 02/24/21 09:01 DC 02/24/21 09:00 5 ML Linezolid/Dextrose 300 ml @ 300 mls/hr Q12HR 02/24/21 14:30 02/28/21 22:04 300 MLS/HR Lorazepam (Ativan Inj) 0.5 mg PRN Q4HRS PRN 02/22/21 21:30 02/23/21 10:58 0.5 MG Micafungin Sodium 100 mg/Dextrose 100 ml @ 100 mls/hr Q24H 02/26/21 12:00 02/28/21 12:38 100 MLS/HR Olanzapine (ZyPREXA ZYDIS) 5 mg PRN BID PRN 02/22/21 21:15 Ondansetron HCl (Zofran) 4 mg PRN Q4HRS PRN 02/22/21 21:15 Pantoprazole Sodium (PROTONIX VIAL for IV PUSH) 40 mg 1X ONCE 02/22/21 22:00 02/22/21 22:01 DC 02/22/21 22:16 40 MG Piperacillin Sod/ Tazobactam Sod 2.25 gm/Sodium Chloride 50 ml @ 100 mls/hr Q8HRS 02/28/21 14:00 03/01/21 05:36 100 MLS/HR Piperacillin Sod/ Tazobactam Sod 4.5 gm/Sodium Chloride 100 ml @ 200 mls/hr 1X ONCE 02/22/21 13:30 02/22/21 13:59 UNV Sodium Bicarbonate 50 meq/Sodium Chloride 1,050 ml @ 125 mls/hr Q8H24M 02/22/21 21:30 02/23/21 12:14 DC 02/23/21 10:54 125 MLS/HR Sodium Chloride 1,000 ml @ 400 mls/hr Q2H30M PRN 03/01/21 07:45 03/01/21 19:44 Sodium Chloride (Normal Saline Flush) 10 ml 1X PRN PRN 02/27/21 08:45 02/28/21 08:44 DC Vancomycin HCl (Vanco Per Pharmacy) 1 each PRN DAILY PRN 02/22/21 13:30 02/24/21 13:58 DC 02/23/21 03:10 1 EACH Vancomycin HCl (Vancomycin Trough Level) 1 each 1X ONCE 02/26/21 13:30 02/24/21 13:58 DC Vancomycin HCl 1.25 gm/Sodium Chloride 250 ml @ 167 mls/hr Q48H 02/24/21 14:00 02/24/21 13:58 DC Lab Laboratory Tests Test 02/28/21 11:38 02/28/21 17:27 02/28/21 20:58 03/01/21 06:15 Glucose (Fingerstick) 231 mg/dL (70-99) 193 mg/dL (70-99) 205 mg/dL (70-99) Sodium Level 128 mmol/L (136-145) Potassium Level 4.5 mmol/L (3.5-5.1) Chloride Level 94 mmol/L (98-107) Carbon Dioxide Level 24 mmol/L (21-32) Anion Gap 10 (6-14) Blood Urea Nitrogen 58 mg/dL (7-20) Creatinine 2.7 mg/dL (0.6-1.0) Estimated GFR (Cockcroft-Gault) 21.5 Glucose Level 203 mg/dL (70-99) Calcium Level 7.8 mg/dL (8.5-10.1) Test 03/01/21 07:24 Glucose (Fingerstick) 185 mg/dL (70-99) Results All relevant outside records, renal labs, imaging studies, telemetry/EKG's were reviewed. Justicifation of Admission Dx: Justifications for Admission: Justification of Admission Dx: N/A AZAEL VANCE MD Mar 01, 2021 10:06
[2021-03-01 11:30] VITALS: BP 107/57
[2021-03-01] MEDS: MICAFUNGIN 100 MG in IV DEXTROSE 5% 100ML 100 ML IV SCH (12:44)
--- NOTE | 2021-03-01 13:28 | NUR ---
SS following up with discharge planning. SS reviewed pt chart and discussed with pt RN. Pt is currently requiring oxygen at two liters nasal canula. NPO and on Clinimix. COVID19 negative. Wound care following for sacral wound. Pt on IV Zosyn, IV Micafungin, IV Zyvox, and IV Keppra. Pt accepted at [facility], ; fax [phone], pending insurance authorization. SS will continue to follow for discharge planning.
[2021-03-01 13:35] LABS: BILIRUBIN,URINE MODERATE (NEG); CLARITY,URINE TURBID; NITRITE,URINE NEGATIVE (NEG); PROTEIN,URINE >=300 mg/dL (NEG-TRACE)
[2021-03-01 13:48] LABS: COLOR,URINE DK YELLOW
[2021-03-01 13:52] LABS: RBC,URINE OCC /HPF (0-2)
--- NOTE | 2021-03-01 13:54 | PDOC ---
[employer] PROGRESS NOTE Date of Service DOS: DATE: 03/01/21 TIME: 13:53 Chief Complaint Chief Complaint A/P: Acute encephalopathy - multifactorial, metabolic due to uremia, no SDH or CVA symptoms. less likely post-ictal. possibly related to sepsis as well Hypoxia - note clear as she is not hypoxic in ED. CXR reviewed with no abnormalities Hypernatremia - likely free water deficit, was on numerous diuretics prior to admit, will hold Sepsis - empiric vancomycin and zosyn given for likely gluteal ulcer as source. Will change to cefepime for renal failure. pharmacy to help dosing vancomycin. Fluids given MEHDI - likely vasomotor nephropathy possibly from free water deficit, sepsis. Wi ll hydrate with bicarbonate fluids. Consult nephrology Gluteal ulcer - unstageable. Wound care and general surgery to see. possible sepsis source Anemia - likely of chronic disease, will check iron studies, B12 Severe protein calorie malnutrition - will need early nutrition when mentation improves. Speech to see for swallow assessment Seizures - will dose IV keppra while confused. Prn ativan for seizure activity DM2 - basal bolus plus insulin Depression - hold meds while npo. PRN zyprexa odt for agitation or ativan GERD - IV protonix HLD - hold statin while NPO HTN - prn hydralazine, prn metoprolol H/o cocaine use disorder - in remission in SNF Elevated troponin - likely demand ischemia due to above, will trend FEN - NPO PPX - heparin FULL CODE Dispo - inpatient. 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 Per SNF staff has been less active for the past month and had irregular breathing since 1000 this morning. [facility] staff reports O2 saturations in the low 80s on room air so they put her on 3 L nasal cannula. Her oxygen saturation then raised to 92%. No witnessed seizure activity and she has reportedly been taking her Keppra and vimpat BID. Nonverbal enroute. She is baseline alert and aware x2 and wheelchair-bound. No falls or head trauma reported. She is unable to give any history and her daughter is listed as contact, voicemail box is full. Patient opens her eyes to painful stimuli and makes eye contact, does not follow any commands. Of note, she was admitted for similar complaints just a month ago. WBC 31.4, Hb 9.1, Platelets 369, Na 152, K 4, Cl 117, HCO3 23, BUN 108, Cr 3.3, glucose 161, lactic acid 1.2, ca 9.2, bili 0.5, AST 29, ALT 16, Alk phos 103, Trop 0.266, Albumin 1.7. Urine with blood and + leukocyte esterase EKG sinus rate of 99 bpm with TWI in inferolateral leads unchanged from prior EKG, significant baseline artefact, No ST elevations, QTc 509, CXR and CT head with no acute findings. Given leukocytosis and likely sepsis related to UTI, given empiric antibiotics and fluids and admitted for further care. 02/23: Afebrile. WBC 31.7, Hb 7.6, platelets 300, NA 156, K3.9, BUN 119, CR 3.6, glucose 153, alb 1.3. Covid neg. Breathing improved, but not communicating. Offloading for bedsore. 02/24: Afebrile. WBC still elevated patient septic. Son consented for dialysis catheter placement. BUN 128 today. Still very confused. Discussed with general surgery is poor surgical candidate but very large wound needs offloading possibly chemical debridement and consideration of wound VAC. Continue cefepime and vancomycin. Discussed with family overall goals of care. 02/25: Afebrile. Hb dropped to 6.9. To dialysis today for transfusion. Urine culture with Nancy glabrata. Afebrile. Glucose 67 this morning. Shaking Lasix. Low-grade axillary temp. Discussed with ID urine culture less likely to be source. Labs pending. Insulin adjusted 02/27 Patient evaluated and examined after dialysis. She was resting in bed very lethargic. Did not appear to be any clinical changes overall however. Continuing antibiotics and antifungals. Relatively poor prognosis. 02/28 Patient examined at bedside remains lethargic and altered. Clinically not much is changed. Continue antibiotics and antifungals per infectious disease very poor prognosis will attempt to contact family today regarding CODE STATUS, unable to reach will try again tomorrow. 03/01 Patient evaluated and examined at bedside. Remains somewhat altered. Very lethargic. Poor prognosis. Continuing antibiotics and antifungals. Vitals/I&O Vitals/I&O: Vital Signs Date Time Temp Pulse Resp B/P (MAP) Pulse Ox O2 Delivery O2 Flow Rate FiO2 03/01/21 11:30 98.1 89 18 107/57 (74) 100 Nasal Cannula 2.0 98.1 I & O0 02/28/21 02/28/21 03/01/21 15:00 23:00 07:00 Intake Total 0 ml 100 ml 1963 ml Output Total 100 ml Balance 0 ml 100 ml 1863 ml Physical Exam Physical Exam: GENERAL: The patient is lying comfortably in bed, opens eyes, does not answer any questions. HEENT: Normocephalic, atraumatic. Anicteric. Oral mucosa moist. NECK: Supple. LUNGS: Clear bilaterally. No wheezing. HEART: S1, S2. No murmurs. ABDOMEN: Soft, nontender, nondistended. GENITOURINARY: Palacio in place, placed here. EXTREMITIES: No edema. No cyanosis. DERMATOLOGIC: Warm, dry, no generalized rash. Wound VAC in place intact not taken down NEUROLOGIC: Opens eyes, does not respond to any questions. PSYCHIATRIC: Obtunded. General: mild distress, Other (eyes open, however does not respond to questions ) Heart: Normal S1, Normal S2, Other (mild tachy ) Lungs: Crackles Abdomen: Soft Extremities: Other (contracted ) Skin: Other (large sacral wound with necrosis, odor) Labs Labs: Laboratory Tests Test 02/28/21 17:27 02/28/21 20:58 03/01/21 06:15 03/01/21 07:24 Glucose (Fingerstick) 193 mg/dL (70-99) 205 mg/dL (70-99) 185 mg/dL (70-99) White Blood Count 30.7 x10^3/uL (4.0-11.0) Red Blood Count 2.71 x10^6/uL (3.50-5.40) Hemoglobin 7.2 g/dL (12.0-15.5) Hematocrit 23.6 % (36.0-47.0) Mean Corpuscular Volume 87 fL (79-100) Mean Corpuscular Hemoglobin 27 pg (25-35) Mean Corpuscular Hemoglobin Concent 31 g/dL (31-37) Red Cell Distribution Width 16.3 % (11.5-14.5) Platelet Count 273 x10^3/uL (140-400) Neutrophils (%) (Auto) 90 % (31-73) Lymphocytes (%) (Auto) 3 % (24-48) Monocytes (%) (Auto) 6 % (0-9) Eosinophils (%) (Auto) 1 % (0-3) Basophils (%) (Auto) 0 % (0-3) Neutrophils # (Auto) 27.6 x10^3/uL (1.8-7.7) Lymphocytes # (Auto) 1.0 x10^3/uL (1.0-4.8) Monocytes # (Auto) 1.8 x10^3/uL (0.0-1.1) Eosinophils # (Auto) 0.2 x10^3/uL (0.0-0.7) Basophils # (Auto) 0.1 x10^3/uL (0.0-0.2) Sodium Level 128 mmol/L (136-145) Potassium Level 4.5 mmol/L (3.5-5.1) Chloride Level 94 mmol/L (98-107) Carbon Dioxide Level 24 mmol/L (21-32) Anion Gap 10 (6-14) Blood Urea Nitrogen 58 mg/dL (7-20) Creatinine 2.7 mg/dL (0.6-1.0) Estimated GFR (Cockcroft-Gault) 21.5 Glucose Level 203 mg/dL (70-99) Calcium Level 7.8 mg/dL (8.5-10.1) Test 03/01/21 11:42 Glucose (Fingerstick) 147 mg/dL (70-99) Assessment and Plan Assessmemt and Plan Problems Medical Problems: (1) Acute encephalopathy Status: Acute (2) Acute kidney injury superimposed on chronic kidney disease Status: Acute (3) NSTEMI (non-ST elevated myocardial infarction) Status: Acute (4) Sepsis Status: Acute (5) UTI (urinary tract infection) Status: Acute Comment Review of Relevant I have reviewed the following items toan (where applicable) has been applied. Medications: Current Medications Medications (Trade) Dose Ordered Sig/Es Route PRN Reason Start Time Stop Time Status Last Admin Dose Admin Piperacillin Sod/ Tazobactam Sod 2.25 gm/Sodium Chloride 50 ml @ 100 mls/hr Q8HRS IV 10/5/21 14:00 03/01/21 05:36 Insulin Glargine (Lantus Syringe) 12 unit QHS SQ 02/28/21 21:00 02/28/21 22:04 Justifications for Admission General Conditions Poss Metaboilic Acidosis?: Yes Justification for admission: Patient has tachycardia (> 100 beats per minute) or hypotension (SBP < 90 mm Hg) leading to inadequate systemic perfusion as indicated by metabolic acidosis with arterial pH of less than 7.35. Other Justification ALEXANDRIA ALVARADO MD Mar 01, 2021 13:54
[2021-03-01 14:02] LABS: BACTERIA,URINE FEW /HPF (0-FEW)
[2021-03-01 15:00] VITALS: BP 114/64
[2021-03-01 19:46] VITALS: BP 102/58
[2021-03-01 22:40] VITALS: BP 90/52
[2021-03-01] MEDS: INSULIN GLARGINE SYRINGE. SQ SCH (22:48)
[2021-03-02 02:32] VITALS: BP 97/48
[2021-03-02] MEDS: AA 4.25 %/CALCIUM/LYTES/D5W 1,000 ML IV SCH ×2 (04:19→17:56)
[2021-03-02] MEDS: PIPERACILLIN/TAZOBACTAM 2.25 GM in IV NORMAL SALINE 50ML 50 ML IV SCH ×3 (06:35→22:05)
[2021-03-02] MEDS: HEPARIN for SUB-Q USE 5,000 UNIT/ML VIAL. SQ SCH ×3 (06:35→21:00)
[2021-03-02 07:21] VITALS: BP 104/54
--- NOTE | 2021-03-02 08:04 | PDOC ---
Infectious Disease Note Subjective: Subjective Patient little more alert today but does not answer any questions Fever pattern improved Afebrile last 24 hours Discussed with nursing staff Vital Signs: Vital Signs Vital Signs Date Time Temp Pulse Resp B/P (MAP) Pulse Ox O2 Delivery O2 Flow Rate FiO2 03/02/21 07:21 98.1 85 22 104/54 (71) 100 Nasal Cannula 2.0 98.1 Physical Exam: PHYSICAL EXAM GENERAL: The patient is lying comfortably in bed, appears little more alert today Does not answer any questions or follow commands HEENT: Normocephalic, atraumatic. Anicteric. Oral mucosa moist. NECK: Supple. LUNGS: Clear bilaterally. No wheezing. HEART: S1, S2. No murmurs. ABDOMEN: Soft, nontender, nondistended. GENITOURINARY: Palacio in place, placed here. EXTREMITIES: No edema. No cyanosis. DERMATOLOGIC: Warm, dry, no generalized rash. Wound VAC in place intact not taken down NEUROLOGIC: Opens eyes, does not respond to any questions. Medications: Inpatient Meds: Medications reviewed. Labs: Lab Laboratory Tests Test 03/01/21 11:42 03/01/21 13:07 03/01/21 16:45 03/01/21 21:01 Glucose (Fingerstick) 147 mg/dL (70-99) 240 mg/dL (70-99) 228 mg/dL (70-99) Urine Collection Type U cath Urine Color Dk yellow Urine Clarity Turbid Urine pH 5.0 (<5.0-8.0) Urine Specific [place] 1.025 (1.000-1.030) Urine Protein >=300 mg/dL (NEG-TRACE) Urine Glucose (UA) 100 mg/dL (NEG) Urine Ketones (Stick) Trace mg/dL (NEG) Urine Blood Large (NEG) Urine Nitrite Negative (NEG) Urine Bilirubin Moderate (NEG) Urine Urobilinogen Dipstick 1.0 mg/dL (0.2 mg/dL) Urine Leukocyte Esterase Moderate (NEG) Urine RBC Occ /HPF (0-2) Urine WBC 1-4 /HPF (0-4) Urine Squamous Epithelial Cells Many /LPF Urine Renal Epithelial Cells Occ /LPF Urine Bacteria Few /HPF (0-FEW) Objective: Assessment: 1. Acute encephalopathy appears multifactorial, likely metabolic from acute kidney injury with underlying chronic kidney disease. CT head negative for acute changes. 2. Leukocytosis 3. Infected sacral wound with necrosis and eschar. 4. History of multiple wounds. 5. History of seizures. 6. Diabetes mellitus 2. 7. Depression. 8. Anemia. 9. History of cocaine disorder, in remission. 10. Hypernatremia. 11. Hypokalemia. 12. Protein-calorie malnutrition. 13. Nancy glabrata in urine could be colonization. 14. SARS-COVID negative. Fecal impaction Hematuria Plan: Plan of Care Continue Zosyn, linezolid.micafungin. Status post vancomycin. CT abdomen and pelvis without reviewed General Surgery following for infected sacral decubitus ulcer Antibiotics alone may not be optimal Palacio management per protocol. Placed this admission per nursing staff Offload. Continue wound care as directed. Continue supportive care. Monitor labs and cultures. CBC ordered for a.m. Prognosis is very poor. Discussed with nursing staff RAFIA MORALES MD Mar 02, 2021 08:04
--- NOTE | 2021-03-02 08:58 | PDOC ---
[employer] PROGRESS NOTE Date of Service DOS: DATE: 03/02/21 TIME: 08:55 Chief Complaint Chief Complaint A/P: Acute encephalopathy - multifactorial, metabolic due to uremia, no SDH or CVA symptoms. less likely post-ictal. possibly related to sepsis as well Hypoxia Hypernatremia - likely free water deficit, was on numerous diuretics prior to admit, improved Sepsis - empiric vancomycin and zosyn given for likely gluteal ulcer as source. Will change to cefepime for renal failure. pharmacy to help dosing vancomycin. Fluids given MEHDI - likely vasomotor nephropathy possibly from free water deficit, sepsis. Will hydrate with bicarbonate fluids. Consult nephrology Gluteal ulcer - unstageable. Wound care and general surgery to see. possible sepsis source. Infectious disease Anemia Severe protein calorie malnutrition - will need early nutrition when mentation improves. Speech to see for swallow assessment Seizures - will dose IV keppra while confused. Prn ativan for seizure activity DM2 - basal bolus plus insulin Depression GERD - IV protonix HLD - hold statin while NPO HTN - prn hydralazine, prn metoprolol H/o cocaine use disorder - in remission in SNF Elevated troponin - likely demand ischemia due to above, will trend FEN - NPO PPX - heparin FULL CODE Dispo - inpatient. D/w [place], next of kin History of Present Illness History of Present Illness Ms Bentley is a 65 year old female with history of seizures, cocaine use disorder, DM2, depression, GERD, HLD, HTN who is a [facility] resident who comes to the ED via EMS due to unresponsiveness. Per SNF staff has been less active for the past month and had irregular breathing since 1000 this morning. longterm staff reports O2 saturations in the low 80s on room air so they put her on 3 L nasal cannula. Her oxygen saturation then raised to 92%. No witnessed seizure activity and she has reportedly been taking her Keppra and vimpat BID. Nonverbal enroute. She is baseline alert and aware x2 and wheelchair-bound. No falls or head trauma reported. She is unable to give any history and her daughter is listed as contact, voicemail box is full. Patient opens her eyes to painful stimuli and makes eye contact, does not follow any commands. Of note, she was admitted for similar complaints just a month ago. WBC 31.4, Hb 9.1, Platelets 369, Na 152, K 4, Cl 117, HCO3 23, BUN 108, Cr 3.3, glucose 161, lactic acid 1.2, ca 9.2, bili 0.5, AST 29, ALT 16, Alk phos 103, Trop 0.266, Albumin 1.7. Urine with blood and + leukocyte esterase EKG sinus rate of 99 bpm with TWI in inferolateral leads unchanged from prior EKG, significant baseline artefact, No ST elevations, QTc 509, CXR and CT head with no acute findings. Given leukocytosis and likely sepsis related to UTI, given empiric antibiotics and fluids and admitted for further care. 02/23: Afebrile. WBC 31.7, Hb 7.6, platelets 300, NA 156, K3.9, BUN 119, CR 3.6, glucose 153, alb 1.3. Covid neg. Breathing improved, but not communicating. Offloading for bedsore. 02/24: Afebrile. WBC still elevated patient septic. Son consented for dialysis catheter placement. BUN 128 today. Still very confused. Discussed with general surgery is poor surgical candidate but very large wound needs offloading possibly chemical debridement and consideration of wound VAC. Continue cefepime and vancomycin. Discussed with family overall goals of care. 02/25: Afebrile. Hb dropped to 6.9. To dialysis today for transfusion. Urine culture with Nancy glabrata. Afebrile. Glucose 67 this morning. Shaking Lasix. Low-grade axillary temp. Discussed with ID urine culture less likely to be source. Labs pending. Insulin adjusted 02/27 Patient evaluated and examined after dialysis. She was resting in bed very lethargic. Did not appear to be any clinical changes overall however. Continuing antibiotics and antifungals. Relatively poor prognosis. 02/28 Patient examined at bedside remains lethargic and altered. Clinically not much is changed. Continue antibiotics and antifungals per infectious disease very poor prognosis will attempt to contact family today regarding CODE STATUS, unable to reach will try again tomorrow. 03/01 Patient evaluated and examined at bedside. Remains somewhat altered. Very lethargic. Poor prognosis. Continuing antibiotics and antifungals. 03/02 Patient evaluated and examined at bedside. Does remain altered but notably more alert today. She arouses to my voice although still unable answer questions or follow commands. Despite this prognosis does remain poor. Will continue discussion with family if able to reach them. Continue antibiotics. Continue wound care. Vitals/I&O Vitals/I&O: Vital Signs Date Time Temp Pulse Resp B/P (MAP) Pulse Ox O2 Delivery O2 Flow Rate FiO2 03/02/21 07:21 98.1 85 22 104/54 (71) 100 Nasal Cannula 2.0 98.1 I & O 03/01/21 03/01/21 03/02/21 15:00 23:00 07:00 Intake Total 0 ml Output Total 50 ml 50 ml Balance -50 ml -50 ml Physical Exam Physical Exam: GENERAL: The patient is lying comfortably in bed, opens eyes, does not answer any questions. HEENT: Normocephalic, atraumatic. Anicteric. Oral mucosa moist. NECK: Supple. LUNGS: Clear bilaterally. No wheezing. HEART: S1, S2. No murmurs. ABDOMEN: Soft, nontender, nondistended. GENITOURINARY: Palacio in place, placed here. EXTREMITIES: No edema. No cyanosis. DERMATOLOGIC: Warm, dry, no generalized rash. Wound VAC in place intact not taken down NEUROLOGIC: Opens eyes, does not respond to any questions. PSYCHIATRIC: Obtunded. General: mild distress, Other (Arousable however unable to answer questions or follow commands) Heart: Normal S1, Normal S2, Other (mild tachy ) Lungs: Crackles Abdomen: Soft Extremities: No edema Skin: Other (large sacral wound with necrosis, odor) Labs Labs: Laboratory Tests Test 03/01/21 11:42 03/01/21 13:07 03/01/21 16:45 03/01/21 21:01 Glucose (Fingerstick) 147 mg/dL (70-99) 240 mg/dL (70-99) 228 mg/dL (70-99) Urine Collection Type U cath Urine Color Dk yellow Urine Clarity Turbid Urine pH 5.0 (<5.0-8.0) Urine Specific [place] 1.025 (1.000-1.030) Urine Protein >=300 mg/dL (NEG-TRACE) Urine Glucose (UA) 100 mg/dL (NEG) Urine Ketones (Stick) Trace mg/dL (NEG) Urine Blood Large (NEG) Urine Nitrite Negative (NEG) Urine Bilirubin Moderate (NEG) Urine Urobilinogen Dipstick 1.0 mg/dL (0.2 mg/dL) Urine Leukocyte Esterase Moderate (NEG) Urine RBC Occ /HPF (0-2) Urine WBC 1-4 /HPF (0-4) Urine Squamous Epithelial Cells Many /LPF Urine Renal Epithelial Cells Occ /LPF Urine Bacteria Few /HPF (0-FEW) Test 03/02/21 08:11 Glucose (Fingerstick) 212 mg/dL (70-99) Assessment and Plan Assessmemt and Plan Problems Medical Problems: (1) Acute encephalopathy Status: Acute (2) Acute kidney injury superimposed on chronic kidney disease Status: Acute (3) NSTEMI (non-ST elevated myocardial infarction) Status: Acute (4) Sepsis Status: Acute (5) UTI (urinary tract infection) Status: Acute Comment Review of Relevant I have reviewed the following items toan (where applicable) has been applied. Justifications for Admission General Conditions Poss Metaboilic Acidosis?: Yes Justification for admission: Patient has tachycardia (> 100 beats per minute) or hypotension (SBP < 90 mm Hg) leading to inadequate systemic perfusion as indicated by metabolic acidosis with arterial pH of less than 7.35. Other Justification ALEXANDRIA ALVARADO MD Mar 02, 2021 08:58
[2021-03-02] MEDS: levETIRAcetam 500 MG in IV DEXTROSE 5% 100ML 100 ML IV SCH ×2 (09:19→19:54)
[2021-03-02] MEDS: PANTOPRAZOLE IV PUSH 40 MG VIAL. IVP SCH (09:19)
[2021-03-02] MEDS: INSULIN LISPRO 300 UNITS/3 ML VIAL. SQ SCH ×3 (09:32→17:00)
[2021-03-02 09:46] LABS: BASO % 0 % (0-3); EOS # 0.2 x10^3/uL (0.0-0.7); EOS % 1 % (0-3); HEMATOCRIT 22.8 % (36.0-47.0); HEMOGLOBIN 7.1 g/dL (12.0-15.5); LYMPH # 0.8 x10^3/uL (1.0-4.8); LYMPH % 3 % (24-48); MEAN CORPUSCULAR HEMOGLOBIN 27 pg (25-35); MEAN CORPUSCULAR HGB CONC 31 g/dL (31-37); MEAN CORPUSCULAR VOLUME 86 fL (79-100); MONO # 1.7 x10^3/uL (0.0-1.1); MONO % 6 % (0-9); NEUT # 24.3 x10^3/uL (1.8-7.7); NEUT % 90 % (31-73); PLATELET COUNT 240 x10^3/uL (140-400); RED BLOOD COUNT 2.65 x10^6/uL (3.50-5.40); RED CELL DISTRIBUTION WIDTH 16.5 % (11.5-14.5)
--- NOTE | 2021-03-02 09:49 | PDOC ---
DATE OF SERVICE DATE: 03/02/21 TIME: 09:49 SUBJECTIVE ROS no acute concerns per nursing No N/V. No SOB OBJECTIVE Vital Signs Vital Signs Date Time Temp Pulse Resp B/P (MAP) Pulse Ox O2 Delivery O2 Flow Rate FiO2 03/02/21 07:21 98.1 85 22 104/54 (71) 100 Nasal Cannula 2.0 98.1 I & 0 Intake and Output 03/02/21 07:00 Intake Total 0 ml Output Total 100 ml Balance -100 ml Intake Oral 0 ml Output Urine Total 100 ml # Bowel Movements 5 PHYSICAL EXAM Physical Exam General: NAD HEENT: Atraumatic, PERRLA, EOMI, Mucous membr. moist/pink Neck Supple Lungs: Clear to auscultation, Non labored Heart: S1S2, RRR, no thrills, no rubs, no gallops, no murmurs Abdomen: Normal bowel sounds, Soft, No tenderness, No hepatosplenomegaly, No masses Extremities: No clubbing, No cyanosis, No edema, Skin: No rashes, NeurO Grossly No neurological deficit Palacio + DIAGNOSIS/ASSESSMENT Assessment & Plan MEHDI - ATN vs AIN- Non Oliguric, worsening renal function, initiated dialysis - 02/25 No indication today Supportive care,, Avoid Nephrotoxins ,strict I/O (UOP recorded in chart if Accurate cw Oliguria) . If No improvement will need Tunneled HDC and OP chair time prior to discharge Access temp HDC CKD stage 2/3 A per [facility] records Fever - ID following; UA Nancy Glabrata Hypotension - BP low for her baseline HyperNatremia- On Diuretics per home med list Dialysate Na adjusted , Normal Na today Acute encephalopathy - ? baseline per her recent hospitalization no SDH or CVA symptoms Sepsis -On Abx Anemia Noted decrease in Hgb from her recent hospitalization at [facility], Today Hgb < 7, defer to primary Seizures DM2 H/o cocaine use disorder - in remission in SNF COMMENT/RELEVANT DATA Meds Current Medications Medications (Trade) Dose Ordered Sig/Es Start Time Stop Time Status Last Admin Dose Admin Acetaminophen (Tylenol Supp) 650 mg PRN Q6HRS PRN 02/22/21 21:15 02/26/21 21:11 650 MG Albumin Human 200 ml @ 200 mls/hr 1X PRN PRN 02/27/21 08:45 02/27/21 14:44 DC Amino Acids/ Electrolytes/ Dextrose 1,000 ml @ 80 mls/hr [id number] 02/27/21 13:30 03/02/21 04:19 80 MLS/HR Bisacodyl (Dulcolax Supp) 10 mg PRN DAILY PRN 02/22/21 21:15 02/28/21 07:54 10 MG Cefepime HCl (Maxipime) 1 gm Q24H 02/22/21 21:30 02/26/21 09:54 DC 02/25/21 20:33 1 GM Dextrose (Dextrose 50%-Water Syringe) 12.5 gm PRN Q15MIN PRN 02/22/21 21:30 Epoetin Macho-epbx (RETACRIT for ESRD PTS) 20,000 unit 1X ONCE 02/27/21 14:00 02/27/21 15:05 DC 02/27/21 15:17 20,000 UNIT Heparin Sodium (Porcine) (Heparin Sodium) 5,000 unit Q8HRS 02/22/21 22:00 03/02/21 06:35 5,000 UNIT Info (PHARMACY MONITORING -- do not chart) 1 each PRN DAILY PRN 03/01/21 07:45 Cancel Insulin Glargine (Lantus Syringe) 12 unit QHS 02/28/21 21:00 03/01/21 22:48 12 UNIT Insulin Human Lispro (HumaLOG) 0-9 UNITS TIDWMEALS 02/23/21 08:00 03/02/21 09:32 5 UNITS Levetiracetam 500 mg/Dextrose 105 ml @ 420 mls/hr Q12HR 02/22/21 21:30 03/02/21 09:19 420 MLS/HR Lidocaine HCl (Buffered Lidocaine 1%) 3 ml 1X ONCE 02/24/21 09:00 02/24/21 09:01 DC 02/24/21 09:00 5 ML Linezolid/Dextrose 300 ml @ 300 mls/hr Q12HR 02/24/21 14:30 03/01/21 22:48 300 MLS/HR Lorazepam (Ativan Inj) 0.5 mg PRN Q4HRS PRN 02/22/21 21:30 02/23/21 10:58 0.5 MG Micafungin Sodium 100 mg/Dextrose 100 ml @ 100 mls/hr Q24H 02/26/21 12:00 03/01/21 12:44 100 MLS/HR Olanzapine (ZyPREXA ZYDIS) 5 mg PRN BID PRN 02/22/21 21:15 Ondansetron HCl (Zofran) 4 mg PRN Q4HRS PRN 02/22/21 21:15 Pantoprazole Sodium (PROTONIX VIAL for IV PUSH) 40 mg 1X ONCE 02/22/21 22:00 02/22/21 22:01 DC 02/22/21 22:16 40 MG Piperacillin Sod/ Tazobactam Sod 2.25 gm/Sodium Chloride 50 ml @ 100 mls/hr Q8HRS 02/28/21 14:00 03/02/21 06:35 100 MLS/HR Piperacillin Sod/ Tazobactam Sod 4.5 gm/Sodium Chloride 100 ml @ 200 mls/hr 1X ONCE 02/22/21 13:30 02/22/21 13:59 UNV Sodium Bicarbonate 50 meq/Sodium Chloride 1,050 ml @ 125 mls/hr Q8H24M 02/22/21 21:30 02/23/21 12:14 DC 02/23/21 10:54 125 MLS/HR Sodium Chloride 1,000 ml @ 400 mls/hr Q2H30M PRN 03/01/21 07:45 03/01/21 19:44 DC Sodium Chloride (Normal Saline Flush) 10 ml 1X PRN PRN 02/27/21 08:45 02/28/21 08:44 DC Vancomycin HCl (Vanco Per Pharmacy) 1 each PRN DAILY PRN 02/22/21 13:30 02/24/21 13:58 DC 02/23/21 03:10 1 EACH Vancomycin HCl (Vancomycin Trough Level) 1 each 1X ONCE 02/26/21 13:30 02/24/21 13:58 DC Vancomycin HCl 1.25 gm/Sodium Chloride 250 ml @ 167 mls/hr Q48H 02/24/21 14:00 02/24/21 13:58 DC Lab Laboratory Tests Test 03/01/21 11:42 03/01/21 13:07 03/01/21 16:45 03/01/21 21:01 Glucose (Fingerstick) 147 mg/dL (70-99) 240 mg/dL (70-99) 228 mg/dL (70-99) Urine Collection Type U cath Urine Color Dk yellow Urine Clarity Turbid Urine pH 5.0 (<5.0-8.0) Urine Specific [place] 1.025 (1.000-1.030) Urine Protein >=300 mg/dL (NEG-TRACE) Urine Glucose (UA) 100 mg/dL (NEG) Urine Ketones (Stick) Trace mg/dL (NEG) Urine Blood Large (NEG) Urine Nitrite Negative (NEG) Urine Bilirubin Moderate (NEG) Urine Urobilinogen Dipstick 1.0 mg/dL (0.2 mg/dL) Urine Leukocyte Esterase Moderate (NEG) Urine RBC Occ /HPF (0-2) Urine WBC 1-4 /HPF (0-4) Urine Squamous Epithelial Cells Many /LPF Urine Renal Epithelial Cells Occ /LPF Urine Bacteria Few /HPF (0-FEW) Test 03/02/21 08:11 Glucose (Fingerstick) 212 mg/dL (70-99) Results All relevant outside records, renal labs, imaging studies, telemetry/EKG's were reviewed. Justicifation of Admission Dx: Justifications for Admission: Justification of Admission Dx: N/A AZAEL VANCE MD Mar 02, 2021 09:49
[2021-03-02 09:57] LABS: ALBUMIN/GLOBULIN RATIO 0.2 (1.0-1.7); CALCIUM 7.8 mg/dL (8.5-10.1); CREATININE 2.1 mg/dL (0.6-1.0); GFR 28.7; POTASSIUM 4.2 mmol/L (3.5-5.1); TOTAL BILIRUBIN 0.4 mg/dL (0.2-1.0); TOTAL PROTEIN 6.2 g/dL (6.4-8.2)
[2021-03-02 11:00] VITALS: BP 117/68
[2021-03-02] MEDS: MICAFUNGIN 100 MG in IV DEXTROSE 5% 100ML 100 ML IV SCH (12:02)
--- NOTE | 2021-03-02 12:25 | RAD ---
Study: CT of the abdomen and pelvis without contrast 03/02/2021 Comparison: CT abdomen pelvis 02/26/2021 Clinical Indication: Rectal wound, possible fistulous tract Technique: Contiguous axial images are obtained from the apex of the diaphragm to the pelvic floor. S agittal and coronal reformations are evaluated. Dose Reduction: One or more of the following individualized dose reduction techniques were utilized f or this examination: 1. Automated exposure control, 2. Adjustment of the mA and/or kV according to p atient size, 3. Use of iterative reconstruction technique FINDINGS: Evaluation of the solid organ parenchyma is limited by lack of IV Contrast. Evaluation of the hollow enteric structures is limited by lack of oral contrast. Lung bases: Mild atelectasis at the lung bases. Lower Mediastinum: Mild cardiomegaly. Liver: Normal in size and contour with no focal parenchymal abnormalities. Biliary: No intra or extra hepatic biliary ductal dilatation. Gallbladder: Surgically absent Pancreas: Grossly unremarkable Spleen: Grossly unremarkable Adrenals: Grossly unremarkable Kidneys: Free of any hydronephrosis, nephrolithiasis or focal parenchymal abnormality. Gastroduodenum: Grossly unremarkable. Small bowel: Grossly unremarkable with no areas of focal wall thickening or dilatation. Large bowel: Moderate stool throughout the colon. Diverticulosis without diverticulitis. There is mod erate-sized stool ball with differential wall thickening of the rectum. Appendix: Normal Mesentery: No free or loculated fluid collections. No pathologic lymphadenopathy. Retroperitoneum: No suspicious masses or lymphadenopathy. Bladder: Decompressed around a Palacio balloon Reproductive pelvic organs: Absent Vascular:Aorta is nonaneurysmal. Mild atherosclerosis. Bones:No suspicious osteoblastic or osteolytic bone lesions. Soft Tissues: Redemonstration of large decubitus ulcer extending to the sacrum/coccyx bones. There ar e multiple pockets of air and fluid within the soft tissues of the perineum. Fat-containing ventral wall hernia. IMPRESSION: 1. Redemonstration of large decubitus ulcer with inferior sacrum/coccyx. There are air and fluid shala ections within the peritoneum likely representing abscesses bilaterally. Without enteric or IV contra st, assessment for fistula to the rectum is very limited. Within these limits there is no direct air containing tract into the rectum. Involvement of the anus is difficult to exclude. Findings are not s ignificantly changed from the prior study. 2. Redemonstration of fecal impaction in the rectum with circumferential wall thickening likely on e basis of proctitis. Electronically signed by: Bharat Alexandre (03/02/2021 12:22 PM) [id number]
--- NOTE | 2021-03-02 13:53 | NUR ---
SS following up with discharge planning. SS reviewed pt chart and discussed with pt RN. Pt is currently requiring oxygen at two liters nasal canula. NPO and on Clinimix. COVID19 negative. Wound care following for sacral wound. Pt on IV Zosyn, IV Micafungin, IV Zyvox, and IV Keppra. Pt accepted at [facility], ; fax [phone], pending insurance authorization. Clinical updates phoned and faxed to [facility]. SS will continue to follow for discharge planning.
[2021-03-02 15:00] VITALS: BP 129/62
[2021-03-02] MEDS: SODIUM HYPOCHLORITE 0.125% 473 ML BOTTLE. TP SCH ×2 (15:00→21:00)
--- NOTE | 2021-03-02 15:18 | NUR ---
Wound/Ostomy Care Wound Type/Assessment: Patient seen again today per wound care. Dressing removed and wound cleansed, assessed, measured, and pictured. The wound does not appear to be making any progress, the wound remains necrotic with an even stronger odor and is very dry. Patient soiled and chux changed. Patient has a new wound to her la nena-rectum area, the wound is draining large amounts of creamy purulent drainage. Patient also has DFU to the right medial foot, wound cleansed and assessed. Treatment Recommendations/Plan: Recommendations to redress with Dakin's soaked gauze, cover with ABD pads and tape. Education provided: Unable to educate due to mental status, however she is more alert today than she was on Saturday. Offloading surface/device: Patient is currently on a P-500 bed at this time. Patient repositioned to right side using wedge. Bilateral heels floated. Recommended Referrals/Tests: N/A Discharge Recommendations for dressings: Continue current treatment and wound care will reassess on with the Bed lowered and bed alarm turned on. Call light in reach.
[2021-03-02 19:17] VITALS: BP 116/67
[2021-03-02] MEDS: INSULIN GLARGINE SYRINGE. SQ SCH (21:00)
[2021-03-02 22:05] VITALS: BP 116/57
[2021-03-03 02:50] VITALS: BP 84/62
[2021-03-03] MEDS: PIPERACILLIN/TAZOBACTAM 2.25 GM in IV NORMAL SALINE 50ML 50 ML IV SCH ×3 (05:24→22:00)
[2021-03-03] MEDS: HEPARIN for SUB-Q USE 5,000 UNIT/ML VIAL. SQ SCH ×3 (05:26→22:20)
[2021-03-03] MEDS: PANTOPRAZOLE IV PUSH 40 MG VIAL. IVP SCH (05:26)
[2021-03-03 07:00] VITALS: BP 91/49
[2021-03-03 07:14] LABS: CALCIUM 7.6 mg/dL (8.5-10.1); CREATININE 2.4 mg/dL (0.6-1.0); GFR 24.6; POTASSIUM 4.8 mmol/L (3.5-5.1)
[2021-03-03] MEDS: INSULIN LISPRO 300 UNITS/3 ML VIAL. SQ SCH ×3 (08:00→16:41)
[2021-03-03] MEDS ORDERED: DIALYSIS PATIENT. MC PRN ×2 (08:15)
[2021-03-03] MEDS ORDERED: IV NORMAL SALINE 1000ML BAG 1,000 ML IV PRN ×2 (08:15)
[2021-03-03] MEDS: SODIUM HYPOCHLORITE 0.125% 473 ML BOTTLE. TP SCH ×2 (09:00→21:00)
--- NOTE | 2021-03-03 09:57 | PDOC ---
Infectious Disease Note Subjective: Subjective Patient remains altered though opens eyes Afebrile last 48 hours Discussed with nursing staff Vital Signs: Vital Signs Vital Signs Date Time Temp Pulse Resp B/P (MAP) Pulse Ox O2 Delivery O2 Flow Rate FiO2 03/03/21 07:23 Room Air 03/03/21 07:00 97.9 82 16 91/49 (63) 92 97.9 03/02/21 20:00 2.0 Physical Exam: PHYSICAL EXAM GENERAL: The patient is lying comfortably in bed, appears little more alert today Does not answer any questions or follow commands HEENT: Normocephalic, atraumatic. Anicteric. Oral mucosa moist. NECK: Supple. LUNGS: Clear bilaterally. No wheezing. HEART: S1, S2. No murmurs. ABDOMEN: Soft, nontender, nondistended. GENITOURINARY: Palacio in place, placed here. EXTREMITIES: No edema. No cyanosis. DERMATOLOGIC: Warm, dry, no generalized rash. Wound VAC in place intact not taken down NEUROLOGIC: Opens eyes, does not respond to any questions. Medications: Inpatient Meds: Medications reviewed. Labs: Lab Laboratory Tests Test 03/02/21 11:47 03/02/21 16:50 03/02/21 20:59 03/03/21 05:30 Glucose (Fingerstick) 208 mg/dL (70-99) 180 mg/dL (70-99) 182 mg/dL (70-99) Sodium Level 124 mmol/L (136-145) Potassium Level 4.8 mmol/L (3.5-5.1) Chloride Level 90 mmol/L (98-107) Carbon Dioxide Level 25 mmol/L (21-32) Anion Gap 9 (6-14) Blood Urea Nitrogen 55 mg/dL (7-20) Creatinine 2.4 mg/dL (0.6-1.0) Estimated GFR (Cockcroft-Gault) 24.6 Glucose Level 190 mg/dL (70-99) Calcium Level 7.6 mg/dL (8.5-10.1) Test 03/03/21 07:46 Glucose (Fingerstick) 184 mg/dL (70-99) Micro Repeat CT March 02 FINDINGS: Evaluation of the solid organ parenchyma is limited by lack of IV Contrast. Evaluation of the hollow enteric structures is limited by lack of oral contrast. Lung bases: Mild atelectasis at the lung bases. Lower Mediastinum: Mild cardiomegaly. Liver: Normal in size and contour with no focal parenchymal abnormalities. Biliary: No intra or extra hepatic biliary ductal dilatation. Gallbladder: Surgically absent Pancreas: Grossly unremarkable Spleen: Grossly unremarkable Adrenals: Grossly unremarkable Kidneys: Free of any hydronephrosis, nephrolithiasis or focal parenchymal abnormality. Gastroduodenum: Grossly unremarkable. Small bowel: Grossly unremarkable with no areas of focal wall thickening or dilatation. Large bowel: Moderate stool throughout the colon. Diverticulosis without diverticulitis. There is moderate-sized stool ball with differential wall thick ening of the rectum. Appendix: Normal Mesentery: No free or loculated fluid collections. No pathologic lymphadenopathy. Retroperitoneum: No suspicious masses or lymphadenopathy. Bladder: Decompressed around a Palacio balloon Reproductive pelvic organs: Absent Vascular:Aorta is nonaneurysmal. Mild atherosclerosis. Bones:No suspicious osteoblastic or osteolytic bone lesions. Soft Tissues: Redemonstration of large decubitus ulcer extending to the sacrum/coccyx bones. There are multiple pockets of air and fluid within the soft tissues of the perineum. Fat-containing ventral wall hernia. IMPRESSION: 1. Redemonstration of large decubitus ulcer with inferior sacrum/coccyx. There are air and fluid collections within the peritoneum likely representing abscesses bilaterally. Without enteric or IV contrast, assessment for fistula to the rectum is very limited. Within these limits there is no direct air containing tract into the rectum. Involvement of the anus is difficult to exclude. Findings are not significantly changed from the prior study. 2. Redemonstration of fecal impaction in the rectum with circumferential wall thickening likely on the basis of proctitis. Objective: Assessment: 1. Acute encephalopathy appears multifactorial 2. Leukocytosis 3. Infected sacral wound with necrosis and eschar. Intra-abdominal abscesses on repeat CT Proctitis Possible fistula 4. History of multiple wounds. 5. History of seizures. 6. Diabetes mellitus 2. 7. Depression. 8. Anemia. 9. History of cocaine disorder, in remission. 10. Hypernatremia. 11. Hypokalemia. 12. Protein-calorie malnutrition. 13. Nancy glabrata in urine could be colonization. Repeat urine cultures negative 14. SARS-COVID negative. Fecal impaction Hematuria Plan: Plan of Care Continue broad-spectrum antibiotics CT abdomen and pelvis repeat study by primary team reviewed General Surgery following, Antibiotics alone may not be optimal Palacio management per protocol. Placed this admission per nursing staff Offload. Continue wound care as directed. Continue supportive care. Monitor labs and cultures. Prognosis is very poor. Discussed with Dr. Soriano about above yesterday Discussed with nursing staff RAFIA MORALES MD Mar 03, 2021 09:57
--- NOTE | 2021-03-03 10:05 | PDOC ---
DATE OF SERVICE DATE: 03/03/21 TIME: 10:05 SUBJECTIVE ROS no acute concerns or complaints during dialysis No N/V. No SOB OBJECTIVE Vital Signs Vital Signs Date Time Temp Pulse Resp B/P (MAP) Pulse Ox O2 Delivery O2 Flow Rate FiO2 03/03/21 07:23 Room Air 03/03/21 07:00 97.9 82 16 91/49 (63) 92 97.9 03/02/21 20:00 2.0 I & 0 Intake and Output 03/03/21 07:00 Intake Total 505 ml Output Total 425 ml Balance 80 ml Intake Oral 0 ml IV Total 505 ml Output Urine Total 425 ml # Bowel Movements 5 PHYSICAL EXAM Physical Exam General: NAD HEENT: Atraumatic, PERRLA, EOMI, Mucous membr. moist/pink Neck Supple Lungs: Clear to auscultation, Non labored Heart: S1S2, RRR, no thrills, no rubs, no gallops, no murmurs Abdomen: Normal bowel sounds, Soft, No tenderness, No hepatosplenomegaly, No masses Extremities: No clubbing, No cyanosis, No edema, Skin: No rashes, NeurO Grossly No neurological deficit Palacio + DIAGNOSIS/ASSESSMENT Assessment & Plan MEHDI - ATN vs AIN- Non Oliguric, worsening renal function, initiated dialysis - 02/25 . Currently MWF . Seen during treatment , tolerating well, continue as tolerated , dw N Supportive care,, Avoid Nephrotoxins ,strict I/O (UOP some improvement ) , monitor for recovery If No improvement will need Tunneled HDC and OP chair time prior to discharge Access temp HDC CKD stage 2/3 A per [facility] records Fever - ID following; UA Nancy Glabrata Hypotension - BP low for her baseline HyperNatremia- POA ; have been HypoNatremic. Na decreasing .DC Clinimix . Switch to TPN Acute encephalopathy - ? baseline per her recent hospitalization no SDH or CVA symptoms Sepsis -On Abx Anemia Noted decrease in Hgb from her recent hospitalization at [facility], Today Hgb < 7, defer to primary Seizures DM2 H/o cocaine use disorder - in remission in SNF one COMMENT/RELEVANT DATA Meds Current Medications Medications (Trade) Dose Ordered Sig/Es Start Time Stop Time Status Last Admin Dose Admin Acetaminophen (Tylenol Supp) 650 mg PRN Q6HRS PRN 02/22/21 21:15 02/26/21 21:11 650 MG Albumin Human 200 ml @ 200 mls/hr 1X PRN PRN 02/27/21 08:45 02/27/21 14:44 DC Amino Acids/ Electrolytes/ Dextrose 1,000 ml @ 80 mls/hr [id number] 02/27/21 13:30 03/02/21 17:56 80 MLS/HR Bisacodyl (Dulcolax Supp) 10 mg PRN DAILY PRN 02/22/21 21:15 02/28/21 07:54 10 MG Cefepime HCl (Maxipime) 1 gm Q24H 02/22/21 21:30 02/26/21 09:54 DC 02/25/21 20:33 1 GM Dextrose (Dextrose 50%-Water Syringe) 12.5 gm PRN Q15MIN PRN 02/22/21 21:30 Epoetin Macho-epbx (RETACRIT for ESRD PTS) 20,000 unit 1X ONCE 02/27/21 14:00 02/27/21 15:05 DC 02/27/21 15:17 20,000 UNIT Heparin Sodium (Porcine) (Heparin Sodium) 5,000 unit Q8HRS 02/22/21 22:00 03/03/21 05:26 5,000 UNIT Info (PHARMACY MONITORING -- do not chart) 1 each PRN DAILY PRN 03/03/21 08:15 Insulin Glargine (Lantus Syringe) 12 unit QHS 02/28/21 21:00 03/02/21 21:00 12 UNIT Insulin Human Lispro (HumaLOG) 0-9 UNITS TIDWMEALS 02/23/21 08:00 03/02/21 12:04 5 UNITS Levetiracetam 500 mg/Dextrose 105 ml @ 420 mls/hr Q12HR 02/22/21 21:30 03/02/21 19:54 420 MLS/HR Lidocaine HCl (Buffered Lidocaine 1%) 3 ml 1X ONCE 02/24/21 09:00 02/24/21 09:01 DC 02/24/21 09:00 5 ML Linezolid/Dextrose 300 ml @ 300 mls/hr Q12HR 02/24/21 14:30 03/02/21 20:56 300 MLS/HR Lorazepam (Ativan Inj) 0.5 mg PRN Q4HRS PRN 02/22/21 21:30 02/23/21 10:58 0.5 MG Micafungin Sodium 100 mg/Dextrose 100 ml @ 100 mls/hr Q24H 02/26/21 12:00 03/02/21 12:02 100 MLS/HR Olanzapine (ZyPREXA ZYDIS) 5 mg PRN BID PRN 02/22/21 21:15 Ondansetron HCl (Zofran) 4 mg PRN Q4HRS PRN 02/22/21 21:15 Pantoprazole Sodium (PROTONIX VIAL for IV PUSH) 40 mg 1X ONCE 02/22/21 22:00 02/22/21 22:01 DC 02/22/21 22:16 40 MG Piperacillin Sod/ Tazobactam Sod 2.25 gm/Sodium Chloride 50 ml @ 100 mls/hr Q8HRS 02/28/21 14:00 03/03/21 05:24 100 MLS/HR Piperacillin Sod/ Tazobactam Sod 4.5 gm/Sodium Chloride 100 ml @ 200 mls/hr 1X ONCE 02/22/21 13:30 02/22/21 13:59 UNV Sodium Bicarbonate 50 meq/Sodium Chloride 1,050 ml @ 125 mls/hr Q8H24M 02/22/21 21:30 02/23/21 12:14 DC 02/23/21 10:54 125 MLS/HR Sodium Hypochlorite (Dakin'S 1/4 Strength) 1 rustam BID 03/02/21 15:00 03/02/21 21:00 1 RUSTAM Sodium Chloride 1,000 ml @ 400 mls/hr Q2H30M PRN 03/03/21 08:15 03/03/21 20:14 Sodium Chloride (Normal Saline Flush) 10 ml 1X PRN PRN 02/27/21 08:45 02/28/21 08:44 DC Vancomycin HCl (Vanco Per Pharmacy) 1 each PRN DAILY PRN 02/22/21 13:30 02/24/21 13:58 DC 02/23/21 03:10 1 EACH Vancomycin HCl (Vancomycin Trough Level) 1 each 1X ONCE 02/26/21 13:30 02/24/21 13:58 DC Vancomycin HCl 1.25 gm/Sodium Chloride 250 ml @ 167 mls/hr Q48H 02/24/21 14:00 02/24/21 13:58 DC Lab Laboratory Tests Test 03/02/21 11:47 03/02/21 16:50 03/02/21 20:59 03/03/21 05:30 Glucose (Fingerstick) 208 mg/dL (70-99) 180 mg/dL (70-99) 182 mg/dL (70-99) Sodium Level 124 mmol/L (136-145) Potassium Level 4.8 mmol/L (3.5-5.1) Chloride Level 90 mmol/L (98-107) Carbon Dioxide Level 25 mmol/L (21-32) Anion Gap 9 (6-14) Blood Urea Nitrogen 55 mg/dL (7-20) Creatinine 2.4 mg/dL (0.6-1.0) Estimated GFR (Cockcroft-Gault) 24.6 Glucose Level 190 mg/dL (70-99) Calcium Level 7.6 mg/dL (8.5-10.1) Test 03/03/21 07:46 Glucose (Fingerstick) 184 mg/dL (70-99) Results All relevant outside records, renal labs, imaging studies, telemetry/EKG's were reviewed. Justicifation of Admission Dx: Justifications for Admission: Justification of Admission Dx: N/A AZAEL VANCE MD Mar 03, 2021 10:05
--- NOTE | 2021-03-03 10:30 | NUR ---
SS following up with discharge planning. SS reviewed pt chart and discussed with pt RN. Pt is currently on room air. COVID19 negative. Wound care following for sacral wound. NPO and on Clinimix. Pt on IV Zosyn, IV Zyvox, IV Micafungin, and IV Keppra. Hemodialysis pt. Pt accepted at [facility], ; fax [phone], pending insurance authorization. SS will continue to follow for discharge planning.
[2021-03-03] MEDS: AA 4.25 %/CALCIUM/LYTES/D5W 1,000 ML IV SCH (11:39)
[2021-03-03] MEDS: levETIRAcetam 500 MG in IV DEXTROSE 5% 100ML 100 ML IV SCH ×2 (11:40→20:10)
--- NOTE | 2021-03-03 11:56 | PDOC ---
[employer] PROGRESS NOTE Date of Service DOS: DATE: 03/03/21 TIME: 11:53 Chief Complaint Chief Complaint A/P: Acute encephalopathy - multifactorial, metabolic due to uremia, no SDH or CVA symptoms. less likely post-ictal. possibly related to sepsis as well Hypoxia Hypernatremia - likely free water deficit, was on numerous diuretics prior to admit, improved Sepsis - empiric vancomycin and zosyn given for likely gluteal ulcer as source. Will change to cefepime for renal failure. pharmacy to help dosing vancomycin. Fluids given MEHDI - likely vasomotor nephropathy possibly from free water deficit, sepsis. Will hydrate with bicarbonate fluids. Consult nephrology Gluteal ulcer - unstageable. Wound care and general surgery to see. possible sepsis source. Infectious disease Anemia Severe protein calorie malnutrition - will need early nutrition when mentation improves. Speech to see for swallow assessment Seizures - will dose IV keppra while confused. Prn ativan for seizure activity DM2 - basal bolus plus insulin Depression GERD - IV protonix HLD - hold statin while NPO HTN - prn hydralazine, prn metoprolol H/o cocaine use disorder - in remission in SNF Elevated troponin - likely demand ischemia due to above, will trend FEN - NPO PPX - heparin FULL CODE Dispo - inpatient. D/w [place], next of kin History of Present Illness History of Present Illness Ms Bentley is a 65 year old female with history of seizures, cocaine use disorder, DM2, depression, GERD, HLD, HTN who is a alf SNF resident who comes to the ED via EMS due to unresponsiveness. Per SNF staff has been less active for the past month and had irregular breathing since 1000 this morning. snf staff reports O2 saturations in the low 80s on room air so they put her on 3 L nasal cannula. Her oxygen saturation then raised to 92%. No witnessed seizure activity and she has reportedly been taking her Keppra and vimpat BID. Nonverbal enroute. She is baseline alert and aware x2 and wheelchair-bound. No falls or head trauma reported. She is unable to give any history and her daughter is listed as contact, voicemail box is full. Patient opens her eyes to painful stimuli and makes eye contact, does not follow any commands. Of note, she was admitted for similar complaints just a month ago. WBC 31.4, Hb 9.1, Platelets 369, Na 152, K 4, Cl 117, HCO3 23, BUN 108, Cr 3.3, glucose 161, lactic acid 1.2, ca 9.2, bili 0.5, AST 29, ALT 16, Alk phos 103, Trop 0.266, Albumin 1.7. Urine with blood and + leukocyte esterase EKG sinus rate of 99 bpm with TWI in inferolateral leads unchanged from prior EKG, significant baseline artefact, No ST elevations, QTc 509, CXR and CT head with no acute findings. Given leukocytosis and likely sepsis related to UTI, given empiric antibiotics and fluids and admitted for further care. 02/23: Afebrile. WBC 31.7, Hb 7.6, platelets 300, NA 156, K3.9, BUN 119, CR 3.6, glucose 153, alb 1.3. Covid neg. Breathing improved, but not communicating. Offloading for bedsore. 02/24: Afebrile. WBC still elevated patient septic. Son consented for dialysis catheter placement. BUN 128 today. Still very confused. Discussed with general surgery is poor surgical candidate but very large wound needs offloading possibly chemical debridement and consideration of wound VAC. Continue cefepime and vancomycin. Discussed with family overall goals of care. 02/25: Afebrile. Hb dropped to 6.9. To dialysis today for transfusion. Urine culture with Nancy glabrata. Afebrile. Glucose 67 this morning. Shaking Lasix. Low-grade axillary temp. Discussed with ID urine culture less likely to be source. Labs pending. Insulin adjusted 02/27 Patient evaluated and examined after dialysis. She was resting in bed very lethargic. Did not appear to be any clinical changes overall however. Continuing antibiotics and antifungals. Relatively poor prognosis. 02/28 Patient examined at bedside remains lethargic and altered. Clinically not much is changed. Continue antibiotics and antifungals per infectious disease very poor prognosis will attempt to contact family today regarding CODE STATUS, unable to reach will try again tomorrow. 03/01 Patient evaluated and examined at bedside. Remains somewhat altered. Very lethargic. Poor prognosis. Continuing antibiotics and antifungals. 03/02 Patient evaluated and examined at bedside. Does remain altered but notably more alert today. She arouses to my voice although still unable answer questions or follow commands. Despite this prognosis does remain poor. Will continue discussion with family if able to reach them. Continue antibiotics. Continue wound care. 03/03 Patient evaluated and examined at bedside. Upon entering room she was yelling out as she was getting her rectal wound cleaned. Necrotic areas on previous wound, wound VAC removed yesterday on initial wound. Seeing if the surgical team will come evaluate the patient to determine her surgical candidacy. If not a candidate will continue a DNR/DNI discussion with the family today with this new information. Continue antibiotics. Continue wound care Vitals/I&O Vitals/I&O: Vital Signs Date Time Temp Pulse Resp B/P (MAP) Pulse Ox O2 Delivery O2 Flow Rate FiO2 03/03/21 07:23 Room Air 03/03/21 07:00 97.9 82 16 91/49 (63) 92 97.9 03/02/21 20:00 2.0 I & O 03/02/21 03/02/21 03/03/21 15:00 23:00 07:00 Intake Total 0 ml 455 ml 50 ml Output Total 100 ml 150 ml 175 ml Balance -100 ml 305 ml -125 ml Physical Exam Physical Exam: GENERAL: The patient is lying comfortably in bed, appears little more alert today Does not answer any questions or follow commands HEENT: Normocephalic, atraumatic. Anicteric. Oral mucosa moist. NECK: Supple. LUNGS: Clear bilaterally. No wheezing. HEART: S1, S2. No murmurs. ABDOMEN: Soft, nontender, nondistended. GENITOURINARY: Palacio in place, placed here. EXTREMITIES: No edema. No cyanosis. DERMATOLOGIC: Warm, dry, no generalized rash. Wound VAC in place intact not taken down NEUROLOGIC: Opens eyes, does not respond to any questions. General: mild distress, Other (Arousable however unable to answer questions or follow commands) Heart: Normal S1, Normal S2, Other (mild tachy ) Lungs: Crackles Abdomen: Soft Extremities: No edema Skin: Other (large sacral wound with necrosis, odor) Labs Labs: Laboratory Tests Test 03/02/21 16:50 03/02/21 20:59 03/03/21 05:30 03/03/21 07:46 Glucose (Fingerstick) 180 mg/dL (70-99) 182 mg/dL (70-99) 184 mg/dL (70-99) Sodium Level 124 mmol/L (136-145) Potassium Level 4.8 mmol/L (3.5-5.1) Chloride Level 90 mmol/L (98-107) Carbon Dioxide Level 25 mmol/L (21-32) Anion Gap 9 (6-14) Blood Urea Nitrogen 55 mg/dL (7-20) Creatinine 2.4 mg/dL (0.6-1.0) Estimated GFR (Cockcroft-Gault) 24.6 Glucose Level 190 mg/dL (70-99) Calcium Level 7.6 mg/dL (8.5-10.1) Assessment and Plan Assessmemt and Plan Problems Medical Problems: (1) Acute encephalopathy Status: Acute (2) Acute kidney injury superimposed on chronic kidney disease Status: Acute (3) NSTEMI (non-ST elevated myocardial infarction) Status: Acute (4) Sepsis Status: Acute (5) UTI (urinary tract infection) Status: Acute Comment Review of Relevant I have reviewed the following items toan (where applicable) has been applied. Medications: Current Medications Medications (Trade) Dose Ordered Sig/Es Route PRN Reason Start Time Stop Time Status Last Admin Dose Admin Sodium Hypochlorite (Dakin'S 1/4 Strength) 1 rustam BID TP 03/02/21 15:00 03/02/21 21:00 Justifications for Admission General Conditions Poss Metaboilic Acidosis?: Yes Justification for admission: Patient has tachycardia (> 100 beats per minute) or hypotension (SBP < 90 mm Hg) leading to inadequate systemic perfusion as indicated by metabolic acidosis with arterial pH of less than 7.35. Other Justification ALEXANDRIA ALVARADO MD Mar 03, 2021 11:56
--- NOTE | 2021-03-03 12:31 | PDOC ---
BALJINDER SMALL KELP OR SEAGRASS GATHERER 03/03/21 1231: SURGICAL PROGRESS NOTE DATE: 03/03/21 TIME: 12:28 Subjective moans wound vac did not improve wound now with open area near rectum with purulent drainage Vital Signs Vital Signs Date Time Temp Pulse Resp B/P (MAP) Pulse Ox O2 Delivery O2 Flow Rate FiO2 03/03/21 07:23 Room Air 03/03/21 07:00 97.9 82 16 91/49 (63) 92 97.9 03/02/21 20:00 2.0 I&O Intake and Output 03/03/21 07:00 Intake Total 505 ml Output Total 425 ml Balance 80 ml Intake Oral 0 ml IV Total 505 ml Output Urine Total 425 ml # Bowel Movements 5 General: Other (moans ) Skin: Other (sacral ulcer unchanged, there is a open wound with purulent d rainage near rectum ) Labs Laboratory Tests Test 03/01/21 13:07 03/01/21 16:45 03/01/21 21:01 03/02/21 08:11 Urine Collection Type U cath Urine Color Dk yellow Urine Clarity Turbid Urine pH 5.0 (<5.0-8.0) Urine Specific [place] 1.025 (1.000-1.030) Urine Protein >=300 mg/dL (NEG-TRACE) Urine Glucose (UA) 100 mg/dL (NEG) Urine Ketones (Stick) Trace mg/dL (NEG) Urine Blood Large (NEG) Urine Nitrite Negative (NEG) Urine Bilirubin Moderate (NEG) Urine Urobilinogen Dipstick 1.0 mg/dL (0.2 mg/dL) Urine Leukocyte Esterase Moderate (NEG) Urine RBC Occ /HPF (0-2) Urine WBC 1-4 /HPF (0-4) Urine Squamous Epithelial Cells Many /LPF Urine Renal Epithelial Cells Occ /LPF Urine Bacteria Few /HPF (0-FEW) Glucose (Fingerstick) 240 mg/dL (70-99) 228 mg/dL (70-99) 212 mg/dL (70-99) Test 03/02/21 09:00 03/02/21 11:47 03/02/21 16:50 03/02/21 20:59 White Blood Count 27.0 x10^3/uL (4.0-11.0) Red Blood Count 2.65 x10^6/uL (3.50-5.40) Hemoglobin 7.1 g/dL (12.0-15.5) Hematocrit 22.8 % (36.0-47.0) Mean Corpuscular Volume 86 fL (79-100) Mean Corpuscular Hemoglobin 27 pg (25-35) Mean Corpuscular Hemoglobin Concent 31 g/dL (31-37) Red Cell Distribution Width 16.5 % (11.5-14.5) Platelet Count 240 x10^3/uL (140-400) Neutrophils (%) (Auto) 90 % (31-73) Lymphocytes (%) (Auto) 3 % (24-48) Monocytes (%) (Auto) 6 % (0-9) Eosinophils (%) (Auto) 1 % (0-3) Basophils (%) (Auto) 0 % (0-3) Neutrophils # (Auto) 24.3 x10^3/uL (1.8-7.7) Lymphocytes # (Auto) 0.8 x10^3/uL (1.0-4.8) Monocytes # (Auto) 1.7 x10^3/uL (0.0-1.1) Eosinophils # (Auto) 0.2 x10^3/uL (0.0-0.7) Basophils # (Auto) 0.0 x10^3/uL (0.0-0.2) Sodium Level 127 mmol/L (136-145) Potassium Level 4.2 mmol/L (3.5-5.1) Chloride Level 93 mmol/L (98-107) Carbon Dioxide Level 28 mmol/L (21-32) Anion Gap 6 (6-14) Blood Urea Nitrogen 42 mg/dL (7-20) Creatinine 2.1 mg/dL (0.6-1.0) Estimated GFR (Cockcroft-Gault) 28.7 BUN/Creatinine Ratio 20 (6-20) Glucose Level 229 mg/dL (70-99) Calcium Level 7.8 mg/dL (8.5-10.1) Total Bilirubin 0.4 mg/dL (0.2-1.0) Aspartate Amino Transf (AST/SGOT) 21 U/L (15-37) Alanine Aminotransferase (ALT/SGPT) 17 U/L (14-59) Alkaline Phosphatase 115 U/L (46-116) Total Protein 6.2 g/dL (6.4-8.2) Albumin 1.0 g/dL (3.4-5.0) Albumin/Globulin Ratio 0.2 (1.0-1.7) Glucose (Fingerstick) 208 mg/dL (70-99) 180 mg/dL (70-99) 182 mg/dL (70-99) Test 03/03/21 05:30 03/03/21 07:46 03/03/21 12:12 Sodium Level 124 mmol/L (136-145) Potassium Level 4.8 mmol/L (3.5-5.1) Chloride Level 90 mmol/L (98-107) Carbon Dioxide Level 25 mmol/L (21-32) Anion Gap 9 (6-14) Blood Urea Nitrogen 55 mg/dL (7-20) Creatinine 2.4 mg/dL (0.6-1.0) Estimated GFR (Cockcroft-Gault) 24.6 Glucose Level 190 mg/dL (70-99) Calcium Level 7.6 mg/dL (8.5-10.1) Glucose (Fingerstick) 184 mg/dL (70-99) 128 mg/dL (70-99) Laboratory Tests Test 03/02/21 16:50 03/02/21 20:59 03/03/21 05:30 03/03/21 07:46 Glucose (Fingerstick) 180 mg/dL (70-99) 182 mg/dL (70-99) 184 mg/dL (70-99) Sodium Level 124 mmol/L (136-145) Potassium Level 4.8 mmol/L (3.5-5.1) Chloride Level 90 mmol/L (98-107) Carbon Dioxide Level 25 mmol/L (21-32) Anion Gap 9 (6-14) Blood Urea Nitrogen 55 mg/dL (7-20) Creatinine 2.4 mg/dL (0.6-1.0) Estimated GFR (Cockcroft-Gault) 24.6 Glucose Level 190 mg/dL (70-99) Calcium Level 7.6 mg/dL (8.5-10.1) Test 03/03/21 12:12 Glucose (Fingerstick) 128 mg/dL (70-99) Problem List Problems Medical Problems: (1) Acute encephalopathy Status: Acute (2) Acute kidney injury superimposed on chronic kidney disease Status: Acute (3) NSTEMI (non-ST elevated myocardial infarction) Status: Acute (4) Sepsis Status: Acute (5) UTI (urinary tract infection) Status: Acute Assessment/Plan reviewed Cts, abscesses present, draining purulent material will review with Dr Andrew, may need I&D for underlying abscesses Justicifation of Admission Dx: Justifications for Admission: Justification of Admission Dx: N/A TANYA ANDREW MD 03/03/21 1508: SURGICAL PROGRESS NOTE Assessment/Plan Pt seen and examined. Agree with Ms. Small's note Pt minimally responsive large necrotic decub ulcer on sacrum ultimately, would favor diverting colostomy, but poor candidate given comorbidities would consider debridement of ulcer, but low probability of healing of ulcer would favor clarifying goals of care. BALJINDER SMALL KELP OR SEAGRASS GATHERER Mar 03, 2021 12:31 TANYA ANDREW MD Mar 03, 2021 15:08
[2021-03-03] MEDS: MICAFUNGIN 100 MG in IV DEXTROSE 5% 100ML 100 ML IV SCH (14:18)
[2021-03-03 15:00] VITALS: BP 118/62
[2021-03-03] MEDS: TPN PER PHARMACY MC PRN (17:02)
--- NOTE | 2021-03-03 17:10 | NUR ---
Pharmacy TPN Dosing Note S: MERA HENLEY is a 65 year old F Currently receiving Central Continuous TPN started 03/03/21 B:Pertinent PMH: NPO Height: 5 feet, 5 inches Weight: 86.7 kg Current diet: NPO LABS: Sodium: 124 Potassium: 4.8 Chloride: 90 Calcium: 7.6 Corrected Calcium: 10.00 Magnesium: CO2: 25 SCr: 2.4 Glucose: 128-190 Albumin: 1.0 AST: 21 ALT: 17 TPN FORMULA: TPN TYPE: Central Continuous AMINO ACIDS: 90 gm DEXTROSE: 195 gm LIPIDS: 20 gm SODIUM CHLORIDE: 90 mEq POTASSIUM CHLORIDE: 50 mEq POTASSIUM PHOSPHATE: 13.6 mmol MAGNESIUM: 10 mEq CALCIUM: 10 mEq MULTIPLE VITAMIN: 10 ml TRACE ELEMENTS: 1 ml(s) TPN PLAN: Initiate house formula TPN R: Begin TPN Will monitor electrolytes, glucose, and tolerance to TPN. Maeve Schultz [place], 03/03/21 2290
[2021-03-03 19:50] VITALS: BP 122/66
[2021-03-03] MEDS ORDERED: TOTAL PARENTERAL NUTRITION 1,424.9614 ML, AMINO ACID 15% 60 GM, DEXTROSE 70 % IN WATER ... IV SCH (22:00)
[2021-03-03] MEDS: INSULIN GLARGINE SYRINGE. SQ SCH (22:20)
[2021-03-03 23:30] VITALS: BP 140/66
[2021-03-04 03:45] VITALS: BP 139/63
[2021-03-04] MEDS: PIPERACILLIN/TAZOBACTAM 2.25 GM in IV NORMAL SALINE 50ML 50 ML IV SCH ×3 (05:11→23:33)
[2021-03-04] MEDS: HEPARIN for SUB-Q USE 5,000 UNIT/ML VIAL. SQ SCH ×3 (05:13→22:18)
[2021-03-04 05:48] LABS: CALCIUM 7.5 mg/dL (8.5-10.1); CREATININE 1.8 mg/dL (0.6-1.0); GFR 34.3; MAGNESIUM 1.7 mg/dL (1.8-2.4); PHOSPHORUS 3.9 mg/dL (2.6-4.7); POTASSIUM 4.4 mmol/L (3.5-5.1)
[2021-03-04] MEDS: PANTOPRAZOLE IV PUSH 40 MG VIAL. IVP SCH (05:56)
--- NOTE | 2021-03-04 07:33 | PDOC ---
Infectious Disease Note Subjective: Subjective Patient moaning ,says yes to pain has open area near rectum with purulent drainage Cultures done gram-negative halina Discussed with nursing staff Vital Signs: Vital Signs Vital Signs Date Time Temp Pulse Resp B/P (MAP) Pulse Ox O2 Delivery O2 Flow Rate FiO2 03/04/21 03:45 98.7 90 21 139/63 (88) 93 Room Air 98.7 Physical Exam: PHYSICAL EXAM GENERAL: The patient is lying comfortably in bed, moaning Says yes to pain HEENT: Normocephalic, atraumatic. Anicteric. Oral mucosa moist. NECK: Supple. LUNGS: Clear bilaterally. No wheezing. HEART: S1, S2. No murmurs. ABDOMEN: Soft, nontender, nondistended. GENITOURINARY: Palacio in place, placed here. rectum with purulent drainage EXTREMITIES: No edema. No cyanosis. DERMATOLOGIC: Warm, dry, no generalized rash. NEUROLOGIC: Little more alert Medications: Inpatient Meds: Medications reviewed. Labs: Lab Laboratory Tests Test 03/03/21 07:46 03/03/21 12:12 03/03/21 16:27 03/03/21 20:40 Glucose (Fingerstick) 184 mg/dL (70-99) 128 mg/dL (70-99) 174 mg/dL (70-99) 181 mg/dL (70-99) Test 03/04/21 05:10 Sodium Level 131 mmol/L (136-145) Potassium Level 4.4 mmol/L (3.5-5.1) Chloride Level 96 mmol/L (98-107) Carbon Dioxide Level 28 mmol/L (21-32) Anion Gap 7 (6-14) Blood Urea Nitrogen 26 mg/dL (7-20) Creatinine 1.8 mg/dL (0.6-1.0) Estimated GFR (Cockcroft-Gault) 34.3 Glucose Level 225 mg/dL (70-99) Calcium Level 7.5 mg/dL (8.5-10.1) Phosphorus Level 3.9 mg/dL (2.6-4.7) Magnesium Level 1.7 mg/dL (1.8-2.4) Triglycerides Level 146 mg/dL (0-150) Micro Repeat CT March 02 FINDINGS: Evaluation of the solid organ parenchyma is limited by lack of IV Contrast. Evaluation of the hollow enteric structures is limited by lack of oral contrast. Lung bases: Mild atelectasis at the lung bases. Lower Mediastinum: Mild cardiomegaly. Liver: Normal in size and contour with no focal parenchymal abnormalities. Biliary: No intra or extra hepatic biliary ductal dilatation. Gallbladder: Surgically absent Pancreas: Grossly unremarkable Spleen: Grossly unremarkable Adrenals: Grossly unremarkable Kidneys: Free of any hydronephrosis, nephrolithiasis or focal parenchymal abnormality. Gastroduodenum: Grossly unremarkable. Small bowel: Grossly unremarkable with no areas of focal wall thickening or dilatation. Large bowel: Moderate stool throughout the colon. Diverticulosis without diverticulitis. There is moderate-sized stool ball with differential wall thickening of the rectum. Appendix: Normal Mesentery: No free or loculated fluid collections. No pathologic lymph adenopathy. Retroperitoneum: No suspicious masses or lymphadenopathy. Bladder: Decompressed around a Palacio balloon Reproductive pelvic organs: Absent Vascular:Aorta is nonaneurysmal. Mild atherosclerosis. Bones:No suspicious osteoblastic or osteolytic bone lesions. Soft Tissues: Redemonstration of large decubitus ulcer extending to the sacrum/coccyx bones. There are multiple pockets of air and fluid within the soft tissues of the perineum. Fat-containing ventral wall hernia. IMPRESSION: 1. Redemonstration of large decubitus ulcer with inferior sacrum/coccyx. There are air and fluid collections within the peritoneum likely representing abscesses bilaterally. Without enteric or IV contrast, assessment for fistula to the rectum is very limited. Within these limits there is no direct air containing tract into the rectum. Involvement of the anus is difficult to exclude. Findings are not significantly changed from the prior study. 2. Redemonstration of fecal impaction in the rectum with circumferential wall thickening likely on the basis of proctitis. Objective: Assessment: 1. Acute encephalopathy appears multifactorial 2. Leukocytosis 3. Infected sacral wound with necrosis and eschar. Intra-abdominal abscesses on repeat CT Proctitis Possible fistula 4. History of multiple wounds. 5. History of seizures. 6. Diabetes mellitus 2. 7. Depression. 8. Anemia. 9. History of cocaine disorder, in remission. 10. Hypernatremia. 11. Hypokalemia. 12. Protein-calorie malnutrition. 13. Nancy glabrata in urine could be colonization. Repeat urine cultures negative 14. SARS-COVID negative. Fecal impaction Hematuria Plan: Plan of Care Continue broad-spectrum antibiotics General Surgery following, has developed possible fistula Antibiotics alone may not be optimal Palacio management per protocol. Placed this admission per nursing staff Offload. Continue wound care as directed. Continue supportive care. Monitor labs and cultures. Prognosis is very poor. Swab cultures positive for gram-negative halina Discussed with Dr. Soriano Discussed with nursing staff RAFIA MORALES MD Mar 04, 2021 07:33
[2021-03-04 07:35] VITALS: BP 119/62
[2021-03-04] MEDS: TPN PER PHARMACY MC PRN (08:40)
[2021-03-04] MEDS: levETIRAcetam 500 MG in IV DEXTROSE 5% 100ML 100 ML IV SCH ×2 (08:55→21:59)
[2021-03-04] MEDS: INSULIN LISPRO 300 UNITS/3 ML VIAL. SQ SCH ×3 (08:58→17:26)
[2021-03-04] MEDS ORDERED: MAGNESIUM SULFATE 2GM 50 ML IV ONE (09:00)
[2021-03-04] MEDS: SODIUM HYPOCHLORITE 0.125% 473 ML BOTTLE. TP SCH ×2 (09:00→22:27)
--- NOTE | 2021-03-04 09:08 | NUR ---
Pharmacy TPN Dosing Note S: MERA HENLEY is a 65 year old F Currently receiving Central Continuous TPN started 03/03/21 B:Pertinent PMH: NPO Height: 5 feet, 5 inches Weight: 87.0 kg Current diet: NPO LABS: Sodium: 131 Potassium: 4.4 Chloride: 96 Calcium: 7.5 Corrected Calcium: 9.90 Magnesium: 1.7 CO2: 28 SCr: 1.8 Glucose: 128-225 Albumin: 1.0 AST: 21 ALT: 17 TPN FORMULA: TPN TYPE: Central Continuous AMINO ACIDS: 90 gm DEXTROSE: 195 gm LIPIDS: 20 gm SODIUM CHLORIDE: 90 mEq POTASSIUM CHLORIDE: 50 mEq POTASSIUM PHOSPHATE: 13.6 mmol MAGNESIUM: 12 mEq CALCIUM: 10 mEq MULTIPLE VITAMIN: 10 ml TRACE ELEMENTS: 1 ml(s) TPN PLAN: Magnsium 2g IVPB x1 today and increase magnesium in TPN R: Change TPN per plan and ordered formula Will monitor electrolytes, glucose, and tolerance to TPN. Maeve Schultz RPH, 03/04/21 [id number]
[2021-03-04 11:36] VITALS: BP 141/74
--- NOTE | 2021-03-04 12:05 | PDOC ---
[employer] PROGRESS NOTE Date of Service DOS: DATE: 03/04/21 TIME: 12:04 Chief Complaint Chief Complaint A/P: Acute encephalopathy - multifactorial, metabolic due to uremia, no SDH or CVA symptoms. less likely post-ictal. possibly related to sepsis as well Hypoxia Hypernatremia - likely free water deficit, was on numerous diuretics prior to admit, improved Sepsis - empiric vancomycin and zosyn given for likely gluteal ulcer as source. Will change to cefepime for renal failure. pharmacy to help dosing vancomycin. Fluids given MEHDI - likely vasomotor nephropathy possibly from free water deficit, sepsis. Will hydrate with bicarbonate fluids. Consult nephrology Gluteal ulcer - unstageable. Wound care and general surgery to see. possible sepsis source. Infectious disease Anemia Severe protein calorie malnutrition - will need early nutrition when mentation improves. Speech to see for swallow assessment Seizures - will dose IV keppra while confused. Prn ativan for seizure activity DM2 - basal bolus plus insulin Depression GERD - IV protonix HLD - hold statin while NPO HTN - prn hydralazine, prn metoprolol H/o cocaine use disorder - in remission in SNF Elevated troponin - likely demand ischemia due to above, will trend FEN - NPO PPX - heparin FULL CODE Dispo - inpatient. D/w [place], next of kin History of Present Illness History of Present Illness Ms Bentley is a 65 year old female with history of seizures, cocaine use disorder, DM2, depression, GERD, HLD, HTN who is a [facility] resident who comes to the ED via EMS due to unresponsiveness. Per SNF staff has been less active for the past month and had irregular breathing since 1000 this morning. retirement staff reports O2 saturations in the low 80s on room air so they put her on 3 L nasal cannula. Her oxygen saturation then raised to 92%. No witnessed seizure activity and she has reportedly been taking her Keppra and vimpat BID. Nonverbal enroute. She is baseline alert and aware x2 and wheelchair-bound. No falls or head trauma reported. She is unable to give any history and her daughter is listed as contact, voicemail box is full. Patient opens her eyes to painful stimuli and makes eye contact, does not follow any commands. Of note, she was admitted for similar complaints just a month ago. WBC 31.4, Hb 9.1, Platelets 369, Na 152, K 4, Cl 117, HCO3 23, BUN 108, Cr 3.3, glucose 161, lactic acid 1.2, ca 9.2, bili 0.5, AST 29, ALT 16, Alk phos 103, Trop 0.266, Albumin 1.7. Urine with blood and + leukocyte esterase EKG sinus rate of 99 bpm with TWI in inferolateral leads unchanged from prior EKG, significant baseline artefact, No ST elevations, QTc 509, CXR and CT head with no acute findings. Given leukocytosis and likely sepsis related to UTI, given empiric antibiotics and fluids and admitted for further care. 02/23: Afebrile. WBC 31.7, Hb 7.6, platelets 300, NA 156, K3.9, BUN 119, CR 3.6, glucose 153, alb 1.3. Covid neg. Breathing improved, but not communicating. Offloading for bedsore. 02/24: Afebrile. WBC still elevated patient septic. Son consented for dialysis catheter placement. BUN 128 today. Still very confused. Discussed with general surgery is poor surgical candidate but very large wound needs offloading possibly chemical debridement and consideration of wound VAC. Continue cefepime and vancomycin. Discussed with family overall goals of care. 02/25: Afebrile. Hb dropped to 6.9. To dialysis today for transfusion. Urine culture with Nancy glabrata. Afebrile. Glucose 67 this morning. Shaking Lasix. Low-grade axillary temp. Discussed with ID urine culture less likely to be source. Labs pending. Insulin adjusted 02/27 Patient evaluated and examined after dialysis. She was resting in bed very lethargic. Did not appear to be any clinical changes overall however. Continuing antibiotics and antifungals. Relatively poor prognosis. 02/28 Patient examined at bedside remains lethargic and altered. Clinically not much is changed. Continue antibiotics and antifungals per infectious disease very poor prognosis will attempt to contact family today regarding CODE STATUS, unable to reach will try again tomorrow. 03/01 Patient evaluated and examined at bedside. Remains somewhat altered. Very lethargic. Poor prognosis. Continuing antibiotics and antifungals. 03/02 Patient evaluated and examined at bedside. Does remain altered but notably more alert today. She arouses to my voice although still unable answer questions or follow commands. Despite this prognosis does remain poor. Will continue discussion with family if able to reach them. Continue antibiotics. Continue wound care. 03/03 Patient evaluated and examined at bedside. Upon entering room she was yelling out as she was getting her rectal wound cleaned. Necrotic areas on previous wound, wound VAC removed yesterday on initial wound. Seeing if the surgical team will come evaluate the patient to determine her surgical candidacy. If not a candidate will continue a DNR/DNI discussion with the family today with this new information. Continue antibiotics. Continue wound care 03/04 Patient evaluated examined at bedside. Is a very poor candidate for surgery. She is yelling out in a notable amount of pain anytime dressings are changed. Antibiotics and wound care for now. Vitals/I&O Vitals/I&O: Vital Signs Date Time Temp Pulse Resp B/P (MAP) Pulse Ox O2 Delivery O2 Flow Rate FiO2 03/04/21 11:36 98.6 84 18 141/74 (96) 98 Room Air 98.6 03/04/21 08:30 3.0 I & O 03/03/21 03/03/21 03/04/21 15:00 23:00 07:00 Intake Total 580 ml Output Total 300 ml 250 ml Balance 280 ml -250 ml Physical Exam Physical Exam: GENERAL: The patient is lying comfortably in bed, moaning Says yes to pain HEENT: Normocephalic, atraumatic. Anicteric. Oral mucosa moist. NECK: Supple. LUNGS: Clear bilaterally. No wheezing. HEART: S1, S2. No murmurs. ABDOMEN: Soft, nontender, nondistended. GENITOURINARY: Palacio in place, placed here. rectum with purulent drainage EXTREMITIES: No edema. No cyanosis. DERMATOLOGIC: Warm, dry, no generalized rash. NEUROLOGIC: Little more alert General: Other (moans ) Heart: Normal S1, Normal S2, Other (mild tachy ) Lungs: Crackles Abdomen: Soft Extremities: No edema Skin: Other (sacral ulcer unchanged, there is a open wound with purulent drainage near rectum ) Labs Labs: Laboratory Tests Test 03/03/21 12:12 03/03/21 16:27 03/03/21 20:40 03/04/21 05:10 Glucose (Fingerstick) 128 mg/dL (70-99) 174 mg/dL (70-99) 181 mg/dL (70-99) Sodium Level 131 mmol/L (136-145) Potassium Level 4.4 mmol/L (3.5-5.1) Chloride Level 96 mmol/L (98-107) Carbon Dioxide Level 28 mmol/L (21-32) Anion Gap 7 (6-14) Blood Urea Nitrogen 26 mg/dL (7-20) Creatinine 1.8 mg/dL (0.6-1.0) Estimated GFR (Cockcroft-Gault) 34.3 Glucose Level 225 mg/dL (70-99) Calcium Level 7.5 mg/dL (8.5-10.1) Phosphorus Level 3.9 mg/dL (2.6-4.7) Magnesium Level 1.7 mg/dL (1.8-2.4) Triglycerides Level 146 mg/dL (0-150) Test 03/04/21 08:47 Glucose (Fingerstick) 205 mg/dL (70-99) Assessment and Plan Assessmemt and Plan Problems Medical Problems: (1) Acute encephalopathy Status: Acute (2) Acute kidney injury superimposed on chronic kidney disease Status: Acute (3) NSTEMI (non-ST elevated myocardial infarction) Status: Acute (4) Sepsis Status: Acute (5) UTI (urinary tract infection) Status: Acute Comment Review of Relevant I have reviewed the following items toan (where applicable) has been applied. Medications: Current Medications Medications (Trade) Dose Ordered Sig/Es Route PRN Reason Start Time Stop Time Status Last Admin Dose Admin Info (Tpn Per Pharmacy) 1 each PRN DAILY PRN MC SEE COMMENTS 03/04/21 09:00 03/04/21 08:40 Sodium Chloride 90 meq/Potassium Chloride 50 meq/ Potassium Phosphate 13.6 mmol/Magnesium Sulfate 10 meq/ Calcium Gluconate 10 meq/ Multivitamins 10 ml/Zinc/Copper/ Manganese/ Selenium 1 ml/ Total Parenteral Nutrition/Amino Acids/Dextrose/ Fat Emulsion Intravenous 1,512 ml @ 63 mls/hr TPN CONT IV 03/03/21 22:00 03/04/21 21:59 03/03/21 22:41 Magnesium Sulfate 50 ml @ 25 mls/hr 1X ONCE IV 03/04/21 09:00 03/04/21 10:59 DC 03/04/21 09:43 Justifications for Admission General Conditions Poss Metaboilic Acidosis?: Yes Justification for admission: Patient has tachycardia (> 100 beats per minute) or hypotension (SBP < 90 mm Hg) leading to inadequate systemic perfusion as indicated by metabolic acidosis with arterial pH of less than 7.35. Other Justification ALEXANDRIA ALVARADO MD Mar 04, 2021 12:05
--- NOTE | 2021-03-04 12:10 | PDOC ---
SURGICAL PROGRESS NOTE DATE: 03/04/21 TIME: 12:08 Subjective Pt not interactive Vital Signs Vital Signs Date Time Temp Pulse Resp B/P (MAP) Pulse Ox O2 Delivery O2 Flow Rate FiO2 03/04/21 11:36 98.6 84 18 141/74 (96) 98 Room Air 98.6 03/04/21 08:30 3.0 I&O Intake and Output 03/04/21 07:00 Intake Total 580 ml Output Total 550 ml Balance 30 ml Intake Oral 500 ml IV Total 80 ml Output Urine Total 550 ml General: No acute distress Skin: Other (reviewed ulcer with nursing as well as perirectal area) Labs Laboratory Tests Test 03/02/21 16:50 03/02/21 20:59 03/03/21 05:30 03/03/21 07:46 Glucose (Fingerstick) 180 mg/dL (70-99) 182 mg/dL (70-99) 184 mg/dL (70-99) Sodium Level 124 mmol/L (136-145) Potassium Level 4.8 mmol/L (3.5-5.1) Chloride Level 90 mmol/L (98-107) Carbon Dioxide Level 25 mmol/L (21-32) Anion Gap 9 (6-14) Blood Urea Nitrogen 55 mg/dL (7-20) Creatinine 2.4 mg/dL (0.6-1.0) Estimated GFR (Cockcroft-Gault) 24.6 Glucose Level 190 mg/dL (70-99) Calcium Level 7.6 mg/dL (8.5-10.1) Hepatitis B Core Total Antibody Nonreactive (Nonreactive) Test 03/03/21 12:12 03/03/21 16:27 03/03/21 20:40 03/04/21 05:10 Glucose (Fingerstick) 128 mg/dL (70-99) 174 mg/dL (70-99) 181 mg/dL (70-99) Sodium Level 131 mmol/L (136-145) Potassium Level 4.4 mmol/L (3.5-5.1) Chloride Level 96 mmol/L (98-107) Carbon Dioxide Level 28 mmol/L (21-32) Anion Gap 7 (6-14) Blood Urea Nitrogen 26 mg/dL (7-20) Creatinine 1.8 mg/dL (0.6-1.0) Estimated GFR (Cockcroft-Gault) 34.3 Glucose Level 225 mg/dL (70-99) Calcium Level 7.5 mg/dL (8.5-10.1) Phosphorus Level 3.9 mg/dL (2.6-4.7) Magnesium Level 1.7 mg/dL (1.8-2.4) Triglycerides Level 146 mg/dL (0-150) Test 03/04/21 08:47 Glucose (Fingerstick) 205 mg/dL (70-99) Laboratory Tests Test 03/03/21 12:12 03/03/21 16:27 03/03/21 20:40 03/04/21 05:10 Glucose (Fingerstick) 128 mg/dL (70-99) 174 mg/dL (70-99) 181 mg/dL (70-99) Sodium Level 131 mmol/L (136-145) Potassium Level 4.4 mmol/L (3.5-5.1) Chloride Level 96 mmol/L (98-107) Carbon Dioxide Level 28 mmol/L (21-32) Anion Gap 7 (6-14) Blood Urea Nitrogen 26 mg/dL (7-20) Creatinine 1.8 mg/dL (0.6-1.0) Estimated GFR (Cockcroft-Gault) 34.3 Glucose Level 225 mg/dL (70-99) Calcium Level 7.5 mg/dL (8.5-10.1) Phosphorus Level 3.9 mg/dL (2.6-4.7) Magnesium Level 1.7 mg/dL (1.8-2.4) Triglycerides Level 146 mg/dL (0-150) Test 03/04/21 08:47 Glucose (Fingerstick) 205 mg/dL (70-99) Problem List Problems Medical Problems: (1) Acute encephalopathy Status: Acute (2) Acute kidney injury superimposed on chronic kidney disease Status: Acute (3) NSTEMI (non-ST elevated myocardial infarction) Status: Acute (4) Sepsis Status: Acute (5) UTI (urinary tract infection) Status: Acute Assessment/Plan if family interested, would consider sacral ulcer debridement, perianal abscess additional drainage and fecal disimpaction. Regardless, pt remains with poor halfway prognosis. Justicifation of Admission Dx: Justifications for Admission: Justification of Admission Dx: N/A TANYA OLIVA MD Mar 04, 2021 12:10
[2021-03-04] MEDS: MICAFUNGIN 100 MG in IV DEXTROSE 5% 100ML 100 ML IV SCH (13:04)
[2021-03-04 14:29] VITALS: BP 129/61
[2021-03-04 20:25] VITALS: BP 141/68
[2021-03-04] MEDS ORDERED: DEXTROSE 70% IV SCH (22:00)
[2021-03-04] MEDS ORDERED: [UNRECOGNIZED DRUG - OTHER] IV SCH (22:00)
[2021-03-04] MEDS ORDERED: TOTAL PARENTERAL NUTRITION IV SCH (22:00)
[2021-03-04] MEDS ORDERED: AMINO ACID IV SCH (22:00)
[2021-03-04] MEDS: INSULIN GLARGINE SYRINGE. SQ SCH (22:18)
[2021-03-04 23:20] VITALS: BP 144/75
[2021-03-05 03:05] VITALS: BP 143/75
[2021-03-05] MEDS: PIPERACILLIN/TAZOBACTAM 2.25 GM in IV NORMAL SALINE 50ML 50 ML IV SCH ×3 (06:18→22:19)
[2021-03-05] MEDS: HEPARIN for SUB-Q USE 5,000 UNIT/ML VIAL. SQ SCH ×3 (06:20→21:38)
[2021-03-05 06:53] LABS: ALBUMIN/GLOBULIN RATIO 0.2 (1.0-1.7); CALCIUM 7.7 mg/dL (8.5-10.1); CREATININE 2.2 mg/dL (0.6-1.0); GFR 27.2; MAGNESIUM 2.2 mg/dL (1.8-2.4); PHOSPHORUS 4.3 mg/dL (2.6-4.7); POTASSIUM 4.7 mmol/L (3.5-5.1); TOTAL BILIRUBIN 0.4 mg/dL (0.2-1.0)
[2021-03-05 07:55] VITALS: BP 144/75
[2021-03-05] MEDS: PANTOPRAZOLE IV PUSH 40 MG VIAL. IVP SCH (08:10)
[2021-03-05] MEDS: levETIRAcetam 500 MG in IV DEXTROSE 5% 100ML 100 ML IV SCH ×2 (08:11→21:35)
[2021-03-05] MEDS: TPN PER PHARMACY MC PRN (08:38)
[2021-03-05] MEDS: SODIUM HYPOCHLORITE 0.125% 473 ML BOTTLE. TP SCH ×2 (09:00→22:18)
--- NOTE | 2021-03-05 09:11 | PDOC ---
Infectious Disease Note Subjective: Subjective Patient resting quietly Afebrile Vital Signs: Vital Signs Vital Signs Date Time Temp Pulse Resp B/P (MAP) Pulse Ox O2 Delivery O2 Flow Rate FiO2 03/05/21 07:55 98.1 89 18 144/75 (98) 96 Room Air 98.1 03/04/21 08:30 3.0 Physical Exam: PHYSICAL EXAM GENERAL: The patient is lying comfortably in bed, arousable but does not answer all questions Nods yes to pain HEENT: Normocephalic, atraumatic. Anicteric. Oral mucosa moist. NECK: Supple. LUNGS: Clear bilaterally. No wheezing. HEART: S1, S2. No murmurs. ABDOMEN: Soft, nontender, nondistended. GENITOURINARY: Palacio in place, placed here. rectum with purulent drainage EXTREMITIES: No edema. No cyanosis. DERMATOLOGIC: Warm, dry, no generalized rash. NEUROLOGIC: Little more alert Medications: Inpatient Meds: Medications reviewed. Labs: Lab Laboratory Tests Test 03/04/21 12:58 03/04/21 17:05 03/04/21 20:29 03/05/21 06:25 Glucose (Fingerstick) 271 mg/dL (70-99) 217 mg/dL (70-99) 163 mg/dL (70-99) Sodium Level 129 mmol/L (136-145) Potassium Level 4.7 mmol/L (3.5-5.1) Chloride Level 97 mmol/L (98-107) Carbon Dioxide Level 27 mmol/L (21-32) Anion Gap 5 (6-14) Blood Urea Nitrogen 33 mg/dL (7-20) Creatinine 2.2 mg/dL (0.6-1.0) Estimated GFR (Cockcroft-Gault) 27.2 BUN/Creatinine Ratio 15 (6-20) Glucose Level 231 mg/dL (70-99) Calcium Level 7.7 mg/dL (8.5-10.1) Phosphorus Level 4.3 mg/dL (2.6-4.7) Magnesium Level 2.2 mg/dL (1.8-2.4) Total Bilirubin 0.4 mg/dL (0.2-1.0) Aspartate Amino Transf (AST/SGOT) 15 U/L (15-37) Alanine Aminotransferase (ALT/SGPT) 16 U/L (14-59) Alkaline Phosphatase 81 U/L (46-116) Total Protein 6.0 g/dL (6.4-8.2) Albumin 1.0 g/dL (3.4-5.0) Albumin/Globulin Ratio 0.2 (1.0-1.7) Test 03/05/21 08:44 Glucose (Fingerstick) 231 mg/dL (70-99) Micro Repeat CT March 02 FINDINGS: Evaluation of the solid organ parenchyma is limited by lack of IV Contrast. Evaluation of the hollow enteric structures is limited by lack of oral contrast. Lung bases: Mild atelectasis at the lung bases. Lower Mediastinum: Mild cardiomegaly. Liver: Normal in size and contour with no focal parenchymal abnormalities. Biliary: No intra or extra hepatic biliary ductal dilatation. Gallbladder: Surgically absent Pancreas: Grossly unremarkable Spleen: Grossly unremarkable Adrenals: Grossly unremarkable Kidneys: Free of any hydronephrosis, nephrolithiasis or focal parenchymal abnormality. Gastroduodenum: Grossly unremarkable. Small bowel: Grossly unremarkable with no areas of focal wall thickening or dilatation. Large bowel: Moderate stool throughout the colon. Diverticulosis without diverticulitis. There is moderate-sized stool ball with differential wall thickening of the rectum. Appendix: Normal Mesentery: No free or loculated fluid collections. No pathologic lymphadenopathy. Retroperitoneum: No suspicious masses or lymphadenopathy. Bladder: Decompressed around a Palacio balloon Reproductive pelvic organs: Absent Vascular:Aorta is nonaneurysmal. Mild atherosclerosis. Bones:No suspicious osteoblastic or osteolytic bone lesions. Soft Tissues: Redemonstration of large decubitus ulcer extending to the sacr um/coccyx bones. There are multiple pockets of air and fluid within the soft tissues of the perineum. Fat-containing ventral wall hernia. IMPRESSION: 1. Redemonstration of large decubitus ulcer with inferior sacrum/coccyx. There are air and fluid collections within the peritoneum likely representing abscesses bilaterally. Without enteric or IV contrast, assessment for fistula to the rectum is very limited. Within these limits there is no direct air containing tract into the rectum. Involvement of the anus is difficult to exclude. Findings are not significantly changed from the prior study. 2. Redemonstration of fecal impaction in the rectum with circumferential wall thickening likely on the basis of proctitis. Objective: Assessment: 1. Acute encephalopathy appears multifactorial 2. Leukocytosis 3. Infected sacral wound with necrosis and eschar. Intra-abdominal abscesses on repeat CT Proctitis Possible fistula 4. History of multiple wounds. 5. History of seizures. 6. Diabetes mellitus 2. 7. Depression. 8. Anemia. 9. History of cocaine disorder, in remission. 10. Hypernatremia. 11. Hypokalemia. 12. Protein-calorie malnutrition. 13. Nancy glabrata in urine could be colonization. Repeat urine cultures negative 14. SARS-COVID negative. Fecal impaction Hematuria Swab cultures PROTEUS MIRABILIS UNIDENTIFIED ORGANISM ENTEROCOCCUS FAECALIS GRAM NEGATIVE RODS Plan: Plan of Care Continue broad-spectrum antibiotics CT abdomen and pelvis done twice General Surgery following, has developed possible fistula WBC is decreasing though very slowly May need surgical debridement Palacio management per protocol. Placed this admission per nursing staff Offload. Continue wound care as directed. Continue supportive care. Monitor labs and cultures. Prognosis is very poor. Discussed with nursing staff RAFIA MORALES MD Mar 05, 2021 09:11
--- NOTE | 2021-03-05 09:11 | NUR ---
Pharmacy TPN Dosing Note S: MERA HENLEY is a 65 year old F Currently receiving Central Continuous TPN started 03/03/21 B:Pertinent PMH: NPO Height: 5 feet, 5 inches Weight: 89.0 kg Current diet: NPO LABS: Sodium: 129 Potassium: 4.7 Chloride: 97 Calcium: 7.7 Corrected Calcium: 10.10 Magnesium: 2.2 CO2: 27 SCr: 2.2 Glucose: 231 Albumin: 1.0 AST: 21 ALT: 17 TPN FORMULA: TPN TYPE: Central Continuous AMINO ACIDS: 90 gm DEXTROSE: 195 gm LIPIDS: 20 gm SODIUM CHLORIDE: 110 mEq POTASSIUM CHLORIDE: 50 mEq POTASSIUM PHOSPHATE: 6.8 mmol MAGNESIUM: 12 mEq CALCIUM: 10 mEq MULTIPLE VITAMIN: 10 ml TRACE ELEMENTS: 1 ml(s) TPN PLAN: Sodium increased in TPN and rate decreased to help with low sodium. Phos decreaed based on upward trend. Labs in AM R: Change TPN per plan and ordered formula Will monitor electrolytes, glucose, and tolerance to TPN. Maeve Schultz [facility], 03/05/21 [id number]
[2021-03-05] MEDS: INSULIN LISPRO 300 UNITS/3 ML VIAL. SQ SCH ×3 (09:14→16:28)
[2021-03-05 11:00] VITALS: BP 138/78
[2021-03-05] MEDS: DAPTOmycin (GENERIC) IVPB 420 MG in IV NORMAL SALINE 50ML 50 ML IV SCH (11:15)
[2021-03-05] MEDS: MICAFUNGIN 100 MG in IV DEXTROSE 5% 100ML 100 ML IV SCH (11:59)
--- NOTE | 2021-03-05 12:56 | PDOC ---
[employer] PROGRESS NOTE Date of Service DOS: DATE: 03/05/21 TIME: 12:54 Chief Complaint Chief Complaint A/P: Acute encephalopathy - multifactorial, metabolic due to uremia, no SDH or CVA symptoms. less likely post-ictal. possibly related to sepsis as well Hypoxia Hypernatremia - likely free water deficit, was on numerous diuretics prior to admit, improved Sepsis - empiric vancomycin and zosyn given for likely gluteal ulcer as source. Will change to cefepime for renal failure. pharmacy to help dosing vancomycin. Fluids given MEHDI - likely vasomotor nephropathy possibly from free water deficit, sepsis. Will hydrate with bicarbonate fluids. Consult nephrology Gluteal ulcer - unstageable. Wound care and general surgery to see. possible sepsis source. Infectious disease. Continue current antibiotics. Poor surgical candidate. Cannot get a hold of family multiple times this week to discuss goals of care Anemia Severe protein calorie malnutrition - will need early nutrition when mentation improves. Speech to see for swallow assessment Seizures - will dose IV keppra while confused. Prn ativan for seizure activity DM2 - basal bolus plus insulin Depression GERD - IV protonix HLD - hold statin while NPO HTN - prn hydralazine, prn metoprolol H/o cocaine use disorder - in remission in SNF Elevated troponin - likely demand ischemia due to above, will trend FEN - NPO PPX - heparin FULL CODE Dispo - inpatient. D/w [place], next of kin History of Present Illness History of Present Illness Ms Bentley is a 65 year old female with history of seizures, cocaine use disorder, DM2, depression, GERD, HLD, HTN who is a skilled nursing SNF resident who comes to the ED via EMS due to unresponsiveness. Per SNF staff has been less active for the past month and had irregular breathing since 1000 this morning. senior living staff reports O2 saturations in the low 80s on room air so they put her on 3 L nasal cannula. Her oxygen satur ation then raised to 92%. No witnessed seizure activity and she has reportedly been taking her Keppra and vimpat BID. Nonverbal enroute. She is baseline alert and aware x2 and wheelchair-bound. No falls or head trauma reported. She is unable to give any history and her daughter is listed as contact, voicemail box is full. Patient opens her eyes to painful stimuli and makes eye contact, does not follow any commands. Of note, she was admitted for similar complaints just a month ago. WBC 31.4, Hb 9.1, Platelets 369, Na 152, K 4, Cl 117, HCO3 23, BUN 108, Cr 3.3, glucose 161, lactic acid 1.2, ca 9.2, bili 0.5, AST 29, ALT 16, Alk phos 103, Trop 0.266, Albumin 1.7. Urine with blood and + leukocyte esterase EKG sinus rate of 99 bpm with TWI in inferolateral leads unchanged from prior EKG, significant baseline artefact, No ST elevations, QTc 509, CXR and CT head with no acute findings. Given leukocytosis and likely sepsis related to UTI, given empiric antibiotics and fluids and admitted for further care. 02/23: Afebrile. WBC 31.7, Hb 7.6, platelets 300, NA 156, K3.9, BUN 119, CR 3.6, glucose 153, alb 1.3. Covid neg. Breathing improved, but not communicating. Offloading for bedsore. 02/24: Afebrile. WBC still elevated patient septic. Son consented for dialysis catheter placement. BUN 128 today. Still very confused. Discussed with general surgery is poor surgical candidate but very large wound needs offloading possibly chemical debridement and consideration of wound VAC. Continue cefepime and vancomycin. Discussed with family overall goals of care. 02/25: Afebrile. Hb dropped to 6.9. To dialysis today for transfusion. Urine culture with Nancy glabrata. Afebrile. Glucose 67 this morning. Shaking Lasix. Low-grade axillary temp. Discussed with ID urine culture less likely to be source. Labs pending. Insulin adjusted 02/27 Patient evaluated and examined after dialysis. She was resting in bed very lethargic. Did not appear to be any clinical changes overall however. Continuing antibiotics and antifungals. Relatively poor prognosis. 02/28 Patient examined at bedside remains lethargic and altered. Clinically not much is changed. Continue antibiotics and antifungals per infectious disease very poor prognosis will attempt to contact family today regarding CODE STATUS, unable to reach will try again tomorrow. 03/01 Patient evaluated and examined at bedside. Remains somewhat altered. Very lethargic. Poor prognosis. Continuing antibiotics and antifungals. 03/02 Patient evaluated and examined at bedside. Does remain altered but notably more alert today. She arouses to my voice although still unable answer questions or follow commands. Despite this prognosis does remain poor. Will continue discussion with family if able to reach them. Continue antibiotics. Continue wound care. 03/03 Patient evaluated and examined at bedside. Upon entering room she was yelling out as she was getting her rectal wound cleaned. Necrotic areas on previous wound, wound VAC removed yesterday on initial wound. Seeing if the surgical team will come evaluate the patient to determine her surgical candidacy. If not a candidate will continue a DNR/DNI discussion with the family today with this new information. Continue antibiotics. Continue wound care 03/04 Patient evaluated examined at bedside. Is a very poor candidate for surgery. She is yelling out in a notable amount of pain anytime dressings are changed. Antibiotics and wound care for now. 03/05 Patient evaluated and examined at bedside. Reviewed surgical notes. Have attempted to contact family multiple times this week to discuss goals of care however efforts have proven futile. Continue antibiotics. We will see if social work can assist in reaching family. Vitals/I&O Vitals/I&O: Vital Signs Date Time Temp Pulse Resp B/P (MAP) Pulse Ox O2 Delivery O2 Flow Rate FiO2 03/05/21 11:00 98.9 79 20 138/78 (98) 97 Room Air 98.9 03/04/21 08:30 3.0 I & O 03/04/21 03/04/21 03/05/21 15:00 23:00 07:00 Intake Total 0 ml 1617 ml 350 ml Output Total 300 ml 350 ml Balance 0 ml 1317 ml 0 ml Physical Exam Physical Exam: GENERAL: The patient is lying comfortably in bed, arousable but does not answer all questions Nods yes to pain HEENT: Normocephalic, atraumatic. Anicteric. Oral mucosa moist. NECK: Supple. LUNGS: Clear bilaterally. No wheezing. HEART: S1, S2. No murmurs. ABDOMEN: Soft, nontender, nondistended. GENITOURINARY: Palacio in place, placed here. rectum with purulent drainage EXTREMITIES: No edema. No cyanosis. DERMATOLOGIC: Warm, dry, no generalized rash. NEUROLOGIC: Little more alert General: No acute distress Heart: Normal S1, Normal S2, Other (mild tachy ) Lungs: Crackles Abdomen: Soft Extremities: No edema Skin: Other (reviewed ulcer with nursing as well as perirectal area) Labs Labs: Laboratory Tests Test 03/04/21 12:58 03/04/21 17:05 03/04/21 20:29 03/05/21 06:25 Glucose (Fingerstick) 271 mg/dL (70-99) 217 mg/dL (70-99) 163 mg/dL (70-99) Sodium Level 129 mmol/L (136-145) Potassium Level 4.7 mmol/L (3.5-5.1) Chloride Level 97 mmol/L (98-107) Carbon Dioxide Level 27 mmol/L (21-32) Anion Gap 5 (6-14) Blood Urea Nitrogen 33 mg/dL (7-20) Creatinine 2.2 mg/dL (0.6-1.0) Estimated GFR (Cockcroft-Gault) 27.2 BUN/Creatinine Ratio 15 (6-20) Glucose Level 231 mg/dL (70-99) Calcium Level 7.7 mg/dL (8.5-10.1) Phosphorus Level 4.3 mg/dL (2.6-4.7) Magnesium Level 2.2 mg/dL (1.8-2.4) Total Bilirubin 0.4 mg/dL (0.2-1.0) Aspartate Amino Transf (AST/SGOT) 15 U/L (15-37) Alanine Aminotransferase (ALT/SGPT) 16 U/L (14-59) Alkaline Phosphatase 81 U/L (46-116) Total Protein 6.0 g/dL (6.4-8.2) Albumin 1.0 g/dL (3.4-5.0) Albumin/Globulin Ratio 0.2 (1.0-1.7) Test 03/05/21 08:44 Glucose (Fingerstick) 231 mg/dL (70-99) Assessment and Plan Assessmemt and Plan Problems Medical Problems: (1) Acute encephalopathy Status: Acute (2) Acute kidney injury superimposed on chronic kidney disease Status: Acute (3) NSTEMI (non-ST elevated myocardial infarction) Status: Acute (4) Sepsis Status: Acute (5) UTI (urinary tract infection) Status: Acute Comment Review of Relevant I have reviewed the following items toan (where applicable) has been applied. Medications: Current Medications Medications (Trade) Dose Ordered Sig/Es Route PRN Reason Start Time Stop Time Status Last Admin Dose Admin Sodium Chloride 90 meq/Potassium Chloride 50 meq/ Potassium Phosphate 13.6 mmol/Magnesium Sulfate 12 meq/ Calcium Gluconate 10 meq/ Multivitamins 10 ml/Zinc/Copper/ Manganese/ Selenium 1 ml/ Total Parenteral Nutrition/Amino Acids/Dextrose/ Fat Emulsion Intravenous 1,512 ml @ 63 mls/hr TPN CONT IV 03/04/21 22:00 03/05/21 21:59 03/04/21 22:29 Daptomycin 420 mg/ Sodium Chloride 50 ml @ 100 mls/hr Q24H IV 03/05/21 10:30 03/05/21 11:15 Justifications for Admission General Conditions Poss Metaboilic Acidosis?: Yes Justification for admission: Patient has tachycardia (> 100 beats per minute) or hypotension (SBP < 90 mm Hg) leading to inadequate systemic perfusion as indicated by metabolic acidosis with arterial pH of less than 7.35. Other Justification ALEXANDRIA ALVARADO MD Mar 05, 2021 12:56
[2021-03-05 15:19] VITALS: BP 159/79
--- NOTE | 2021-03-05 19:09 | PDOC ---
SURGICAL PROGRESS NOTE DATE: 03/05/21 TIME: 19:08 Subjective Pt appears comfortable Vital Signs Vital Signs Date Time Temp Pulse Resp B/P (MAP) Pulse Ox O2 Delivery O2 Flow Rate FiO2 03/05/21 15:19 98.7 79 18 159/79 (105) 96 Room Air 98.7 03/04/21 08:30 3.0 I&O Intake and Output 03/05/21 07:00 Intake Total 1967 ml Output Total 650 ml Balance 1317 ml Intake Oral 0 ml IV Total 1967 ml Output Urine Total 650 ml # Bowel Movements 6 General: Alert, No acute distress Abdomen: Soft Labs Laboratory Tests Test 03/03/21 20:40 03/04/21 05:10 03/04/21 08:47 03/04/21 12:58 Glucose (Fingerstick) 181 mg/dL (70-99) 205 mg/dL (70-99) 271 mg/dL (70-99) Sodium Level 131 mmol/L (136-145) Potassium Level 4.4 mmol/L (3.5-5.1) Chloride Level 96 mmol/L (98-107) Carbon Dioxide Level 28 mmol/L (21-32) Anion Gap 7 (6-14) Blood Urea Nitrogen 26 mg/dL (7-20) Creatinine 1.8 mg/dL (0.6-1.0) Estimated GFR (Cockcroft-Gault) 34.3 Glucose Level 225 mg/dL (70-99) Calcium Level 7.5 mg/dL (8.5-10.1) Phosphorus Level 3.9 mg/dL (2.6-4.7) Magnesium Level 1.7 mg/dL (1.8-2.4) Triglycerides Level 146 mg/dL (0-150) Test 03/04/21 17:05 03/04/21 20:29 03/05/21 06:25 03/05/21 08:44 Glucose (Fingerstick) 217 mg/dL (70-99) 163 mg/dL (70-99) 231 mg/dL (70-99) Sodium Level 129 mmol/L (136-145) Potassium Level 4.7 mmol/L (3.5-5.1) Chloride Level 97 mmol/L (98-107) Carbon Dioxide Level 27 mmol/L (21-32) Anion Gap 5 (6-14) Blood Urea Nitrogen 33 mg/dL (7-20) Creatinine 2.2 mg/dL (0.6-1.0) Estimated GFR (Cockcroft-Gault) 27.2 BUN/Creatinine Ratio 15 (6-20) Glucose Level 231 mg/dL (70-99) Calcium Level 7.7 mg/dL (8.5-10.1) Phosphorus Level 4.3 mg/dL (2.6-4.7) Magnesium Level 2.2 mg/dL (1.8-2.4) Total Bilirubin 0.4 mg/dL (0.2-1.0) Aspartate Amino Transf (AST/SGOT) 15 U/L (15-37) Alanine Aminotransferase (ALT/SGPT) 16 U/L (14-59) Alkaline Phosphatase 81 U/L (46-116) Total Protein 6.0 g/dL (6.4-8.2) Albumin 1.0 g/dL (3.4-5.0) Albumin/Globulin Ratio 0.2 (1.0-1.7) Test 03/05/21 16:26 Glucose (Fingerstick) 190 mg/dL (70-99) Laboratory Tests Test 03/04/21 20:29 03/05/21 06:25 03/05/21 08:44 03/05/21 16:26 Glucose (Fingerstick) 163 mg/dL (70-99) 231 mg/dL (70-99) 190 mg/dL (70-99) Sodium Level 129 mmol/L (136-145) Potassium Level 4.7 mmol/L (3.5-5.1) Chloride Level 97 mmol/L (98-107) Carbon Dioxide Level 27 mmol/L (21-32) Anion Gap 5 (6-14) Blood Urea Nitrogen 33 mg/dL (7-20) Creatinine 2.2 mg/dL (0.6-1.0) Estimated GFR (Cockcroft-Gault) 27.2 BUN/Creatinine Ratio 15 (6-20) Glucose Level 231 mg/dL (70-99) Calcium Level 7.7 mg/dL (8.5-10.1) Phosphorus Level 4.3 mg/dL (2.6-4.7) Magnesium Level 2.2 mg/dL (1.8-2.4) Total Bilirubin 0.4 mg/dL (0.2-1.0) Aspartate Amino Transf (AST/SGOT) 15 U/L (15-37) Alanine Aminotransferase (ALT/SGPT) 16 U/L (14-59) Alkaline Phosphatase 81 U/L (46-116) Total Protein 6.0 g/dL (6.4-8.2) Albumin 1.0 g/dL (3.4-5.0) Albumin/Globulin Ratio 0.2 (1.0-1.7) Problem List Problems Medical Problems: (1) Acute encephalopathy Status: Acute (2) Acute kidney injury superimposed on chronic kidney disease Status: Acute (3) NSTEMI (non-ST elevated myocardial infarction) Status: Acute (4) Sepsis Status: Acute (5) UTI (urinary tract infection) Status: Acute Assessment/Plan agree with primary of asking SW to work on goals of care with family. Justicifation of Admission Dx: Justifications for Admission: Justification of Admission Dx: N/A TANYA OLIVA MD Mar 05, 2021 19:09
[2021-03-05 19:50] VITALS: BP 157/84
[2021-03-05] MEDS: INSULIN GLARGINE SYRINGE. SQ SCH (21:38)
[2021-03-05] MEDS ORDERED: AMINO ACID IV SCH (22:00)
[2021-03-05] MEDS ORDERED: TOTAL PARENTERAL NUTRITION IV SCH (22:00)
[2021-03-05] MEDS ORDERED: [UNRECOGNIZED DRUG - OTHER] IV SCH (22:00)
[2021-03-05] MEDS ORDERED: DEXTROSE 70% IV SCH (22:00)
[2021-03-05 23:10] VITALS: BP 146/74
[2021-03-06] VITALS (10 sets, daily range): BP systolic 140–165; BP diastolic 71–95
[2021-03-06] MEDS: PIPERACILLIN/TAZOBACTAM 2.25 GM in IV NORMAL SALINE 50ML 50 ML IV SCH ×3 (05:43→21:06)
[2021-03-06] MEDS: HEPARIN for SUB-Q USE 5,000 UNIT/ML VIAL. SQ SCH ×3 (05:44→20:35)
[2021-03-06 06:13] LABS: CALCIUM 7.9 mg/dL (8.5-10.1); CREATININE 2.2 mg/dL (0.6-1.0); GFR 27.2; POTASSIUM 4.2 mmol/L (3.5-5.1)
[2021-03-06 06:53] LABS: BASO % 0 % (0-3); EOS # 0.1 x10^3/uL (0.0-0.7); EOS % 1 % (0-3); LYMPH # 1.1 x10^3/uL (1.0-4.8); LYMPH % 11 % (24-48); MEAN CORPUSCULAR HEMOGLOBIN 28 pg (25-35); MEAN CORPUSCULAR HGB CONC 33 g/dL (31-37); MEAN CORPUSCULAR VOLUME 84 fL (79-100); MONO # 0.6 x10^3/uL (0.0-1.1); MONO % 7 % (0-9); NEUT # 8.1 x10^3/uL (1.8-7.7); NEUT % 82 % (31-73); PLATELET COUNT 233 x10^3/uL (140-400); RED BLOOD COUNT 2.35 x10^6/uL (3.50-5.40); RED CELL DISTRIBUTION WIDTH 16.1 % (11.5-14.5); WHITE BLOOD COUNT 9.9 x10^3/uL (4.0-11.0)
[2021-03-06 06:54] LABS: HEMOGLOBIN 6.5 g/dL (12.0-15.5)
[2021-03-06 06:56] LABS: HEMATOCRIT 19.8 % (36.0-47.0)
[2021-03-06] MEDS: PANTOPRAZOLE IV PUSH 40 MG VIAL. IVP SCH (07:50)
[2021-03-06] MEDS: levETIRAcetam 500 MG in IV DEXTROSE 5% 100ML 100 ML IV SCH ×2 (07:51→20:10)
[2021-03-06] MEDS: INSULIN LISPRO 300 UNITS/3 ML VIAL. SQ SCH ×3 (07:56→17:13)
[2021-03-06] MEDS: SODIUM HYPOCHLORITE 0.125% 473 ML BOTTLE. TP SCH ×2 (09:00→20:12)
--- NOTE | 2021-03-06 09:59 | PDOC ---
SURGICAL PROGRESS NOTE DATE: 03/06/21 TIME: 09:59 Subjective d/w IPC Vital Signs Vital Signs Date Time Temp Pulse Resp B/P (MAP) Pulse Ox O2 Delivery O2 Flow Rate FiO2 03/06/21 07:00 97.2 86 18 155/77 (103) 96 Room Air 97.2 03/05/21 20:30 3.0 I&O Intake and Output 03/06/21 07:00 Intake Total 0 ml Output Total 2550 ml Balance -2550 ml Intake Oral 0 ml Output Urine Total 2550 ml # Bowel Movements 2 General: No acute distress Skin: Other (wound covered ) Labs Laboratory Tests Test 03/04/21 12:58 03/04/21 17:05 03/04/21 20:29 03/05/21 06:25 Glucose (Fingerstick) 271 mg/dL (70-99) 217 mg/dL (70-99) 163 mg/dL (70-99) Sodium Level 129 mmol/L (136-145) Potassium Level 4.7 mmol/L (3.5-5.1) Chloride Level 97 mmol/L (98-107) Carbon Dioxide Level 27 mmol/L (21-32) Anion Gap 5 (6-14) Blood Urea Nitrogen 33 mg/dL (7-20) Creatinine 2.2 mg/dL (0.6-1.0) Estimated GFR (Cockcroft-Gault) 27.2 BUN/Creatinine Ratio 15 (6-20) Glucose Level 231 mg/dL (70-99) Calcium Level 7.7 mg/dL (8.5-10.1) Phosphorus Level 4.3 mg/dL (2.6-4.7) Magnesium Level 2.2 mg/dL (1.8-2.4) Total Bilirubin 0.4 mg/dL (0.2-1.0) Aspartate Amino Transf (AST/SGOT) 15 U/L (15-37) Alanine Aminotransferase (ALT/SGPT) 16 U/L (14-59) Alkaline Phosphatase 81 U/L (46-116) Total Protein 6.0 g/dL (6.4-8.2) Albumin 1.0 g/dL (3.4-5.0) Albumin/Globulin Ratio 0.2 (1.0-1.7) Test 03/05/21 08:44 03/05/21 16:26 03/05/21 20:59 03/06/21 05:30 Glucose (Fingerstick) 231 mg/dL (70-99) 190 mg/dL (70-99) 178 mg/dL (70-99) White Blood Count 9.9 x10^3/uL (4.0-11.0) Red Blood Count 2.35 x10^6/uL (3.50-5.40) Hemoglobin 6.5 g/dL (12.0-15.5) Hematocrit 19.8 % (36.0-47.0) Mean Corpuscular Volume 84 fL (79-100) Mean Corpuscular Hemoglobin 28 pg (25-35) Mean Corpuscular Hemoglobin Concent 33 g/dL (31-37) Red Cell Distribution Width 16.1 % (11.5-14.5) Platelet Count 233 x10^3/uL (140-400) Neutrophils (%) (Auto) 82 % (31-73) Lymphocytes (%) (Auto) 11 % (24-48) Monocytes (%) (Auto) 7 % (0-9) Eosinophils (%) (Auto) 1 % (0-3) Basophils (%) (Auto) 0 % (0-3) Neutrophils # (Auto) 8.1 x10^3/uL (1.8-7.7) Lymphocytes # (Auto) 1.1 x10^3/uL (1.0-4.8) Monocytes # (Auto) 0.6 x10^3/uL (0.0-1.1) Eosinophils # (Auto) 0.1 x10^3/uL (0.0-0.7) Basophils # (Auto) 0.0 x10^3/uL (0.0-0.2) Sodium Level 133 mmol/L (136-145) Potassium Level 4.2 mmol/L (3.5-5.1) Chloride Level 100 mmol/L (98-107) Carbon Dioxide Level 26 mmol/L (21-32) Anion Gap 7 (6-14) Blood Urea Nitrogen 37 mg/dL (7-20) Creatinine 2.2 mg/dL (0.6-1.0) Estimated GFR (Cockcroft-Gault) 27.2 Glucose Level 167 mg/dL (70-99) Calcium Level 7.9 mg/dL (8.5-10.1) Phosphorus Level 4.0 mg/dL (2.6-4.7) Magnesium Level 2.0 mg/dL (1.8-2.4) Test 03/06/21 07:49 Glucose (Fingerstick) 171 mg/dL (70-99) Laboratory Tests Test 03/05/21 16:26 03/05/21 20:59 03/06/21 05:30 03/06/21 07:49 Glucose (Fingerstick) 190 mg/dL (70-99) 178 mg/dL (70-99) 171 mg/dL (70-99) White Blood Count 9.9 x10^3/uL (4.0-11.0) Red Blood Count 2.35 x10^6/uL (3.50-5.40) Hemoglobin 6.5 g/dL (12.0-15.5) Hematocrit 19.8 % (36.0-47.0) Mean Corpuscular Volume 84 fL (79-100) Mean Corpuscular Hemoglobin 28 pg (25-35) Mean Corpuscular Hemoglobin Concent 33 g/dL (31-37) Red Cell Distribution Width 16.1 % (11.5-14.5) Platelet Count 233 x10^3/uL (140-400) Neutrophils (%) (Auto) 82 % (31-73) Lymphocytes (%) (Auto) 11 % (24-48) Monocytes (%) (Auto) 7 % (0-9) Eosinophils (%) (Auto) 1 % (0-3) Basophils (%) (Auto) 0 % (0-3) Neutrophils # (Auto) 8.1 x10^3/uL (1.8-7.7) Lymphocytes # (Auto) 1.1 x10^3/uL (1.0-4.8) Monocytes # (Auto) 0.6 x10^3/uL (0.0-1.1) Eosinophils # (Auto) 0.1 x10^3/uL (0.0-0.7) Basophils # (Auto) 0.0 x10^3/uL (0.0-0.2) Sodium Level 133 mmol/L (136-145) Potassium Level 4.2 mmol/L (3.5-5.1) Chloride Level 100 mmol/L (98-107) Carbon Dioxide Level 26 mmol/L (21-32) Anion Gap 7 (6-14) Blood Urea Nitrogen 37 mg/dL (7-20) Creatinine 2.2 mg/dL (0.6-1.0) Estimated GFR (Cockcroft-Gault) 27.2 Glucose Level 167 mg/dL (70-99) Calcium Level 7.9 mg/dL (8.5-10.1) Phosphorus Level 4.0 mg/dL (2.6-4.7) Magnesium Level 2.0 mg/dL (1.8-2.4) Problem List Problems Medical Problems: (1) Acute encephalopathy Status: Acute (2) Acute kidney injury superimposed on chronic kidney disease Status: Acute (3) NSTEMI (non-ST elevated myocardial infarction) Status: Acute (4) Sepsis Status: Acute (5) UTI (urinary tract infection) Status: Acute Assessment/Plan wound care goals of care still in progress Justicifation of Admission Dx: Justifications for Admission: Justification of Admission Dx: N/A BALJINDER [employer] Mar 06, 2021 09:59
--- NOTE | 2021-03-06 10:08 | PDOC ---
Infectious Disease Note Subjective Subjective Patient resting quietly Afebrile ROS ROS no n/v/d/ Vital Sign Vital Signs Vital Signs Date Time Temp Pulse Resp B/P (MAP) Pulse Ox O2 Delivery O2 Flow Rate FiO2 03/06/21 07:00 97.2 86 18 155/77 (103) 96 Room Air 97.2 03/05/21 20:30 3.0 Physical Exam PHYSICAL EXAM GENERAL: The patient is lying comfortably in bed, arousable but does not answer all questions Nods yes to pain HEENT: Normocephalic, atraumatic. Anicteric. Oral mucosa moist. NECK: Supple. LUNGS: Clear bilaterally. No wheezing. HEART: S1, S2. No murmurs. ABDOMEN: Soft, nontender, nondistended. GENITOURINARY: Palacio in place, placed here. rectum with purulent drainage EXTREMITIES: No edema. No cyanosis. DERMATOLOGIC: Warm, dry, no generalized rash. NEUROLOGIC: Little more alert Labs Lab Laboratory Tests Test 03/05/21 16:26 03/05/21 20:59 03/06/21 05:30 03/06/21 07:49 Glucose (Fingerstick) 190 mg/dL (70-99) 178 mg/dL (70-99) 171 mg/dL (70-99) White Blood Count 9.9 x10^3/uL (4.0-11.0) Red Blood Count 2.35 x10^6/uL (3.50-5.40) Hemoglobin 6.5 g/dL (12.0-15.5) Hematocrit 19.8 % (36.0-47.0) Mean Corpuscular Volume 84 fL (79-100) Mean Corpuscular Hemoglobin 28 pg (25-35) Mean Corpuscular Hemoglobin Concent 33 g/dL (31-37) Red Cell Distribution Width 16.1 % (11.5-14.5) Platelet Count 233 x10^3/uL (140-400) Neutrophils (%) (Auto) 82 % (31-73) Lymphocytes (%) (Auto) 11 % (24-48) Monocytes (%) (Auto) 7 % (0-9) Eosinophils (%) (Auto) 1 % (0-3) Basophils (%) (Auto) 0 % (0-3) Neutrophils # (Auto) 8.1 x10^3/uL (1.8-7.7) Lymphocytes # (Auto) 1.1 x10^3/uL (1.0-4.8) Monocytes # (Auto) 0.6 x10^3/uL (0.0-1.1) Eosinophils # (Auto) 0.1 x10^3/uL (0.0-0.7) Basophils # (Auto) 0.0 x10^3/uL (0.0-0.2) Sodium Level 133 mmol/L (136-145) Potassium Level 4.2 mmol/L (3.5-5.1) Chloride Level 100 mmol/L (98-107) Carbon Dioxide Level 26 mmol/L (21-32) Anion Gap 7 (6-14) Blood Urea Nitrogen 37 mg/dL (7-20) Creatinine 2.2 mg/dL (0.6-1.0) Estimated GFR (Cockcroft-Gault) 27.2 Glucose Level 167 mg/dL (70-99) Calcium Level 7.9 mg/dL (8.5-10.1) Phosphorus Level 4.0 mg/dL (2.6-4.7) Magnesium Level 2.0 mg/dL (1.8-2.4) Micro GRAM STAIN Final Final GRAM NEGATIVE RODS:MANY SQUAMOUS EPI CELL:NONE SEEN PMN (WBCs):MANY Unless otherwise specified, Testing Performed by: [address] [id number] For Inquires, the Physician may contact the Microbiology department at [phone] ANAEROBIC-AEROBIC CULTURE Preliminary Preliminary MIXED AEROBIC AND ANAEROBIC CONSTANCE on 03/05/21 at 1352 INCLUDING: FEW [PROTEUS MIRABILIS] MANY [KLEBSIELLA PNEUMONIAE] FEW [ENTEROCOCCUS FAECALIS] MODERATE [BACTEROIDES THETAIOTAOMICRON G] PROTEUS MIRABILIS UNIDENTIFIED ORGANISM ENTEROCOCCUS FAECALIS BACTEROIDES THETAIOTAOMICRON G KLEBSIELLA PNEUMONIAE Unless otherwise specified, Testing Performed by: [address] [address] For Inquires, the Physician may contact the Microbiology department at [phone] Objective Assessment 1. Acute encephalopathy appears multifactorial 2. Leukocytosis 3. Infected sacral wound with necrosis and eschar. Intra-abdominal abscesses on repeat CT Proctitis Possible fistula 4. History of multiple wounds. 5. History of seizures. 6. Diabetes mellitus 2. 7. Depression. 8. Anemia. 9. History of cocaine disorder, in remission. 10. Hypernatremia. 11. Hypokalemia. 12. Protein-calorie malnutrition. 13. Nancy glabrata in urine could be colonization. Repeat urine cultures negative 14. SARS-COVID negative. Fecal impaction Hematuria Plan Plan of Care Continue broad-spectrum antibiotics CT abdomen and pelvis done twice General Surgery following, has developed possible fistula WBC is decreasing though very slowly May need surgical debridement Palacio management per protocol. Placed this admission per nursing staff Offload. Continue wound care as directed. Continue supportive care. Monitor labs and cultures. Prognosis is very poor. consider hospice Discussed with nursing staff MARIE MORALES MD Mar 06, 2021 10:07
[2021-03-06] MEDS: DAPTOmycin (GENERIC) IVPB 420 MG in IV NORMAL SALINE 50ML 50 ML IV SCH (10:40)
--- NOTE | 2021-03-06 11:18 | PDOC ---
Renal-Progress Notes Subjective Notes Notes CONFUSED History of Present Illness Hx of present illness STABLE Vitals Vitals Vital Signs Date Time Temp Pulse Resp B/P (MAP) Pulse Ox O2 Delivery O2 Flow Rate FiO2 03/06/21 10:54 96.9 80 20 147/75 (99) 97 Room Air 96.9 03/05/21 20:30 3.0 Weight Weight [ ] I.O. Intake and Output Intake and Output 03/06/21 07:00 Intake Total 0 ml Output Total 2550 ml Balance -2550 ml Intake Oral 0 ml Output Urine Total 2550 ml # Bowel Movements 2 Labs Labs Laboratory Tests Test 03/05/21 16:26 03/05/21 20:59 03/06/21 05:30 03/06/21 07:49 Glucose (Fingerstick) 190 mg/dL (70-99) 178 mg/dL (70-99) 171 mg/dL (70-99) White Blood Count 9.9 x10^3/uL (4.0-11.0) Red Blood Count 2.35 x10^6/uL (3.50-5.40) Hemoglobin 6.5 g/dL (12.0-15.5) Hematocrit 19.8 % (36.0-47.0) Mean Corpuscular Volume 84 fL (79-100) Mean Corpuscular Hemoglobin 28 pg (25-35) Mean Corpuscular Hemoglobin Concent 33 g/dL (31-37) Red Cell Distribution Width 16.1 % (11.5-14.5) Platelet Count 233 x10^3/uL (140-400) Neutrophils (%) (Auto) 82 % (31-73) Lymphocytes (%) (Auto) 11 % (24-48) Monocytes (%) (Auto) 7 % (0-9) Eosinophils (%) (Auto) 1 % (0-3) Basophils (%) (Auto) 0 % (0-3) Neutrophils # (Auto) 8.1 x10^3/uL (1.8-7.7) Lymphocytes # (Auto) 1.1 x10^3/uL (1.0-4.8) Monocytes # (Auto) 0.6 x10^3/uL (0.0-1.1) Eosinophils # (Auto) 0.1 x10^3/uL (0.0-0.7) Basophils # (Auto) 0.0 x10^3/uL (0.0-0.2) Sodium Level 133 mmol/L (136-145) Potassium Level 4.2 mmol/L (3.5-5.1) Chloride Level 100 mmol/L (98-107) Carbon Dioxide Level 26 mmol/L (21-32) Anion Gap 7 (6-14) Blood Urea Nitrogen 37 mg/dL (7-20) Creatinine 2.2 mg/dL (0.6-1.0) Estimated GFR (Cockcroft-Gault) 27.2 Glucose Level 167 mg/dL (70-99) Calcium Level 7.9 mg/dL (8.5-10.1) Phosphorus Level 4.0 mg/dL (2.6-4.7) Magnesium Level 2.0 mg/dL (1.8-2.4) Micro Micro Microbiology 03/02/21 Gram Stain - Final, Resulted 03/02/21 Aerobic and Anaerobic Culture - Preliminary, Resulted 03/02/21 Blood Culture - Preliminary, Resulted NO GROWTH AFTER 4 DAYS 03/01/21 Urine Culture - Final, Complete Review of Systems Constitutional: yes: other (UNABLE TO OBTAIN) Physical Exam General Appearance: no apparent distress Skin: warm Respiratory: bilateral CTA Heart: S1S2 Abdomen: soft, bowel sounds present Genitourinary: bladder flat Extremities: pulses present Neurology: alert Musculoskeletal: Osteoarthritis Assessment Assessment IMP MEHDI-ATN CKD STAGE 3B ENCEPHALOPATHY SACRAL WOUND LEUCOCYTOSIS DM II ANEMIA PLAN START ZUHAIR HOLD HD FOR NOW UO IS INCREASING LABS IN AM CONT TPN QAMAR DOUGLAS MD Mar 06, 2021 11:18
[2021-03-06] MEDS ORDERED: EPOETIN ALFA-EPBX for ESRD 20,000 UNIT/ML VIAL. SQ ONE (11:30)
[2021-03-06] MEDS: MICAFUNGIN 100 MG in IV DEXTROSE 5% 100ML 100 ML IV SCH (12:52)
--- NOTE | 2021-03-06 15:03 | NUR ---
Wound/Ostomy Care Wound Type/Assessment: Patient seen again per wound care follow up regarding PU to the sacrum, rectal abscess, right medial foot DFU, and left lower anterior leg abrasion.The wound continues to not make any progress despite attempts with medi-honey gel and Veraflo wound vac. Patient soiled and chux changed. Patient is continually having loose stools and wound benefit from a rectal tube if able to place. The rectal abscess continues to drain moderate amounts of creamy purulent drainage with a foul odor. General surgery has been consulted regarding this abscess. Patient also has DFU to the right medial foot and left lower anterior leg abrasion, these wounds cleansed, assessed, measured, and pictured. Treatment Recommendations/Plan: Recommendations for medi-honey gel applied to xeroform gauze and cover with foam dressing; skin prep and aquacel foams to the right medial foot and left kent; lastly to the abscess to the rectum apply ABD pad to manage the drainage and change as needed. Dressings applied. Recommend determining the POC for this patient in regards to treatment. Patient would most likely need a surgical debridement but may not be a candidate. Will await general surgery consult re: rectal abscess. Education provided: Unable to educate due to mental status, however she is more alert today than she was last . Offloading surface/device: Patient is currently on a P-500 bed at this time. Patient repositioned to left side using wedge. Bilateral heels floated. Recommended Referrals/Tests: Awaiting general surgery consult regarding rectal abscess wounds. Discharge Recommendations for dressings: Continue current treatment and wound care will reassess on 03/14/21 or sooner depending on the POC that patient proceeds with. the Bed lowered and bed alarm turned on. Call light in place.
--- NOTE | 2021-03-06 15:08 | NUR ---
SS following up with discharge planning. SS reviewed pt chart and discussed with pt RN. Pt is currently on room air. COVID19 negative. Wound care following for sacral wound. Pt on TPN. ST evaluated and pt now on Dysphagia I diet. Pt on IV Zosyn, IV Daptomycin, IV Micafungin, and IV Keppra. Hemodialysis pt. Pt accepted at [facility], ; fax [phone], pending insurance authorization. Clinical updates phoned and faxed to [facility]. SS will continue to follow for discharge planning.
--- NOTE | 2021-03-06 16:22 | PDOC ---
[employer] PROGRESS NOTE Date of Service DOS: DATE: 03/06/21 TIME: 16:19 Chief Complaint Chief Complaint A/P: Acute encephalopathy - multifactorial, metabolic due to uremia, no SDH or CVA symptoms. less likely post-ictal. possibly related to sepsis as well Hypoxia Hypernatremia - likely free water deficit, was on numerous diuretics prior to admit, improved Sepsis - empiric vancomycin and zosyn given for likely gluteal ulcer as source. Will change to cefepime for renal failure. pharmacy to help dosing vancomycin. Fluids given MEHDI - likely vasomotor nephropathy possibly from free water deficit, sepsis. Will hydrate with bicarbonate fluids. Consult nephrology Gluteal ulcer - unstageable. Wound care and general surgery to see. possible sepsis source. Infectious disease. Continue current antibiotics. Poor surgical candidate. Cannot get a hold of family multiple times this week to discuss goals of care Anemia Severe protein calorie malnutrition - will need early nutrition when mentation improves. Speech to see for swallow assessment Seizures - will dose IV keppra while confused. Prn ativan for seizure activity DM2 - basal bolus plus insulin Depression GERD - IV protonix HLD - hold statin while NPO HTN - prn hydralazine, prn metoprolol H/o cocaine use disorder - in remission in SNF Elevated troponin - likely demand ischemia due to above, will trend FEN - NPO PPX - heparin FULL CODE Dispo - inpatient. D/w Italo, next of kin History of Present Illness History of Present Illness Ms Bentley is a 65 year old female with history of seizures, cocaine use disorder, DM2, depression, GERD, HLD, HTN who is a intermediate SNF resident who comes to the ED via EMS due to unresponsiveness. Per SNF staff has been less active for the past month and had irregular breathing since 1000 this morning. longterm staff reports O2 saturations in the low 80s on room air so they put her on 3 L nasal cannula. Her oxygen satur ation then raised to 92%. No witnessed seizure activity and she has reportedly been taking her Keppra and vimpat BID. Nonverbal enroute. She is baseline alert and aware x2 and wheelchair-bound. No falls or head trauma reported. She is unable to give any history and her daughter is listed as contact, voicemail box is full. Patient opens her eyes to painful stimuli and makes eye contact, does not follow any commands. Of note, she was admitted for similar complaints just a month ago. WBC 31.4, Hb 9.1, Platelets 369, Na 152, K 4, Cl 117, HCO3 23, BUN 108, Cr 3.3, glucose 161, lactic acid 1.2, ca 9.2, bili 0.5, AST 29, ALT 16, Alk phos 103, Trop 0.266, Albumin 1.7. Urine with blood and + leukocyte esterase EKG sinus rate of 99 bpm with TWI in inferolateral leads unchanged from prior EKG, significant baseline artefact, No ST elevations, QTc 509, CXR and CT head with no acute findings. Given leukocytosis and likely sepsis related to UTI, given empiric antibiotics and fluids and admitted for further care. 02/23: Afebrile. WBC 31.7, Hb 7.6, platelets 300, NA 156, K3.9, BUN 119, CR 3.6, glucose 153, alb 1.3. Covid neg. Breathing improved, but not communicating. Offloading for bedsore. 02/24: Afebrile. WBC still elevated patient septic. Son consented for dialysis catheter placement. BUN 128 today. Still very confused. Discussed with general surgery is poor surgical candidate but very large wound needs offloading possibly chemical debridement and consideration of wound VAC. Continue cefepime and vancomycin. Discussed with family overall goals of care. 02/25: Afebrile. Hb dropped to 6.9. To dialysis today for transfusion. Urine culture with Nancy glabrata. Afebrile. Glucose 67 this morning. Shaking Lasix. Low-grade axillary temp. Discussed with ID urine culture less likely to be source. Labs pending. Insulin adjusted 02/27 Patient evaluated and examined after dialysis. She was resting in bed very lethargic. Did not appear to be any clinical changes overall however. Continuing antibiotics and antifungals. Relatively poor prognosis. 02/28 Patient examined at bedside remains lethargic and altered. Clinically not much is changed. Continue antibiotics and antifungals per infectious disease very poor prognosis will attempt to contact family today regarding CODE STATUS, unable to reach will try again tomorrow. 03/01 Patient evaluated and examined at bedside. Remains somewhat altered. Very lethargic. Poor prognosis. Continuing antibiotics and antifungals. 03/02 Patient evaluated and examined at bedside. Does remain altered but notably more alert today. She arouses to my voice although still unable answer questions or follow commands. Despite this prognosis does remain poor. Will continue discussion with family if able to reach them. Continue antibiotics. Continue wound care. 03/03 Patient evaluated and examined at bedside. Upon entering room she was yelling out as she was getting her rectal wound cleaned. Necrotic areas on previous wound, wound VAC removed yesterday on initial wound. Seeing if the surgical team will come evaluate the patient to determine her surgical candidacy. If not a candidate will continue a DNR/DNI discussion with the family today with this new information. Continue antibiotics. Continue wound care 03/04 Patient evaluated examined at bedside. Is a very poor candidate for surgery. She is yelling out in a notable amount of pain anytime dressings are changed. Antibiotics and wound care for now. 03/05 Patient evaluated and examined at bedside. Reviewed surgical notes. Have attempted to contact family multiple times this week to discuss goals of care however efforts have proven futile. Continue antibiotics. We will see if social work can assist in reaching family. 03/06: Afebrile. Hemoglobin 6.5 today transfuse 1 unit PRBC. Try to reach out to patient's son (Italo) about goals of care and whether or not to proceed with surgical debridement of sacral ulcer; no answer, will attempt to contact again at a later time. Vitals/I&O Vitals/I&O: Vital Signs Date Time Temp Pulse Resp B/P (MAP) Pulse Ox O2 Delivery O2 Flow Rate FiO2 03/06/21 16:14 97.2 98 18 165/71 97.2 03/06/21 15:11 95 Room Air 03/05/21 20:30 3.0 I & O 03/05/21 03/05/21 03/06/21 14:59 22:59 06:59 Intake Total 0 ml 0 ml 0 ml Output Total 400 ml 2150 ml Balance 0 ml -400 ml -2150 ml Physical Exam Physical Exam: GENERAL: The patient is lying comfortably in bed, arousable but does not answer all questions Nods yes to pain HEENT: Normocephalic, atraumatic. Anicteric. Oral mucosa moist. NECK: Supple. LUNGS: Clear bilaterally. No wheezing. HEART: S1, S2. No murmurs. ABDOMEN: Soft, nontender, nondistended. GENITOURINARY: Palacio in place, placed here. rectum with purulent drainage EXTREMITIES: No edema. No cyanosis. DERMATOLOGIC: Warm, dry, no generalized rash. NEUROLOGIC: Little more alert General: No acute distress Heart: Normal S1, Normal S2, Other (mild tachy ) Lungs: Crackles Abdomen: Soft Extremities: No edema Skin: Other (wound covered ) Labs Labs: Laboratory Tests Test 03/05/21 16:26 03/05/21 20:59 03/06/21 05:30 03/06/21 07:49 Glucose (Fingerstick) 190 mg/dL (70-99) 178 mg/dL (70-99) 171 mg/dL (70-99) White Blood Count 9.9 x10^3/uL (4.0-11.0) Red Blood Count 2.35 x10^6/uL (3.50-5.40) Hemoglobin 6.5 g/dL (12.0-15.5) Hematocrit 19.8 % (36.0-47.0) Mean Corpuscular Volume 84 fL (79-100) Mean Corpuscular Hemoglobin 28 pg (25-35) Mean Corpuscular Hemoglobin Concent 33 g/dL (31-37) Red Cell Distribution Width 16.1 % (11.5-14.5) Platelet Count 233 x10^3/uL (140-400) Neutrophils (%) (Auto) 82 % (31-73) Lymphocytes (%) (Auto) 11 % (24-48) Monocytes (%) (Auto) 7 % (0-9) Eosinophils (%) (Auto) 1 % (0-3) Basophils (%) (Auto) 0 % (0-3) Neutrophils # (Auto) 8.1 x10^3/uL (1.8-7.7) Lymphocytes # (Auto) 1.1 x10^3/uL (1.0-4.8) Monocytes # (Auto) 0.6 x10^3/uL (0.0-1.1) Eosinophils # (Auto) 0.1 x10^3/uL (0.0-0.7) Basophils # (Auto) 0.0 x10^3/uL (0.0-0.2) Sodium Level 133 mmol/L (136-145) Potassium Level 4.2 mmol/L (3.5-5.1) Chloride Level 100 mmol/L (98-107) Carbon Dioxide Level 26 mmol/L (21-32) Anion Gap 7 (6-14) Blood Urea Nitrogen 37 mg/dL (7-20) Creatinine 2.2 mg/dL (0.6-1.0) Estimated GFR (Cockcroft-Gault) 27.2 Glucose Level 167 mg/dL (70-99) Calcium Level 7.9 mg/dL (8.5-10.1) Phosphorus Level 4.0 mg/dL (2.6-4.7) Magnesium Level 2.0 mg/dL (1.8-2.4) Test 03/06/21 11:20 Glucose (Fingerstick) 136 mg/dL (70-99) Assessment and Plan Assessmemt and Plan Problems Medical Problems: (1) Acute encephalopathy Status: Acute (2) Acute kidney injury superimposed on chronic kidney disease Status: Acute (3) NSTEMI (non-ST elevated myocardial infarction) Status: Acute (4) Sepsis Status: Acute (5) UTI (urinary tract infection) Status: Acute Comment Review of Relevant I have reviewed the following items toan (where applicable) has been applied. Medications: Current Medications Medications (Trade) Dose Ordered Sig/Es Route PRN Reason Start Time Stop Time Status Last Admin Dose Admin Sodium Chloride 110 meq/Potassium Chloride 50 meq/ Potassium Phosphate 6.8 mmol/Magnesium Sulfate 12 meq/ Calcium Gluconate 10 meq/ Multivitamins 10 ml/Zinc/Copper/ Manganese/ Selenium 1 ml/ Total Parenteral Nutrition/Amino Acids/Dextrose/ Fat Emulsion Intravenous 1,320 ml @ 55 mls/hr TPN CONT IV 03/05/21 22:00 03/06/21 21:59 03/05/21 21:41 Epoetin Macho-epbx (RETACRIT for ESRD PTS) 10,000 unit 1X ONCE SQ 03/06/21 11:30 03/06/21 11:31 DC 03/06/21 14:23 Justifications for Admission General Conditions Poss Metaboilic Acidosis?: Yes Justification for admission: Patient has tachycardia (> 100 beats per minute) or hypotension (SBP < 90 mm Hg) leading to inadequate systemic perfusion as indicated by metabolic acidosis with arterial pH of less than 7.35. Other Justification JULIET GARG MD Mar 06, 2021 16:22
[2021-03-06] MEDS: TPN PER PHARMACY MC PRN (16:35)
--- NOTE | 2021-03-06 16:37 | NUR ---
Pharmacy TPN Dosing Note S: MERA HENLEY is a 65 year old F Currently receiving Central Continuous TPN started 03/03/21 B:Pertinent PMH: NPO Height: 5 feet, 5 inches Weight: 89.9 kg Current diet: NPO LABS: Sodium: 133 Potassium: 4.2 Chloride: 100 Calcium: 7.9 Corrected Calcium: 10.30 Magnesium: 2 CO2: 26 SCr: 2.2 Glucose: 136-171 Albumin: 1.0 AST: 21 ALT: 17 TPN FORMULA: TPN TYPE: Central Continuous AMINO ACIDS: 90 gm DEXTROSE: 195 gm LIPIDS: 20 gm SODIUM CHLORIDE: 110 mEq POTASSIUM CHLORIDE: 50 mEq POTASSIUM PHOSPHATE: 6.8 mmol MAGNESIUM: 12 mEq CALCIUM: 10 mEq MULTIPLE VITAMIN: 10 ml TRACE ELEMENTS: 1 ml(s) TPN PLAN: Continue same R: Continue TPN Will monitor electrolytes, glucose, and tolerance to TPN. Maeve Schultz Soto, 03/06/21 [id number]
[2021-03-06] MEDS: INSULIN GLARGINE SYRINGE. SQ SCH (20:17)
[2021-03-06] MEDS ORDERED: TOTAL PARENTERAL NUTRITION IV SCH (22:00)
[2021-03-06] MEDS ORDERED: AMINO ACID IV SCH (22:00)
[2021-03-06] MEDS ORDERED: DEXTROSE 70% IV SCH (22:00)
[2021-03-06] MEDS ORDERED: [UNRECOGNIZED DRUG - OTHER] IV SCH (22:00)
[2021-03-07] VITALS (11 sets, daily range): BP systolic 153–181; BP diastolic 72–94
[2021-03-07] MEDS: HEPARIN for SUB-Q USE 5,000 UNIT/ML VIAL. SQ SCH (05:34)
[2021-03-07] MEDS: PANTOPRAZOLE IV PUSH 40 MG VIAL. IVP SCH (05:35)
[2021-03-07] MEDS: PIPERACILLIN/TAZOBACTAM 2.25 GM in IV NORMAL SALINE 50ML 50 ML IV SCH ×4 (05:35→23:03)
--- NOTE | 2021-03-07 06:09 | PDOC ---
[employer] PROGRESS NOTE Date of Service DOS: DATE: 03/07/21 TIME: 06:04 Chief Complaint Chief Complaint A/P: Acute encephalopathy - multifactorial, metabolic due to uremia, no SDH or CVA symptoms. less likely post-ictal. possibly related to sepsis as well Hypoxia Hypernatremia - likely free water deficit, was on numerous diuretics prior to admit, improved Sepsis - empiric vancomycin and zosyn given for likely gluteal ulcer as source. Will change to cefepime for renal failure. pharmacy to help dosing vancomycin. Fluids given MEHDI - likely vasomotor nephropathy possibly from free water deficit, sepsis. Will hydrate with bicarbonate fluids. Consult nephrology Gluteal ulcer - unstageable. Wound care and general surgery to see. possible sepsis source. Infectious disease. Continue current antibiotics. Poor surgical candidate. Cannot get a hold of family multiple times this week to discuss goals of care Anemia Severe protein calorie malnutrition - will need early nutrition when mentation improves. Speech to see for swallow assessment Seizures - will dose IV keppra while confused. Prn ativan for seizure activity DM2 - basal bolus plus insulin Depression GERD - IV protonix HLD - hold statin while NPO HTN - prn hydralazine, prn metoprolol H/o cocaine use disorder - in remission in SNF Elevated troponin - likely demand ischemia due to above, will trend FEN - NPO PPX - heparin FULL CODE Dispo - inpatient. D/w Italo, next of kin History of Present Illness History of Present Illness Ms Bentley is a 65 year old female with history of seizures, cocaine use disorder, DM2, depression, GERD, HLD, HTN who is a care home SNF resident who comes to the ED via EMS due to unresponsiveness. Per SNF staff has been less active for the past month and had irregular breathing since 1000 this morning. senior care staff reports O2 saturations in the low 80s on room air so they put her on 3 L nasal cannula. Her oxygen satur ation then raised to 92%. No witnessed seizure activity and she has reportedly been taking her Keppra and vimpat BID. Nonverbal enroute. She is baseline alert and aware x2 and wheelchair-bound. No falls or head trauma reported. She is unable to give any history and her daughter is listed as contact, voicemail box is full. Patient opens her eyes to painful stimuli and makes eye contact, does not follow any commands. Of note, she was admitted for similar complaints just a month ago. WBC 31.4, Hb 9.1, Platelets 369, Na 152, K 4, Cl 117, HCO3 23, BUN 108, Cr 3.3, glucose 161, lactic acid 1.2, ca 9.2, bili 0.5, AST 29, ALT 16, Alk phos 103, Trop 0.266, Albumin 1.7. Urine with blood and + leukocyte esterase EKG sinus rate of 99 bpm with TWI in inferolateral leads unchanged from prior EKG, significant baseline artefact, No ST elevations, QTc 509, CXR and CT head with no acute findings. Given leukocytosis and likely sepsis related to UTI, given empiric antibiotics and fluids and admitted for further care. 02/23: Afebrile. WBC 31.7, Hb 7.6, platelets 300, NA 156, K3.9, BUN 119, CR 3.6, glucose 153, alb 1.3. Covid neg. Breathing improved, but not communicating. Offloading for bedsore. 02/24: Afebrile. WBC still elevated patient septic. Son consented for dialysis catheter placement. BUN 128 today. Still very confused. Discussed with general surgery is poor surgical candidate but very large wound needs offloading possibly chemical debridement and consideration of wound VAC. Continue cefepime and vancomycin. Discussed with family overall goals of care. 02/25: Afebrile. Hb dropped to 6.9. To dialysis today for transfusion. Urine culture with Nancy glabrata. Afebrile. Glucose 67 this morning. Shaking Lasix. Low-grade axillary temp. Discussed with ID urine culture less likely to be source. Labs pending. Insulin adjusted 02/27 Patient evaluated and examined after dialysis. She was resting in bed very lethargic. Did not appear to be any clinical changes overall however. Continuing antibiotics and antifungals. Relatively poor prognosis. 02/28 Patient examined at bedside remains lethargic and altered. Clinically not much is changed. Continue antibiotics and antifungals per infectious disease very poor prognosis will attempt to contact family today regarding CODE STATUS, unable to reach will try again tomorrow. 03/01 Patient evaluated and examined at bedside. Remains somewhat altered. Very lethargic. Poor prognosis. Continuing antibiotics and antifungals. 03/02 Patient evaluated and examined at bedside. Does remain altered but notably more alert today. She arouses to my voice although still unable answer questions or follow commands. Despite this prognosis does remain poor. Will continue discussion with family if able to reach them. Continue antibiotics. Continue wound care. 03/03 Patient evaluated and examined at bedside. Upon entering room she was yelling out as she was getting her rectal wound cleaned. Necrotic areas on previous wound, wound VAC removed yesterday on initial wound. Seeing if the surgical team will come evaluate the patient to determine her surgical candidacy. If not a candidate will continue a DNR/DNI discussion with the family today with this new information. Continue antibiotics. Continue wound care 03/04 Patient evaluated examined at bedside. Is a very poor candidate for surgery. She is yelling out in a notable amount of pain anytime dressings are changed. Antibiotics and wound care for now. 03/05 Patient evaluated and examined at bedside. Reviewed surgical notes. Have attempted to contact family multiple times this week to discuss goals of care however efforts have proven futile. Continue antibiotics. We will see if social work can assist in reaching family. 03/06: Afebrile. Hemoglobin 6.5 today transfuse 1 unit PRBC. Try to reach out to patient's son (Italo) about goals of care and whether or not to proceed with surgical debridement of sacral ulcer; no answer, will attempt to contact again at a later time. 03/07: Afebrile. Had discussion with patient's son (Italo) yesterday, who has been acting largely as the decision maker given patient's 's history of stroke; at this time no decision has been made about whether to proceed with surgical debridement or not. I answered all his questions and addressed any concerns to the best my ability, but Italo stated he would like to discuss with some other people and do further research prior to making a decision on surgical debridement. WBC 9.7, hemoglobin 6.8. Hemoglobin did not improve after anticipa blanquita following 1 unit PRBC yesterday; will transfuse additional 1 unit PRBC. Continue IV antibiotics, per ID. Vitals/I&O Vitals/I&O: Vital Signs Date Time Temp Pulse Resp B/P (MAP) Pulse Ox O2 Delivery O2 Flow Rate FiO2 03/07/21 02:45 98.9 101 20 160/74 (102) 96 Room Air 98.9 I & O 03/06/21 03/06/2121 15:00 23:00 07:00 Intake Total 240 ml 2539 ml Output Total 750 ml 1400 ml Balance -510 ml 2539 ml -1400 ml Physical Exam Physical Exam: GENERAL: The patient is lying comfortably in bed, arousable but does not answer all questions Nods yes to pain HEENT: Normocephalic, atraumatic. Anicteric. Oral mucosa moist. NECK: Supple. LUNGS: Clear bilaterally. No wheezing. HEART: S1, S2. No murmurs. ABDOMEN: Soft, nontender, nondistended. GENITOURINARY: Palacio in place, placed here. rectum with purulent drainage EXTREMITIES: No edema. No cyanosis. DERMATOLOGIC: Warm, dry, no generalized rash. NEUROLOGIC: Little more alert General: No acute distress Heart: Normal S1, Normal S2, Other (mild tachy ) Lungs: Crackles Abdomen: Soft Extremities: No edema Skin: Other (wound covered ) Labs Labs: Laboratory Tests Test 03/06/21 07:49 03/06/21 11:20 03/06/21 16:37 03/06/21 20:15 Glucose (Fingerstick) 171 mg/dL (70-99) 136 mg/dL (70-99) 229 mg/dL (70-99) 194 mg/dL (70-99) Assessment and Plan Assessmemt and Plan Problems Medical Problems: (1) Acute encephalopathy Status: Acute (2) Acute kidney injury superimposed on chronic kidney disease Status: Acute (3) NSTEMI (non-ST elevated myocardial infarction) Status: Acute (4) Sepsis Status: Acute (5) UTI (urinary tract infection) Status: Acute Comment Review of Relevant I have reviewed the following items toan (where applicable) has been applied. Medications: Current Medications Medications (Trade) Dose Ordered Sig/Es Route PRN Reason Start Time Stop Time Status Last Admin Dose Admin Epoetin Macho-epbx (RETACRIT for ESRD PTS) 10,000 unit 1X ONCE SQ 03/06/21 11:30 03/06/21 11:31 DC 03/06/21 14:23 Sodium Chloride 110 meq/Potassium Chloride 50 meq/ Potassium Phosphate 6.8 mmol/Magnesium Sulfate 12 meq/ Calcium Gluconate 10 meq/ Multivitamins 10 ml/Zinc/Copper/ Manganese/ Selenium 1 ml/ Total Parenteral Nutrition/Amino Acids/Dextrose/ Fat Emulsion Intravenous 1,320 ml @ 55 mls/hr TPN CONT IV 03/06/21 22:00 03/07/21 21:59 03/06/21 20:31 Justifications for Admission General Conditions Poss Metaboilic Acidosis?: Yes Justification for admission: Patient has tachycardia (> 100 beats per minute) or hypotension (SBP < 90 mm Hg) leading to inadequate systemic perfusion as indicated by metabolic acidosis with arterial pH of less than 7.35. Other Justification JULIET GARG MD Mar 07, 2021 06:08
[2021-03-07 07:34] LABS: CALCIUM 7.2 mg/dL (8.5-10.1); GFR 30.4; MAGNESIUM 1.7 mg/dL (1.8-2.4); PHOSPHORUS 3.1 mg/dL (2.6-4.7); POTASSIUM 3.7 mmol/L (3.5-5.1)
[2021-03-07 08:23] LABS: BASO % 0 % (0-3); EOS # 0.1 x10^3/uL (0.0-0.7); EOS % 1 % (0-3); LYMPH % 10 % (24-48); MEAN CORPUSCULAR HEMOGLOBIN 28 pg (25-35); MEAN CORPUSCULAR HGB CONC 33 g/dL (31-37); MEAN CORPUSCULAR VOLUME 84 fL (79-100); MONO # 0.7 x10^3/uL (0.0-1.1); MONO % 7 % (0-9); NEUT # 7.9 x10^3/uL (1.8-7.7); NEUT % 81 % (31-73); PLATELET COUNT 208 x10^3/uL (140-400); RED BLOOD COUNT 2.42 x10^6/uL (3.50-5.40); RED CELL DISTRIBUTION WIDTH 15.9 % (11.5-14.5); WHITE BLOOD COUNT 9.7 x10^3/uL (4.0-11.0)
[2021-03-07 08:46] LABS: HEMOGLOBIN 6.8 g/dL (12.0-15.5)
[2021-03-07 08:47] LABS: HEMATOCRIT 20.4 % (36.0-47.0)
--- NOTE | 2021-03-07 09:05 | PDOC ---
SURGICAL PROGRESS NOTE DATE: 03/07/21 TIME: 09:04 Subjective nonverbal Vital Signs Vital Signs Date Time Temp Pulse Resp B/P (MAP) Pulse Ox O2 Delivery O2 Flow Rate FiO2 03/07/21 07:00 99.1 92 18 159/83 (108) 96 Room Air 99.1 I&O Intake and Output 03/07/21 07:00 Intake Total 2829 ml Output Total 2150 ml Balance 679 ml Intake Oral 600 ml IV Total 1525 ml Blood Product IV Normal Saline Flush 704 ml Output Urine Total 2150 ml # Bowel Movements 2 General: Cooperative Skin: Other (wound) Labs Laboratory Tests Test 03/05/21 16:26 03/05/21 20:59 03/06/21 05:30 03/06/21 07:49 Glucose (Fingerstick) 190 mg/dL (70-99) 178 mg/dL (70-99) 171 mg/dL (70-99) White Blood Count 9.9 x10^3/uL (4.0-11.0) Red Blood Count 2.35 x10^6/uL (3.50-5.40) Hemoglobin 6.5 g/dL (12.0-15.5) Hematocrit 19.8 % (36.0-47.0) Mean Corpuscular Volume 84 fL (79-100) Mean Corpuscular Hemoglobin 28 pg (25-35) Mean Corpuscular Hemoglobin Concent 33 g/dL (31-37) Red Cell Distribution Width 16.1 % (11.5-14.5) Platelet Count 233 x10^3/uL (140-400) Neutrophils (%) (Auto) 82 % (31-73) Lymphocytes (%) (Auto) 11 % (24-48) Monocytes (%) (Auto) 7 % (0-9) Eosinophils (%) (Auto) 1 % (0-3) Basophils (%) (Auto) 0 % (0-3) Neutrophils # (Auto) 8.1 x10^3/uL (1.8-7.7) Lymphocytes # (Auto) 1.1 x10^3/uL (1.0-4.8) Monocytes # (Auto) 0.6 x10^3/uL (0.0-1.1) Eosinophils # (Auto) 0.1 x10^3/uL (0.0-0.7) Basophils # (Auto) 0.0 x10^3/uL (0.0-0.2) Sodium Level 133 mmol/L (136-145) Potassium Level 4.2 mmol/L (3.5-5.1) Chloride Level 100 mmol/L (98-107) Carbon Dioxide Level 26 mmol/L (21-32) Anion Gap 7 (6-14) Blood Urea Nitrogen 37 mg/dL (7-20) Creatinine 2.2 mg/dL (0.6-1.0) Estimated GFR (Cockcroft-Gault) 27.2 Glucose Level 167 mg/dL (70-99) Calcium Level 7.9 mg/dL (8.5-10.1) Phosphorus Level 4.0 mg/dL (2.6-4.7) Magnesium Level 2.0 mg/dL (1.8-2.4) Test 03/06/21 11:20 03/06/21 16:37 03/06/21 20:15 03/07/21 06:15 Glucose (Fingerstick) 136 mg/dL (70-99) 229 mg/dL (70-99) 194 mg/dL (70-99) White Blood Count 9.7 x10^3/uL (4.0-11.0) Red Blood Count 2.42 x10^6/uL (3.50-5.40) Hemoglobin 6.8 g/dL (12.0-15.5) Hematocrit 20.4 % (36.0-47.0) Mean Corpuscular Volume 84 fL (79-100) Mean Corpuscular Hemoglobin 28 pg (25-35) Mean Corpuscular Hemoglobin Concent 33 g/dL (31-37) Red Cell Distribution Width 15.9 % (11.5-14.5) Platelet Count 208 x10^3/uL (140-400) Neutrophils (%) (Auto) 81 % (31-73) Lymphocytes (%) (Auto) 10 % (24-48) Monocytes (%) (Auto) 7 % (0-9) Eosinophils (%) (Auto) 1 % (0-3) Basophils (%) (Auto) 0 % (0-3) Neutrophils # (Auto) 7.9 x10^3/uL (1.8-7.7) Lymphocytes # (Auto) 1.0 x10^3/uL (1.0-4.8) Monocytes # (Auto) 0.7 x10^3/uL (0.0-1.1) Eosinophils # (Auto) 0.1 x10^3/uL (0.0-0.7) Basophils # (Auto) 0.0 x10^3/uL (0.0-0.2) Sodium Level 138 mmol/L (136-145) Potassium Level 3.7 mmol/L (3.5-5.1) Chloride Level 106 mmol/L (98-107) Carbon Dioxide Level 22 mmol/L (21-32) Anion Gap 10 (6-14) Blood Urea Nitrogen 36 mg/dL (7-20) Creatinine 2.0 mg/dL (0.6-1.0) Estimated GFR (Cockcroft-Gault) 30.4 Glucose Level 186 mg/dL (70-99) Calcium Level 7.2 mg/dL (8.5-10.1) Phosphorus Level 3.1 mg/dL (2.6-4.7) Magnesium Level 1.7 mg/dL (1.8-2.4) Test 03/07/21 07:17 Glucose (Fingerstick) 192 mg/dL (70-99) Laboratory Tests Test 03/06/21 11:20 03/06/21 16:37 03/06/21 20:15 03/07/21 06:15 Glucose (Fingerstick) 136 mg/dL (70-99) 229 mg/dL (70-99) 194 mg/dL (70-99) White Blood Count 9.7 x10^3/uL (4.0-11.0) Red Blood Count 2.42 x10^6/uL (3.50-5.40) Hemoglobin 6.8 g/dL (12.0-15.5) Hematocrit 20.4 % (36.0-47.0) Mean Corpuscular Volume 84 fL (79-100) Mean Corpuscular Hemoglobin 28 pg (25-35) Mean Corpuscular Hemoglobin Concent 33 g/dL (31-37) Red Cell Distribution Width 15.9 % (11.5-14.5) Platelet Count 208 x10^3/uL (140-400) Neutrophils (%) (Auto) 81 % (31-73) Lymphocytes (%) (Auto) 10 % (24-48) Monocytes (%) (Auto) 7 % (0-9) Eosinophils (%) (Auto) 1 % (0-3) Basophils (%) (Auto) 0 % (0-3) Neutrophils # (Auto) 7.9 x10^3/uL (1.8-7.7) Lymphocytes # (Auto) 1.0 x10^3/uL (1.0-4.8) Monocytes # (Auto) 0.7 x10^3/uL (0.0-1.1) Eosinophils # (Auto) 0.1 x10^3/uL (0.0-0.7) Basophils # (Auto) 0.0 x10^3/uL (0.0-0.2) Sodium Level 138 mmol/L (136-145) Potassium Level 3.7 mmol/L (3.5-5.1) Chloride Level 106 mmol/L (98-107) Carbon Dioxide Level 22 mmol/L (21-32) Anion Gap 10 (6-14) Blood Urea Nitrogen 36 mg/dL (7-20) Creatinine 2.0 mg/dL (0.6-1.0) Estimated GFR (Cockcroft-Gault) 30.4 Glucose Level 186 mg/dL (70-99) Calcium Level 7.2 mg/dL (8.5-10.1) Phosphorus Level 3.1 mg/dL (2.6-4.7) Magnesium Level 1.7 mg/dL (1.8-2.4) Test 03/07/21 07:17 Glucose (Fingerstick) 192 mg/dL (70-99) Problem List Problems Medical Problems: (1) Acute encephalopathy Status: Acute (2) Acute kidney injury superimposed on chronic kidney disease Status: Acute (3) NSTEMI (non-ST elevated myocardial infarction) Status: Acute (4) Sepsis Status: Acute (5) UTI (urinary tract infection) Status: Acute Assessment/Plan reviewed notes, still attempting to reach family for goals of care noted hgb low, transfusion today continue wound care Justicifation of Admission Dx: Justifications for Admission: Justification of Admission Dx: N/A BALJINDER SMALL HORSE RANCHER Mar 07, 2021 09:05
[2021-03-07] MEDS: levETIRAcetam 500 MG in IV DEXTROSE 5% 100ML 100 ML IV SCH ×2 (09:40→20:19)
[2021-03-07] MEDS: SODIUM HYPOCHLORITE 0.125% 473 ML BOTTLE. TP SCH ×2 (09:41→20:19)
[2021-03-07] MEDS: INSULIN LISPRO 300 UNITS/3 ML VIAL. SQ SCH ×3 (09:41→17:34)
--- NOTE | 2021-03-07 10:04 | PDOC ---
Infectious Disease Note Subjective Subjective Patient resting quietly Afebrile ROS ROS No nausea vomiting diarrhea Vital Sign Vital Signs Vital Signs Date Time Temp Pulse Resp B/P (MAP) Pulse Ox O2 Delivery O2 Flow Rate FiO2 03/07/21 07:00 99.1 92 18 159/83 (108) 96 Room Air 99.1 Physical Exam PHYSICAL EXAM GENERAL: The patient is lying comfortably in bed, arousable but does not answer all questions Nods yes to pain HEENT: Normocephalic, atraumatic. Anicteric. Oral mucosa moist. NECK: Supple. LUNGS: Clear bilaterally. No wheezing. HEART: S1, S2. No murmurs. ABDOMEN: Soft, nontender, nondistended. GENITOURINARY: Palacio in place, placed here. rectum with purulent drainage EXTREMITIES: No edema. No cyanosis. DERMATOLOGIC: Warm, dry, no generalized rash. NEUROLOGIC: Little more alert Labs Lab Laboratory Tests Test 03/06/21 11:20 03/06/21 16:37 03/06/21 20:15 03/07/21 06:15 Glucose (Fingerstick) 136 mg/dL (70-99) 229 mg/dL (70-99) 194 mg/dL (70-99) White Blood Count 9.7 x10^3/uL (4.0-11.0) Red Blood Count 2.42 x10^6/uL (3.50-5.40) Hemoglobin 6.8 g/dL (12.0-15.5) Hematocrit 20.4 % (36.0-47.0) Mean Corpuscular Volume 84 fL (79-100) Mean Corpuscular Hemoglobin 28 pg (25-35) Mean Corpuscular Hemoglobin Concent 33 g/dL (31-37) Red Cell Distribution Width 15.9 % (11.5-14.5) Platelet Count 208 x10^3/uL (140-400) Neutrophils (%) (Auto) 81 % (31-73) Lymphocytes (%) (Auto) 10 % (24-48) Monocytes (%) (Auto) 7 % (0-9) Eosinophils (%) (Auto) 1 % (0-3) Basophils (%) (Auto) 0 % (0-3) Neutrophils # (Auto) 7.9 x10^3/uL (1.8-7.7) Lymphocytes # (Auto) 1.0 x10^3/uL (1.0-4.8) Monocytes # (Auto) 0.7 x10^3/uL (0.0-1.1) Eosinophils # (Auto) 0.1 x10^3/uL (0.0-0.7) Basophils # (Auto) 0.0 x10^3/uL (0.0-0.2) Sodium Level 138 mmol/L (136-145) Potassium Level 3.7 mmol/L (3.5-5.1) Chloride Level 106 mmol/L (98-107) Carbon Dioxide Level 22 mmol/L (21-32) Anion Gap 10 (6-14) Blood Urea Nitrogen 36 mg/dL (7-20) Creatinine 2.0 mg/dL (0.6-1.0) Estimated GFR (Cockcroft-Gault) 30.4 Glucose Level 186 mg/dL (70-99) Calcium Level 7.2 mg/dL (8.5-10.1) Phosphorus Level 3.1 mg/dL (2.6-4.7) Magnesium Level 1.7 mg/dL (1.8-2.4) Test 03/07/21 07:17 Glucose (Fingerstick) 192 mg/dL (70-99) Micro GRAM STAIN Final Final GRAM NEGATIVE RODS:MANY SQUAMOUS EPI CELL:NONE SEEN PMN (WBCs):MANY Unless otherwise specified, Testing Performed by: [address] [address] For Inquires, the Physician may contact the Microbiology department at [phone] ANAEROBIC-AEROBIC CULTURE Preliminary Preliminary MIXED AEROBIC AND ANAEROBIC CONSTANCE on 03/05/21 at 1352 INCLUDING: FEW [PROTEUS MIRABILIS] MANY [KLEBSIELLA PNEUMONIAE] FEW [ENTEROCOCCUS FAECALIS] MODERATE [BACTEROIDES THETAIOTAOMICRON G] PROTEUS MIRABILIS UNIDENTIFIED ORGANISM ENTEROCOCCUS FAECALIS BACTEROIDES THETAIOTAOMICRON G KLEBSIELLA PNEUMONIAE Unless otherwise specified, Testing Performed by: [address] [address] For Inquires, the Physician may contact the Microbiology department at [phone] Objective Assessment 1. Acute encephalopathy appears multifactorial 2. Leukocytosis 3. Infected sacral wound with necrosis and eschar. Intra-abdominal abscesses on repeat CT Proctitis Possible fistula 4. History of multiple wounds. 5. History of seizures. 6. Diabetes mellitus 2. 7. Depression. 8. Anemia. 9. History of cocaine disorder, in remission. 10. Hypernatremia. 11. Hypokalemia. 12. Protein-calorie malnutrition. 13. Nancy glabrata in urine could be colonization. Repeat urine cultures negative 14. SARS-COVID negative. Fecal impaction Hematuria Plan Plan of Care Continue broad-spectrum antibiotics CT abdomen and pelvis done twice General Surgery following, has developed possible fistula WBC is decreasing though very slowly May need surgical debridement Palacio management per protocol. Placed this admission per nursing staff Offload. Continue wound care as directed. Continue supportive care. Monitor labs and cultures. Prognosis is very poor. consider hospice Discussed with nursing staff MARIE MORALES MD Mar 07, 2021 10:04
[2021-03-07] MEDS: DAPTOmycin (GENERIC) IVPB 420 MG in IV NORMAL SALINE 50ML 50 ML IV SCH (10:16)
--- NOTE | 2021-03-07 11:12 | PDOC ---
Renal-Progress Notes Subjective Notes Notes CONFUSED History of Present Illness Hx of present illness STABLE Vitals Vitals Vital Signs Date Time Temp Pulse Resp B/P (MAP) Pulse Ox O2 Delivery O2 Flow Rate FiO2 03/07/21 10:36 98.9 98 18 181/89 98.9 03/07/21 10:34 95 Room Air Weight Weight [ ] I.O. Intake and Output Intake and Output 03/07/21 07:00 Intake Total 2829 ml Output Total 2150 ml Balance 679 ml Intake Oral 600 ml IV Total 1525 ml Blood Product IV Normal Saline Flush 704 ml Output Urine Total 2150 ml # Bowel Movements 2 Labs Labs Laboratory Tests Test 03/06/21 11:20 03/06/21 16:37 03/06/21 20:15 03/07/21 06:15 Glucose (Fingerstick) 136 mg/dL (70-99) 229 mg/dL (70-99) 194 mg/dL (70-99) White Blood Count 9.7 x10^3/uL (4.0-11.0) Red Blood Count 2.42 x10^6/uL (3.50-5.40) Hemoglobin 6.8 g/dL (12.0-15.5) Hematocrit 20.4 % (36.0-47.0) Mean Corpuscular Volume 84 fL (79-100) Mean Corpuscular Hemoglobin 28 pg (25-35) Mean Corpuscular Hemoglobin Concent 33 g/dL (31-37) Red Cell Distribution Width 15.9 % (11.5-14.5) Platelet Count 208 x10^3/uL (140-400) Neutrophils (%) (Auto) 81 % (31-73) Lymphocytes (%) (Auto) 10 % (24-48) Monocytes (%) (Auto) 7 % (0-9) Eosinophils (%) (Auto) 1 % (0-3) Basophils (%) (Auto) 0 % (0-3) Neutrophils # (Auto) 7.9 x10^3/uL (1.8-7.7) Lymphocytes # (Auto) 1.0 x10^3/uL (1.0-4.8) Monocytes # (Auto) 0.7 x10^3/uL (0.0-1.1) Eosinophils # (Auto) 0.1 x10^3/uL (0.0-0.7) Basophils # (Auto) 0.0 x10^3/uL (0.0-0.2) Sodium Level 138 mmol/L (136-145) Potassium Level 3.7 mmol/L (3.5-5.1) Chloride Level 106 mmol/L (98-107) Carbon Dioxide Level 22 mmol/L (21-32) Anion Gap 10 (6-14) Blood Urea Nitrogen 36 mg/dL (7-20) Creatinine 2.0 mg/dL (0.6-1.0) Estimated GFR (Cockcroft-Gault) 30.4 Glucose Level 186 mg/dL (70-99) Calcium Level 7.2 mg/dL (8.5-10.1) Phosphorus Level 3.1 mg/dL (2.6-4.7) Magnesium Level 1.7 mg/dL (1.8-2.4) Test 03/07/21 07:17 Glucose (Fingerstick) 192 mg/dL (70-99) Micro Micro Microbiology 03/02/21 Gram Stain - Final, Resulted 03/02/21 Aerobic and Anaerobic Culture - Preliminary, Resulted 03/02/21 Blood Culture - Final, Complete NO GROWTH AFTER 5 DAYS 03/01/21 Urine Culture - Final, Complete Review of Systems Constitutional: yes: other (UNABLE TO OBTAIN) Physical Exam General Appearance: no apparent distress Skin: warm Respiratory: bilateral CTA Heart: S1S2 Abdomen: soft, bowel sounds present Genitourinary: bladder flat Extremities: pulses present Neurology: alert Musculoskeletal: Osteoarthritis Assessment Assessment IMP [id number] CKD STAGE 3B ENCEPHALOPATHY SACRAL WOUND LEUCOCYTOSIS DM II ANEMIA PLAN NO MORE HD PLANNED UO IS INCREASING LABS IN AM CONT TPN MAINTAIN HD LINE SINCE IT IS BEING USED A CENTRAL LINE DUE TO LACK OF IV ACCESS WILL FOLLOW QAMAR DOUGLAS MD Mar 07, 2021 11:12
--- NOTE | 2021-03-07 11:29 | NUR ---
SS following up with discharge planning. SS reviewed pt chart and discussed with pt RN. Pt is currently on room air. COVID19 negative. Wound care and surgery following for sacral wound. Family trying to make decision on surgical debridement and wound vac. Pt on TPN, IV Keppra, IV Micafungin, IV Daptomycin, and IV Zosyn. Blood today. Pt accepted at [facility], ; fax [phone], pending insurance authorization. Insurance requesting peer to peer with physician at this time. Peer to peer scheduled for today. SS will continue to follow for discharge planning.
[2021-03-07] MEDS: MICAFUNGIN 100 MG in IV DEXTROSE 5% 100ML 100 ML IV SCH (12:36)
[2021-03-07] MEDS: TPN PER PHARMACY MC PRN (16:15)
--- NOTE | 2021-03-07 16:15 | NUR ---
Pharmacy TPN Dosing Note S: MERA HENLEY is a 65 year old F Currently receiving Central Continuous TPN started 03/03/21 B:Pertinent PMH: Poor PO intake, just started dysphagia diet 03/06 Height: 5 feet, 5 inches Weight: 87.5 kg Current diet: NPO LABS: Sodium: 138 Potassium: 3.7 Chloride: 106 Calcium: 7.2 Corrected Calcium: 9.60 Magnesium: 1.7 CO2: 22 SCr: 2 Glucose: 186, 192, 167 Albumin: 1.0 AST: 21 ALT: 17 TPN FORMULA: TPN TYPE: Central Continuous AMINO ACIDS: 60 gm DEXTROSE: 195 gm LIPIDS: 20 gm SODIUM CHLORIDE: 110 mEq POTASSIUM CHLORIDE: 50 mEq POTASSIUM PHOSPHATE: 6.8 mmol MAGNESIUM: 12 mEq CALCIUM: 10 mEq MULTIPLE VITAMIN: 10 ml TRACE ELEMENTS: 1 ml TPN PLAN: -Serum magnesium low, will replaced with mag sulfate 2g bolus infusion. -Continue same TPN formula. -BMP, mag tomorrow. R: Continue TPN @ current rate and above formula. Will monitor electrolytes, glucose, and tolerance to TPN. ALBERTO CASTELLANOS, [facility], 03/07/21 [id number]
[2021-03-07] MEDS ORDERED: MAGNESIUM SULFATE 2GM 50 ML IV ONE (17:00)
[2021-03-07] MEDS: INSULIN GLARGINE SYRINGE. SQ SCH (20:40)
[2021-03-07] MEDS ORDERED: TOTAL PARENTERAL NUTRITION IV SCH (22:00)
[2021-03-07] MEDS ORDERED: AMINO ACID IV SCH (22:00)
[2021-03-07] MEDS ORDERED: DEXTROSE 70% IV SCH (22:00)
[2021-03-07] MEDS ORDERED: [UNRECOGNIZED DRUG - OTHER] IV SCH (22:00)
[2021-03-08 03:15] VITALS: BP 181/98
[2021-03-08] MEDS: ONDANSETRON PF 4 MG/2 ML VIAL. IVP PRN (03:17)
[2021-03-08] MEDS: PIPERACILLIN/TAZOBACTAM 2.25 GM in IV NORMAL SALINE 50ML 50 ML IV SCH ×4 (05:15→23:28)
[2021-03-08] MEDS: PANTOPRAZOLE IV PUSH 40 MG VIAL. IVP SCH (05:17)
[2021-03-08 07:00] VITALS: BP 183/95
[2021-03-08 07:08] LABS: BASO # 0.1 x10^3/uL (0.0-0.2); BASO % 1 % (0-3); EOS # 0.2 x10^3/uL (0.0-0.7); EOS % 1 % (0-3); HEMATOCRIT 29.1 % (36.0-47.0); HEMOGLOBIN 9.4 g/dL (12.0-15.5); LYMPH % 8 % (24-48); MEAN CORPUSCULAR HEMOGLOBIN 28 pg (25-35); MEAN CORPUSCULAR HGB CONC 32 g/dL (31-37); MEAN CORPUSCULAR VOLUME 85 fL (79-100); MONO % 8 % (0-9); NEUT # 10.1 x10^3/uL (1.8-7.7); NEUT % 82 % (31-73); PLATELET COUNT 240 x10^3/uL (140-400); RED CELL DISTRIBUTION WIDTH 15.5 % (11.5-14.5); WHITE BLOOD COUNT 12.4 x10^3/uL (4.0-11.0)
[2021-03-08 07:34] LABS: ALBUMIN 1.3 g/dL (3.4-5.0); ALBUMIN/GLOBULIN RATIO 0.2 (1.0-1.7); CALCIUM 8.3 mg/dL (8.5-10.1); CREATININE 1.9 mg/dL (0.6-1.0); GFR 32.2; POTASSIUM 3.5 mmol/L (3.5-5.1); TOTAL BILIRUBIN 0.6 mg/dL (0.2-1.0); TOTAL PROTEIN 6.8 g/dL (6.4-8.2)
[2021-03-08] MEDS: SODIUM HYPOCHLORITE 0.125% 473 ML BOTTLE. TP SCH ×2 (09:00→20:10)
--- NOTE | 2021-03-08 09:34 | PDOC ---
SURGICAL PROGRESS NOTE DATE: 03/08/21 TIME: 09:33 Subjective D/w IPC, family has not made a decision regarding debridement or not Vital Signs Vital Signs Date Time Temp Pulse Resp B/P (MAP) Pulse Ox O2 Delivery O2 Flow Rate FiO2 03/08/21 07:00 98.1 86 20 183/95 (124) 96 Room Air 98.1 I&O Intake and Output 03/08/21 06:59 Intake Total 2822 ml Output Total 3750 ml Balance -928 ml Intake Oral 500 ml IV Total 1680 ml Blood Product IV Normal Saline Flush 642 ml Output Urine Total 3750 ml # Bowel Movements 2 General: Cooperative, Other (does not answer questions) Skin: Other (large sacral wound) Labs Laboratory Tests Test 03/06/21 11:20 03/06/21 16:37 03/06/21 20:15 03/07/21 06:15 Glucose (Fingerstick) 136 mg/dL (70-99) 229 mg/dL (70-99) 194 mg/dL (70-99) White Blood Count 9.7 x10^3/uL (4.0-11.0) Red Blood Count 2.42 x10^6/uL (3.50-5.40) Hemoglobin 6.8 g/dL (12.0-15.5) Hematocrit 20.4 % (36.0-47.0) Mean Corpuscular Volume 84 fL (79-100) Mean Corpuscular Hemoglobin 28 pg (25-35) Mean Corpuscular Hemoglobin Concent 33 g/dL (31-37) Red Cell Distribution Width 15.9 % (11.5-14.5) Platelet Count 208 x10^3/uL (140-400) Neutrophils (%) (Auto) 81 % (31-73) Lymphocytes (%) (Auto) 10 % (24-48) Monocytes (%) (Auto) 7 % (0-9) Eosinophils (%) (Auto) 1 % (0-3) Basophils (%) (Auto) 0 % (0-3) Neutrophils # (Auto) 7.9 x10^3/uL (1.8-7.7) Lymphocytes # (Auto) 1.0 x10^3/uL (1.0-4.8) Monocytes # (Auto) 0.7 x10^3/uL (0.0-1.1) Eosinophils # (Auto) 0.1 x10^3/uL (0.0-0.7) Basophils # (Auto) 0.0 x10^3/uL (0.0-0.2) Sodium Level 138 mmol/L (136-145) Potassium Level 3.7 mmol/L (3.5-5.1) Chloride Level 106 mmol/L (98-107) Carbon Dioxide Level 22 mmol/L (21-32) Anion Gap 10 (6-14) Blood Urea Nitrogen 36 mg/dL (7-20) Creatinine 2.0 mg/dL (0.6-1.0) Estimated GFR (Cockcroft-Gault) 30.4 Glucose Level 186 mg/dL (70-99) Calcium Level 7.2 mg/dL (8.5-10.1) Phosphorus Level 3.1 mg/dL (2.6-4.7) Magnesium Level 1.7 mg/dL (1.8-2.4) Test 03/07/21 07:17 03/07/21 11:55 03/07/21 17:15 03/07/21 20:35 Glucose (Fingerstick) 192 mg/dL (70-99) 167 mg/dL (70-99) 181 mg/dL (70-99) 219 mg/dL (70-99) Test 03/08/21 07:00 03/08/21 08:07 White Blood Count 12.4 x10^3/uL (4.0-11.0) Red Blood Count 3.40 x10^6/uL (3.50-5.40) Hemoglobin 9.4 g/dL (12.0-15.5) Hematocrit 29.1 % (36.0-47.0) Mean Corpuscular Volume 85 fL (79-100) Mean Corpuscular Hemoglobin 28 pg (25-35) Mean Corpuscular Hemoglobin Concent 32 g/dL (31-37) Red Cell Distribution Width 15.5 % (11.5-14.5) Platelet Count 240 x10^3/uL (140-400) Neutrophils (%) (Auto) 82 % (31-73) Lymphocytes (%) (Auto) 8 % (24-48) Monocytes (%) (Auto) 8 % (0-9) Eosinophils (%) (Auto) 1 % (0-3) Basophils (%) (Auto) 1 % (0-3) Neutrophils # (Auto) 10.1 x10^3/uL (1.8-7.7) Lymphocytes # (Auto) 1.0 x10^3/uL (1.0-4.8) Monocytes # (Auto) 1.0 x10^3/uL (0.0-1.1) Eosinophils # (Auto) 0.2 x10^3/uL (0.0-0.7) Basophils # (Auto) 0.1 x10^3/uL (0.0-0.2) Sodium Level 139 mmol/L (136-145) Potassium Level 3.5 mmol/L (3.5-5.1) Chloride Level 104 mmol/L (98-107) Carbon Dioxide Level 25 mmol/L (21-32) Anion Gap 10 (6-14) Blood Urea Nitrogen 37 mg/dL (7-20) Creatinine 1.9 mg/dL (0.6-1.0) Estimated GFR (Cockcroft-Gault) 32.2 BUN/Creatinine Ratio 19 (6-20) Glucose Level 261 mg/dL (70-99) Calcium Level 8.3 mg/dL (8.5-10.1) Magnesium Level 2.0 mg/dL (1.8-2.4) Total Bilirubin 0.6 mg/dL (0.2-1.0) Aspartate Amino Transf (AST/SGOT) 16 U/L (15-37) Alanine Aminotransferase (ALT/SGPT) 17 U/L (14-59) Alkaline Phosphatase 79 U/L (46-116) Total Protein 6.8 g/dL (6.4-8.2) Albumin 1.3 g/dL (3.4-5.0) Albumin/Globulin Ratio 0.2 (1.0-1.7) Glucose (Fingerstick) 261 mg/dL (70-99) Laboratory Tests Test 03/07/21 11:55 03/07/21 17:15 03/07/21 20:35 03/08/21 07:00 Glucose (Fingerstick) 167 mg/dL (70-99) 181 mg/dL (70-99) 219 mg/dL (70-99) White Blood Count 12.4 x10^3/uL (4.0-11.0) Red Blood Count 3.40 x10^6/uL (3.50-5.40) Hemoglobin 9.4 g/dL (12.0-15.5) Hematocrit 29.1 % (36.0-47.0) Mean Corpuscular Volume 85 fL (79-100) Mean Corpuscular Hemoglobin 28 pg (25-35) Mean Corpuscular Hemoglobin Concent 32 g/dL (31-37) Red Cell Distribution Width 15.5 % (11.5-14.5) Platelet Count 240 x10^3/uL (140-400) Neutrophils (%) (Auto) 82 % (31-73) Lymphocytes (%) (Auto) 8 % (24-48) Monocytes (%) (Auto) 8 % (0-9) Eosinophils (%) (Auto) 1 % (0-3) Basophils (%) (Auto) 1 % (0-3) Neutrophils # (Auto) 10.1 x10^3/uL (1.8-7.7) Lymphocytes # (Auto) 1.0 x10^3/uL (1.0-4.8) Monocytes # (Auto) 1.0 x10^3/uL (0.0-1.1) Eosinophils # (Auto) 0.2 x10^3/uL (0.0-0.7) Basophils # (Auto) 0.1 x10^3/uL (0.0-0.2) Sodium Level 139 mmol/L (136-145) Potassium Level 3.5 mmol/L (3.5-5.1) Chloride Level 104 mmol/L (98-107) Carbon Dioxide Level 25 mmol/L (21-32) Anion Gap 10 (6-14) Blood Urea Nitrogen 37 mg/dL (7-20) Creatinine 1.9 mg/dL (0.6-1.0) Estimated GFR (Cockcroft-Gault) 32.2 BUN/Creatinine Ratio 19 (6-20) Glucose Level 261 mg/dL (70-99) Calcium Level 8.3 mg/dL (8.5-10.1) Magnesium Level 2.0 mg/dL (1.8-2.4) Total Bilirubin 0.6 mg/dL (0.2-1.0) Aspartate Amino Transf (AST/SGOT) 16 U/L (15-37) Alanine Aminotransferase (ALT/SGPT) 17 U/L (14-59) Alkaline Phosphatase 79 U/L (46-116) Total Protein 6.8 g/dL (6.4-8.2) Albumin 1.3 g/dL (3.4-5.0) Albumin/Globulin Ratio 0.2 (1.0-1.7) Test 03/08/21 08:07 Glucose (Fingerstick) 261 mg/dL (70-99) Problem List Problems Medical Problems: (1) Acute encephalopathy Status: Acute (2) Acute kidney injury superimposed on chronic kidney disease Status: Acute (3) NSTEMI (non-ST elevated myocardial infarction) Status: Acute (4) Sepsis Status: Acute (5) UTI (urinary tract infection) Status: Acute Assessment/Plan awaiting goals of care Justicifation of Admission Dx: Justifications for Admission: Justification of Admission Dx: N/A BALJINDER SMALL APRN Mar 08, 2021 09:34
--- NOTE | 2021-03-08 09:50 | PDOC ---
Infectious Disease Note Subjective Subjective Patient resting quietly Afebrile ROS ROS No nausea vomiting diarrhea Vital Sign Vital Signs Vital Signs Date Time Temp Pulse Resp B/P (MAP) Pulse Ox O2 Delivery O2 Flow Rate FiO2 03/08/21 07:00 98.1 86 20 183/95 (124) 96 Room Air 98.1 Physical Exam PHYSICAL EXAM GENERAL: The patient is lying comfortably in bed, arousable but does not answer all questions Nods yes to pain HEENT: Normocephalic, atraumatic. Anicteric. Oral mucosa moist. NECK: Supple. LUNGS: Clear bilaterally. No wheezing. HEART: S1, S2. No murmurs. ABDOMEN: Soft, nontender, nondistended. GENITOURINARY: Palacio in place, placed here. rectum with purulent drainage EXTREMITIES: No edema. No cyanosis. DERMATOLOGIC: Warm, dry, no generalized rash. NEUROLOGIC: Little more alert Labs Lab Laboratory Tests Test 03/07/21 11:55 03/07/21 17:15 03/07/21 20:35 03/08/21 07:00 Glucose (Fingerstick) 167 mg/dL (70-99) 181 mg/dL (70-99) 219 mg/dL (70-99) White Blood Count 12.4 x10^3/uL (4.0-11.0) Red Blood Count 3.40 x10^6/uL (3.50-5.40) Hemoglobin 9.4 g/dL (12.0-15.5) Hematocrit 29.1 % (36.0-47.0) Mean Corpuscular Volume 85 fL (79-100) Mean Corpuscular Hemoglobin 28 pg (25-35) Mean Corpuscular Hemoglobin Concent 32 g/dL (31-37) Red Cell Distribution Width 15.5 % (11.5-14.5) Platelet Count 240 x10^3/uL (140-400) Neutrophils (%) (Auto) 82 % (31-73) Lymphocytes (%) (Auto) 8 % (24-48) Monocytes (%) (Auto) 8 % (0-9) Eosinophils (%) (Auto) 1 % (0-3) Basophils (%) (Auto) 1 % (0-3) Neutrophils # (Auto) 10.1 x10^3/uL (1.8-7.7) Lymphocytes # (Auto) 1.0 x10^3/uL (1.0-4.8) Monocytes # (Auto) 1.0 x10^3/uL (0.0-1.1) Eosinophils # (Auto) 0.2 x10^3/uL (0.0-0.7) Basophils # (Auto) 0.1 x10^3/uL (0.0-0.2) Sodium Level 139 mmol/L (136-145) Potassium Level 3.5 mmol/L (3.5-5.1) Chloride Level 104 mmol/L (98-107) Carbon Dioxide Level 25 mmol/L (21-32) Anion Gap 10 (6-14) Blood Urea Nitrogen 37 mg/dL (7-20) Creatinine 1.9 mg/dL (0.6-1.0) Estimated GFR (Cockcroft-Gault) 32.2 BUN/Creatinine Ratio 19 (6-20) Glucose Level 261 mg/dL (70-99) Calcium Level 8.3 mg/dL (8.5-10.1) Magnesium Level 2.0 mg/dL (1.8-2.4) Total Bilirubin 0.6 mg/dL (0.2-1.0) Aspartate Amino Transf (AST/SGOT) 16 U/L (15-37) Alanine Aminotransferase (ALT/SGPT) 17 U/L (14-59) Alkaline Phosphatase 79 U/L (46-116) Total Protein 6.8 g/dL (6.4-8.2) Albumin 1.3 g/dL (3.4-5.0) Albumin/Globulin Ratio 0.2 (1.0-1.7) Test 03/08/21 08:07 Glucose (Fingerstick) 261 mg/dL (70-99) Micro GRAM STAIN Final Final GRAM NEGATIVE RODS:MANY SQUAMOUS EPI CELL:NONE SEEN PMN (WBCs):MANY Unless otherwise specified, Testing Performed by: [address] [address] For Inquires, the Physician may contact the Microbiology department at [phone] ANAEROBIC-AEROBIC CULTURE Preliminary Preliminary MIXED AEROBIC AND ANAEROBIC CONSTANCE on 03/05/21 at 1352 INCLUDING: FEW [PROTEUS MIRABILIS] MANY [KLEBSIELLA PNEUMONIAE] FEW [ENTEROCOCCUS FAECALIS] MODERATE [BACTEROIDES THETAIOTAOMICRON G] PROTEUS MIRABILIS UNIDENTIFIED ORGANISM ENTEROCOCCUS FAECALIS BACTEROIDES THETAIOTAOMICRON G KLEBSIELLA PNEUMONIAE Unless otherwise specified, Testing Performed by: [facility] [address] [place] [address] For Inquires, the Physician may contact the Microbiology department at [phone] Objective Assessment 1. Acute encephalopathy appears multifactorial 2. Leukocytosis 3. Infected sacral wound with necrosis and eschar. Intra-abdominal abscesses on repeat CT Proctitis Possible fistula 4. History of multiple wounds. 5. History of seizures. 6. Diabetes mellitus 2. 7. Depression. 8. Anemia. 9. History of cocaine disorder, in remission. 10. Hypernatremia. 11. Hypokalemia. 12. Protein-calorie malnutrition. 13. Nancy glabrata in urine could be colonization. Repeat urine cultures negative 14. SARS-COVID negative. Fecal impaction Hematuria Plan Plan of Care Continue broad-spectrum antibiotics CT abdomen and pelvis done twice General Surgery following, has developed possible fistula WBC is decreasing though very slowly May need surgical debridement Palacio management per protocol. Placed this admission per nursing staff Offload. Continue wound care as directed. Continue supportive care. Monitor labs and cultures. Prognosis is very poor. consider hospice Discussed with nursing staff MARIE OMRALES MD Mar 08, 2021 09:50
[2021-03-08] MEDS: levETIRAcetam 500 MG in IV DEXTROSE 5% 100ML 100 ML IV SCH ×2 (10:14→19:55)
[2021-03-08 10:19] VITALS: BP 172/93
[2021-03-08] MEDS: INSULIN LISPRO 300 UNITS/3 ML VIAL. SQ SCH ×3 (10:26→17:26)
--- NOTE | 2021-03-08 11:05 | PDOC ---
Renal-Progress Notes Subjective Notes Notes SLEEPING History of Present Illness Hx of present illness NO ACUTE CHANGES Vitals Vitals Vital Signs Date Time Temp Pulse Resp B/P (MAP) Pulse Ox O2 Delivery O2 Flow Rate FiO2 03/08/21 10:19 98.3 97 18 172/93 (119) 96 Room Air 98.3 Weight Weight [ ] I.O. Intake and Output Intake and Output 03/08/21 07:00 Intake Total 2822 ml Output Total 3750 ml Balance -928 ml Intake Oral 500 ml IV Total 1680 ml Blood Product IV Normal Saline Flush 642 ml Output Urine Total 3750 ml # Bowel Movements 2 Labs Labs Laboratory Tests Test 03/07/21 11:55 03/07/21 17:15 03/07/21 20:35 03/08/21 07:00 Glucose (Fingerstick) 167 mg/dL (70-99) 181 mg/dL (70-99) 219 mg/dL (70-99) White Blood Count 12.4 x10^3/uL (4.0-11.0) Red Blood Count 3.40 x10^6/uL (3.50-5.40) Hemoglobin 9.4 g/dL (12.0-15.5) Hematocrit 29.1 % (36.0-47.0) Mean Corpuscular Volume 85 fL (79-100) Mean Corpuscular Hemoglobin 28 pg (25-35) Mean Corpuscular Hemoglobin Concent 32 g/dL (31-37) Red Cell Distribution Width 15.5 % (11.5-14.5) Platelet Count 240 x10^3/uL (140-400) Neutrophils (%) (Auto) 82 % (31-73) Lymphocytes (%) (Auto) 8 % (24-48) Monocytes (%) (Auto) 8 % (0-9) Eosinophils (%) (Auto) 1 % (0-3) Basophils (%) (Auto) 1 % (0-3) Neutrophils # (Auto) 10.1 x10^3/uL (1.8-7.7) Lymphocytes # (Auto) 1.0 x10^3/uL (1.0-4.8) Monocytes # (Auto) 1.0 x10^3/uL (0.0-1.1) Eosinophils # (Auto) 0.2 x10^3/uL (0.0-0.7) Basophils # (Auto) 0.1 x10^3/uL (0.0-0.2) Sodium Level 139 mmol/L (136-145) Potassium Level 3.5 mmol/L (3.5-5.1) Chloride Level 104 mmol/L (98-107) Carbon Dioxide Level 25 mmol/L (21-32) Anion Gap 10 (6-14) Blood Urea Nitrogen 37 mg/dL (7-20) Creatinine 1.9 mg/dL (0.6-1.0) Estimated GFR (Cockcroft-Gault) 32.2 BUN/Creatinine Ratio 19 (6-20) Glucose Level 261 mg/dL (70-99) Calcium Level 8.3 mg/dL (8.5-10.1) Magnesium Level 2.0 mg/dL (1.8-2.4) Total Bilirubin 0.6 mg/dL (0.2-1.0) Aspartate Amino Transf (AST/SGOT) 16 U/L (15-37) Alanine Aminotransferase (ALT/SGPT) 17 U/L (14-59) Alkaline Phosphatase 79 U/L (46-116) Total Protein 6.8 g/dL (6.4-8.2) Albumin 1.3 g/dL (3.4-5.0) Albumin/Globulin Ratio 0.2 (1.0-1.7) Test 03/08/21 08:07 Glucose (Fingerstick) 261 mg/dL (70-99) Micro Micro Microbiology 03/02/21 Gram Stain - Final, Complete 03/02/21 Aerobic and Anaerobic Culture - Final, Complete 03/02/21 Blood Culture - Final, Complete NO GROWTH AFTER 5 DAYS 03/01/21 Urine Culture - Final, Complete Review of Systems Constitutional: yes: other (UNABLE TO OBTAIN) Physical Exam General Appearance: no apparent distress Skin: warm Respiratory: bilateral CTA Heart: S1S2 Abdomen: soft, bowel sounds present Genitourinary: bladder flat Extremities: pulses present Neurology: alert Musculoskeletal: Osteoarthritis Assessment Assessment IMP [id number] CKD STAGE 3B ENCEPHALOPATHY SACRAL WOUND LEUCOCYTOSIS DM II ANEMIA MALNUTRITION PLAN NO MORE HD PLANNED UO IS INCREASING LABS IN AM CONT TPN MAINTAIN HD LINE FOR IV ACCESS WILL FOLLOW QAMAR DOUGLAS MD Mar 08, 2021 11:05
[2021-03-08] MEDS: TPN PER PHARMACY MC PRN (11:27)
--- NOTE | 2021-03-08 11:28 | NUR ---
Pharmacy TPN Dosing Note S: MERA HENLEY is a 65 year old F Currently receiving Central Continuous TPN started 03/03/21 B:Pertinent PMH: Poor PO intake, just started dysphagia diet 03/06 Height: 5 feet, 5 inches Weight: 86.8 kg Current diet: dysphagia I LABS: Sodium: 139 Potassium: 3.5 Chloride: 104 Calcium: 8.3 Corrected Calcium: 10.46 Magnesium: 2 CO2: 25 SCr: 1.9 Glucose: 261 Albumin: 1.3 AST: 16 ALT: 17 TPN FORMULA: TPN TYPE: Central Continuous AMINO ACIDS: 60 gm DEXTROSE: 195 gm LIPIDS: 20 gm SODIUM CHLORIDE: 110 mEq POTASSIUM CHLORIDE: 50 mEq POTASSIUM PHOSPHATE: 6.8 mmol MAGNESIUM: 12 mEq CALCIUM: 10 mEq MULTIPLE VITAMIN: 10 ml TRACE ELEMENTS: 1 ml(s) TPN PLAN: Cont same TPN formula. No labs in AM d/t stability R: Continue same TPN formula. Will monitor electrolytes, glucose, and tolerance to TPN. CLAUDIA MONTEJO [facility], 03/08/21 1129
[2021-03-08] MEDS: DAPTOmycin (GENERIC) IVPB 420 MG in IV NORMAL SALINE 50ML 50 ML IV SCH (11:36)
[2021-03-08] MEDS: MICAFUNGIN 100 MG in IV DEXTROSE 5% 100ML 100 ML IV SCH (12:28)
[2021-03-08 14:10] VITALS: BP 159/78
--- NOTE | 2021-03-08 15:18 | PDOC ---
[employer] PROGRESS NOTE Date of Service DOS: DATE: 03/08/21 TIME: 15:06 Chief Complaint Chief Complaint A/P: Acute encephalopathy - multifactorial, metabolic due to uremia, no SDH or CVA symptoms. less likely post-ictal. possibly related to sepsis as well Hypoxia Hypernatremia - likely free water deficit, was on numerous diuretics prior to admit, improved Sepsis - empiric vancomycin and zosyn given for likely gluteal ulcer as source. Will change to cefepime for renal failure. pharmacy to help dosing vancomycin. Fluids given MEHDI - likely vasomotor nephropathy possibly from free water deficit, sepsis. Will hydrate with bicarbonate fluids. Consult nephrology Gluteal ulcer - unstageable. Wound care and general surgery to see. possible sepsis source. Infectious disease. Continue current antibiotics. Poor surgical candidate. Cannot get a hold of family multiple times this week to discuss goals of care Anemia Severe protein calorie malnutrition - will need early nutrition when mentation improves. Speech to see for swallow assessment Seizures - will dose IV keppra while confused. Prn ativan for seizure activity DM2 - basal bolus plus insulin Depression GERD - IV protonix HLD - hold statin while NPO HTN - prn hydralazine, prn metoprolol H/o cocaine use disorder - in remission in SNF Elevated troponin - likely demand ischemia due to above, will trend FEN - NPO PPX - heparin FULL CODE Dispo - inpatient. D/w Italo, next of kin History of Present Illness History of Present Illness Ms Bentley is a 65 year old female with history of seizures, cocaine use disorder, DM2, depression, GERD, HLD, HTN who is a [facility] resident who comes to the ED via EMS due to unresponsiveness. Per SNF staff has been less active for the past month and had irregular breathing since 1000 this morning. snf staff reports O2 saturations in the low 80s on room air so they put her on 3 L nasal cannula. Her oxygen satur ation then raised to 92%. No witnessed seizure activity and she has reportedly been taking her Keppra and vimpat BID. Nonverbal enroute. She is baseline alert and aware x2 and wheelchair-bound. No falls or head trauma reported. She is unable to give any history and her daughter is listed as contact, voicemail box is full. Patient opens her eyes to painful stimuli and makes eye contact, does not follow any commands. Of note, she was admitted for similar complaints just a month ago. WBC 31.4, Hb 9.1, Platelets 369, Na 152, K 4, Cl 117, HCO3 23, BUN 108, Cr 3.3, glucose 161, lactic acid 1.2, ca 9.2, bili 0.5, AST 29, ALT 16, Alk phos 103, Trop 0.266, Albumin 1.7. Urine with blood and + leukocyte esterase EKG sinus rate of 99 bpm with TWI in inferolateral leads unchanged from prior EKG, significant baseline artefact, No ST elevations, QTc 509, CXR and CT head with no acute findings. Given leukocytosis and likely sepsis related to UTI, given empiric antibiotics and fluids and admitted for further care. 02/23: Afebrile. WBC 31.7, Hb 7.6, platelets 300, NA 156, K3.9, BUN 119, CR 3.6, glucose 153, alb 1.3. Covid neg. Breathing improved, but not communicating. Offloading for bedsore. 02/24: Afebrile. WBC still elevated patient septic. Son consented for dialysis catheter placement. BUN 128 today. Still very confused. Discussed with general surgery is poor surgical candidate but very large wound needs offloading possibly chemical debridement and consideration of wound VAC. Continue cefepime and vancomycin. Discussed with family overall goals of care. 02/25: Afebrile. Hb dropped to 6.9. To dialysis today for transfusion. Urine culture with Nancy glabrata. Afebrile. Glucose 67 this morning. Shaking Lasix. Low-grade axillary temp. Discussed with ID urine culture less likely to be source. Labs pending. Insulin adjusted 02/27 Patient evaluated and examined after dialysis. She was resting in bed very lethargic. Did not appear to be any clinical changes overall however. Continuing antibiotics and antifungals. Relatively poor prognosis. 02/28 Patient examined at bedside remains lethargic and altered. Clinically not much is changed. Continue antibiotics and antifungals per infectious disease very poor prognosis will attempt to contact family today regarding CODE STATUS, unable to reach will try again tomorrow. 03/01 Patient evaluated and examined at bedside. Remains somewhat altered. Very lethargic. Poor prognosis. Continuing antibiotics and antifungals. 03/02 Patient evaluated and examined at bedside. Does remain altered but notably more alert today. She arouses to my voice although still unable answer questions or follow commands. Despite this prognosis does remain poor. Will continue discussion with family if able to reach them. Continue antibiotics. Continue wound care. 03/03 Patient evaluated and examined at bedside. Upon entering room she was yelling out as she was getting her rectal wound cleaned. Necrotic areas on previous wound, wound VAC removed yesterday on initial wound. Seeing if the surgical team will come evaluate the patient to determine her surgical candidacy. If not a candidate will continue a DNR/DNI discussion with the family today with this new information. Continue antibiotics. Continue wound care 03/04 Patient evaluated examined at bedside. Is a very poor candidate for surgery. She is yelling out in a notable amount of pain anytime dressings are changed. Antibiotics and wound care for now. 03/05 Patient evaluated and examined at bedside. Reviewed surgical notes. Have attempted to contact family multiple times this week to discuss goals of care however efforts have proven futile. Continue antibiotics. We will see if social work can assist in reaching family. 03/06: Afebrile. Hemoglobin 6.5 today transfuse 1 unit PRBC. Try to reach out to patient's son (Italo) about goals of care and whether or not to proceed with surgical debridement of sacral ulcer; no answer, will attempt to contact again at a later time. 03/07: Afebrile. Had discussion with patient's son (Italo) yesterday, who has been acting largely as the decision maker given patient's 's history of stroke; at this time no decision has been made about whether to proceed with surgical debridement or not. I answered all his questions and addressed any concerns to the best my ability, but Italo stated he would like to discuss with some other people and do further research prior to making a decision on surgical debridement. WBC 9.7, hemoglobin 6.8. Hemoglobin did not improve after anticipa blanquita following 1 unit PRBC yesterday; will transfuse additional 1 unit PRBC. Continue IV antibiotics, per ID. 03/08: Patient with no acute events overnight. Still some significant hyperglycemia, insulin has been adjusted. Was able to get a hold of patient's son (Italo); after extensive discussion about surgical debridement versus hospice, he is leaning towards hospice care at this time. He would like to speak with our [facility] hospice service for further information about what hospice entails. At this time we will continue IV antibiotics, per ID. Vitals/I&O Vitals/I&O: Vital Signs Date Time Temp Pulse Resp B/P (MAP) Pulse Ox O2 Delivery O2 Flow Rate FiO2 03/08/21 14:10 97.3 97 18 159/78 (105) 98 Room Air 97.3 I & O 03/07/21 03/07/21 03/08/21 15:00 23:00 07:00 Intake Total 797 ml 1975 ml 50 ml Output Total 600 ml 900 ml 2250 ml Balance 197 ml 1075 ml -2200 ml Physical Exam Physical Exam: GENERAL: The patient is lying comfortably in bed, arousable but does not answer all questions Nods yes to pain HEENT: Normocephalic, atraumatic. Anicteric. Oral mucosa moist. NECK: Supple. LUNGS: Clear bilaterally. No wheezing. HEART: S1, S2. No murmurs. ABDOMEN: Soft, nontender, nondistended. GENITOURINARY: Palacio in place, placed here. rectum with purulent drainage EXTREMITIES: No edema. No cyanosis. DERMATOLOGIC: Warm, dry, no generalized rash. NEUROLOGIC: Little more alert General: Cooperative, Other (does not answer questions) Heart: Normal S1, Normal S2, Other (mild tachy ) Lungs: Crackles Abdomen: Soft Extremities: No edema Skin: Other (large sacral wound) Labs Labs: Laboratory Tests Test 03/07/21 17:15 03/07/21 20:35 03/08/21 07:00 03/08/21 08:07 Glucose (Fingerstick) 181 mg/dL (70-99) 219 mg/dL (70-99) 261 mg/dL (70-99) White Blood Count 12.4 x10^3/uL (4.0-11.0) Red Blood Count 3.40 x10^6/uL (3.50-5.40) Hemoglobin 9.4 g/dL (12.0-15.5) Hematocrit 29.1 % (36.0-47.0) Mean Corpuscular Volume 85 fL (79-100) Mean Corpuscular Hemoglobin 28 pg (25-35) Mean Corpuscular Hemoglobin Concent 32 g/dL (31-37) Red Cell Distribution Width 15.5 % (11.5-14.5) Platelet Count 240 x10^3/uL (140-400) Neutrophils (%) (Auto) 82 % (31-73) Lymphocytes (%) (Auto) 8 % (24-48) Monocytes (%) (Auto) 8 % (0-9) Eosinophils (%) (Auto) 1 % (0-3) Basophils (%) (Auto) 1 % (0-3) Neutrophils # (Auto) 10.1 x10^3/uL (1.8-7.7) Lymphocytes # (Auto) 1.0 x10^3/uL (1.0-4.8) Monocytes # (Auto) 1.0 x10^3/uL (0.0-1.1) Eosinophils # (Auto) 0.2 x10^3/uL (0.0-0.7) Basophils # (Auto) 0.1 x10^3/uL (0.0-0.2) Sodium Level 139 mmol/L (136-145) Potassium Level 3.5 mmol/L (3.5-5.1) Chloride Level 104 mmol/L (98-107) Carbon Dioxide Level 25 mmol/L (21-32) Anion Gap 10 (6-14) Blood Urea Nitrogen 37 mg/dL (7-20) Creatinine 1.9 mg/dL (0.6-1.0) Estimated GFR (Cockcroft-Gault) 32.2 BUN/Creatinine Ratio 19 (6-20) Glucose Level 261 mg/dL (70-99) Calcium Level 8.3 mg/dL (8.5-10.1) Magnesium Level 2.0 mg/dL (1.8-2.4) Total Bilirubin 0.6 mg/dL (0.2-1.0) Aspartate Amino Transf (AST/SGOT) 16 U/L (15-37) Alanine Aminotransferase (ALT/SGPT) 17 U/L (14-59) Alkaline Phosphatase 79 U/L (46-116) Total Protein 6.8 g/dL (6.4-8.2) Albumin 1.3 g/dL (3.4-5.0) Albumin/Globulin Ratio 0.2 (1.0-1.7) Test 03/08/21 12:09 Glucose (Fingerstick) 276 mg/dL (70-99) Assessment and Plan Assessmemt and Plan Problems Medical Problems: (1) Acute encephalopathy Status: Acute (2) Acute kidney injury superimposed on chronic kidney disease Status: Acute (3) NSTEMI (non-ST elevated myocardial infarction) Status: Acute (4) Sepsis Status: Acute (5) UTI (urinary tract infection) Status: Acute Comment Review of Relevant I have reviewed the following items toan (where applicable) has been applied. Medications: Current Medications Medications (Trade) Dose Ordered Sig/Es Route PRN Reason Start Time Stop Time Status Last Admin Dose Admin Sodium Chloride 110 meq/Potassium Chloride 50 meq/ Potassium Phosphate 6.8 mmol/Magnesium Sulfate 12 meq/ Calcium Gluconate 10 meq/ Multivitamins 10 ml/Zinc/Copper/ Manganese/ Selenium 1 ml/ Total Parenteral Nutrition/Amino Acids/Dextrose/ Fat Emulsion Intravenous 1,320 ml @ 55 mls/hr TPN CONT IV 03/07/21 22:00 03/08/21 21:59 03/07/21 21:45 Piperacillin Sod/ Tazobactam Sod 2.25 gm/Sodium Chloride 50 ml @ 100 mls/hr Q6HRS IV 03/07/21 18:00 03/08/21 14:46 Magnesium Sulfate 50 ml @ 25 mls/hr 1X ONCE IV 03/07/21 17:00 03/07/21 18:59 DC 03/07/21 17:24 Justifications for Admission General Conditions Poss Metaboilic Acidosis?: Yes Justification for admission: Patient has tachycardia (> 100 beats per minute) or hypotension (SBP < 90 mm Hg) leading to inadequate systemic perfusion as indicated by metabolic acidosis with arterial pH of less than 7.35. Other Justification JULIET GARG MD Mar 08, 2021 15:18
--- NOTE | 2021-03-08 15:31 | NUR ---
SS following up with discharge planning. SS reviewed pt chart and discussed with pt RN. Pt is currently on room air. COVID19 negative. Wound care and surgery following for sacral wound. Family trying to make decision on surgical debridement and wound vac. Pt on TPN, IV Keppra, IV Micafungin, IV Daptomycin, and IV Zosyn. Insurance denied [facility], ; fax [phone], at this time stating that family needs to make further decisions regarding debridement. Physician discussed with family and family requesting information on hospice. Referral phoned and faxed to [facility], ; fax [phone]. SS will continue to follow for discharge planning.
[2021-03-08] MEDS: ACETAMINOPHEN 650 MG SUPP.RECT. PR PRN (18:28)
[2021-03-08 19:00] VITALS: BP 176/80
[2021-03-08] MEDS ORDERED: TOTAL PARENTERAL NUTRITION IV SCH (22:00)
[2021-03-08] MEDS ORDERED: DEXTROSE 70% IV SCH (22:00)
[2021-03-08] MEDS ORDERED: AMINO ACID IV SCH (22:00)
[2021-03-08] MEDS ORDERED: [UNRECOGNIZED DRUG - OTHER] IV SCH (22:00)
[2021-03-08] MEDS: INSULIN GLARGINE SYRINGE. SQ SCH (22:08)
[2021-03-08 23:00] VITALS: BP 156/90
[2021-03-09] VITALS (7 sets, daily range): BP systolic 148–214; BP diastolic 84–110
[2021-03-09] MEDS: PIPERACILLIN/TAZOBACTAM 2.25 GM in IV NORMAL SALINE 50ML 50 ML IV SCH ×4 (05:42→23:46)
[2021-03-09] MEDS: PANTOPRAZOLE IV PUSH 40 MG VIAL. IVP SCH (05:43)
[2021-03-09 06:50] LABS: BASO # 0.1 x10^3/uL (0.0-0.2); BASO % 1 % (0-3); EOS # 0.2 x10^3/uL (0.0-0.7); EOS % 2 % (0-3); HEMATOCRIT 28.3 % (36.0-47.0); HEMOGLOBIN 9.1 g/dL (12.0-15.5); LYMPH # 1.3 x10^3/uL (1.0-4.8); LYMPH % 10 % (24-48); MEAN CORPUSCULAR HEMOGLOBIN 28 pg (25-35); MEAN CORPUSCULAR HGB CONC 32 g/dL (31-37); MEAN CORPUSCULAR VOLUME 86 fL (79-100); MONO # 1.2 x10^3/uL (0.0-1.1); MONO % 9 % (0-9); NEUT # 10.9 x10^3/uL (1.8-7.7); NEUT % 80 % (31-73); PLATELET COUNT 237 x10^3/uL (140-400); RED CELL DISTRIBUTION WIDTH 15.8 % (11.5-14.5); WHITE BLOOD COUNT 13.7 x10^3/uL (4.0-11.0)
[2021-03-09 07:12] LABS: CREATININE 1.6 mg/dL (0.6-1.0); GFR 39.3; POTASSIUM 3.5 mmol/L (3.5-5.1)
[2021-03-09] MEDS: SODIUM HYPOCHLORITE 0.125% 473 ML BOTTLE. TP SCH ×2 (09:00→21:52)
--- NOTE | 2021-03-09 09:09 | PDOC ---
Infectious Disease Note Subjective Subjective Patient resting quietly Afebrile ROS ROS No nausea vomiting diarrhea Vital Sign Vital Signs Vital Signs Date Time Temp Pulse Resp B/P (MAP) Pulse Ox O2 Delivery O2 Flow Rate FiO2 03/09/21 07:02 98.7 97 18 148/84 (105) 95 Room Air 98.7 Physical Exam PHYSICAL EXAM GENERAL: The patient is lying comfortably in bed, arousable but does not answer all questions Nods yes to pain HEENT: Normocephalic, atraumatic. Anicteric. Oral mucosa moist. NECK: Supple. LUNGS: Clear bilaterally. No wheezing. HEART: S1, S2. No murmurs. ABDOMEN: Soft, nontender, nondistended. GENITOURINARY: Paalcio in place, placed here. rectum with purulent drainage EXTREMITIES: No edema. No cyanosis. DERMATOLOGIC: Warm, dry, no generalized rash. NEUROLOGIC: Little more alert Labs Lab Laboratory Tests Test 03/08/21 12:09 03/08/21 16:17 03/08/21 21:24 03/09/21 06:00 Glucose (Fingerstick) 276 mg/dL (70-99) 239 mg/dL (70-99) 166 mg/dL (70-99) White Blood Count 13.7 x10^3/uL (4.0-11.0) Red Blood Count 3.30 x10^6/uL (3.50-5.40) Hemoglobin 9.1 g/dL (12.0-15.5) Hematocrit 28.3 % (36.0-47.0) Mean Corpuscular Volume 86 fL (79-100) Mean Corpuscular Hemoglobin 28 pg (25-35) Mean Corpuscular Hemoglobin Concent 32 g/dL (31-37) Red Cell Distribution Width 15.8 % (11.5-14.5) Platelet Count 237 x10^3/uL (140-400) Neutrophils (%) (Auto) 80 % (31-73) Lymphocytes (%) (Auto) 10 % (24-48) Monocytes (%) (Auto) 9 % (0-9) Eosinophils (%) (Auto) 2 % (0-3) Basophils (%) (Auto) 1 % (0-3) Neutrophils # (Auto) 10.9 x10^3/uL (1.8-7.7) Lymphocytes # (Auto) 1.3 x10^3/uL (1.0-4.8) Monocytes # (Auto) 1.2 x10^3/uL (0.0-1.1) Eosinophils # (Auto) 0.2 x10^3/uL (0.0-0.7) Basophils # (Auto) 0.1 x10^3/uL (0.0-0.2) Sodium Level 137 mmol/L (136-145) Potassium Level 3.5 mmol/L (3.5-5.1) Chloride Level 103 mmol/L (98-107) Carbon Dioxide Level 25 mmol/L (21-32) Anion Gap 9 (6-14) Blood Urea Nitrogen 31 mg/dL (7-20) Creatinine 1.6 mg/dL (0.6-1.0) Estimated GFR (Cockcroft-Gault) 39.3 Glucose Level 248 mg/dL (70-99) Calcium Level 8.0 mg/dL (8.5-10.1) Creatine Kinase 56 U/L (26-192) Test 03/09/21 07:00 Glucose (Fingerstick) 229 mg/dL (70-99) Micro GRAM STAIN Final Final GRAM NEGATIVE RODS:MANY SQUAMOUS EPI CELL:NONE SEEN PMN (WBCs):MANY Unless otherwise specified, Testing Performed by: [address] [address] For Inquires, the Physician may contact the Microbiology department at [phone] ANAEROBIC-AEROBIC CULTURE Preliminary Preliminary MIXED AEROBIC AND ANAEROBIC CONSTANCE on 03/05/21 at 1352 INCLUDING: FEW [PROTEUS MIRABILIS] MANY [KLEBSIELLA PNEUMONIAE] FEW [ENTEROCOCCUS FAECALIS] MODERATE [BACTEROIDES THETAIOTAOMICRON G] PROTEUS MIRABILIS UNIDENTIFIED ORGANISM ENTEROCOCCUS FAECALIS BACTEROIDES THETAIOTAOMICRON G KLEBSIELLA PNEUMONIAE Unless otherwise specified, Testing Performed by: [address] [address] For Inquires, the Physician may contact the Microbiology department at [phone] Objective Assessment 1. Acute encephalopathy appears multifactorial 2. Leukocytosis 3. Infected sacral wound with necrosis and eschar. Intra-abdominal abscesses on repeat CT Proctitis Possible fistula 4. History of multiple wounds. 5. History of seizures. 6. Diabetes mellitus 2. 7. Depression. 8. Anemia. 9. History of cocaine disorder, in remission. 10. Hypernatremia. 11. Hypokalemia. 12. Protein-calorie malnutrition. 13. Nancy glabrata in urine could be colonization. Repeat urine cultures negative 14. SARS-COVID negative. Fecal impaction Hematuria Plan Plan of Care Continue broad-spectrum antibiotics CT abdomen and pelvis done twice General Surgery following, has developed possible fistula WBC is decreasing though very slowly May need surgical debridement Palacio management per protocol. Placed this admission per nursing staff Offload. Continue wound care as directed. Continue supportive care. Monitor labs and cultures. Prognosis is very poor. consider hospice Discussed with nursing staff Son is going for hospice care for . Mc MARIE MORALES MD Mar 09, 2021 09:09
[2021-03-09] MEDS: INSULIN LISPRO 300 UNITS/3 ML VIAL. SQ SCH ×3 (09:27→18:10)
[2021-03-09] MEDS: levETIRAcetam 500 MG in IV DEXTROSE 5% 100ML 100 ML IV SCH ×2 (09:28→21:43)
--- NOTE | 2021-03-09 10:25 | PDOC ---
DATE OF SERVICE DATE: 03/09/21 TIME: 10:25 SUBJECTIVE ROS Much more alert compared to last week OBJECTIVE Vital Signs Vital Signs Date Time Temp Pulse Resp B/P (MAP) Pulse Ox O2 Delivery O2 Flow Rate FiO2 03/09/21 07:02 98.7 97 18 148/84 (105) 95 Room Air 98.7 I & 0 Intake and Output 03/09/21 07:00 Intake Total 1865 ml Output Total 3300 ml Balance -1435 ml Intake Oral 340 ml IV Total 1525 ml Output Urine Total 3300 ml PHYSICAL EXAM Physical Exam General: NAD HEENT: Atraumatic, PERRLA, EOMI, Mucous membr. moist/pink Neck Supple Lungs: Clear to auscultation, Non labored Heart: S1S2, RRR, no thrills, no rubs, no gallops, no murmurs Abdomen: Normal bowel sounds, Soft, No tenderness, No hepatosplenomegaly, No masses Extremities: No clubbing, No cyanosis, No edema, Skin: No rashes, NeurO Grossly No neurological deficit DIAGNOSIS/ASSESSMENT Assessment & Plan MEHDI - ATN, recovering , required dialysis , no indication for dialysis any more Supportive care,, Avoid Nephrotoxins ,strict I/O (UOP some improvement ) , monitor for recovery If No improvement will need Tunneled HDC and OP chair time prior to discharge CKD stage 2/3 A per [facility] records Acute encephalopathy -improved MS Sepsis Anemia Seizures DM2 H/o cocaine use disorder - in remission in SNF o COMMENT/RELEVANT DATA Meds Current Medications Medications (Trade) Dose Ordered Sig/Es Start Time Stop Time Status Last Admin Dose Admin Acetaminophen (Tylenol Supp) 650 mg PRN Q6HRS PRN 02/22/21 21:15 03/08/21 18:28 650 MG Albumin Human 200 ml @ 200 mls/hr 1X PRN PRN 02/27/21 08:45 02/27/21 14:44 DC Amino Acids/ Electrolytes/ Dextrose 1,000 ml @ 80 mls/hr [id number] 02/27/21 13:30 03/03/21 12:18 DC 03/03/21 11:39 80 MLS/HR Bisacodyl (Dulcolax Supp) 10 mg PRN DAILY PRN 02/22/21 21:15 02/28/21 07:54 10 MG Cefepime HCl (Maxipime) 1 gm Q24H 02/22/21 21:30 02/26/21 09:54 DC 02/25/21 20:33 1 GM Daptomycin 420 mg/ Sodium Chloride 50 ml @ 100 mls/hr Q24H 03/05/21 10:30 03/08/21 11:36 100 MLS/HR Dextrose (Dextrose 50%-Water Syringe) 12.5 gm PRN Q15MIN PRN 02/22/21 21:30 Epoetin Macho-epbx (RETACRIT for ESRD PTS) 10,000 unit 1X ONCE 03/06/21 11:30 03/06/21 11:31 DC 03/06/21 14:23 10,000 UNIT Heparin Sodium (Porcine) (Heparin Sodium) 5,000 unit Q8HRS 02/22/21 22:00 03/07/21 14:03 DC 03/07/21 05:34 5,000 UNIT Info (PHARMACY MONITORING -- do not chart) 1 each PRN DAILY PRN 03/03/21 08:15 03/07/21 16:10 DC Info (Tpn Per Pharmacy) 1 each PRN DAILY PRN 03/04/21 09:00 03/08/21 11:27 1 EACH Insulin Glargine (Lantus Syringe) 15 unit QHS 03/08/21 21:00 03/08/21 22:08 15 UNIT Insulin Human Lispro (HumaLOG) 0-9 UNITS TIDWMEALS 02/23/21 08:00 03/09/21 09:27 5 UNITS Levetiracetam 500 mg/Dextrose 105 ml @ 420 mls/hr Q12HR 02/22/21 21:30 03/09/21 09:28 420 MLS/HR Lidocaine HCl (Buffered Lidocaine 1%) 3 ml 1X ONCE 02/24/21 09:00 02/24/21 09:01 DC 02/24/21 09:00 5 ML Linezolid/Dextrose 300 ml @ 300 mls/hr Q12HR 02/24/21 14:30 03/05/21 09:12 DC 03/05/21 09:09 300 MLS/HR Lorazepam (Ativan Inj) 0.5 mg PRN Q4HRS PRN 02/22/21 21:30 02/23/21 10:58 0.5 MG Magnesium Sulfate 50 ml @ 25 mls/hr 1X ONCE 03/07/21 17:00 03/07/21 18:59 DC 03/07/21 17:24 25 MLS/HR Micafungin Sodium 100 mg/Dextrose 100 ml @ 100 mls/hr Q24H 02/26/21 12:00 03/08/21 12:28 100 MLS/HR Olanzapine (ZyPREXA ZYDIS) 5 mg PRN BID PRN 02/22/21 21:15 03/09/21 02:57 5 MG Ondansetron HCl (Zofran) 4 mg PRN Q4HRS PRN 02/22/21 21:15 03/08/21 03:17 4 MG Pantoprazole Sodium (PROTONIX VIAL for IV PUSH) 40 mg 1X ONCE 02/22/21 22:00 02/22/21 22:01 DC 02/22/21 22:16 40 MG Piperacillin Sod/ Tazobactam Sod 2.25 gm/Sodium Chloride 50 ml @ 100 mls/hr Q6HRS 03/07/21 18:00 03/09/21 05:42 100 MLS/HR Piperacillin Sod/ Tazobactam Sod 4.5 gm/Sodium Chloride 100 ml @ 200 mls/hr 1X ONCE 02/22/21 13:30 02/22/21 13:59 UNV Sodium Bicarbonate 50 meq/Sodium Chloride 1,050 ml @ 125 mls/hr Q8H24M 02/22/21 21:30 02/23/21 12:14 DC 02/23/21 10:54 125 MLS/HR Sodium Hypochlorite (Dakin'S 1/4 Strength) 1 rustam BID 03/02/21 15:00 03/08/21 20:10 1 RUSTAM Sodium Chloride (Normal Saline Flush) 10 ml 1X PRN PRN 02/27/21 08:45 02/28/21 08:44 DC Sodium Chloride 90 meq/Potassium Chloride 50 meq/ Potassium Phosphate 13.6 mmol/Magnesium Sulfate 10 meq/ Calcium Gluconate 10 meq/ Multivitamins 10 ml/Zinc/Copper/ Manganese/ Selenium 1 ml/ Total Parenteral Nutrition/Amino Acids/Dextrose/ Fat Emulsion Intravenous 1,512 ml @ 63 mls/hr TPN CONT 03/03/21 22:00 03/04/21 21:59 DC 03/03/21 22:41 63 MLS/HR Sodium Chloride 90 meq/Potassium Chloride 50 meq/ Potassium Phosphate 13.6 mmol/Magnesium Sulfate 12 meq/ Calcium Gluconate 10 meq/ Multivitamins 10 ml/Zinc/Copper/ Manganese/ Selenium 1 ml/ Total Parenteral Nutrition/Amino Acids/Dextrose/ Fat Emulsion Intravenous 1,512 ml @ 63 mls/hr TPN CONT 03/04/21 22:00 03/05/21 21:59 DC 03/04/21 22:29 63 MLS/HR Sodium Chloride 110 meq/Potassium Chloride 50 meq/ Potassium Phosphate 6.8 mmol/Magnesium Sulfate 12 meq/ Calcium Gluconate 10 meq/ Multivitamins 10 ml/Zinc/Copper/ Manganese/ Selenium 1 ml/ Total Parenteral Nutrition/Amino Acids/Dextrose/ Fat Emulsion Intravenous 1,320 ml @ 55 mls/hr TPN CONT 03/08/21 22:00 03/09/21 21:59 03/08/21 21:55 55 MLS/HR Vancomycin HCl (Vanco Per Pharmacy) 1 each PRN DAILY PRN 02/22/21 13:30 02/24/21 13:58 DC 02/23/21 03:10 1 EACH Vancomycin HCl (Vancomycin Trough Level) 1 each 1X ONCE 02/26/21 13:30 02/24/21 13:58 DC Vancomycin HCl 1.25 gm/Sodium Chloride 250 ml @ 167 mls/hr Q48H 02/24/21 14:00 02/24/21 13:58 DC Lab Laboratory Tests Test 03/08/21 12:09 03/08/21 16:17 03/08/21 21:24 03/09/21 06:00 Glucose (Fingerstick) 276 mg/dL (70-99) 239 mg/dL (70-99) 166 mg/dL (70-99) White Blood Count 13.7 x10^3/uL (4.0-11.0) Red Blood Count 3.30 x10^6/uL (3.50-5.40) Hemoglobin 9.1 g/dL (12.0-15.5) Hematocrit 28.3 % (36.0-47.0) Mean Corpuscular Volume 86 fL (79-100) Mean Corpuscular Hemoglobin 28 pg (25-35) Mean Corpuscular Hemoglobin Concent 32 g/dL (31-37) Red Cell Distribution Width 15.8 % (11.5-14.5) Platelet Count 237 x10^3/uL (140-400) Neutrophils (%) (Auto) 80 % (31-73) Lymphocytes (%) (Auto) 10 % (24-48) Monocytes (%) (Auto) 9 % (0-9) Eosinophils (%) (Auto) 2 % (0-3) Basophils (%) (Auto) 1 % (0-3) Neutrophils # (Auto) 10.9 x10^3/uL (1.8-7.7) Lymphocytes # (Auto) 1.3 x10^3/uL (1.0-4.8) Monocytes # (Auto) 1.2 x10^3/uL (0.0-1.1) Eosinophils # (Auto) 0.2 x10^3/uL (0.0-0.7) Basophils # (Auto) 0.1 x10^3/uL (0.0-0.2) Sodium Level 137 mmol/L (136-145) Potassium Level 3.5 mmol/L (3.5-5.1) Chloride Level 103 mmol/L (98-107) Carbon Dioxide Level 25 mmol/L (21-32) Anion Gap 9 (6-14) Blood Urea Nitrogen 31 mg/dL (7-20) Creatinine 1.6 mg/dL (0.6-1.0) Estimated GFR (Cockcroft-Gault) 39.3 Glucose Level 248 mg/dL (70-99) Calcium Level 8.0 mg/dL (8.5-10.1) Creatine Kinase 56 U/L (26-192) Test 03/09/21 07:00 Glucose (Fingerstick) 229 mg/dL (70-99) Results All relevant outside records, renal labs, imaging studies, telemetry/EKG's were reviewed. Justicifation of Admission Dx: Justifications for Admission: Justification of Admission Dx: N/A AZAEL VANCE MD Mar 09, 2021 10:25
[2021-03-09] MEDS: DAPTOmycin (GENERIC) IVPB 420 MG in IV NORMAL SALINE 50ML 50 ML IV SCH (11:27)
--- NOTE | 2021-03-09 12:10 | PDOC ---
[employer] PROGRESS NOTE Date of Service DOS: DATE: 03/09/21 TIME: 12:06 Chief Complaint Chief Complaint A/P: Acute encephalopathy - multifactorial, metabolic due to uremia, no SDH or CVA symptoms. less likely post-ictal. possibly related to sepsis as well Hypoxia Hypernatremia - likely free water deficit, was on numerous diuretics prior to admit, improved Sepsis - empiric vancomycin and zosyn given for likely gluteal ulcer as source. Will change to cefepime for renal failure. pharmacy to help dosing vancomycin. Fluids given MEHDI - likely vasomotor nephropathy possibly from free water deficit, sepsis. Will hydrate with bicarbonate fluids. Consult nephrology Gluteal ulcer - unstageable. Wound care and general surgery to see. possible sepsis source. Infectious disease. Continue current antibiotics. Poor surgical candidate. Cannot get a hold of family multiple times this week to discuss goals of care Anemia Severe protein calorie malnutrition - will need early nutrition when mentation improves. Speech to see for swallow assessment Seizures - will dose IV keppra while confused. Prn ativan for seizure activity DM2 - basal bolus plus insulin Depression GERD - IV protonix HLD - hold statin while NPO HTN - prn hydralazine, prn metoprolol H/o cocaine use disorder - in remission in SNF Elevated troponin - likely demand ischemia due to above, will trend FEN - NPO PPX - heparin FULL CODE Dispo - inpatient. D/w Italo, next of kin History of Present Illness History of Present Illness Ms Bentley is a 65 year old female with history of seizures, cocaine use disorder, DM2, depression, GERD, HLD, HTN who is a senior care SNF resident who comes to the ED via EMS due to unresponsiveness. Per SNF staff has been less active for the past month and had irregular breathing since 1000 this morning. [facility] staff reports O2 saturations in the low 80s on room air so they put her on 3 L nasal cannula. Her oxygen satur ation then raised to 92%. No witnessed seizure activity and she has reportedly been taking her Keppra and vimpat BID. Nonverbal enroute. She is baseline alert and aware x2 and wheelchair-bound. No falls or head trauma reported. She is unable to give any history and her daughter is listed as contact, voicemail box is full. Patient opens her eyes to painful stimuli and makes eye contact, does not follow any commands. Of note, she was admitted for similar complaints just a month ago. WBC 31.4, Hb 9.1, Platelets 369, Na 152, K 4, Cl 117, HCO3 23, BUN 108, Cr 3.3, glucose 161, lactic acid 1.2, ca 9.2, bili 0.5, AST 29, ALT 16, Alk phos 103, Trop 0.266, Albumin 1.7. Urine with blood and + leukocyte esterase EKG sinus rate of 99 bpm with TWI in inferolateral leads unchanged from prior EKG, significant baseline artefact, No ST elevations, QTc 509, CXR and CT head with no acute findings. Given leukocytosis and likely sepsis related to UTI, given empiric antibiotics and fluids and admitted for further care. 02/23: Afebrile. WBC 31.7, Hb 7.6, platelets 300, NA 156, K3.9, BUN 119, CR 3.6, glucose 153, alb 1.3. Covid neg. Breathing improved, but not communicating. Offloading for bedsore. 02/24: Afebrile. WBC still elevated patient septic. Son consented for dialysis catheter placement. BUN 128 today. Still very confused. Discussed with general surgery is poor surgical candidate but very large wound needs offloading possibly chemical debridement and consideration of wound VAC. Continue cefepime and vancomycin. Discussed with family overall goals of care. 02/25: Afebrile. Hb dropped to 6.9. To dialysis today for transfusion. Urine culture with Nancy glabrata. Afebrile. Glucose 67 this morning. Shaking Lasix. Low-grade axillary temp. Discussed with ID urine culture less likely to be source. Labs pending. Insulin adjusted 02/27 Patient evaluated and examined after dialysis. She was resting in bed very lethargic. Did not appear to be any clinical changes overall however. Continuing antibiotics and antifungals. Relatively poor prognosis. 02/28 Patient examined at bedside remains lethargic and altered. Clinically not much is changed. Continue antibiotics and antifungals per infectious disease very poor prognosis will attempt to contact family today regarding CODE STATUS, unable to reach will try again tomorrow. 03/01 Patient evaluated and examined at bedside. Remains somewhat altered. Very lethargic. Poor prognosis. Continuing antibiotics and antifungals. 03/02 Patient evaluated and examined at bedside. Does remain altered but notably more alert today. She arouses to my voice although still unable answer questions or follow commands. Despite this prognosis does remain poor. Will continue discussion with family if able to reach them. Continue antibiotics. Continue wound care. 03/03 Patient evaluated and examined at bedside. Upon entering room she was yelling out as she was getting her rectal wound cleaned. Necrotic areas on previous wound, wound VAC removed yesterday on initial wound. Seeing if the surgical team will come evaluate the patient to determine her surgical candidacy. If not a candidate will continue a DNR/DNI discussion with the family today with this new information. Continue antibiotics. Continue wound care 03/04 Patient evaluated examined at bedside. Is a very poor candidate for surgery. She is yelling out in a notable amount of pain anytime dressings are changed. Antibiotics and wound care for now. 03/05 Patient evaluated and examined at bedside. Reviewed surgical notes. Have attempted to contact family multiple times this week to discuss goals of care however efforts have proven futile. Continue antibiotics. We will see if social work can assist in reaching family. 03/06: Afebrile. Hemoglobin 6.5 today transfuse 1 unit PRBC. Try to reach out to patient's son (Italo) about goals of care and whether or not to proceed with surgical debridement of sacral ulcer; no answer, will attempt to contact again at a later time. 03/07: Afebrile. Had discussion with patient's son (Italo) yesterday, who has been acting largely as the decision maker given patient's 's history of stroke; at this time no decision has been made about whether to proceed with surgical debridement or not. I answered all his questions and addressed any concerns to the best my ability, but Italo stated he would like to discuss with some other people and do further research prior to making a decision on surgical debridement. WBC 9.7, hemoglobin 6.8. Hemoglobin did not improve after anticipa blanquita following 1 unit PRBC yesterday; will transfuse additional 1 unit PRBC. Continue IV antibiotics, per ID. 03/08: Patient with no acute events overnight. Still some significant hyperglycemia, insulin has been adjusted. Was able to get a hold of patient's son (Italo); after extensive discussion about surgical debridement versus hospice, he is leaning towards hospice care at this time. He would like to speak with our [facility] hospice service for further information about what hospice entails. At this time we will continue IV antibiotics, per ID. 03/09: Afebrile, no acute vents overnight. Blood sugar slightly better controlled. Son had discussion with hospice yesterday and reportedly agreeable to hospice care. food service worker helping in this regard. Vitals/I&O Vitals/I&O: Vital Signs Date Time Temp Pulse Resp B/P (MAP) Pulse Ox O2 Delivery O2 Flow Rate FiO2 03/09/21 10:40 97.8 81 18 162/84 (110) 96 Room Air 97.8 I & O 03/08/21 03/08/21 03/09/21 15:00 23:00 07:00 Intake Total 220 ml 1425 ml 220 ml Output Total 800 ml 600 ml 1900 ml Balance -580 ml 825 ml -1680 ml Physical Exam Physical Exam: GENERAL: The patient is lying comfortably in bed, arousable but does not answer all questions Nods yes to pain HEENT: Normocephalic, atraumatic. Anicteric. Oral mucosa moist. NECK: Supple. LUNGS: Clear bilaterally. No wheezing. HEART: S1, S2. No murmurs. ABDOMEN: Soft, nontender, nondistended. GENITOURINARY: Palacio in place, placed here. rectum with purulent drainage EXTREMITIES: No edema. No cyanosis. DERMATOLOGIC: Warm, dry, no generalized rash. NEUROLOGIC: Little more alert General: Cooperative, Other (does not answer questions) Heart: Normal S1, Normal S2, Other (mild tachy ) Lungs: Crackles Abdomen: Soft Extremities: No edema Skin: Other (large sacral wound) Labs Labs: Laboratory Tests Test 03/08/21 12:09 03/08/21 16:17 03/08/21 21:24 03/09/21 06:00 Glucose (Fingerstick) 276 mg/dL (70-99) 239 mg/dL (70-99) 166 mg/dL (70-99) White Blood Count 13.7 x10^3/uL (4.0-11.0) Red Blood Count 3.30 x10^6/uL (3.50-5.40) Hemoglobin 9.1 g/dL (12.0-15.5) Hematocrit 28.3 % (36.0-47.0) Mean Corpuscular Volume 86 fL (79-100) Mean Corpuscular Hemoglobin 28 pg (25-35) Mean Corpuscular Hemoglobin Concent 32 g/dL (31-37) Red Cell Distribution Width 15.8 % (11.5-14.5) Platelet Count 237 x10^3/uL (140-400) Neutrophils (%) (Auto) 80 % (31-73) Lymphocytes (%) (Auto) 10 % (24-48) Monocytes (%) (Auto) 9 % (0-9) Eosinophils (%) (Auto) 2 % (0-3) Basophils (%) (Auto) 1 % (0-3) Neutrophils # (Auto) 10.9 x10^3/uL (1.8-7.7) Lymphocytes # (Auto) 1.3 x10^3/uL (1.0-4.8) Monocytes # (Auto) 1.2 x10^3/uL (0.0-1.1) Eosinophils # (Auto) 0.2 x10^3/uL (0.0-0.7) Basophils # (Auto) 0.1 x10^3/uL (0.0-0.2) Sodium Level 137 mmol/L (136-145) Potassium Level 3.5 mmol/L (3.5-5.1) Chloride Level 103 mmol/L (98-107) Carbon Dioxide Level 25 mmol/L (21-32) Anion Gap 9 (6-14) Blood Urea Nitrogen 31 mg/dL (7-20) Creatinine 1.6 mg/dL (0.6-1.0) Estimated GFR (Cockcroft-Gault) 39.3 Glucose Level 248 mg/dL (70-99) Calcium Level 8.0 mg/dL (8.5-10.1) Creatine Kinase 56 U/L (26-192) Test 03/09/21 07:00 03/09/21 11:42 Glucose (Fingerstick) 229 mg/dL (70-99) 165 mg/dL (70-99) Assessment and Plan Assessmemt and Plan Problems Medical Problems: (1) Acute encephalopathy Status: Acute (2) Acute kidney injury superimposed on chronic kidney disease Status: Acute (3) NSTEMI (non-ST elevated myocardial infarction) Status: Acute (4) Sepsis Status: Acute (5) UTI (urinary tract infection) Status: Acute Comment Review of Relevant I have reviewed the following items toan (where applicable) has been applied. Medications: Current Medications Medications (Trade) Dose Ordered Sig/Es Route PRN Reason Start Time Stop Time Status Last Admin Dose Admin Sodium Chloride 110 meq/Potassium Chloride 50 meq/ Potassium Phosphate 6.8 mmol/Magnesium Sulfate 12 meq/ Calcium Gluconate 10 meq/ Multivitamins 10 ml/Zinc/Copper/ Manganese/ Selenium 1 ml/ Total Parenteral Nutrition/Amino Acids/Dextrose/ Fat Emulsion Intravenous 1,320 ml @ 55 mls/hr TPN CONT IV 03/08/21 22:00 03/09/21 21:59 03/08/21 21:55 Insulin Glargine (Lantus Syringe) 15 unit QHS SQ 03/08/21 21:00 03/08/21 22:08 Justifications for Admission General Conditions Poss Metaboilic Acidosis?: Yes Justification for admission: Patient has tachycardia (> 100 beats per minute) or hypotension (SBP < 90 mm Hg) leading to inadequate systemic perfusion as indicated by metabolic acidosis with arterial pH of less than 7.35. Other Justification JULIET GARG MD Mar 09, 2021 12:10
--- NOTE | 2021-03-09 12:42 | NUR ---
SS following up with discharge planning. SS reviewed pt chart and discussed with pt RN. Pt is currently on room air. COVID19 negative. Wound care following for sacral wound. Pt on TPN, IV Zosyn, IV Daptomycin, IV Micafungin, and IV Keppra. Insurance denied referral to LTACH at this time. Pt's son, Italo, , spoke with [facility], ; fax [phone], and is agreeable to services and is requesting placement at [facility], ; fax [phone]. SS phoned and faxed referral as requested to [facility]. Pt's son notified. SS will await acceptance decision and will continue to follow for discharge planning.
[2021-03-09] MEDS: MICAFUNGIN 100 MG in IV DEXTROSE 5% 100ML 100 ML IV SCH (12:47)
[2021-03-09] MEDS: TPN PER PHARMACY MC PRN (14:48)
--- NOTE | 2021-03-09 14:48 | NUR ---
Pharmacy TPN Dosing Note S: MERA HENLEY is a 65 year old F Currently receiving Central Continuous TPN started 03/03/21 B:Pertinent PMH: Poor PO intake, just started dysphagia diet 03/06 Height: 5 feet, 5 inches Weight: 81.0 kg Current diet: dysphagia I LABS: Sodium: 137 Potassium: 3.5 Chloride: 103 Calcium: 8.0 Corrected Calcium: 10.16 Magnesium: 2 CO2: 25 SCr: 1.6 Glucose: 165-248 Albumin: 1.3 AST: 16 ALT: 17 TPN FORMULA: TPN TYPE: Central Continuous AMINO ACIDS: 60 gm DEXTROSE: 195 gm LIPIDS: 20 gm SODIUM CHLORIDE: 110 mEq POTASSIUM CHLORIDE: 50 mEq POTASSIUM PHOSPHATE: 6.8 mmol MAGNESIUM: 12 mEq CALCIUM: 10 mEq MULTIPLE VITAMIN: 10 ml TRACE ELEMENTS: 1 ml(s) TPN PLAN: Cont same TPN formula. No labs in AM d/t stability R: Continue same TPN formula. Will monitor electrolytes, glucose, and tolerance to TPN. CLAUDIA MONTEJO [facility]LY [facility], 03/09/21 0825
[2021-03-09] MEDS: hydrALAZINE 20 MG/ML VIAL. IVP PRN ×2 (15:46→23:05)
[2021-03-09] MEDS: INSULIN GLARGINE SYRINGE. SQ SCH (21:46)
[2021-03-09] MEDS ORDERED: AMINO ACID IV SCH (22:00)
[2021-03-09] MEDS ORDERED: [UNRECOGNIZED DRUG - OTHER] IV SCH (22:00)
[2021-03-09] MEDS ORDERED: TOTAL PARENTERAL NUTRITION IV SCH (22:00)
[2021-03-09] MEDS ORDERED: DEXTROSE 70% IV SCH (22:00)
[2021-03-09] MEDS: ONDANSETRON PF 4 MG/2 ML VIAL. IVP PRN (22:22)
[2021-03-09] MEDS: ACETAMINOPHEN 650 MG SUPP.RECT. PR PRN (23:04)
[2021-03-10 03:00] VITALS: BP 180/93
[2021-03-10] MEDS ORDERED: fentaNYL PF VIAL 100 MCG/2 ML VIAL IVP PRN (03:15)
[2021-03-10] MEDS: hydrALAZINE 20 MG/ML VIAL. IVP PRN (03:24)
[2021-03-10 06:30] LABS: BASO # 0.1 x10^3/uL (0.0-0.2); BASO % 1 % (0-3); EOS # 0.2 x10^3/uL (0.0-0.7); EOS % 1 % (0-3); HEMATOCRIT 31.3 % (36.0-47.0); LYMPH # 1.3 x10^3/uL (1.0-4.8); LYMPH % 8 % (24-48); MEAN CORPUSCULAR HEMOGLOBIN 27 pg (25-35); MEAN CORPUSCULAR HGB CONC 32 g/dL (31-37); MEAN CORPUSCULAR VOLUME 86 fL (79-100); MONO # 1.3 x10^3/uL (0.0-1.1); MONO % 8 % (0-9); NEUT # 13.4 x10^3/uL (1.8-7.7); NEUT % 82 % (31-73); PLATELET COUNT 292 x10^3/uL (140-400); RED BLOOD COUNT 3.66 x10^6/uL (3.50-5.40); WHITE BLOOD COUNT 16.3 x10^3/uL (4.0-11.0)
[2021-03-10 06:35] LABS: CALCIUM 8.1 mg/dL (8.5-10.1); CREATININE 1.4 mg/dL (0.6-1.0); GFR 45.8; POTASSIUM 3.3 mmol/L (3.5-5.1)
[2021-03-10] MEDS: PIPERACILLIN/TAZOBACTAM 2.25 GM in IV NORMAL SALINE 50ML 50 ML IV SCH ×4 (06:35→23:47)
[2021-03-10 07:00] VITALS: BP 163/90
--- NOTE | 2021-03-10 07:51 | PDOC ---
Infectious Disease Note Subjective Subjective Patient resting quietly Afebrile ROS ROS no n/v/d/ Vital Sign Vital Signs Vital Signs Date Time Temp Pulse Resp B/P (MAP) Pulse Ox O2 Delivery O2 Flow Rate FiO2 03/10/21 04:00 97 Room Air 03/10/21 03:24 92 180/93 03/10/21 03:00 97.4 19 97.4 03/09/21 08:00 3.0 Physical Exam PHYSICAL EXAM GENERAL: The patient is lying comfortably in bed, arousable but does not answer all questions Nods yes to pain HEENT: Normocephalic, atraumatic. Anicteric. Oral mucosa moist. NECK: Supple. LUNGS: Clear bilaterally. No wheezing. HEART: S1, S2. No murmurs. ABDOMEN: Soft, nontender, nondistended. GENITOURINARY: Palacio in place, placed here. rectum with purulent drainage EXTREMITIES: No edema. No cyanosis. DERMATOLOGIC: Warm, dry, no generalized rash. NEUROLOGIC: Little more alert Labs Lab Laboratory Tests Test 03/09/21 11:42 03/09/21 16:22 03/09/21 20:23 03/10/21 06:20 Glucose (Fingerstick) 165 mg/dL (70-99) 221 mg/dL (70-99) 228 mg/dL (70-99) White Blood Count 16.3 x10^3/uL (4.0-11.0) Red Blood Count 3.66 x10^6/uL (3.50-5.40) Hemoglobin 10.0 g/dL (12.0-15.5) Hematocrit 31.3 % (36.0-47.0) Mean Corpuscular Volume 86 fL (79-100) Mean Corpuscular Hemoglobin 27 pg (25-35) Mean Corpuscular Hemoglobin Concent 32 g/dL (31-37) Red Cell Distribution Width 16.0 % (11.5-14.5) Platelet Count 292 x10^3/uL (140-400) Neutrophils (%) (Auto) 82 % (31-73) Lymphocytes (%) (Auto) 8 % (24-48) Monocytes (%) (Auto) 8 % (0-9) Eosinophils (%) (Auto) 1 % (0-3) Basophils (%) (Auto) 1 % (0-3) Neutrophils # (Auto) 13.4 x10^3/uL (1.8-7.7) Lymphocytes # (Auto) 1.3 x10^3/uL (1.0-4.8) Monocytes # (Auto) 1.3 x10^3/uL (0.0-1.1) Eosinophils # (Auto) 0.2 x10^3/uL (0.0-0.7) Basophils # (Auto) 0.1 x10^3/uL (0.0-0.2) Sodium Level 138 mmol/L (136-145) Potassium Level 3.3 mmol/L (3.5-5.1) Chloride Level 104 mmol/L (98-107) Carbon Dioxide Level 26 mmol/L (21-32) Anion Gap 8 (6-14) Blood Urea Nitrogen 29 mg/dL (7-20) Creatinine 1.4 mg/dL (0.6-1.0) Estimated GFR (Cockcroft-Gault) 45.8 Glucose Level 238 mg/dL (70-99) Calcium Level 8.1 mg/dL (8.5-10.1) Test 03/10/21 07:36 Glucose (Fingerstick) 241 mg/dL (70-99) Micro GRAM STAIN Final Final GRAM NEGATIVE RODS:MANY SQUAMOUS EPI CELL:NONE SEEN PMN (WBCs):MANY Unless otherwise specified, Testing Performed by: [address] [address] For Inquires, the Physician may contact the Microbiology department at [phone] ANAEROBIC-AEROBIC CULTURE Preliminary Preliminary MIXED AEROBIC AND ANAEROBIC CONSTANCE on 03/05/21 at 1352 INCLUDING: FEW [PROTEUS MIRABILIS] MANY [KLEBSIELLA PNEUMONIAE] FEW [ENTEROCOCCUS FAECALIS] MODERATE [BACTEROIDES THETAIOTAOMICRON G] PROTEUS MIRABILIS UNIDENTIFIED ORGANISM ENTEROCOCCUS FAECALIS BACTEROIDES THETAIOTAOMICRON G KLEBSIELLA PNEUMONIAE Unless otherwise specified, Testing Performed by: [address] [address] For Inquires, the Physician may contact the Microbiology department at [phone] Objective Assessment 1. Acute encephalopathy appears multifactorial 2. Leukocytosis 3. Infected sacral wound with necrosis and eschar. Intra-abdominal abscesses on repeat CT Proctitis Possible fistula 4. History of multiple wounds. 5. History of seizures. 6. Diabetes mellitus 2. 7. Depression. 8. Anemia. 9. History of cocaine disorder, in remission. 10. Hypernatremia. 11. Hypokalemia. 12. Protein-calorie malnutrition. 13. Nancy glabrata in urine could be colonization. Repeat urine cultures negative 14. SARS-COVID negative. Fecal impaction Hematuria Plan Plan of Care Continue broad-spectrum antibiotics CT abdomen and pelvis done twice General Surgery following, has developed possible fistula WBC is decreasing though very slowly May need surgical debridement Palacio management per protocol. Placed this admission per nursing staff Offload. Continue wound care as directed. Continue supportive care. Monitor labs and cultures. Prognosis is very poor. consider hospice Discussed with nursing staff Son is going for hospice care for Ms. Mc ladd s/o MARIE MORALES MD Mar 10, 2021 07:51
[2021-03-10] MEDS: levETIRAcetam 500 MG in IV DEXTROSE 5% 100ML 100 ML IV SCH ×2 (09:02→20:34)
[2021-03-10] MEDS: PANTOPRAZOLE IV PUSH 40 MG VIAL. IVP SCH (09:02)
[2021-03-10] MEDS: INSULIN LISPRO 300 UNITS/3 ML VIAL. SQ SCH ×3 (09:04→17:55)
[2021-03-10 11:00] VITALS: BP_SYST 141; BP_SYST 174; BP_DIAS 63; BP_DIAS 90
--- NOTE | 2021-03-10 11:04 | PDOC ---
Renal-Progress Notes Subjective Notes Notes CONFUSED History of Present Illness Hx of present illness NO ACUTE CHANGES Vitals Vitals Vital Signs Date Time Temp Pulse Resp B/P (MAP) Pulse Ox O2 Delivery O2 Flow Rate FiO2 03/10/21 07:00 98.0 100 17 163/90 (114) 96 Room Air 98.0 03/09/21 08:00 3.0 Weight Weight [ ] I.O. Intake and Output Intake and Output 03/10/21 07:00 Intake Total 300 ml Output Total 4000 ml Balance -3700 ml Intake Oral 300 ml Output Urine Total 4000 ml Labs Labs Laboratory Tests Test 03/09/21 11:42 03/09/21 16:22 03/09/21 20:23 03/10/21 06:20 Glucose (Fingerstick) 165 mg/dL (70-99) 221 mg/dL (70-99) 228 mg/dL (70-99) White Blood Count 16.3 x10^3/uL (4.0-11.0) Red Blood Count 3.66 x10^6/uL (3.50-5.40) Hemoglobin 10.0 g/dL (12.0-15.5) Hematocrit 31.3 % (36.0-47.0) Mean Corpuscular Volume 86 fL (79-100) Mean Corpuscular Hemoglobin 27 pg (25-35) Mean Corpuscular Hemoglobin Concent 32 g/dL (31-37) Red Cell Distribution Width 16.0 % (11.5-14.5) Platelet Count 292 x10^3/uL (140-400) Neutrophils (%) (Auto) 82 % (31-73) Lymphocytes (%) (Auto) 8 % (24-48) Monocytes (%) (Auto) 8 % (0-9) Eosinophils (%) (Auto) 1 % (0-3) Basophils (%) (Auto) 1 % (0-3) Neutrophils # (Auto) 13.4 x10^3/uL (1.8-7.7) Lymphocytes # (Auto) 1.3 x10^3/uL (1.0-4.8) Monocytes # (Auto) 1.3 x10^3/uL (0.0-1.1) Eosinophils # (Auto) 0.2 x10^3/uL (0.0-0.7) Basophils # (Auto) 0.1 x10^3/uL (0.0-0.2) Sodium Level 138 mmol/L (136-145) Potassium Level 3.3 mmol/L (3.5-5.1) Chloride Level 104 mmol/L (98-107) Carbon Dioxide Level 26 mmol/L (21-32) Anion Gap 8 (6-14) Blood Urea Nitrogen 29 mg/dL (7-20) Creatinine 1.4 mg/dL (0.6-1.0) Estimated GFR (Cockcroft-Gault) 45.8 Glucose Level 238 mg/dL (70-99) Calcium Level 8.1 mg/dL (8.5-10.1) Test 03/10/21 07:36 Glucose (Fingerstick) 241 mg/dL (70-99) Micro Micro Microbiology 03/02/21 Gram Stain - Final, Complete 03/02/21 Aerobic and Anaerobic Culture - Final, Complete 03/02/21 Blood Culture - Final, Complete NO GROWTH AFTER 5 DAYS 03/01/21 Urine Culture - Final, Complete Review of Systems Constitutional: yes: other (UNABLE TO OBTAIN) Physical Exam General Appearance: no apparent distress Skin: warm Respiratory: bilateral CTA Heart: S1S2 Abdomen: soft, bowel sounds present Genitourinary: bladder flat Extremities: pulses present Neurology: alert Musculoskeletal: Osteoarthritis Assessment Assessment IMP [id number] OF 1.4 CKD STAGE 3B ENCEPHALOPATHY SACRAL WOUND LEUCOCYTOSIS DM II ANEMIA MALNUTRITION PLAN NO MORE HD PLANNED UO IS GOOD LABS IN AM CONT TPN MAINTAIN HD LINE FOR IV ACCESS CONSIDER PLACEMENT WILL FOLLOW QAMAR DOUGLAS MD Mar 10, 2021 11:04
[2021-03-10] MEDS: DAPTOmycin (GENERIC) IVPB 420 MG in IV NORMAL SALINE 50ML 50 ML IV SCH (11:18)
[2021-03-10] MEDS: MICAFUNGIN 100 MG in IV DEXTROSE 5% 100ML 100 ML IV SCH (12:23)
[2021-03-10] MEDS: SODIUM HYPOCHLORITE 0.125% 473 ML BOTTLE. TP SCH ×2 (12:23→22:33)
--- NOTE | 2021-03-10 13:24 | NUR ---
SS following up with discharge planning. SS reviewed pt chart and discussed with pt RN. Pt is currently on room air. COVID19 negative. Wound care following for sacral wound. Pt on TPN, IV Zosyn, IV Daptomycin, IV Micafungin, and IV Keppra. Insurance denied referral to LTACH at this time. Pt's son, Italo, , spoke with [facility], ; fax [phone], and is agreeable to services and is requesting placement at [facility], ; fax [phone]. SS currently awaiting acceptance decision from [facility]. Pt's son notified and encouraged to consider other options for placement in the event [facility] does not accept. SS will await acceptance decision and will continue to follow for discharge planning.
--- NOTE | 2021-03-10 13:38 | PDOC ---
[employer] PROGRESS NOTE Date of Service DOS: DATE: 03/10/21 TIME: 13:36 Chief Complaint Chief Complaint A/P: Acute encephalopathy - multifactorial, metabolic due to uremia, no SDH or CVA symptoms. less likely post-ictal. possibly related to sepsis as well Hypoxia Hypernatremia - likely free water deficit, was on numerous diuretics prior to admit, improved Sepsis - empiric vancomycin and zosyn given for likely gluteal ulcer as source. Will change to cefepime for renal failure. pharmacy to help dosing vancomycin. Fluids given MEHDI - likely vasomotor nephropathy possibly from free water deficit, sepsis. Will hydrate with bicarbonate fluids. Consult nephrology Gluteal ulcer - unstageable. Wound care and general surgery to see. possible sepsis source. Infectious disease. Continue current antibiotics. Poor surgical candidate. Cannot get a hold of family multiple times this week to discuss goals of care Anemia Severe protein calorie malnutrition - will need early nutrition when mentation improves. Speech to see for swallow assessment Seizures - will dose IV keppra while confused. Prn ativan for seizure activity DM2 - basal bolus plus insulin Depression GERD - IV protonix HLD - hold statin while NPO HTN - prn hydralazine, prn metoprolol H/o cocaine use disorder - in remission in SNF Elevated troponin - likely demand ischemia due to above, will trend FEN - NPO PPX - heparin FULL CODE Dispo - inpatient. D/w Italo, next of kin History of Present Illness History of Present Illness Ms Bentley is a 65 year old female with history of seizures, cocaine use disorder, DM2, depression, GERD, HLD, HTN who is a skilled nursing SNF resident who comes to the ED via EMS due to unresponsiveness. Per SNF staff has been less active for the past month and had irregular breathing since 1000 this morning. long term staff reports O2 saturations in the low 80s on room air so they put her on 3 L nasal cannula. Her oxygen satur ation then raised to 92%. No witnessed seizure activity and she has reportedly been taking her Keppra and vimpat BID. Nonverbal enroute. She is baseline alert and aware x2 and wheelchair-bound. No falls or head trauma reported. She is unable to give any history and her daughter is listed as contact, voicemail box is full. Patient opens her eyes to painful stimuli and makes eye contact, does not follow any commands. Of note, she was admitted for similar complaints just a month ago. WBC 31.4, Hb 9.1, Platelets 369, Na 152, K 4, Cl 117, HCO3 23, BUN 108, Cr 3.3, glucose 161, lactic acid 1.2, ca 9.2, bili 0.5, AST 29, ALT 16, Alk phos 103, Trop 0.266, Albumin 1.7. Urine with blood and + leukocyte esterase EKG sinus rate of 99 bpm with TWI in inferolateral leads unchanged from prior EKG, significant baseline artefact, No ST elevations, QTc 509, CXR and CT head with no acute findings. Given leukocytosis and likely sepsis related to UTI, given empiric antibiotics and fluids and admitted for further care. 02/23: Afebrile. WBC 31.7, Hb 7.6, platelets 300, NA 156, K3.9, BUN 119, CR 3.6, glucose 153, alb 1.3. Covid neg. Breathing improved, but not communicating. Offloading for bedsore. 02/24: Afebrile. WBC still elevated patient septic. Son consented for dialysis catheter placement. BUN 128 today. Still very confused. Discussed with general surgery is poor surgical candidate but very large wound needs offloading possibly chemical debridement and consideration of wound VAC. Continue cefepime and vancomycin. Discussed with family overall goals of care. 02/25: Afebrile. Hb dropped to 6.9. To dialysis today for transfusion. Urine culture with Nancy glabrata. Afebrile. Glucose 67 this morning. Shaking Lasix. Low-grade axillary temp. Discussed with ID urine culture less likely to be source. Labs pending. Insulin adjusted 02/27 Patient evaluated and examined after dialysis. She was resting in bed very lethargic. Did not appear to be any clinical changes overall however. Continuing antibiotics and antifungals. Relatively poor prognosis. 02/28 Patient examined at bedside remains lethargic and altered. Clinically not much is changed. Continue antibiotics and antifungals per infectious disease very poor prognosis will attempt to contact family today regarding CODE STATUS, unable to reach will try again tomorrow. 03/01 Patient evaluated and examined at bedside. Remains somewhat altered. Very lethargic. Poor prognosis. Continuing antibiotics and antifungals. 03/02 Patient evaluated and examined at bedside. Does remain altered but notably more alert today. She arouses to my voice although still unable answer questions or follow commands. Despite this prognosis does remain poor. Will continue discussion with family if able to reach them. Continue antibiotics. Continue wound care. 03/03 Patient evaluated and examined at bedside. Upon entering room she was yelling out as she was getting her rectal wound cleaned. Necrotic areas on previous wound, wound VAC removed yesterday on initial wound. Seeing if the surgical team will come evaluate the patient to determine her surgical candidacy. If not a candidate will continue a DNR/DNI discussion with the family today with this new information. Continue antibiotics. Continue wound care 03/04 Patient evaluated examined at bedside. Is a very poor candidate for surgery. She is yelling out in a notable amount of pain anytime dressings are changed. Antibiotics and wound care for now. 03/05 Patient evaluated and examined at bedside. Reviewed surgical notes. Have attempted to contact family multiple times this week to discuss goals of care however efforts have proven futile. Continue antibiotics. We will see if social work can assist in reaching family. 03/06: Afebrile. Hemoglobin 6.5 today transfuse 1 unit PRBC. Try to reach out to patient's son (Italo) about goals of care and whether or not to proceed with surgical debridement of sacral ulcer; no answer, will attempt to contact again at a later time. 03/07: Afebrile. Had discussion with patient's son (Italo) yesterday, who has been acting largely as the decision maker given patient's 's history of stroke; at this time no decision has been made about whether to proceed with surgical debridement or not. I answered all his questions and addressed any concerns to the best my ability, but Italo stated he would like to discuss with some other people and do further research prior to making a decision on surgical debridement. WBC 9.7, hemoglobin 6.8. Hemoglobin did not improve after anticipa blanquita following 1 unit PRBC yesterday; will transfuse additional 1 unit PRBC. Continue IV antibiotics, per ID. 03/08: Patient with no acute events overnight. Still some significant hyperglycemia, insulin has been adjusted. Was able to get a hold of patient's son (Italo); after extensive discussion about surgical debridement versus hospice, he is leaning towards hospice care at this time. He would like to speak with our [facility] hospice service for further information about what hospice entails. At this time we will continue IV antibiotics, per ID. 03/09: Afebrile, no acute vents overnight. Blood sugar slightly better controlled. Son had discussion with hospice yesterday and reportedly agreeable to hospice care. composite worker helping in this regard. 03/10: Afebrile, no significant change. Some worsening leukocytosis noted. Continue IV antibiotics, per ID. Referral to [facility] has been placed for long-term care on hospice. I reached out to patient's son (Italo), and discussed CODE STATUS. I explained to him that part of being set into hospice is DNR as CODE STATUS. He agrees that "if God were to take her home, he would not want us to step in the way ". Will change patient's CODE STATUS to DNR. Vitals/I&O Vitals/I&O: Vital Signs Date Time Temp Pulse Resp B/P (MAP) Pulse Ox O2 Delivery O2 Flow Rate FiO2 03/10/21 11:00 96.8 95 18 174/90 (118) 96 Room Air 96.8 03/10/21 08:00 3.0 I & O 03/09/21 03/09/21 03/10/21 15:00 23:00 07:00 Intake Total 300 ml 0 ml 0 ml Output Total 900 ml 1200 ml 1900 ml Balance -600 ml -1200 ml -1900 ml Physical Exam Physical Exam: GENERAL: The patient is lying comfortably in bed, arousable but does not answer all questions Nods yes to pain HEENT: Normocephalic, atraumatic. Anicteric. Oral mucosa moist. NECK: Supple. LUNGS: Clear bilaterally. No wheezing. HEART: S1, S2. No murmurs. ABDOMEN: Soft, nontender, nondistended. GENITOURINARY: Palacio in place, placed here. rectum with purulent drainage EXTREMITIES: No edema. No cyanosis. DERMATOLOGIC: Warm, dry, no generalized rash. NEUROLOGIC: Little more alert General: Cooperative, Other (does not answer questions) Heart: Normal S1, Normal S2, Other (mild tachy ) Lungs: Crackles Abdomen: Soft Extremities: No edema Skin: Other (large sacral wound) Labs Labs: Laboratory Tests Test 03/09/21 16:22 03/09/21 20:23 03/10/21 06:20 03/10/21 07:36 Glucose (Fingerstick) 221 mg/dL (70-99) 228 mg/dL (70-99) 241 mg/dL (70-99) White Blood Count 16.3 x10^3/uL (4.0-11.0) Red Blood Count 3.66 x10^6/uL (3.50-5.40) Hemoglobin 10.0 g/dL (12.0-15.5) Hematocrit 31.3 % (36.0-47.0) Mean Corpuscular Volume 86 fL (79-100) Mean Corpuscular Hemoglobin 27 pg (25-35) Mean Corpuscular Hemoglobin Concent 32 g/dL (31-37) Red Cell Distribution Width 16.0 % (11.5-14.5) Platelet Count 292 x10^3/uL (140-400) Neutrophils (%) (Auto) 82 % (31-73) Lymphocytes (%) (Auto) 8 % (24-48) Monocytes (%) (Auto) 8 % (0-9) Eosinophils (%) (Auto) 1 % (0-3) Basophils (%) (Auto) 1 % (0-3) Neutrophils # (Auto) 13.4 x10^3/uL (1.8-7.7) Lymphocytes # (Auto) 1.3 x10^3/uL (1.0-4.8) Monocytes # (Auto) 1.3 x10^3/uL (0.0-1.1) Eosinophils # (Auto) 0.2 x10^3/uL (0.0-0.7) Basophils # (Auto) 0.1 x10^3/uL (0.0-0.2) Sodium Level 138 mmol/L (136-145) Potassium Level 3.3 mmol/L (3.5-5.1) Chloride Level 104 mmol/L (98-107) Carbon Dioxide Level 26 mmol/L (21-32) Anion Gap 8 (6-14) Blood Urea Nitrogen 29 mg/dL (7-20) Creatinine 1.4 mg/dL (0.6-1.0) Estimated GFR (Cockcroft-Gault) 45.8 Glucose Level 238 mg/dL (70-99) Calcium Level 8.1 mg/dL (8.5-10.1) Test 03/10/21 11:08 Glucose (Fingerstick) 294 mg/dL (70-99) Assessment and Plan Assessmemt and Plan Problems Medical Problems: (1) Acute encephalopathy Status: Acute (2) Acute kidney injury superimposed on chronic kidney disease Status: Acute (3) NSTEMI (non-ST elevated myocardial infarction) Status: Acute (4) Sepsis Status: Acute (5) UTI (urinary tract infection) Status: Acute Comment Review of Relevant I have reviewed the following items toan (where applicable) has been applied. Medications: Current Medications Medications (Trade) Dose Ordered Sig/Es Route PRN Reason Start Time Stop Time Status Last Admin Dose Admin Sodium Chloride 110 meq/Potassium Chloride 50 meq/ Potassium Phosphate 6.8 mmol/Magnesium Sulfate 12 meq/ Calcium Gluconate 10 meq/ Multivitamins 10 ml/Zinc/Copper/ Manganese/ Selenium 1 ml/ Total Parenteral Nutrition/Amino Acids/Dextrose/ Fat Emulsion Intravenous 1,320 ml @ 55 mls/hr TPN CONT IV 03/09/21 22:00 03/10/21 21:59 03/09/21 22:16 Hydralazine HCl (Apresoline Inj) 10 mg PRN Q4HRS PRN IVP ELEVATED BP, SEE COMMENTS 03/09/21 15:15 03/10/21 03:24 Fentanyl Citrate (Fentanyl 2ml Vial) 50 mcg PRN Q2HR PRN IVP PAIN 03/10/21 03:15 03/10/21 03:25 Justifications for Admission General Conditions Poss Metaboilic Acidosis?: Yes Justification for admission: Patient has tachycardia (> 100 beats per minute) or hypotension (SBP < 90 mm Hg) leading to inadequate systemic perfusion as indicated by metabolic acidosis with arterial pH of less than 7.35. Other Justification JULIET GARG MD Mar 10, 2021 13:38
[2021-03-10 15:00] VITALS: BP 176/91
[2021-03-10] MEDS: TPN PER PHARMACY MC PRN (15:13)
--- NOTE | 2021-03-10 17:03 | NUR ---
Pharmacy TPN Dosing Note S: MERA HENLEY is a 65 year old F Currently receiving Central Continuous TPN started 03/03/21 B:Pertinent PMH: Poor PO intake, just started dysphagia diet 03/06 Height: 5 feet, 5 inches Weight: 90.0 kg Current diet: dysphagia I LABS: Sodium: 138 Potassium: 3.3 Chloride: 104 Calcium: 8.1 Corrected Calcium: 10.26 Magnesium: 2 CO2: 25 SCr: 1.6 Glucose: 238/294 Albumin: 1.3 AST: 16 ALT: 17 TPN FORMULA: TPN TYPE: Central Continuous AMINO ACIDS: 60 gm DEXTROSE: 195 gm LIPIDS: 20 gm SODIUM CHLORIDE: 110 mEq SODIUM ACETATE: mEq SODIUM PHOSPHATE: mmol POTASSIUM CHLORIDE: 60 mEq POTASSIUM ACETATE: mEq POTASSIUM PHOSPHATE: 6.8 mmol MAGNESIUM: 12 mEq CALCIUM: 10 mEq INSULIN: units MULTIPLE VITAMIN: 10 ml TRACE ELEMENTS: 1 ml(s) TPN PLAN: INCREASE KCL TO 60 MEQ IN TPN R: Continue TPN AT 55ML/HR Will monitor electrolytes, glucose, and tolerance to TPN. GHADA LYONS [facility], 03/10/21 [id number]
[2021-03-10 19:48] VITALS: BP 145/81
[2021-03-10] MEDS ORDERED: [UNRECOGNIZED DRUG - OTHER] IV SCH (22:00)
[2021-03-10] MEDS ORDERED: AMINO ACID IV SCH (22:00)
[2021-03-10] MEDS ORDERED: TOTAL PARENTERAL NUTRITION IV SCH (22:00)
[2021-03-10] MEDS ORDERED: DEXTROSE 70% IV SCH (22:00)
[2021-03-10] MEDS: INSULIN GLARGINE SYRINGE. SQ SCH (22:32)
[2021-03-10 23:46] VITALS: BP 178/98
[2021-03-11] VITALS (7 sets, daily range): BP systolic 164–185; BP diastolic 77–101
[2021-03-11] MEDS: PIPERACILLIN/TAZOBACTAM 2.25 GM in IV NORMAL SALINE 50ML 50 ML IV SCH ×3 (05:33→18:23)
[2021-03-11] MEDS: PANTOPRAZOLE IV PUSH 40 MG VIAL. IVP SCH (06:04)
[2021-03-11 06:36] LABS: CALCIUM 8.1 mg/dL (8.5-10.1); CREATININE 1.4 mg/dL (0.6-1.0); GFR 45.8; MAGNESIUM 1.5 mg/dL (1.8-2.4); PHOSPHORUS 2.6 mg/dL (2.6-4.7); POTASSIUM 3.4 mmol/L (3.5-5.1)
[2021-03-11 07:11] LABS: BASO % 0 % (0-3); EOS # 0.3 x10^3/uL (0.0-0.7); EOS % 2 % (0-3); HEMATOCRIT 27.7 % (36.0-47.0); HEMOGLOBIN 8.9 g/dL (12.0-15.5); LYMPH # 1.3 x10^3/uL (1.0-4.8); LYMPH % 9 % (24-48); MEAN CORPUSCULAR HEMOGLOBIN 28 pg (25-35); MEAN CORPUSCULAR HGB CONC 32 g/dL (31-37); MEAN CORPUSCULAR VOLUME 86 fL (79-100); MONO % 7 % (0-9); NEUT # 11.9 x10^3/uL (1.8-7.7); NEUT % 82 % (31-73); PLATELET COUNT 299 x10^3/uL (140-400); RED BLOOD COUNT 3.22 x10^6/uL (3.50-5.40); RED CELL DISTRIBUTION WIDTH 15.9 % (11.5-14.5); WHITE BLOOD COUNT 14.5 x10^3/uL (4.0-11.0)
--- NOTE | 2021-03-11 09:23 | PDOC ---
[employer] PROGRESS NOTE Date of Service DOS: DATE: 03/11/21 TIME: 09:20 Chief Complaint Chief Complaint A/P: Acute encephalopathy - multifactorial, metabolic due to uremia, no SDH or CVA symptoms. less likely post-ictal. possibly related to sepsis as well Hypoxia Hypernatremia - likely free water deficit, was on numerous diuretics prior to admit, improved Sepsis - empiric vancomycin and zosyn given for likely gluteal ulcer as source. Will change to cefepime for renal failure. pharmacy to help dosing vancomycin. Fluids given MEHDI - likely vasomotor nephropathy possibly from free water deficit, sepsis. Will hydrate with bicarbonate fluids. Consult nephrology Gluteal ulcer - unstageable. Wound care and general surgery to see. possible sepsis source. Infectious disease. Continue current antibiotics. Poor surgical candidate. Cannot get a hold of family multiple times this week to discuss goals of care Anemia Severe protein calorie malnutrition - will need early nutrition when mentation improves. Speech to see for swallow assessment Seizures - will dose IV keppra while confused. Prn ativan for seizure activity DM2 - basal bolus plus insulin Depression GERD - IV protonix HLD - hold statin while NPO HTN - prn hydralazine, prn metoprolol H/o cocaine use disorder - in remission in SNF Elevated troponin - likely demand ischemia due to above, will trend FEN - NPO PPX - heparin FULL CODE Dispo - inpatient. D/w Italo, next of kin History of Present Illness History of Present Illness Ms Bentley is a 65 year old female with history of seizures, cocaine use disorder, DM2, depression, GERD, HLD, HTN who is a nursing home SNF resident who comes to the ED via EMS due to unresponsiveness. Per SNF staff has been less active for the past month and had irregular breathing since 1000 this morning. [facility] staff reports O2 saturations in the low 80s on room air so they put her on 3 L nasal cannula. Her oxygen satur ation then raised to 92%. No witnessed seizure activity and she has reportedly been taking her Keppra and vimpat BID. Nonverbal enroute. She is baseline alert and aware x2 and wheelchair-bound. No falls or head trauma reported. She is unable to give any history and her daughter is listed as contact, voicemail box is full. Patient opens her eyes to painful stimuli and makes eye contact, does not follow any commands. Of note, she was admitted for similar complaints just a month ago. WBC 31.4, Hb 9.1, Platelets 369, Na 152, K 4, Cl 117, HCO3 23, BUN 108, Cr 3.3, glucose 161, lactic acid 1.2, ca 9.2, bili 0.5, AST 29, ALT 16, Alk phos 103, Trop 0.266, Albumin 1.7. Urine with blood and + leukocyte esterase EKG sinus rate of 99 bpm with TWI in inferolateral leads unchanged from prior EKG, significant baseline artefact, No ST elevations, QTc 509, CXR and CT head with no acute findings. Given leukocytosis and likely sepsis related to UTI, given empiric antibiotics and fluids and admitted for further care. 02/23: Afebrile. WBC 31.7, Hb 7.6, platelets 300, NA 156, K3.9, BUN 119, CR 3.6, glucose 153, alb 1.3. Covid neg. Breathing improved, but not communicating. Offloading for bedsore. 02/24: Afebrile. WBC still elevated patient septic. Son consented for dialysis catheter placement. BUN 128 today. Still very confused. Discussed with general surgery is poor surgical candidate but very large wound needs offloading possibly chemical debridement and consideration of wound VAC. Continue cefepime and vancomycin. Discussed with family overall goals of care. 02/25: Afebrile. Hb dropped to 6.9. To dialysis today for transfusion. Urine culture with Nancy glabrata. Afebrile. Glucose 67 this morning. Shaking Lasix. Low-grade axillary temp. Discussed with ID urine culture less likely to be source. Labs pending. Insulin adjusted 02/27 Patient evaluated and examined after dialysis. She was resting in bed very lethargic. Did not appear to be any clinical changes overall however. Continuing antibiotics and antifungals. Relatively poor prognosis. 02/28 Patient examined at bedside remains lethargic and altered. Clinically not much is changed. Continue antibiotics and antifungals per infectious disease very poor prognosis will attempt to contact family today regarding CODE STATUS, unable to reach will try again tomorrow. 03/01 Patient evaluated and examined at bedside. Remains somewhat altered. Very lethargic. Poor prognosis. Continuing antibiotics and antifungals. 03/02 Patient evaluated and examined at bedside. Does remain altered but notably more alert today. She arouses to my voice although still unable answer questions or follow commands. Despite this prognosis does remain poor. Will continue discussion with family if able to reach them. Continue antibiotics. Continue wound care. 03/03 Patient evaluated and examined at bedside. Upon entering room she was yelling out as she was getting her rectal wound cleaned. Necrotic areas on previous wound, wound VAC removed yesterday on initial wound. Seeing if the surgical team will come evaluate the patient to determine her surgical candidacy. If not a candidate will continue a DNR/DNI discussion with the family today with this new information. Continue antibiotics. Continue wound care 03/04 Patient evaluated examined at bedside. Is a very poor candidate for surgery. She is yelling out in a notable amount of pain anytime dressings are changed. Antibiotics and wound care for now. 03/05 Patient evaluated and examined at bedside. Reviewed surgical notes. Have attempted to contact family multiple times this week to discuss goals of care however efforts have proven futile. Continue antibiotics. We will see if social work can assist in reaching family. 03/06: Afebrile. Hemoglobin 6.5 today transfuse 1 unit PRBC. Try to reach out to patient's son (Italo) about goals of care and whether or not to proceed with surgical debridement of sacral ulcer; no answer, will attempt to contact again at a later time. 03/07: Afebrile. Had discussion with patient's son (Italo) yesterday, who has been acting largely as the decision maker given patient's 's history of stroke; at this time no decision has been made about whether to proceed with surgical debridement or not. I answered all his questions and addressed any concerns to the best my ability, but Italo stated he would like to discuss with some other people and do further research prior to making a decision on surgical debridement. WBC 9.7, hemoglobin 6.8. Hemoglobin did not improve after anticipa blanquita following 1 unit PRBC yesterday; will transfuse additional 1 unit PRBC. Continue IV antibiotics, per ID. 03/08: Patient with no acute events overnight. Still some significant hyperglycemia, insulin has been adjusted. Was able to get a hold of patient's son (Italo); after extensive discussion about surgical debridement versus hospice, he is leaning towards hospice care at this time. He would like to speak with our [facility] hospice service for further information about what hospice entails. At this time we will continue IV antibiotics, per ID. 03/09: Afebrile, no acute vents overnight. Blood sugar slightly better controlled. Son had discussion with hospice yesterday and reportedly agreeable to hospice care. 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 03/10: Afebrile, no significant change. Some worsening leukocytosis noted. Continue IV antibiotics, per ID. Referral to [facility] has been placed for long-term care on hospice. I reached out to patient's son (Italo), and discussed CODE STATUS. I explained to him that part of being set into hospice is DNR as CODE STATUS. He agrees that "if God were to take her home, he would not want us to step in the way ". Will change patient's CODE STATUS to DNR. 03/11: Afebrile. After discussion with patient's son (Iatlo), they have elected to not pursue surgical debridement of sacral ulcer and instead went hospice care. During this conversation he agreed to make CODE STATUS DNR. We will continue with IV Zosyn to stave off infection. Referral to [facility] has been placed for long-term care on hospice. Vitals/I&O Vitals/I&O: Vital Signs Date Time Temp Pulse Resp B/P (MAP) Pulse Ox O2 Delivery O2 Flow Rate FiO2 03/11/21 07:00 98.9 93 20 173/88 (116) 99 Room Air 98.9 03/10/21 08:00 3.0 I & O 03/10/21 03/10/21 03/11/21 15:00 23:00 07:00 Intake Total 0 ml Output Total 750 ml 1750 ml Balance 0 ml -750 ml -1750 ml Physical Exam Physical Exam: GENERAL: The patient is lying comfortably in bed, arousable but does not answer all questions Nods yes to pain HEENT: Normocephalic, atraumatic. Anicteric. Oral mucosa moist. NECK: Supple. LUNGS: Clear bilaterally. No wheezing. HEART: S1, S2. No murmurs. ABDOMEN: Soft, nontender, nondistended. GENITOURINARY: Palacio in place, placed here. rectum with purulent drainage EXTREMITIES: No edema. No cyanosis. DERMATOLOGIC: Warm, dry, no generalized rash. NEUROLOGIC: Little more alert General: Cooperative, Other (does not answer questions) Heart: Normal S1, Normal S2, Other (mild tachy ) Lungs: Crackles Abdomen: Soft Extremities: No edema Skin: Other (large sacral wound) Labs Labs: Laboratory Tests Test 03/10/21 11:08 03/10/21 16:21 03/10/21 20:08 03/11/21 06:10 Glucose (Fingerstick) 294 mg/dL (70-99) 259 mg/dL (70-99) 234 mg/dL (70-99) White Blood Count 14.5 x10^3/uL (4.0-11.0) Red Blood Count 3.22 x10^6/uL (3.50-5.40) Hemoglobin 8.9 g/dL (12.0-15.5) Hematocrit 27.7 % (36.0-47.0) Mean Corpuscular Volume 86 fL (79-100) Mean Corpuscular Hemoglobin 28 pg (25-35) Mean Corpuscular Hemoglobin Concent 32 g/dL (31-37) Red Cell Distribution Width 15.9 % (11.5-14.5) Platelet Count 299 x10^3/uL (140-400) Neutrophils (%) (Auto) 82 % (31-73) Lymphocytes (%) (Auto) 9 % (24-48) Monocytes (%) (Auto) 7 % (0-9) Eosinophils (%) (Auto) 2 % (0-3) Basophils (%) (Auto) 0 % (0-3) Neutrophils # (Auto) 11.9 x10^3/uL (1.8-7.7) Lymphocytes # (Auto) 1.3 x10^3/uL (1.0-4.8) Monocytes # (Auto) 1.0 x10^3/uL (0.0-1.1) Eosinophils # (Auto) 0.3 x10^3/uL (0.0-0.7) Basophils # (Auto) 0.0 x10^3/uL (0.0-0.2) Sodium Level 137 mmol/L (136-145) Potassium Level 3.4 mmol/L (3.5-5.1) Chloride Level 105 mmol/L (98-107) Carbon Dioxide Level 23 mmol/L (21-32) Anion Gap 9 (6-14) Blood Urea Nitrogen 31 mg/dL (7-20) Creatinine 1.4 mg/dL (0.6-1.0) Estimated GFR (Cockcroft-Gault) 45.8 Glucose Level 184 mg/dL (70-99) Calcium Level 8.1 mg/dL (8.5-10.1) Phosphorus Level 2.6 mg/dL (2.6-4.7) Magnesium Level 1.5 mg/dL (1.8-2.4) Test 03/11/21 07:20 Glucose (Fingerstick) 185 mg/dL (70-99) Assessment and Plan Assessmemt and Plan Problems Medical Problems: (1) Acute encephalopathy Status: Acute (2) Acute kidney injury superimposed on chronic kidney disease Status: Acute (3) NSTEMI (non-ST elevated myocardial infarction) Status: Acute (4) Sepsis Status: Acute (5) UTI (urinary tract infection) Status: Acute Comment Review of Relevant I have reviewed the following items toan (where applicable) has been applied. Medications: Current Medications Medications (Trade) Dose Ordered Sig/Es Route PRN Reason Start Time Stop Time Status Last Admin Dose Admin Sodium Chloride 110 meq/Potassium Chloride 60 meq/ Potassium Phosphate 6.8 mmol/Magnesium Sulfate 12 meq/ Calcium Gluconate 10 meq/ Multivitamins 10 ml/Zinc/Copper/ Manganese/ Selenium 1 ml/ Total Parenteral Nutrition/Amino Acids/Dextrose/ Fat Emulsion Intravenous 1,320 ml @ 55 mls/hr TPN CONT IV 03/10/21 22:00 03/11/21 21:59 03/10/21 22:32 Justifications for Admission General Conditions Poss Metaboilic Acidosis?: Yes Justification for admission: Patient has tachycardia (> 100 beats per minute) or hypotension (SBP < 90 mm Hg) leading to inadequate systemic perfusion as indicated by metabolic acidosis with arterial pH of less than 7.35. Other Justification JULIET GARG MD Mar 11, 2021 09:23
[2021-03-11] MEDS: SODIUM HYPOCHLORITE 0.125% 473 ML BOTTLE. TP SCH ×2 (09:38→20:23)
[2021-03-11] MEDS: levETIRAcetam 500 MG in IV DEXTROSE 5% 100ML 100 ML IV SCH ×2 (09:39→20:32)
[2021-03-11] MEDS: INSULIN LISPRO 300 UNITS/3 ML VIAL. SQ SCH ×3 (10:07→18:32)
[2021-03-11] MEDS: DAPTOmycin (GENERIC) IVPB 420 MG in IV NORMAL SALINE 50ML 50 ML IV SCH (10:56)
[2021-03-11] MEDS: MICAFUNGIN 100 MG in IV DEXTROSE 5% 100ML 100 ML IV SCH (11:53)
[2021-03-11] MEDS: TPN PER PHARMACY MC PRN ×2 (12:32→13:06)
[2021-03-11] MEDS ORDERED: MAGNESIUM SULFATE 2GM 50 ML IV ONE (13:00)
--- NOTE | 2021-03-11 13:03 | NUR ---
Pharmacy TPN Dosing Note S: MERA HENLEY is a 65 year old F Currently receiving Central Continuous TPN started 03/03/21 B:Pertinent PMH: Poor PO intake, just started dysphagia diet 03/06 Height: 5 feet, 5 inches Weight: 85.5 kg Current diet: dysphagia I LABS: Sodium: 137 Potassium: 3.4 Chloride: 105 Calcium: 8.1 Corrected Calcium: 10.26 Magnesium: 1.5 CO2: 23 SCr: 1.4 Glucose: 184 Albumin: 1.3 AST: 16 ALT: 17 TPN FORMULA: TPN TYPE: Central Continuous AMINO ACIDS: 60 gm DEXTROSE: 195 gm LIPIDS: 20 gm SODIUM CHLORIDE: 110 mEq SODIUM ACETATE: mEq SODIUM PHOSPHATE: mmol POTASSIUM CHLORIDE: 60 mEq POTASSIUM ACETATE: mEq POTASSIUM PHOSPHATE: 13.6 mmol MAGNESIUM: 15 mEq CALCIUM: 10 mEq INSULIN: units MULTIPLE VITAMIN: 10 ml TRACE ELEMENTS: 1 ml(s) TPN PLAN: Increase kphos and mag. 2gm mag bolus given. R: Continue TPN as ordered Will monitor electrolytes, glucose, and tolerance to TPN. AIDA MARTIN, [facility], 03/11/21 [id number]
--- NOTE | 2021-03-11 13:08 | PDOC ---
DATE OF SERVICE DATE: 03/11/21 TIME: 13:08 SUBJECTIVE ROS No complaints by patient OBJECTIVE Vital Signs Vital Signs Date Time Temp Pulse Resp B/P (MAP) Pulse Ox O2 Delivery O2 Flow Rate FiO2 03/11/21 10:15 98.0 98 19 164/77 (106) 97 Room Air 98.0 03/10/21 08:00 3.0 I & 0 Intake and Output 03/11/21 07:00 Intake Total 0 ml Output Total 2500 ml Balance -2500 ml Intake Oral 0 ml Output Urine Total 2500 ml # Bowel Movements 1 PHYSICAL EXAM Physical Exam General: NAD HEENT: Atraumatic, PERRLA, EOMI, Mucous membr. 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 [facility] records Acute encephalopathy -improved MS Sacral Ulcer - family have elected to not pursue surgical debridement of sacral ulcer and instead went hospice care Anemia Seizures DM2 H/o cocaine use disorder - in remission in SNF o COMMENT/RELEVANT DATA Meds Current Medications Medications (Trade) Dose Ordered Sig/Es Start Time Stop Time Status Last Admin Dose Admin Acetaminophen (Tylenol Supp) 650 mg PRN Q6HRS PRN 02/22/21 21:15 03/09/21 23:04 650 MG Albumin Human 200 ml @ 200 mls/hr 1X PRN PRN 02/27/21 08:45 02/27/21 14:44 DC Amino Acids/ Electrolytes/ Dextrose 1,000 ml @ 80 mls/hr [id number] 02/27/21 13:30 03/03/21 12:18 DC 03/03/21 11:39 80 MLS/HR Bisacodyl (Dulcolax Supp) 10 mg PRN DAILY PRN 02/22/21 21:15 02/28/21 07:54 10 MG Cefepime HCl (Maxipime) 1 gm Q24H 02/22/21 21:30 02/26/21 09:54 DC 02/25/21 20:33 1 GM Daptomycin 420 mg/ Sodium Chloride 50 ml @ 100 mls/hr Q24H 03/05/21 10:30 03/11/21 10:56 100 MLS/HR Dextrose (Dextrose 50%-Water Syringe) 12.5 gm PRN Q15MIN PRN 02/22/21 21:30 Epoetin Macho-epbx (RETACRIT for ESRD PTS) 10,000 unit 1X ONCE 03/06/21 11:30 03/06/21 11:31 DC 03/06/21 14:23 10,000 UNIT Fentanyl Citrate (Fentanyl 2ml Vial) 50 mcg PRN Q2HR PRN 03/10/21 03:15 03/10/21 03:25 50 MCG Heparin Sodium (Porcine) (Heparin Sodium) 5,000 unit Q8HRS 02/22/21 22:00 03/07/21 14:03 DC 03/07/21 05:34 5,000 UNIT Hydralazine HCl (Apresoline Inj) 10 mg PRN Q4HRS PRN 03/09/21 15:15 03/10/21 03:24 10 MG Info (PHARMACY MONITORING -- do not chart) 1 each PRN DAILY PRN 03/03/21 08:15 03/07/21 16:10 DC Info (Tpn Per Pharmacy) 1 each PRN DAILY PRN 03/04/21 09:00 03/11/21 13:06 1 EACH Insulin Glargine (Lantus Syringe) 15 unit QHS 03/08/21 21:00 03/10/21 22:32 15 UNIT Insulin Human Lispro (HumaLOG) 0-9 UNITS TIDWMEALS 02/23/21 08:00 03/11/21 11:59 5 UNITS Levetiracetam 500 mg/Dextrose 105 ml @ 420 mls/hr Q12HR 02/22/21 21:30 03/11/21 09:39 420 MLS/HR Lidocaine HCl (Buffered Lidocaine 1%) 3 ml 1X ONCE 02/24/21 09:00 02/24/21 09:01 DC 02/24/21 09:00 5 ML Linezolid/Dextrose 300 ml @ 300 mls/hr Q12HR 02/24/21 14:30 03/05/21 09:12 DC 03/05/21 09:09 300 MLS/HR Lorazepam (Ativan Inj) 0.5 mg PRN Q4HRS PRN 02/22/21 21:30 03/09/21 23:13 0.5 MG Magnesium Sulfate 50 ml @ 25 mls/hr 1X ONCE 03/11/21 13:00 03/11/21 14:59 Micafungin Sodium 100 mg/Dextrose 100 ml @ 100 mls/hr Q24H 02/26/21 12:00 03/11/21 11:53 100 MLS/HR Olanzapine (ZyPREXA ZYDIS) 5 mg PRN BID PRN 02/22/21 21:15 03/09/21 02:57 5 MG Ondansetron HCl (Zofran) 4 mg PRN Q4HRS PRN 02/22/21 21:15 03/09/21 22:22 4 MG Pantoprazole Sodium (PROTONIX VIAL for IV PUSH) 40 mg 1X ONCE 02/22/21 22:00 02/22/21 22:01 DC 02/22/21 22:16 40 MG Piperacillin Sod/ Tazobactam Sod 2.25 gm/Sodium Chloride 50 ml @ 100 mls/hr Q6HRS 03/07/21 18:00 03/11/21 05:33 100 MLS/HR Piperacillin Sod/ Tazobactam Sod 4.5 gm/Sodium Chloride 100 ml @ 200 mls/hr 1X ONCE 02/22/21 13:30 02/22/21 13:59 UNV Sodium Bicarbonate 50 meq/Sodium Chloride 1,050 ml @ 125 mls/hr Q8H24M 02/22/21 21:30 02/23/21 12:14 DC 02/23/21 10:54 125 MLS/HR Sodium Hypochlorite (Dakin'S 1/4 Strength) 1 rustam BID 03/02/21 15:00 03/11/21 09:38 1 RUSTAM Sodium Chloride (Normal Saline Flush) 10 ml 1X PRN PRN 02/27/21 08:45 02/28/21 08:44 DC Sodium Chloride 90 meq/Potassium Chloride 50 meq/ Potassium Phosphate 13.6 mmol/Magnesium Sulfate 10 meq/ Calcium Gluconate 10 meq/ Multivitamins 10 ml/Zinc/Copper/ Manganese/ Selenium 1 ml/ Total Parenteral Nutrition/Amino Acids/Dextrose/ Fat Emulsion Intravenous 1,512 ml @ 63 mls/hr TPN CONT 03/03/21 22:00 03/04/21 21:59 DC 03/03/21 22:41 63 MLS/HR Sodium Chloride 90 meq/Potassium Chloride 50 meq/ Potassium Phosphate 13.6 mmol/Magnesium Sulfate 12 meq/ Calcium Gluconate 10 meq/ Multivitamins 10 ml/Zinc/Copper/ Manganese/ Selenium 1 ml/ Total Parenteral Nutrition/Amino Acids/Dextrose/ Fat Emulsion Intravenous 1,512 ml @ 63 mls/hr TPN CONT 03/04/21 22:00 03/05/21 21:59 DC 03/04/21 22:29 63 MLS/HR Sodium Chloride 110 meq/Potassium Chloride 50 meq/ Potassium Phosphate 6.8 mmol/Magnesium Sulfate 12 meq/ Calcium Gluconate 10 meq/ Multivitamins 10 ml/Zinc/Copper/ Manganese/ Selenium 1 ml/ Total Parenteral Nutrition/Amino Acids/Dextrose/ Fat Emulsion Intravenous 1,320 ml @ 55 mls/hr TPN CONT 03/09/21 22:00 03/10/21 21:59 DC 03/09/21 22:16 55 MLS/HR Sodium Chloride 110 meq/Potassium Chloride 60 meq/ Potassium Phosphate 13.6 mmol/Magnesium Sulfate 15 meq/ Calcium Gluconate 10 meq/ Multivitamins 10 ml/Zinc/Copper/ Manganese/ Selenium 1 ml/ Total Parenteral Nutrition/Amino Acids/Dextrose/ Fat Emulsion Intravenous 1,320 ml @ 55 mls/hr TPN CONT 03/11/21 22:00 03/12/21 21:59 Sodium Chloride 110 meq/Potassium Chloride 60 meq/ Potassium Phosphate 6.8 mmol/Magnesium Sulfate 12 meq/ Calcium Gluconate 10 meq/ Multivitamins 10 ml/Zinc/Copper/ Manganese/ Selenium 1 ml/ Total Parenteral Nutrition/Amino Acids/Dextrose/ Fat Emulsion Intravenous 1,320 ml @ 55 mls/hr TPN CONT 03/10/21 22:00 03/11/21 21:59 03/10/21 22:32 55 MLS/HR Vancomycin HCl (Vanco Per Pharmacy) 1 each PRN DAILY PRN 02/22/21 13:30 02/24/21 13:58 DC 02/23/21 03:10 1 EACH Vancomycin HCl (Vancomycin Trough Level) 1 each 1X ONCE 02/26/21 13:30 02/24/21 13:58 DC Vancomycin HCl 1.25 gm/Sodium Chloride 250 ml @ 167 mls/hr Q48H 02/24/21 14:00 02/24/21 13:58 DC Lab Laboratory Tests Test 03/10/21 16:21 03/10/21 20:08 03/11/21 06:10 03/11/21 07:20 Glucose (Fingerstick) 259 mg/dL (70-99) 234 mg/dL (70-99) 185 mg/dL (70-99) White Blood Count 14.5 x10^3/uL (4.0-11.0) Red Blood Count 3.22 x10^6/uL (3.50-5.40) Hemoglobin 8.9 g/dL (12.0-15.5) Hematocrit 27.7 % (36.0-47.0) Mean Corpuscular Volume 86 fL (79-100) Mean Corpuscular Hemoglobin 28 pg (25-35) Mean Corpuscular Hemoglobin Concent 32 g/dL (31-37) Red Cell Distribution Width 15.9 % (11.5-14.5) Platelet Count 299 x10^3/uL (140-400) Neutrophils (%) (Auto) 82 % (31-73) Lymphocytes (%) (Auto) 9 % (24-48) Monocytes (%) (Auto) 7 % (0-9) Eosinophils (%) (Auto) 2 % (0-3) Basophils (%) (Auto) 0 % (0-3) Neutrophils # (Auto) 11.9 x10^3/uL (1.8-7.7) Lymphocytes # (Auto) 1.3 x10^3/uL (1.0-4.8) Monocytes # (Auto) 1.0 x10^3/uL (0.0-1.1) Eosinophils # (Auto) 0.3 x10^3/uL (0.0-0.7) Basophils # (Auto) 0.0 x10^3/uL (0.0-0.2) Sodium Level 137 mmol/L (136-145) Potassium Level 3.4 mmol/L (3.5-5.1) Chloride Level 105 mmol/L (98-107) Carbon Dioxide Level 23 mmol/L (21-32) Anion Gap 9 (6-14) Blood Urea Nitrogen 31 mg/dL (7-20) Creatinine 1.4 mg/dL (0.6-1.0) Estimated GFR (Cockcroft-Gault) 45.8 Glucose Level 184 mg/dL (70-99) Calcium Level 8.1 mg/dL (8.5-10.1) Phosphorus Level 2.6 mg/dL (2.6-4.7) Magnesium Level 1.5 mg/dL (1.8-2.4) Test 03/11/21 11:19 Glucose (Fingerstick) 243 mg/dL (70-99) Results All relevant outside records, renal labs, imaging studies, telemetry/EKG's were reviewed. Justicifation of Admission Dx: Justifications for Admission: Justification of Admission Dx: N/A AZAEL VANCE MD Mar 11, 2021 13:08
[2021-03-11] MEDS: INSULIN GLARGINE SYRINGE. SQ SCH (20:25)
[2021-03-11] MEDS ORDERED: AMINO ACID IV SCH (22:00)
[2021-03-11] MEDS ORDERED: TOTAL PARENTERAL NUTRITION IV SCH (22:00)
[2021-03-11] MEDS ORDERED: DEXTROSE 70% IV SCH (22:00)
[2021-03-11] MEDS ORDERED: [UNRECOGNIZED DRUG - OTHER] IV SCH (22:00)
[2021-03-11] MEDS: hydrALAZINE 20 MG/ML VIAL. IVP PRN (22:33)
[2021-03-12 02:49] VITALS: BP 166/88
[2021-03-12] MEDS: PIPERACILLIN/TAZOBACTAM 2.25 GM in IV NORMAL SALINE 50ML 50 ML IV SCH ×4 (06:05→16:28)
[2021-03-12] MEDS: PANTOPRAZOLE IV PUSH 40 MG VIAL. IVP SCH (06:05)
[2021-03-12 06:33] LABS: BASO # 0.1 x10^3/uL (0.0-0.2); BASO % 1 % (0-3); EOS # 0.2 x10^3/uL (0.0-0.7); EOS % 2 % (0-3); HEMATOCRIT 27.9 % (36.0-47.0); HEMOGLOBIN 9.1 g/dL (12.0-15.5); LYMPH # 1.1 x10^3/uL (1.0-4.8); LYMPH % 8 % (24-48); MEAN CORPUSCULAR HEMOGLOBIN 28 pg (25-35); MEAN CORPUSCULAR HGB CONC 33 g/dL (31-37); MEAN CORPUSCULAR VOLUME 85 fL (79-100); MONO # 0.9 x10^3/uL (0.0-1.1); MONO % 6 % (0-9); NEUT # 11.3 x10^3/uL (1.8-7.7); NEUT % 83 % (31-73); PLATELET COUNT 371 x10^3/uL (140-400); RED BLOOD COUNT 3.28 x10^6/uL (3.50-5.40); RED CELL DISTRIBUTION WIDTH 16.3 % (11.5-14.5); WHITE BLOOD COUNT 13.6 x10^3/uL (4.0-11.0)
[2021-03-12 06:37] LABS: CALCIUM 8.1 mg/dL (8.5-10.1); CREATININE 1.2 mg/dL (0.6-1.0); GFR 54.7; MAGNESIUM 1.7 mg/dL (1.8-2.4); PHOSPHORUS 2.3 mg/dL (2.6-4.7); POTASSIUM 3.3 mmol/L (3.5-5.1)
[2021-03-12 07:00] VITALS: BP 178/90
--- NOTE | 2021-03-12 07:58 | PDOC ---
[employer] PROGRESS NOTE Date of Service DOS: DATE: 03/12/21 TIME: 07:52 Chief Complaint Chief Complaint A/P: Acute encephalopathy - multifactorial, metabolic due to uremia, no SDH or CVA symptoms. less likely post-ictal. possibly related to sepsis as well Hypoxia Hypernatremia - likely free water deficit, was on numerous diuretics prior to admit, improved Sepsis - empiric vancomycin and zosyn given for likely gluteal ulcer as source. Will change to cefepime for renal failure. pharmacy to help dosing vancomycin. Fluids given MEHDI - likely vasomotor nephropathy possibly from free water deficit, sepsis. Will hydrate with bicarbonate fluids. Consult nephrology Gluteal ulcer - unstageable. Wound care and general surgery to see. possible sepsis source. Infectious disease. Continue current antibiotics. Poor surgical candidate. Cannot get a hold of family multiple times this week to discuss goals of care Anemia Severe protein calorie malnutrition - will need early nutrition when mentation improves. Speech to see for swallow assessment Seizures - will dose IV keppra while confused. Prn ativan for seizure activity DM2 - basal bolus plus insulin Depression GERD - IV protonix HLD - hold statin while NPO HTN - prn hydralazine, prn metoprolol H/o cocaine use disorder - in remission in SNF Elevated troponin - likely demand ischemia due to above, will trend FEN - NPO PPX - heparin FULL CODE Dispo - inpatient. D/w Italo, next of kin History of Present Illness History of Present Illness Ms Bentley is a 65 year old female with history of seizures, cocaine use disorder, DM2, depression, GERD, HLD, HTN who is a [facility] resident who comes to the ED via EMS due to unresponsiveness. Per SNF staff has been less active for the past month and had irregular breathing since 1000 this morning. retirement staff reports O2 saturations in the low 80s on room air so they put her on 3 L nasal cannula. Her oxygen satur ation then raised to 92%. No witnessed seizure activity and she has reportedly been taking her Keppra and vimpat BID. Nonverbal enroute. She is baseline alert and aware x2 and wheelchair-bound. No falls or head trauma reported. She is unable to give any history and her daughter is listed as contact, voicemail box is full. Patient opens her eyes to painful stimuli and makes eye contact, does not follow any commands. Of note, she was admitted for similar complaints just a month ago. WBC 31.4, Hb 9.1, Platelets 369, Na 152, K 4, Cl 117, HCO3 23, BUN 108, Cr 3.3, glucose 161, lactic acid 1.2, ca 9.2, bili 0.5, AST 29, ALT 16, Alk phos 103, Trop 0.266, Albumin 1.7. Urine with blood and + leukocyte esterase EKG sinus rate of 99 bpm with TWI in inferolateral leads unchanged from prior EKG, significant baseline artefact, No ST elevations, QTc 509, CXR and CT head with no acute findings. Given leukocytosis and likely sepsis related to UTI, given empiric antibiotics and fluids and admitted for further care. 02/23: Afebrile. WBC 31.7, Hb 7.6, platelets 300, NA 156, K3.9, BUN 119, CR 3.6, glucose 153, alb 1.3. Covid neg. Breathing improved, but not communicating. Offloading for bedsore. 02/24: Afebrile. WBC still elevated patient septic. Son consented for dialysis catheter placement. BUN 128 today. Still very confused. Discussed with general surgery is poor surgical candidate but very large wound needs offloading possibly chemical debridement and consideration of wound VAC. Continue cefepime and vancomycin. Discussed with family overall goals of care. 02/25: Afebrile. Hb dropped to 6.9. To dialysis today for transfusion. Urine culture with Nancy glabrata. Afebrile. Glucose 67 this morning. Shaking Lasix. Low-grade axillary temp. Discussed with ID urine culture less likely to be source. Labs pending. Insulin adjusted 02/27 Patient evaluated and examined after dialysis. She was resting in bed very lethargic. Did not appear to be any clinical changes overall however. Continuing antibiotics and antifungals. Relatively poor prognosis. 02/28 Patient examined at bedside remains lethargic and altered. Clinically not much is changed. Continue antibiotics and antifungals per infectious disease very poor prognosis will attempt to contact family today regarding CODE STATUS, unable to reach will try again tomorrow. 03/01 Patient evaluated and examined at bedside. Remains somewhat altered. Very lethargic. Poor prognosis. Continuing antibiotics and antifungals. 03/02 Patient evaluated and examined at bedside. Does remain altered but notably more alert today. She arouses to my voice although still unable answer questions or follow commands. Despite this prognosis does remain poor. Will continue discussion with family if able to reach them. Continue antibiotics. Continue wound care. 03/03 Patient evaluated and examined at bedside. Upon entering room she was yelling out as she was getting her rectal wound cleaned. Necrotic areas on previous wound, wound VAC removed yesterday on initial wound. Seeing if the surgical team will come evaluate the patient to determine her surgical candidacy. If not a candidate will continue a DNR/DNI discussion with the family today with this new information. Continue antibiotics. Continue wound care 03/04 Patient evaluated examined at bedside. Is a very poor candidate for surgery. She is yelling out in a notable amount of pain anytime dressings are changed. Antibiotics and wound care for now. 03/05 Patient evaluated and examined at bedside. Reviewed surgical notes. Have attempted to contact family multiple times this week to discuss goals of care however efforts have proven futile. Continue antibiotics. We will see if social work can assist in reaching family. 03/06: Afebrile. Hemoglobin 6.5 today transfuse 1 unit PRBC. Try to reach out to patient's son (Italo) about goals of care and whether or not to proceed with surgical debridement of sacral ulcer; no answer, will attempt to contact again at a later time. 03/07: Afebrile. Had discussion with patient's son (Italo) yesterday, who has been acting largely as the decision maker given patient's 's history of stroke; at this time no decision has been made about whether to proceed with surgical debridement or not. I answered all his questions and addressed any concerns to the best my ability, but Italo stated he would like to discuss with some other people and do further research prior to making a decision on surgical debridement. WBC 9.7, hemoglobin 6.8. Hemoglobin did not improve after anticipa blanquita following 1 unit PRBC yesterday; will transfuse additional 1 unit PRBC. Continue IV antibiotics, per ID. 03/08: Patient with no acute events overnight. Still some significant hyperglycemia, insulin has been adjusted. Was able to get a hold of patient's son (Italo); after extensive discussion about surgical debridement versus hospice, he is leaning towards hospice care at this time. He would like to speak with our [facility] hospice service for further information about what hospice entails. At this time we will continue IV antibiotics, per ID. 03/09: Afebrile, no acute vents overnight. Blood sugar slightly better controlled. Son had discussion with hospice yesterday and reportedly agreeable to hospice care. boiler plant worker helping in this regard. 03/10: Afebrile, no significant change. Some worsening leukocytosis noted. Continue IV antibiotics, per ID. Referral to [facility] has been placed for long-term care on hospice. I reached out to patient's son (Italo), and discussed CODE STATUS. I explained to him that part of being set into hospice is DNR as CODE STATUS. He agrees that "if God were to take her home, he would not want us to step in the way ". Will change patient's CODE STATUS to DNR. 03/11: Afebrile. After discussion with patient's son (Italo), they have elected to not pursue surgical debridement of sacral ulcer and instead went hospice care. During this conversation he agreed to make CODE STATUS DNR. We will continue with IV Zosyn to stave off infection. Referral to [facility] has been placed for long-term care on hospice. 03/12: No acute events overnight. Afebrile. Her p.o. intake is increased, eating all of her breakfast this morning. Will discontinue TPN. micrographics services supervisor helping hospice care; referral to [facility] has been placed for long-term care on hospice. Continue IV Zosyn until discharge. Vitals/I&O Vitals/I&O: Vital Signs Date Time Temp Pulse Resp B/P (MAP) Pulse Ox O2 Delivery O2 Flow Rate FiO2 03/12/21 07:00 95.6 102 20 178/90 (119) 98 Room Air 95.6 I & O 03/11/21 03/11/21 03/12/21 15:00 23:00 07:00 Intake Total 1391 ml 1300 ml 240 ml Output Total 2100 ml 1800 ml Balance 1391 ml -800 ml -1560 ml Physical Exam Physical Exam: GENERAL: The patient is lying comfortably in bed, arousable but does not answer all questions Nods yes to pain HEENT: Normocephalic, atraumatic. Anicteric. Oral mucosa moist. NECK: Supple. LUNGS: Clear bilaterally. No wheezing. HEART: S1, S2. No murmurs. ABDOMEN: Soft, nontender, nondistended. GENITOURINARY: Palacio in place, placed here. rectum with purulent drainage EXTREMITIES: No edema. No cyanosis. DERMATOLOGIC: Warm, dry, no generalized rash. NEUROLOGIC: Little more alert General: Alert, Cooperative, Other (does not answer questions) Heart: Normal S1, Normal S2, Other (mild tachy ) Lungs: Crackles Abdomen: Soft Extremities: No edema Skin: Other (large sacral wound) Labs Labs: Laboratory Tests Test 03/11/21 11:19 03/11/21 16:25 03/11/21 20:22 03/12/21 06:10 Glucose (Fingerstick) 243 mg/dL (70-99) 154 mg/dL (70-99) 226 mg/dL (70-99) White Blood Count 13.6 x10^3/uL (4.0-11.0) Red Blood Count 3.28 x10^6/uL (3.50-5.40) Hemoglobin 9.1 g/dL (12.0-15.5) Hematocrit 27.9 % (36.0-47.0) Mean Corpuscular Volume 85 fL (79-100) Mean Corpuscular Hemoglobin 28 pg (25-35) Mean Corpuscular Hemoglobin Concent 33 g/dL (31-37) Red Cell Distribution Width 16.3 % (11.5-14.5) Platelet Count 371 x10^3/uL (140-400) Neutrophils (%) (Auto) 83 % (31-73) Lymphocytes (%) (Auto) 8 % (24-48) Monocytes (%) (Auto) 6 % (0-9) Eosinophils (%) (Auto) 2 % (0-3) Basophils (%) (Auto) 1 % (0-3) Neutrophils # (Auto) 11.3 x10^3/uL (1.8-7.7) Lymphocytes # (Auto) 1.1 x10^3/uL (1.0-4.8) Monocytes # (Auto) 0.9 x10^3/uL (0.0-1.1) Eosinophils # (Auto) 0.2 x10^3/uL (0.0-0.7) Basophils # (Auto) 0.1 x10^3/uL (0.0-0.2) Sodium Level 138 mmol/L (136-145) Potassium Level 3.3 mmol/L (3.5-5.1) Chloride Level 104 mmol/L (98-107) Carbon Dioxide Level 23 mmol/L (21-32) Anion Gap 11 (6-14) Blood Urea Nitrogen 25 mg/dL (7-20) Creatinine 1.2 mg/dL (0.6-1.0) Estimated GFR (Cockcroft-Gault) 54.7 Glucose Level 223 mg/dL (70-99) Calcium Level 8.1 mg/dL (8.5-10.1) Phosphorus Level 2.3 mg/dL (2.6-4.7) Magnesium Level 1.7 mg/dL (1.8-2.4) Test 03/12/21 06:52 Glucose (Fingerstick) 222 mg/dL (70-99) Assessment and Plan Assessmemt and Plan Problems Medical Problems: (1) Acute encephalopathy Status: Acute (2) Acute kidney injury superimposed on chronic kidney disease Status: Acute (3) NSTEMI (non-ST elevated myocardial infarction) Status: Acute (4) Sepsis Status: Acute (5) UTI (urinary tract infection) Status: Acute Comment Review of Relevant I have reviewed the following items toan (where applicable) has been applied. Medications: Current Medications Medications (Trade) Dose Ordered Sig/Es Route PRN Reason Start Time Stop Time Status Last Admin Dose Admin Magnesium Sulfate 50 ml @ 25 mls/hr 1X ONCE IV 03/11/21 13:00 03/11/21 14:59 DC 03/11/21 14:42 Sodium Chloride 110 meq/Potassium Chloride 60 meq/ Potassium Phosphate 13.6 mmol/Magnesium Sulfate 15 meq/ Calcium Gluconate 10 meq/ Multivitamins 10 ml/Zinc/Copper/ Manganese/ Selenium 1 ml/ Total Parenteral Nutrition/Amino Acids/Dextrose/ Fat Emulsion Intravenous 1,320 ml @ 55 mls/hr TPN CONT IV 03/11/21 22:00 03/12/21 21:59 03/12/21 02:59 Justifications for Admission General Conditions Poss Metaboilic Acidosis?: Yes Justification for admission: Patient has tachycardia (> 100 beats per minute) or hypotension (SBP < 90 mm Hg) leading to inadequate systemic perfusion as indicated by metabolic acidosis with arterial pH of less than 7.35. Other Justification JULIET GARG MD Mar 12, 2021 07:58
[2021-03-12] MEDS: SODIUM HYPOCHLORITE 0.125% 473 ML BOTTLE. TP SCH ×2 (08:06→21:00)
[2021-03-12] MEDS: levETIRAcetam 500 MG in IV DEXTROSE 5% 100ML 100 ML IV SCH (08:07)
[2021-03-12] MEDS: INSULIN LISPRO 300 UNITS/3 ML VIAL. SQ SCH ×3 (08:15→16:36)
[2021-03-12 10:00] VITALS: BP 157/80
[2021-03-12] MEDS: DAPTOmycin (GENERIC) IVPB 420 MG in IV NORMAL SALINE 50ML 50 ML IV SCH (10:48)
[2021-03-12] MEDS: MICAFUNGIN 100 MG in IV DEXTROSE 5% 100ML 100 ML IV SCH (11:33)
--- NOTE | 2021-03-12 12:33 | PDOC ---
DATE OF SERVICE DATE: 03/12/21 TIME: 12:31 SUBJECTIVE ROS No acute events overnight. Afebrile. Her p.o. intake is increased OBJECTIVE Vital Signs Vital Signs Date Time Temp Pulse Resp B/P (MAP) Pulse Ox O2 Delivery O2 Flow Rate FiO2 03/12/21 10:00 95.8 101 20 157/80 (105) 99 Room Air 95.8 I & 0 Intake and Output 03/12/21 07:00 Intake Total 2931 ml Output Total 3900 ml Balance -969 ml Intake Oral 2931 ml Output Urine Total 3900 ml # Bowel Movements 5 PHYSICAL EXAM Physical Exam General: NAD HEENT: Atraumatic, PERRLA, EOMI, Mucous membr. 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 [facility] records HypoKalemia - Replace Acute encephalopathy -improved MS Sacral Ulcer - family have elected to not pursue surgical debridement of sacral ulcer and instead went hospice care Anemia Seizures DM2 H/o cocaine use disorder - in remission in SNF COMMENT/RELEVANT DATA Meds Current Medications Medications (Trade) Dose Ordered Sig/Es Start Time Stop Time Status Last Admin Dose Admin Acetaminophen (Tylenol Supp) 650 mg PRN Q6HRS PRN 02/22/21 21:15 03/09/21 23:04 650 MG Albumin Human 200 ml @ 200 mls/hr 1X PRN PRN 02/27/21 08:45 02/27/21 14:44 DC Amino Acids/ Electrolytes/ Dextrose 1,000 ml @ 80 mls/hr [id number] 02/27/21 13:30 03/03/21 12:18 DC 03/03/21 11:39 80 MLS/HR Bisacodyl (Dulcolax Supp) 10 mg PRN DAILY PRN 02/22/21 21:15 02/28/21 07:54 10 MG Cefepime HCl (Maxipime) 1 gm Q24H 02/22/21 21:30 02/26/21 09:54 DC 02/25/21 20:33 1 GM Daptomycin 420 mg/ Sodium Chloride 50 ml @ 100 mls/hr Q24H 03/05/21 10:30 03/12/21 10:48 100 MLS/HR Dextrose (Dextrose 50%-Water Syringe) 12.5 gm PRN Q15MIN PRN 02/22/21 21:30 Epoetin Macho-epbx (RETACRIT for ESRD PTS) 10,000 unit 1X ONCE 03/06/21 11:30 03/06/21 11:31 DC 03/06/21 14:23 10,000 UNIT Fentanyl Citrate (Fentanyl 2ml Vial) 50 mcg PRN Q2HR PRN 03/10/21 03:15 03/10/21 03:25 50 MCG Heparin Sodium (Porcine) (Heparin Sodium) 5,000 unit Q8HRS 02/22/21 22:00 03/07/21 14:03 DC 03/07/21 05:34 5,000 UNIT Hydralazine HCl (Apresoline Inj) 10 mg PRN Q4HRS PRN 03/09/21 15:15 03/11/21 22:33 10 MG Info (PHARMACY MONITORING -- do not chart) 1 each PRN DAILY PRN 03/03/21 08:15 03/07/21 16:10 DC Info (Tpn Per Pharmacy) 1 each PRN DAILY PRN 03/04/21 09:00 03/12/21 12:09 DC 03/11/21 13:06 1 EACH Insulin Glargine (Lantus Syringe) 15 unit QHS 03/08/21 21:00 03/11/21 20:25 15 UNIT Insulin Human Lispro (HumaLOG) 0-9 UNITS TIDWMEALS 02/23/21 08:00 03/12/21 11:37 7 UNITS Lactobacillus Rhamnosus (Culturelle) 1 cap BID 03/12/21 21:00 Levetiracetam (Keppra) 500 mg BID 03/12/21 21:00 Levetiracetam 500 mg/Dextrose 105 ml @ 420 mls/hr Q12HR 02/22/21 21:30 03/12/21 12:18 DC 03/12/21 08:07 420 MLS/HR Lidocaine HCl (Buffered Lidocaine 1%) 3 ml 1X ONCE 02/24/21 09:00 02/24/21 09:01 DC 02/24/21 09:00 5 ML Linezolid/Dextrose 300 ml @ 300 mls/hr Q12HR 02/24/21 14:30 03/05/21 09:12 DC 03/05/21 09:09 300 MLS/HR Lorazepam (Ativan Inj) 0.5 mg PRN Q4HRS PRN 02/22/21 21:30 03/09/21 23:13 0.5 MG Magnesium Sulfate 50 ml @ 25 mls/hr 1X ONCE 03/11/21 13:00 03/11/21 14:59 DC 03/11/21 14:42 25 MLS/HR Micafungin Sodium 100 mg/Dextrose 100 ml @ 100 mls/hr Q24H 02/26/21 12:00 03/12/21 11:33 100 MLS/HR Olanzapine (ZyPREXA ZYDIS) 5 mg PRN BID PRN 02/22/21 21:15 03/09/21 02:57 5 MG Ondansetron HCl (Zofran) 4 mg PRN Q4HRS PRN 02/22/21 21:15 03/09/21 22:22 4 MG Pantoprazole Sodium (PROTONIX VIAL for IV PUSH) 40 mg 1X ONCE 02/22/21 22:00 02/22/21 22:01 DC 02/22/21 22:16 40 MG Pantoprazole Sodium (Protonix) 40 mg DAILYAC 03/13/21 07:30 Piperacillin Sod/ Tazobactam Sod 2.25 gm/Sodium Chloride 50 ml @ 100 mls/hr Q6HRS 03/07/21 18:00 03/12/21 12:25 100 MLS/HR Piperacillin Sod/ Tazobactam Sod 4.5 gm/Sodium Chloride 100 ml @ 200 mls/hr 1X ONCE 02/22/21 13:30 02/22/21 13:59 UNV Sodium Bicarbonate 50 meq/Sodium Chloride 1,050 ml @ 125 mls/hr Q8H24M 02/22/21 21:30 02/23/21 12:14 DC 02/23/21 10:54 125 MLS/HR Sodium Hypochlorite (Dakin'S 1/4 Strength) 1 rustam BID 03/02/21 15:00 03/12/21 08:06 1 RUSTAM Sodium Chloride (Normal Saline Flush) 10 ml 1X PRN PRN 02/27/21 08:45 02/28/21 08:44 DC Sodium Chloride 90 meq/Potassium Chloride 50 meq/ Potassium Phosphate 13.6 mmol/Magnesium Sulfate 10 meq/ Calcium Gluconate 10 meq/ Multivitamins 10 ml/Zinc/Copper/ Manganese/ Selenium 1 ml/ Total Parenteral Nutrition/Amino Acids/Dextrose/ Fat Emulsion Intravenous 1,512 ml @ 63 mls/hr TPN CONT 03/03/21 22:00 03/04/21 21:59 DC 03/03/21 22:41 63 MLS/HR Sodium Chloride 90 meq/Potassium Chloride 50 meq/ Potassium Phosphate 13.6 mmol/Magnesium Sulfate 12 meq/ Calcium Gluconate 10 meq/ Multivitamins 10 ml/Zinc/Copper/ Manganese/ Selenium 1 ml/ Total Parenteral Nutrition/Amino Acids/Dextrose/ Fat Emulsion Intravenous 1,512 ml @ 63 mls/hr TPN CONT 03/04/21 22:00 03/05/21 21:59 DC 03/04/21 22:29 63 MLS/HR Sodium Chloride 110 meq/Potassium Chloride 50 meq/ Potassium Phosphate 6.8 mmol/Magnesium Sulfate 12 meq/ Calcium Gluconate 10 meq/ Multivitamins 10 ml/Zinc/Copper/ Manganese/ Selenium 1 ml/ Total Parenteral Nutrition/Amino Acids/Dextrose/ Fat Emulsion Intravenous 1,320 ml @ 55 mls/hr TPN CONT 03/09/21 22:00 03/10/21 21:59 DC 03/09/21 22:16 55 MLS/HR Sodium Chloride 110 meq/Potassium Chloride 60 meq/ Potassium Phosphate 13.6 mmol/Magnesium Sulfate 15 meq/ Calcium Gluconate 10 meq/ Multivitamins 10 ml/Zinc/Copper/ Manganese/ Selenium 1 ml/ Total Parenteral Nutrition/Amino Acids/Dextrose/ Fat Emulsion Intravenous 1,320 ml @ 55 mls/hr TPN CONT 03/11/21 22:00 03/12/21 21:59 03/12/21 02:59 55 MLS/HR Sodium Chloride 110 meq/Potassium Chloride 60 meq/ Potassium Phosphate 6.8 mmol/Magnesium Sulfate 12 meq/ Calcium Gluconate 10 meq/ Multivitamins 10 ml/Zinc/Copper/ Manganese/ Selenium 1 ml/ Total Parenteral Nutrition/Amino Acids/Dextrose/ Fat Emulsion Intravenous 1,320 ml @ 55 mls/hr TPN CONT 03/10/21 22:00 03/11/21 21:59 DC 03/10/21 22:32 55 MLS/HR Vancomycin HCl (Vanco Per Pharmacy) 1 each PRN DAILY PRN 02/22/21 13:30 02/24/21 13:58 DC 02/23/21 03:10 1 EACH Vancomycin HCl (Vancomycin Trough Level) 1 each 1X ONCE 02/26/21 13:30 02/24/21 13:58 DC Vancomycin HCl 1.25 gm/Sodium Chloride 250 ml @ 167 mls/hr Q48H 02/24/21 14:00 02/24/21 13:58 DC Lab Laboratory Tests Test 03/11/21 16:25 03/11/21 20:22 03/12/21 06:10 03/12/21 06:52 Glucose (Fingerstick) 154 mg/dL (70-99) 226 mg/dL (70-99) 222 mg/dL (70-99) White Blood Count 13.6 x10^3/uL (4.0-11.0) Red Blood Count 3.28 x10^6/uL (3.50-5.40) Hemoglobin 9.1 g/dL (12.0-15.5) Hematocrit 27.9 % (36.0-47.0) Mean Corpuscular Volume 85 fL (79-100) Mean Corpuscular Hemoglobin 28 pg (25-35) Mean Corpuscular Hemoglobin Concent 33 g/dL (31-37) Red Cell Distribution Width 16.3 % (11.5-14.5) Platelet Count 371 x10^3/uL (140-400) Neutrophils (%) (Auto) 83 % (31-73) Lymphocytes (%) (Auto) 8 % (24-48) Monocytes (%) (Auto) 6 % (0-9) Eosinophils (%) (Auto) 2 % (0-3) Basophils (%) (Auto) 1 % (0-3) Neutrophils # (Auto) 11.3 x10^3/uL (1.8-7.7) Lymphocytes # (Auto) 1.1 x10^3/uL (1.0-4.8) Monocytes # (Auto) 0.9 x10^3/uL (0.0-1.1) Eosinophils # (Auto) 0.2 x10^3/uL (0.0-0.7) Basophils # (Auto) 0.1 x10^3/uL (0.0-0.2) Sodium Level 138 mmol/L (136-145) Potassium Level 3.3 mmol/L (3.5-5.1) Chloride Level 104 mmol/L (98-107) Carbon Dioxide Level 23 mmol/L (21-32) Anion Gap 11 (6-14) Blood Urea Nitrogen 25 mg/dL (7-20) Creatinine 1.2 mg/dL (0.6-1.0) Estimated GFR (Cockcroft-Gault) 54.7 Glucose Level 223 mg/dL (70-99) Calcium Level 8.1 mg/dL (8.5-10.1) Phosphorus Level 2.3 mg/dL (2.6-4.7) Magnesium Level 1.7 mg/dL (1.8-2.4) Test 03/12/21 10:58 Glucose (Fingerstick) 269 mg/dL (70-99) Results All relevant outside records, renal labs, imaging studies, telemetry/EKG's were reviewed. Justicifation of Admission Dx: Justifications for Admission: Justification of Admission Dx: N/A AZAEL VANCE MD Mar 12, 2021 12:33
[2021-03-12 14:46] VITALS: BP 155/80
[2021-03-12 18:05] VITALS: BP 158/90
[2021-03-12] MEDS: LACTOBACILLUS RHAMNOSUS GG 1 CAPSULE. PO SCH (20:48)
[2021-03-12] MEDS: levETIRAcetam 500 MG TABLET PO SCH (20:48)
[2021-03-12] MEDS: INSULIN GLARGINE SYRINGE. SQ SCH (21:00)
[2021-03-12 23:21] VITALS: BP 177/86
[2021-03-13] VITALS (8 sets, daily range): BP systolic 144–191; BP diastolic 76–103
[2021-03-13] MEDS: PIPERACILLIN/TAZOBACTAM 2.25 GM in IV NORMAL SALINE 50ML 50 ML IV SCH ×5 (00:50→23:26)
--- NOTE | 2021-03-13 03:30 | NUR ---
PT STATES SHE WANTS TO SLEEP BUT JUST CANT. SHE SEEMS TO BE RESTLESS. SANG TO HER AND HELPED HER EAT PUDDING. THEN ADMIN IV ATIVAN. LCRN
[2021-03-13] MEDS: INSULIN LISPRO 300 UNITS/3 ML VIAL. SQ SCH ×3 (08:00→17:52)
[2021-03-13] MEDS: SODIUM HYPOCHLORITE 0.125% 473 ML BOTTLE. TP SCH ×2 (09:00→22:21)
[2021-03-13] MEDS: LACTOBACILLUS RHAMNOSUS GG 1 CAPSULE. PO SCH ×2 (10:08→22:20)
[2021-03-13] MEDS: PANTOPRAZOLE 40 MG TABLET.DR. PO SCH (10:08)
[2021-03-13] MEDS: levETIRAcetam 500 MG TABLET PO SCH ×2 (10:08→22:19)
[2021-03-13] MEDS: DAPTOmycin (GENERIC) IVPB 420 MG in IV NORMAL SALINE 50ML 50 ML IV SCH (10:16)
--- NOTE | 2021-03-13 11:12 | PDOC ---
DATE OF SERVICE DATE: 03/13/21 TIME: 11:11 SUBJECTIVE ROS No acute events overnight. OBJECTIVE Vital Signs Vital Signs Date Time Temp Pulse Resp B/P (MAP) Pulse Ox O2 Delivery O2 Flow Rate FiO2 03/13/21 07:00 98.5 95 16 144/76 (98) 98 Room Air 98.5 I & 0 Intake and Output 03/13/21 07:00 Intake Total 2734 ml Output Total 3050 ml Balance -316 ml Intake Oral 2379 ml IV Total 355 ml Output Urine Total 3050 ml # Bowel Movements 1 PHYSICAL EXAM Physical Exam General: NAD HEENT: Atraumatic, PERRLA, EOMI, Mucous membr. moist/pink Neck Supple Lungs: Clear to auscultation, Non labored Heart: S1S2, RRR, no thrills, no rubs, no gallops, no murmurs Abdomen: Normal bowel sounds, Soft, No tenderness, No hepatosplenomegaly, No masses Extremities: No clubbing, No cyanosis, No edema, Skin: No rashes, NeurO Grossly No neurological deficit DIAGNOSIS/ASSESSMENT Assessment & Plan MEHDI - Resolved ATN . Required dialysis has been off dialysis with improving renal function Supportive care,, Avoid Nephrotoxins CKD stage 2/3 A per [facility] records HypoKalemia - Replace Acute encephalopathy -improved MS Sacral Ulcer - family have elected to not pursue surgical debridement of sacral ulcer , inclining towards hospice care Anemia Seizures DM2 H/o cocaine use disorder - in remission in SNF COMMENT/RELEVANT DATA Meds Current Medications Medications (Trade) Dose Ordered Sig/Es Start Time Stop Time Status Last Admin Dose Admin Acetaminophen (Tylenol Supp) 650 mg PRN Q6HRS PRN 02/22/21 21:15 03/09/21 23:04 650 MG Albumin Human 200 ml @ 200 mls/hr 1X PRN PRN 02/27/21 08:45 02/27/21 14:44 DC Amino Acids/ Electrolytes/ Dextrose 1,000 ml @ 80 mls/hr [id number] 02/27/21 13:30 03/03/21 12:18 DC 03/03/21 11:39 80 MLS/HR Bisacodyl (Dulcolax Supp) 10 mg PRN DAILY PRN 02/22/21 21:15 02/28/21 07:54 10 MG Cefepime HCl (Maxipime) 1 gm Q24H 02/22/21 21:30 02/26/21 09:54 DC 02/25/21 20:33 1 GM Daptomycin 420 mg/ Sodium Chloride 50 ml @ 100 mls/hr Q24H 03/05/21 10:30 03/13/21 10:16 100 MLS/HR Dextrose (Dextrose 50%-Water Syringe) 12.5 gm PRN Q15MIN PRN 02/22/21 21:30 Epoetin Macho-epbx (RETACRIT for ESRD PTS) 10,000 unit 1X ONCE 03/06/21 11:30 03/06/21 11:31 DC 03/06/21 14:23 10,000 UNIT Fentanyl Citrate (Fentanyl 2ml Vial) 50 mcg PRN Q2HR PRN 03/10/21 03:15 03/10/21 03:25 50 MCG Heparin Sodium (Porcine) (Heparin Sodium) 5,000 unit Q8HRS 02/22/21 22:00 03/07/21 14:03 DC 03/07/21 05:34 5,000 UNIT Hydralazine HCl (Apresoline Inj) 10 mg PRN Q4HRS PRN 03/09/21 15:15 03/11/21 22:33 10 MG Info (PHARMACY MONITORING -- do not chart) 1 each PRN DAILY PRN 03/03/21 08:15 03/07/21 16:10 DC Info (Tpn Per Pharmacy) 1 each PRN DAILY PRN 03/04/21 09:00 03/12/21 12:09 DC 03/11/21 13:06 1 EACH Insulin Glargine (Lantus Syringe) 15 unit QHS 03/08/21 21:00 03/12/21 21:00 15 UNIT Insulin Human Lispro (HumaLOG) 0-9 UNITS TIDWMEALS 02/23/21 08:00 03/12/21 16:36 5 UNITS Lactobacillus Rhamnosus (Culturelle) 1 cap BID 03/12/21 21:00 03/13/21 10:08 1 CAP Levetiracetam (Keppra) 500 mg BID 03/12/21 21:00 03/13/21 10:08 500 MG Levetiracetam 500 mg/Dextrose 105 ml @ 420 mls/hr Q12HR 02/22/21 21:30 03/12/21 12:18 DC 03/12/21 08:07 420 MLS/HR Lidocaine HCl (Buffered Lidocaine 1%) 3 ml 1X ONCE 02/24/21 09:00 02/24/21 09:01 DC 02/24/21 09:00 5 ML Linezolid/Dextrose 300 ml @ 300 mls/hr Q12HR 02/24/21 14:30 03/05/21 09:12 DC 03/05/21 09:09 300 MLS/HR Lorazepam (Ativan Inj) 0.5 mg PRN Q4HRS PRN 02/22/21 21:30 03/13/21 03:40 0.5 MG Magnesium Sulfate 50 ml @ 25 mls/hr 1X ONCE 03/11/21 13:00 03/11/21 14:59 DC 03/11/21 14:42 25 MLS/HR Micafungin Sodium 100 mg/Dextrose 100 ml @ 100 mls/hr Q24H 02/26/21 12:00 03/12/21 11:33 100 MLS/HR Olanzapine (ZyPREXA ZYDIS) 5 mg PRN BID PRN 02/22/21 21:15 03/09/21 02:57 5 MG Ondansetron HCl (Zofran) 4 mg PRN Q4HRS PRN 02/22/21 21:15 03/09/21 22:22 4 MG Pantoprazole Sodium (PROTONIX VIAL for IV PUSH) 40 mg 1X ONCE 02/22/21 22:00 02/22/21 22:01 DC 02/22/21 22:16 40 MG Pantoprazole Sodium (Protonix) 40 mg DAILYAC 03/13/21 07:30 03/13/21 10:08 40 MG Piperacillin Sod/ Tazobactam Sod 2.25 gm/Sodium Chloride 50 ml @ 100 mls/hr Q6HRS 03/07/21 18:00 03/13/21 05:11 100 MLS/HR Piperacillin Sod/ Tazobactam Sod 4.5 gm/Sodium Chloride 100 ml @ 200 mls/hr 1X ONCE 02/22/21 13:30 02/22/21 13:59 UNV Sodium Bicarbonate 50 meq/Sodium Chloride 1,050 ml @ 125 mls/hr Q8H24M 02/22/21 21:30 02/23/21 12:14 DC 02/23/21 10:54 125 MLS/HR Sodium Hypochlorite (Dakin'S 1/4 Strength) 1 rustam BID 03/02/21 15:00 03/12/21 08:06 1 RUSTAM Sodium Chloride (Normal Saline Flush) 10 ml 1X PRN PRN 02/27/21 08:45 02/28/21 08:44 DC Sodium Chloride 90 meq/Potassium Chloride 50 meq/ Potassium Phosphate 13.6 mmol/Magnesium Sulfate 10 meq/ Calcium Gluconate 10 meq/ Multivitamins 10 ml/Zinc/Copper/ Manganese/ Selenium 1 ml/ Total Parenteral Nutrition/Amino Acids/Dextrose/ Fat Emulsion Intravenous 1,512 ml @ 63 mls/hr TPN CONT 03/03/21 22:00 03/04/21 21:59 DC 03/03/21 22:41 63 MLS/HR Sodium Chloride 90 meq/Potassium Chloride 50 meq/ Potassium Phosphate 13.6 mmol/Magnesium Sulfate 12 meq/ Calcium Gluconate 10 meq/ Multivitamins 10 ml/Zinc/Copper/ Manganese/ Selenium 1 ml/ Total Parenteral Nutrition/Amino Acids/Dextrose/ Fat Emulsion Intravenous 1,512 ml @ 63 mls/hr TPN CONT 03/04/21 22:00 03/05/21 21:59 DC 03/04/21 22:29 63 MLS/HR Sodium Chloride 110 meq/Potassium Chloride 50 meq/ Potassium Phosphate 6.8 mmol/Magnesium Sulfate 12 meq/ Calcium Gluconate 10 meq/ Multivitamins 10 ml/Zinc/Copper/ Manganese/ Selenium 1 ml/ Total Parenteral Nutrition/Amino Acids/Dextrose/ Fat Emulsion Intravenous 1,320 ml @ 55 mls/hr TPN CONT 03/09/21 22:00 03/10/21 21:59 DC 03/09/21 22:16 55 MLS/HR Sodium Chloride 110 meq/Potassium Chloride 60 meq/ Potassium Phosphate 13.6 mmol/Magnesium Sulfate 15 meq/ Calcium Gluconate 10 meq/ Multivitamins 10 ml/Zinc/Copper/ Manganese/ Selenium 1 ml/ Total Parenteral Nutrition/Amino Acids/Dextrose/ Fat Emulsion Intravenous 1,320 ml @ 55 mls/hr TPN CONT 03/11/21 22:00 03/12/21 21:59 DC 03/12/21 02:59 55 MLS/HR Sodium Chloride 110 meq/Potassium Chloride 60 meq/ Potassium Phosphate 6.8 mmol/Magnesium Sulfate 12 meq/ Calcium Gluconate 10 meq/ Multivitamins 10 ml/Zinc/Copper/ Manganese/ Selenium 1 ml/ Total Parenteral Nutrition/Amino Acids/Dextrose/ Fat Emulsion Intravenous 1,320 ml @ 55 mls/hr TPN CONT 03/10/21 22:00 03/11/21 21:59 DC 03/10/21 22:32 55 MLS/HR Vancomycin HCl (Vanco Per Pharmacy) 1 each PRN DAILY PRN 02/22/21 13:30 02/24/21 13:58 DC 02/23/21 03:10 1 EACH Vancomycin HCl (Vancomycin Trough Level) 1 each 1X ONCE 02/26/21 13:30 02/24/21 13:58 DC Vancomycin HCl 1.25 gm/Sodium Chloride 250 ml @ 167 mls/hr Q48H 02/24/21 14:00 02/24/21 13:58 DC Lab Laboratory Tests Test 03/12/21 16:13 03/12/21 21:15 03/13/21 08:01 Glucose (Fingerstick) 205 mg/dL (70-99) 198 mg/dL (70-99) 143 mg/dL (70-99) Results All relevant outside records, renal labs, imaging studies, telemetry/EKG's were reviewed. Justicifation of Admission Dx: Justifications for Admission: Justification of Admission Dx: N/A AZAEL VANCE MD Mar 13, 2021 11:12
--- NOTE | 2021-03-13 11:29 | NUR ---
SS following up with discharge planning. SS reviewed pt chart and discussed with pt RN. Pt is currently on room air. COVID19 negative. Pt on IV Micafungin, IV Daptomycin, and IV Zosyn. Wound care for sacral wound. Pt's son, Italo, , requesting pt go to [facility], ; fax [phone], with [facility], ; fax [phone]. Pt accepted on services with [facility]. Currently awaiting acceptance decision from [facility]. SS was able to speak with SW, Sally, from [facility] today and was told that there regular admission person is on vacation until tomorrow. Sally requested SS re-fax referral today to [phone] and she will have clinical team review paperwork today. SS re-faxed referral as requested and requested to Sally that they provide SS with a decision today. Pt's son was given other options of facilities in [place], [place] such as [facility], [facility], [facility], and [facility]. Son stated that he will not provide SS with decision on other options until [facility] gives acceptance decision. SS will continue to follow for discharge planning. Addendum: 03/13/21 at 1505 by AKASH HOOPER SS Pt clinically denied at [facility]. SS left message for pt's son, Italo, , requesting return call. SS spoke with Italo's father in room and notified. SS phoned and faxed referrals to [facility], ; [phone], [facility], ; fax [phone], and [facility], ; fax [phone]. SS will continue to follow.
[2021-03-13] MEDS: MICAFUNGIN 100 MG in IV DEXTROSE 5% 100ML 100 ML IV SCH (12:13)
[2021-03-13] MEDS: hydrALAZINE 20 MG/ML VIAL. IVP PRN ×2 (12:20→22:24)
--- NOTE | 2021-03-13 12:35 | PDOC ---
[employer] PROGRESS NOTE Date of Service DOS: DATE: 03/13/21 TIME: 11:58 Chief Complaint Chief Complaint Acute encephalopathy - multifactorial Hypoxia Hypernatremia - likely free water deficit, was on numerous diuretics prior to admit, improved Sepsis MEHDI Gluteal ulcer Anemia Severe protein calorie malnutrition Seizures DM2 - basal bolus plus insulin Depression GERD HLD HTN H/o cocaine use disorder - in remission in SNF Elevated troponin - likely demand ischemia due to above, will trend History of Present Illness History of Present Illness Ms Bentley is a 65 year old female with history of seizures, cocaine use disorder, DM2, depression, GERD, HLD, HTN who is a assisted SNF resident who comes to the ED via EMS due to unresponsiveness. Per SNF staff has been less active for the past month and had irregular breathing since 1000 this morning. shelter staff reports O2 saturations in the low 80s on room air so they put her on 3 L nasal cannula. Her oxygen saturation then raised to 92%. No witnessed seizure activity and she has reportedly been taking her Keppra and vimpat BID. Nonverbal enroute. She is baseline alert and aware x2 and wheelchair-bound. No falls or head trauma reported. She is unable to give any history and her daughter is listed as contact, voicemail box is full. Patient opens her eyes to painful stimuli and makes eye contact, does not follow any commands. Of note, she was admitted for similar complaints just a month ago. WBC 31.4, Hb 9.1, Platelets 369, Na 152, K 4, Cl 117, HCO3 23, BUN 108, Cr 3.3, glucose 161, lactic acid 1.2, ca 9.2, bili 0.5, AST 29, ALT 16, Alk phos 103, Trop 0.266, Albumin 1.7. Urine with blood and + leukocyte esterase EKG sinus rate of 99 bpm with TWI in inferolateral leads unchanged from prior EKG, significant baseline artefact, No ST elevations, QTc 509, CXR and CT head with no acute findings. Given leukocytosis and likely sepsis related to UTI, given empiric antibiotics and fluids and admitted for further care. 02/23: Afebrile. WBC 31.7, Hb 7.6, platelets 300, NA 156, K3.9, BUN 119, CR 3.6, glucose 153, alb 1.3. Covid neg. Breathing improved, but not communicating. Offloading for bedsore. 02/24: Afebrile. WBC still elevated patient septic. Son consented for dialysis catheter placement. BUN 128 today. Still very confused. Discussed with general surgery is poor surgical candidate but very large wound needs offloading possibly chemical debridement and consideration of wound VAC. Continue cefepime and vancomycin. Discussed with family overall goals of care. 02/25: Afebrile. Hb dropped to 6.9. To dialysis today for transfusion. Urine culture with Nancy glabrata. Afebrile. Glucose 67 this morning. Shaking Lasix. Low-grade axillary temp. Discussed with ID urine culture less likely to be source. Labs pending. Insulin adjusted 02/27 Patient evaluated and examined after dialysis. She was resting in bed very lethargic. Did not appear to be any clinical changes overall however. Continuing antibiotics and antifungals. Relatively poor prognosis. 02/28 Patient examined at bedside remains lethargic and altered. Clinically not much is changed. Continue antibiotics and antifungals per infectious disease very poor prognosis will attempt to contact family today regarding CODE STATUS, unable to reach will try again tomorrow. 03/01 Patient evaluated and examined at bedside. Remains somewhat altered. Very lethargic. Poor prognosis. Continuing antibiotics and antifungals. 03/02 Patient evaluated and examined at bedside. Does remain altered but notably more alert today. She arouses to my voice although still unable answer questions or follow commands. Despite this prognosis does remain poor. Will continue discussion with family if able to reach them. Continue antibiotics. Continue wound care. 03/03 Patient evaluated and examined at bedside. Upon entering room she was yelling out as she was getting her rectal wound cleaned. Necrotic areas on previous wound, wound VAC removed yesterday on initial wound. Seeing if the surgical team will come evaluate the patient to determine her surgical candidacy. If not a candidate will continue a DNR/DNI discussion with the family today with this new information. Continue antibiotics. Continue wound care 03/04 Patient evaluated examined at bedside. Is a very poor candidate for surgery. She is yelling out in a notable amount of pain anytime dressings are changed. Antibiotics and wound care for now. 03/05 Patient evaluated and examined at bedside. Reviewed surgical notes. Have attempted to contact family multiple times this week to discuss goals of care however efforts have proven futile. Continue antibiotics. We will see if social work can assist in reaching family. 03/06: Afebrile. Hemoglobin 6.5 today transfuse 1 unit PRBC. Try to reach out to patient's son (Italo) about goals of care and whether or not to proceed with surgical debridement of sacral ulcer; no answer, will attempt to contact again at a later time. 03/07: Afebrile. Had discussion with patient's son (Italo) yesterday, who has been acting largely as the decision maker given patient's 's history of stroke; at this time no decision has been made about whether to proceed with surgical debridement or not. I answered all his questions and addressed any concerns to the best my ability, but Italo stated he would like to discuss with some other people and do further research prior to making a decision on surgical debridement. WBC 9.7, hemoglobin 6.8. Hemoglobin did not improve after anticipated following 1 unit PRBC yesterday; will transfuse additional 1 unit PRBC. Continue IV antibiotics, per ID. 03/08: Patient with no acute events overnight. Still some significant hyperglycemia, insulin has been adjusted. Was able to get a hold of patient's son (Italo); after extensive discussion about surgical debridement versus hospice, he is leaning towards hospice care at this time. He would like to speak with our [facility] hospice service for further information about what hospice entails. At this time we will continue IV antibiotics, per ID. 03/09: Afebrile, no acute vents overnight. Blood sugar slightly better controlled. Son had discussion with hospice yesterday and reportedly agreeable to hospice care. hand worker helping in this regard. 03/10: Afebrile, no significant change. Some worsening leukocytosis noted. Continue IV antibiotics, per ID. Referral to [facility] has been placed for long-term care on hospice. I reached out to patient's son (Italo), and discussed CODE STATUS. I explained to him that part of being set into hospice is DNR as CODE STATUS. He agrees that "if God were to take her home, he would not want us to step in the way ". Will change patient's CODE STATUS to DNR. 03/11: Afebrile. After discussion with patient's son (Italo), they have elected to not pursue surgical debridement of sacral ulcer and instead went hospice care. During this conversation he agreed to make CODE STATUS DNR. We will c ontinue with IV Zosyn to stave off infection. [facility]erral to [facility] been placed for long-term care on hospice. 03/12: No acute events overnight. Afebrile. Her p.o. intake is increased, eating all of her breakfast this morning. Will discontinue TPN. business services specialist sales helping hospice care; referral to [facility] has been placed for long-term care on hospice. Continue IV Zosyn until discharge. 03/13: Patient seen and examined at bedside. Her heart rate was elevated on auscultation, but otherwise is stable. Continue IV Zosyn and fluids until discharge. Discussed with RN and SW. Pt's chart was reviewed. Vitals/I&O Vitals/I&O: Vital Signs Date Time Temp Pulse Resp B/P (MAP) Pulse Ox O2 Delivery O2 Flow Rate FiO2 03/13/21 11:24 97.6 88 18 182/99 (126) 93 Room Air 97.6 I & O 03/12/21 03/12/21 03/13/21 15:00 23:00 07:00 Intake Total 1910 ml 824 ml 0 ml Output Total 800 ml 2250 ml Balance 1110 ml 824 ml -2250 ml Physical Exam Physical Exam: GENERAL: The patient is lying comfortably in bed, arousable but does not answer all questions Nods yes to pain HEENT: Normocephalic, atraumatic. Anicteric. Oral mucosa moist. NECK: Supple. LUNGS: Clear bilaterally. No wheezing. HEART: S1, S2. No murmurs. Tachycardic. ABDOMEN: Soft, nontender, nondistended. GENITOURINARY: Palacio in place, placed here. rectum with purulent drainage EXTREMITIES: No edema. No cyanosis. DERMATOLOGIC: Warm, dry, no generalized rash. NEUROLOGIC: Little more alert General: Alert, Cooperative, Other (does not answer questions) Heart: Normal S1, Normal S2, Other (tachycardia) Lungs: Crackles Abdomen: Soft Extremities: No edema Skin: Other (large sacral wound) Labs Labs: Laboratory Tests Test 03/12/21 16:13 03/12/21 21:15 03/13/21 08:01 03/13/21 11:30 Glucose (Fingerstick) 205 mg/dL (70-99) 198 mg/dL (70-99) 143 mg/dL (70-99) 163 mg/dL (70-99) Review of Systems Review of Systems: ROS Negative Assessment and Plan Assessmemt and Plan Problems Medical Problems: (1) Acute encephalopathy Status: Acute (2) Acute kidney injury superimposed on chronic kidney disease Status: Acute (3) NSTEMI (non-ST elevated myocardial infarction) Status: Acute (4) Sepsis Status: Acute (5) UTI (urinary tract infection) Status: Acute Acute encephalopathy (multifactorial, metabolic due to uremia, no SDH or CVA symptoms. less likely post-ictal. possibly related to sepsis as well) MEHDI (likely vasomotor nephropathy possibly from free water deficit, sepsis) Hypoxia Hypernatremia -> likely free water deficit, was on numerous diuretics prior to admit, improved Seizures -> will dose IV keppra while confused. Prn ativan for seizure activity Severe protein calorie malnutrition Gluteal ulcer Anemia DM2 - basal bolus plus insulin Depression GERD HLD HTN H/o cocaine use disorder -> in remission in SNF Elevated troponin -> likely demand ischemia due to above, will trend Plan: - Continue IV Zosyn for sepsis and fluids for MEHDI - Continue IV Protonix for GERD, hold statin while NPO for HLD, continue prn Hydralazine and prn Metoprolol for HTN - Schedule PTOT - Restart home medications - DVT Prophylaxis protocol - Continue Palacio catheter bedside - Wound care management - Consult with subspecialist for input - Encourage patient to eat more FEN - NPO PPX - heparin FULL CODE Dispo - inpatient. D/w Italo, next of kin Comment Review of Relevant I have reviewed the following items toan (where applicable) has been applied. Medications: Current Medications Medications (Trade) Dose Ordered Sig/Es Route PRN Reason Start Time Stop Time Status Last Admin Dose Admin Pantoprazole Sodium (Protonix) 40 mg DAILYAC PO 03/13/21 07:30 03/13/21 10:08 Levetiracetam (Keppra) 500 mg BID PO 03/12/21 21:00 03/13/21 10:08 Lactobacillus Rhamnosus (Culturelle) 1 cap BID PO 03/12/21 21:00 03/13/21 10:08 Justifications for Admission General Conditions Poss Metaboilic Acidosis?: Yes Justification for admission: Patient has tachycardia (> 100 beats per minute) or hypotension (SBP < 90 mm Hg) leading to inadequate systemic perfusion as indicated by metabolic acidosis with arterial pH of less than 7.35. Other Justification JOSE PACK III DO Mar 13, 2021 12:35
[2021-03-13] MEDS ORDERED: METOPROLOL IV PUSH 5 MG/5 ML VIAL. IVP SCH (14:00)
[2021-03-13] MEDS ORDERED: METOPROLOL IV PUSH 5 MG/5 ML VIAL. IVP PRN (14:15)
--- NOTE | 2021-03-13 19:55 | NUR ---
Pt in bed assessment completed vs obtained pt blood pressure elevated, pt reoriented to surroundings call light placed in reach will resume care and continue to monitor pt.
[2021-03-13] MEDS: INSULIN GLARGINE SYRINGE. SQ SCH (22:20)
[2021-03-14 03:00] VITALS: BP 177/91
[2021-03-14] MEDS: PIPERACILLIN/TAZOBACTAM 2.25 GM in IV NORMAL SALINE 50ML 50 ML IV SCH ×2 (06:12→10:54)
[2021-03-14] MEDS: PANTOPRAZOLE 40 MG TABLET.DR. PO SCH (06:12)
[2021-03-14 06:50] LABS: CALCIUM 8.1 mg/dL (8.5-10.1); GFR 67.5; POTASSIUM 3.1 mmol/L (3.5-5.1)
[2021-03-14 07:50] VITALS: BP 169/65
[2021-03-14] MEDS: INSULIN LISPRO 300 UNITS/3 ML VIAL. SQ SCH ×2 (08:00→12:53)
[2021-03-14] MEDS: LACTOBACILLUS RHAMNOSUS GG 1 CAPSULE. PO SCH (08:17)
[2021-03-14] MEDS: levETIRAcetam 500 MG TABLET PO SCH (08:17)
[2021-03-14] MEDS: SODIUM HYPOCHLORITE 0.125% 473 ML BOTTLE. TP SCH (09:00)
[2021-03-14] MEDS: DAPTOmycin (GENERIC) IVPB 420 MG in IV NORMAL SALINE 50ML 50 ML IV SCH (09:37)
[2021-03-14 10:06] VITALS: BP 167/90
--- NOTE | 2021-03-14 11:47 | NUR ---
SS following up with discharge planning. SS reviewed pt chart and discussed with pt RN. Pt is currently on room air. COVID19 negative. Wound care for sacral wound. Pt accepted on services with [facility], ; fax [phone]. Pt accepted for LTC placement at [facility], ; [phone]. Physician notified. SS currently awaiting discharge orders for LTC placement with hospice and will proceed accordingly. Pt's son, Italo, , notified. SS will continue to follow for discharge planning. Addendum: 03/14/21 at 1310 by AKASH HOOPER SS Discharge orders received and phoned and faxed to [facility] and [facility]. Pt will discharge today and go to facility at 1500 via [facility] ambulance. Pt, pt's son, and pt's RN notified. Packet, ambulance form and DNR form placed on chart.
[2021-03-14] MEDS: MICAFUNGIN 100 MG in IV DEXTROSE 5% 100ML 100 ML IV SCH (11:56)
--- NOTE | 2021-03-14 12:12 | PDOC ---
[employer] PROGRESS NOTE Date of Service DOS: DATE: 03/14/21 TIME: 12:11 Chief Complaint Chief Complaint Acute encephalopathy - multifactorial Hypoxia Hypernatremia - likely free water deficit, was on numerous diuretics prior to admit, improved Sepsis MEHDI Gluteal ulcer Anemia Severe protein calorie malnutrition Seizures DM2 - basal bolus plus insulin Depression GERD HLD HTN H/o cocaine use disorder - in remission in SNF Elevated troponin - likely demand ischemia due to above, will trend History of Present Illness History of Present Illness Ms Bentley is a 65 year old female with history of seizures, cocaine use disorder, DM2, depression, GERD, HLD, HTN who is a halfway SNF resident who comes to the ED via EMS due to unresponsiveness. Per SNF staff has been less active for the past month and had irregular breathing since 1000 this morning. halfway staff reports O2 saturations in the low 80s on room air so they put her on 3 L nasal cannula. Her oxygen saturation then raised to 92%. No witnessed seizure activity and she has reportedly been taking her Keppra and vimpat BID. Nonverbal enroute. She is baseline alert and aware x2 and wheelchair-bound. No falls or head trauma reported. She is unable to give any history and her daughter is listed as contact, voicemail box is full. Patient opens her eyes to painful stimuli and makes eye contact, does not follow any commands. Of note, she was admitted for similar complaints just a month ago. WBC 31.4, Hb 9.1, Platelets 369, Na 152, K 4, Cl 117, HCO3 23, BUN 108, Cr 3.3, glucose 161, lactic acid 1.2, ca 9.2, bili 0.5, AST 29, ALT 16, Alk phos 103, Trop 0.266, Albumin 1.7. Urine with blood and + leukocyte esterase EKG sinus rate of 99 bpm with TWI in inferolateral leads unchanged from prior EKG, significant baseline artefact, No ST elevations, QTc 509, CXR and CT head with no acute findings. Given leukocytosis and likely sepsis related to UTI, given empiric antibiotics and fluids and admitted for further care. 02/23: Afebrile. WBC 31.7, Hb 7.6, platelets 300, NA 156, K3.9, BUN 119, CR 3.6, glucose 153, alb 1.3. Covid neg. Breathing improved, but not communicating. Offloading for bedsore. 02/24: Afebrile. WBC still elevated patient septic. Son consented for dialysis catheter placement. BUN 128 today. Still very confused. Discussed with general surgery is poor surgical candidate but very large wound needs offloading possibly chemical debridement and consideration of wound VAC. Continue cefepime and vancomycin. Discussed with family overall goals of care. 02/25: Afebrile. Hb dropped to 6.9. To dialysis today for transfusion. Urine culture with Nancy glabrata. Afebrile. Glucose 67 this morning. Shaking Lasix. Low-grade axillary temp. Discussed with ID urine culture less likely to be source. Labs pending. Insulin adjusted 02/27 Patient evaluated and examined after dialysis. She was resting in bed very lethargic. Did not appear to be any clinical changes overall however. Continuing antibiotics and antifungals. Relatively poor prognosis. 02/28 Patient examined at bedside remains lethargic and altered. Clinically not much is changed. Continue antibiotics and antifungals per infectious disease very poor prognosis will attempt to contact family today regarding CODE STATUS, unable to reach will try again tomorrow. 03/01 Patient evaluated and examined at bedside. Remains somewhat altered. Very lethargic. Poor prognosis. Continuing antibiotics and antifungals. 03/02 Patient evaluated and examined at bedside. Does remain altered but notably more alert today. She arouses to my voice although still unable answer questions or follow commands. Despite this prognosis does remain poor. Will continue discussion with family if able to reach them. Continue antibiotics. Continue wound care. 03/03 Patient evaluated and examined at bedside. Upon entering room she was yelling out as she was getting her rectal wound cleaned. Necrotic areas on previous wound, wound VAC removed yesterday on initial wound. Seeing if the surgical team will come evaluate the patient to determine her surgical candidacy. If not a candidate will continue a DNR/DNI discussion with the family today with this new information. Continue antibiotics. Continue wound care 03/04 Patient evaluated examined at bedside. Is a very poor candidate for surgery. She is yelling out in a notable amount of pain anytime dressings are changed. Antibiotics and wound care for now. 03/05 Patient evaluated and examined at bedside. Reviewed surgical notes. Have attempted to contact family multiple times this week to discuss goals of care however efforts have proven futile. Continue antibiotics. We will see if social work can assist in reaching family. 03/06: Afebrile. Hemoglobin 6.5 today transfuse 1 unit PRBC. Try to reach out to patient's son (Italo) about goals of care and whether or not to proceed with surgical debridement of sacral ulcer; no answer, will attempt to contact again at a later time. 03/07: Afebrile. Had discussion with patient's son (Italo) yesterday, who has been acting largely as the decision maker given patient's 's history of stroke; at this time no decision has been made about whether to proceed with surgical debridement or not. I answered all his questions and addressed any concerns to the best my ability, but Italo stated he would like to discuss with some other people and do further research prior to making a decision on surgical debridement. WBC 9.7, hemoglobin 6.8. Hemoglobin did not improve after anticipated following 1 unit PRBC yesterday; will transfuse additional 1 unit PRBC. Continue IV antibiotics, per ID. 03/08: Patient with no acute events overnight. Still some significant hyperglycemia, insulin has been adjusted. Was able to get a hold of patient's son (Italo); after extensive discussion about surgical debridement versus hospice, he is leaning towards hospice care at this time. He would like to speak with our [facility] hospice service for further information about what hospice entails. At this time we will continue IV antibiotics, per ID. 03/09: Afebrile, no acute vents overnight. Blood sugar slightly better controlled. Son had discussion with hospice yesterday and reportedly agreeable to hospice care. cue worker helping in this regard. 03/10: Afebrile, no significant change. Some worsening leukocytosis noted. Continue IV antibiotics, per ID. Referral to [facility] has been placed for long-term care on hospice. I reached out to patient's son (Italo), and discussed CODE STATUS. I explained to him that part of being set into hospice is DNR as CODE STATUS. He agrees that "if God were to take her home, he would not want us to step in the way ". Will change patient's CODE STATUS to DNR. 03/11: Afebrile. After discussion with patient's son (Italo), they have elected to not pursue surgical debridement of sacral ulcer and instead went hospice care. During this conversation he agreed to make CODE STATUS DNR. We will c ontinue with IV Zosyn to stave off infection. Referral to [facility] been placed for long-term care on hospice. 03/12: No acute events overnight. Afebrile. Her p.o. intake is increased, eating all of her breakfast this morning. Will discontinue TPN. nutritional services director helping hospice care; referral to [facility] has been placed for long-term care on hospice. Continue IV Zosyn until discharge. 03/13: Patient seen and examined at bedside. Her heart rate was elevated on auscultation, but otherwise is stable. Continue IV Zosyn and fluids until discharge. Discussed with RN and SW. Pt's chart was reviewed. 03/14: Patient was seen and examined at bedside. BP and HR are still elevated, but otherwise stable for the most part. Discussed with RN and SW that we are currently waiting for hospice discharge and will continue IV Zosyn and fluids until discharge. Pt's chart was reviewed. Vitals/I&O Vitals/I&O: Vital Signs Date Time Temp Pulse Resp B/P (MAP) Pulse Ox O2 Delivery O2 Flow Rate FiO2 03/14/21 10:06 98.3 90 18 167/90 (115) 96 Room Air 98.3 I & O 03/13/21 03/13/21 03/14/21 15:00 23:00 07:00 Output Total 500 ml 900 ml 1150 ml Balance -500 ml -900 ml -1150 ml Physical Exam Physical Exam: GENERAL: The patient is lying comfortably in bed, arousable but does not answer all questions Nods yes to pain HEENT: Normocephalic, atraumatic. Anicteric. Oral mucosa moist. NECK: Supple. LUNGS: Clear bilaterally. No wheezing. HEART: S1, S2. No murmurs. Tachycardic. ABDOMEN: Soft, nontender, nondistended. GENITOURINARY: Palacio in place, placed here. rectum with purulent drainage EXTREMITIES: No edema. No cyanosis. DERMATOLOGIC: Warm, dry, no generalized rash. NEUROLOGIC: Little more alert General: Alert, Cooperative, Other (does not answer questions) Heart: Normal S1, Normal S2, Other (tachycardia) Lungs: Crackles Abdomen: Soft Extremities: No edema Skin: Other (large sacral wound) Labs Labs: Laboratory Tests Test 03/13/21 16:11 03/13/21 21:11 03/14/21 06:15 03/14/21 08:16 Glucose (Fingerstick) 178 mg/dL (70-99) 101 mg/dL (70-99) 100 mg/dL (70-99) Sodium Level 139 mmol/L (136-145) Potassium Level 3.1 mmol/L (3.5-5.1) Chloride Level 105 mmol/L (98-107) Carbon Dioxide Level 26 mmol/L (21-32) Anion Gap 8 (6-14) Blood Urea Nitrogen 21 mg/dL (7-20) Creatinine 1.0 mg/dL (0.6-1.0) Estimated GFR (Cockcroft-Gault) 67.5 Glucose Level 105 mg/dL (70-99) Calcium Level 8.1 mg/dL (8.5-10.1) Test 03/14/21 08:25 03/14/21 11:59 Glucose (Fingerstick) 98 mg/dL (70-99) 179 mg/dL (70-99) Review of Systems Review of Systems: ROS Negative Assessment and Plan Assessmemt and Plan Problems Medical Problems: (1) Acute encephalopathy Status: Acute (2) Acute kidney injury superimposed on chronic kidney disease Status: Acute (3) NSTEMI (non-ST elevated myocardial infarction) Status: Acute (4) Sepsis Status: Acute (5) UTI (urinary tract infection) Status: Acute Acute encephalopathy -> multifactorial, metabolic due to uremia, no SDH or CVA symptoms. less likely post-ictal. possibly related to sepsis as well) MEHDI -> likely vasomotor nephropathy possibly from free water deficit, sepsis) Hypoxia Hypernatremia -> likely free water deficit, was on numerous diuretics prior to admit, improved Seizures -> will dose IV keppra while confused. Prn ativan for seizure activity Severe protein calorie malnutrition Gluteal ulcer Anemia DM2 - basal bolus plus insulin Depression GERD HLD HTN H/o cocaine use disorder -> in remission in SNF Elevated troponin -> likely demand ischemia due to above, will trend Plan: Probable discharge with hospice this afternoon for now continue the following until hospice is fully arranged; - Continue IV Zosyn for sepsis and fluids for MEHDI - Continue IV Protonix for GERD, hold statin while NPO for HLD, continue prn Hydralazine and prn Metoprolol for HTN - Schedule PTOT - Restart home medications - DVT Prophylaxis protocol - Continue Palacio catheter bedside - Wound care management - Consult with subspecialist for input - Encourage patient to eat more FEN - NPO PPX - heparin Dispo - inpatient. D/w Reedy, next of kin Awaiting hospice discharge Comment Review of Relevant I have reviewed the following items toan (where applicable) has been applied. Medications: Current Medications Medications (Trade) Dose Ordered Sig/Es Route PRN Reason Start Time Stop Time Status Last Admin Dose Admin Metoprolol Tartrate (Lopressor Vial) 5 mg PRN Q6HRS PRN IVP TACHYCARDIA 03/13/21 14:15 03/13/21 14:13 Justifications for Admission General Conditions Poss Metaboilic Acidosis?: Yes Justification for admission: Patient has tachycardia (> 100 beats per minute) or hypotension (SBP < 90 mm Hg) leading to inadequate systemic perfusion as indicated by metabolic acidosis with arterial pH of less than 7.35. Other Justification JOSE PACK III DO Mar 14, 2021 12:12
--- NOTE | 2021-03-14 12:27 | PDOC ---
DATE OF SERVICE DATE: 03/14/21 TIME: 12:26 SUBJECTIVE ROS No acute events overnight. On RA OBJECTIVE Vital Signs Vital Signs Date Time Temp Pulse Resp B/P (MAP) Pulse Ox O2 Delivery O2 Flow Rate FiO2 03/14/21 10:06 98.3 90 18 167/90 (115) 96 Room Air 98.3 I & 0 Intake and Output 03/14/21 07:00 Output Total 2550 ml Balance -2550 ml Output Urine Total 2550 ml # Bowel Movements 4 PHYSICAL EXAM Physical Exam General: NAD HEENT: Atraumatic, PERRLA, EOMI, Mucous membr. moist/pink Neck Supple Lungs: Clear to auscultation, Non labored Heart: S1S2, RRR, no thrills, no rubs, no gallops, no murmurs Abdomen: Normal bowel sounds, Soft, No tenderness, No hepatosplenomegaly, No masses Extremities: No clubbing, No cyanosis, No edema, Skin: No rashes, NeurO Grossly No neurological deficit DIAGNOSIS/ASSESSMENT Assessment & Plan MEHDI - Resolved ATN . Required dialysis has been off dialysis with improving renal function Supportive care,, Avoid Nephrotoxins CKD stage 2/[address] [facility] records HypoKalemia - Replace Acute encephalopathy -improved MS Sacral Ulcer - family have elected to not pursue surgical debridement of sacral ulcer , inclining towards hospice care Anemia Seizures DM2 H/o cocaine use disorder - in remission in SNF COMMENT/RELEVANT DATA Meds Current Medications Medications (Trade) Dose Ordered Sig/Es Start Time Stop Time Status Last Admin Dose Admin Acetaminophen (Tylenol Supp) 650 mg PRN Q6HRS PRN 02/22/21 21:15 03/09/21 23:04 650 MG Albumin Human 200 ml @ 200 mls/hr 1X PRN PRN 02/27/21 08:45 02/27/21 14:44 DC Amino Acids/ Electrolytes/ Dextrose 1,000 ml @ 80 mls/hr [id number] 02/27/21 13:30 03/03/21 12:18 DC 03/03/21 11:39 80 MLS/HR Bisacodyl (Dulcolax Supp) 10 mg PRN DAILY PRN 02/22/21 21:15 02/28/21 07:54 10 MG Cefepime HCl (Maxipime) 1 gm Q24H 02/22/21 21:30 02/26/21 09:54 DC 02/25/21 20:33 1 GM Daptomycin 420 mg/ Sodium Chloride 50 ml @ 100 mls/hr Q24H 03/05/21 10:30 03/14/21 09:37 100 MLS/HR Dextrose (Dextrose 50%-Water Syringe) 12.5 gm PRN Q15MIN PRN 02/22/21 21:30 Epoetin Macho-epbx (RETACRIT for ESRD PTS) 10,000 unit 1X ONCE 03/06/21 11:30 03/06/21 11:31 DC 03/06/21 14:23 10,000 UNIT Fentanyl Citrate (Fentanyl 2ml Vial) 50 mcg PRN Q2HR PRN 03/10/21 03:15 03/10/21 03:25 50 MCG Heparin Sodium (Porcine) (Heparin Sodium) 5,000 unit Q8HRS 02/22/21 22:00 03/07/21 14:03 DC 03/07/21 05:34 5,000 UNIT Hydralazine HCl (Apresoline Inj) 10 mg PRN Q4HRS PRN 03/09/21 15:15 03/13/21 22:24 10 MG Info (PHARMACY MONITORING -- do not chart) 1 each PRN DAILY PRN 03/03/21 08:15 03/07/21 16:10 DC Info (Tpn Per Pharmacy) 1 each PRN DAILY PRN 03/04/21 09:00 03/12/21 12:09 DC 03/11/21 13:06 1 EACH Insulin Glargine (Lantus Syringe) 15 unit QHS 03/08/21 21:00 03/13/21 22:20 15 UNIT Insulin Human Lispro (HumaLOG) 0-9 UNITS TIDWMEALS 02/23/21 08:00 03/13/21 17:52 4 UNITS Lactobacillus Rhamnosus (Culturelle) 1 cap BID 03/12/21 21:00 03/14/21 08:17 1 CAP Levetiracetam (Keppra) 500 mg BID 03/12/21 21:00 03/14/21 08:17 500 MG Levetiracetam 500 mg/Dextrose 105 ml @ 420 mls/hr Q12HR 02/22/21 21:30 03/12/21 12:18 DC 03/12/21 08:07 420 MLS/HR Lidocaine HCl (Buffered Lidocaine 1%) 3 ml 1X ONCE 02/24/21 09:00 02/24/21 09:01 DC 02/24/21 09:00 5 ML Linezolid/Dextrose 300 ml @ 300 mls/hr Q12HR 02/24/21 14:30 03/05/21 09:12 DC 03/05/21 09:09 300 MLS/HR Lorazepam (Ativan Inj) 0.5 mg PRN Q4HRS PRN 02/22/21 21:30 03/13/21 03:40 0.5 MG Magnesium Sulfate 50 ml @ 25 mls/hr 1X ONCE 03/11/21 13:00 03/11/21 14:59 DC 03/11/21 14:42 25 MLS/HR Metoprolol Tartrate (Lopressor Vial) 5 mg PRN Q6HRS PRN 03/13/21 14:15 03/13/21 14:13 5 MG Micafungin Sodium 100 mg/Dextrose 100 ml @ 100 mls/hr Q24H 02/26/21 12:00 03/14/21 11:56 100 MLS/HR Olanzapine (ZyPREXA ZYDIS) 5 mg PRN BID PRN 02/22/21 21:15 03/09/21 02:57 5 MG Ondansetron HCl (Zofran) 4 mg PRN Q4HRS PRN 02/22/21 21:15 03/09/21 22:22 4 MG Pantoprazole Sodium (PROTONIX VIAL for IV PUSH) 40 mg 1X ONCE 02/22/21 22:00 02/22/21 22:01 DC 02/22/21 22:16 40 MG Pantoprazole Sodium (Protonix) 40 mg DAILYAC 03/13/21 07:30 03/14/21 06:12 40 MG Piperacillin Sod/ Tazobactam Sod 2.25 gm/Sodium Chloride 50 ml @ 100 mls/hr Q6HRS 03/07/21 18:00 03/14/21 10:54 100 MLS/HR Piperacillin Sod/ Tazobactam Sod 4.5 gm/Sodium Chloride 100 ml @ 200 mls/hr 1X ONCE 02/22/21 13:30 02/22/21 13:59 UNV Sodium Bicarbonate 50 meq/Sodium Chloride 1,050 ml @ 125 mls/hr Q8H24M 02/22/21 21:30 02/23/21 12:14 DC 02/23/21 10:54 125 MLS/HR Sodium Hypochlorite (Dakin'S 1/4 Strength) 1 rustam BID 03/02/21 15:00 03/14/21 09:00 1 RUSTAM Sodium Chloride (Normal Saline Flush) 10 ml 1X PRN PRN 02/27/21 08:45 02/28/21 08:44 DC Sodium Chloride 90 meq/Potassium Chloride 50 meq/ Potassium Phosphate 13.6 mmol/Magnesium Sulfate 10 meq/ Calcium Gluconate 10 meq/ Multivitamins 10 ml/Zinc/Copper/ Manganese/ Selenium 1 ml/ Total Parenteral Nutrition/Amino Acids/Dextrose/ Fat Emulsion Intravenous 1,512 ml @ 63 mls/hr TPN CONT 03/03/21 22:00 03/04/21 21:59 DC 03/03/21 22:41 63 MLS/HR Sodium Chloride 90 meq/Potassium Chloride 50 meq/ Potassium Phosphate 13.6 mmol/Magnesium Sulfate 12 meq/ Calcium Gluconate 10 meq/ Multivitamins 10 ml/Zinc/Copper/ Manganese/ Selenium 1 ml/ Total Parenteral Nutrition/Amino Acids/Dextrose/ Fat Emulsion Intravenous 1,512 ml @ 63 mls/hr TPN CONT 03/04/21 22:00 03/05/21 21:59 DC 03/04/21 22:29 63 MLS/HR Sodium Chloride 110 meq/Potassium Chloride 50 meq/ Potassium Phosphate 6.8 mmol/Magnesium Sulfate 12 meq/ Calcium Gluconate 10 meq/ Multivitamins 10 ml/Zinc/Copper/ Manganese/ Selenium 1 ml/ Total Parenteral Nutrition/Amino Acids/Dextrose/ Fat Emulsion Intravenous 1,320 ml @ 55 mls/hr TPN CONT 03/09/21 22:00 03/10/21 21:59 DC 03/09/21 22:16 55 MLS/HR Sodium Chloride 110 meq/Potassium Chloride 60 meq/ Potassium Phosphate 13.6 mmol/Magnesium Sulfate 15 meq/ Calcium Gluconate 10 meq/ Multivitamins 10 ml/Zinc/Copper/ Manganese/ Selenium 1 ml/ Total Parenteral Nutrition/Amino Acids/Dextrose/ Fat Emulsion Intravenous 1,320 ml @ 55 mls/hr TPN CONT 03/11/21 22:00 03/12/21 21:59 DC 03/12/21 02:59 55 MLS/HR Sodium Chloride 110 meq/Potassium Chloride 60 meq/ Potassium Phosphate 6.8 mmol/Magnesium Sulfate 12 meq/ Calcium Gluconate 10 meq/ Multivitamins 10 ml/Zinc/Copper/ Manganese/ Selenium 1 ml/ Total Parenteral Nutrition/Amino Acids/Dextrose/ Fat Emulsion Intravenous 1,320 ml @ 55 mls/hr TPN CONT 03/10/21 22:00 03/11/21 21:59 DC 03/10/21 22:32 55 MLS/HR Vancomycin HCl (Vanco Per Pharmacy) 1 each PRN DAILY PRN 02/22/21 13:30 02/24/21 13:58 DC 02/23/21 03:10 1 EACH Vancomycin HCl (Vancomycin Trough Level) 1 each 1X ONCE 02/26/21 13:30 02/24/21 13:58 DC Vancomycin HCl 1.25 gm/Sodium Chloride 250 ml @ 167 mls/hr Q48H 02/24/21 14:00 02/24/21 13:58 DC Lab Laboratory Tests Test 03/13/21 16:11 03/13/21 21:11 03/14/21 06:15 03/14/21 08:16 Glucose (Fingerstick) 178 mg/dL (70-99) 101 mg/dL (70-99) 100 mg/dL (70-99) Sodium Level 139 mmol/L (136-145) Potassium Level 3.1 mmol/L (3.5-5.1) Chloride Level 105 mmol/L (98-107) Carbon Dioxide Level 26 mmol/L (21-32) Anion Gap 8 (6-14) Blood Urea Nitrogen 21 mg/dL (7-20) Creatinine 1.0 mg/dL (0.6-1.0) Estimated GFR (Cockcroft-Gault) 67.5 Glucose Level 105 mg/dL (70-99) Calcium Level 8.1 mg/dL (8.5-10.1) Test 03/14/21 08:25 03/14/21 11:59 Glucose (Fingerstick) 98 mg/dL (70-99) 179 mg/dL (70-99) Results All relevant outside records, renal labs, imaging studies, telemetry/EKG's were reviewed. Justicifation of Admission Dx: Justifications for Admission: Justification of Admission Dx: N/A AZAEL VANCE MD Mar 14, 2021 12:27
--- NOTE | 2021-03-14 12:48 | SNU/HH DC ---
DISCHARGE ORDERS DISCHARGE INFORMATION: FINAL DIAGNOSIS Problems Medical Problems: (1) Acute encephalopathy Status: Acute (2) Acute kidney injury superimposed on chronic kidney disease Status: Acute (3) NSTEMI (non-ST elevated myocardial infarction) Status: Acute (4) Sepsis Status: Acute (5) UTI (urinary tract infection) Status: Acute CONDITION ON DISCHARGE: Stable CODE STATUS: Code Status: Full PENITENTIARY: SNF STAY <30 DAYS: No HOSPICE: HOSPICE: Yes HOSPICE EVAL & TREAT: Yes LTAC: ADMIT TO LTAC: No POST DISCHARGE ORDERS: ACTIVITY ORDERS: No restrictions WEIGHT BEARING STATUS: As tolerated DIET AFTER DISCHARGE: Cardiac OTHER ORDERS: Emergency admit to long-term care with hospice CHECKS AFTER DISCHARGE: CHECKS AFTER DISCHARGE: Check blood press - daily, Check blood sugar, ac/hs TREATMENT/EQUIPMENT ORDERS: ADAPTIVE EQUIPMENT NEEDED: None DISCHARGE MEDICATIONS: Home Meds Active Scripts Spironolactone (ALDACTONE) 25 Mg Tablet, 25 MG PO DAILY for 30 Days Prov:FAVIO CHESTER MD 01/21/16 Metoprolol Tartrate (METOPROLOL TARTRATE) 25 Mg Tablet, 25 MG PO BID for 30 Days Prov:FAVIO CHESTER MD 01/21/16 Insulin Detemir (Levemir Flextouch) 100 Unit/1 Ml Insuln.pen, 20 UNITS SQ QHS for 30 Days Prov:FAVIO CHESTER MD 01/21/16 Insulin Aspart (NOVOLOG FLEXPEN) 100 Unit/1 Ml Insuln.pen, 4 UNITS SQ TIDAC for 30 Days Prov:FAVIO CHESTER MD 01/21/16 Bumetanide (BUMETANIDE) 1 Mg Tablet, 1 MG PO DAILY for 30 Days Prov:FAVIO CHESTER MD 01/21/16 Atorvastatin Calcium (ATORVASTATIN CALCIUM) 40 Mg Tablet, 40 MG PO QHS for 30 D ays Prov:FAVIO CHESTER MD 01/21/16 Aspirin (ASPIRIN EC) 81 Mg Tablet.dr, 81 MG PO DAILYWBKFT for 30 Days Prov:FAVIO CHESTER MD 01/21/16 Reported Medications Lidocaine Hcl (LIDOCAINE HCL) 5 Ml Jel..ml., 1 ION TP BID for wound care 02/22/21 [glucose GE] No Conflict Check, 1 PACKET PO q15 min PRN for hypoglycemia 02/22/21 Glucagon,Human Recombinant (GLUCAGON EMERGENCY KIT) 1 Mg Kit, 1 MG IM q15 minutes for hypoglycemia, EACH 02/22/21 Glipizide (GLIPIZIDE) 5 Mg Tablet, 5 MG PO DAILY for DM, TAB 02/22/21 Esomeprazole Magnesium (NEXIUM CAPSULE) 20 Mg Capsule.dr, 20 MG PO DAILYAC for GERD, #30 CAP 0 Refills 02/22/21 Ascorbic Acid (VITAMIN C) 500 Mg Capsule.er, 500 MG PO DAILY for promote healing, CAP.SR 02/22/21 Olanzapine (ZYPREXA) 20 Mg Tablet, 25 MG PO HS for agitation 01/29/21 Trazodone Hcl (TRAZODONE HCL) 50 Mg Tablet, 1 TAB PO QHS for insomnia, #30 TAB 1 Refill 01/29/21 Metformin Hcl (METFORMIN HCL) 500 Mg Tablet, 500 MG PO DAILY for ANTI-DIABETIC, TAB 0 Refills 01/29/21 Lacosamide (VIMPAT) 200 Mg Tablet, 200 MG PO BID for seizures, TAB 01/29/21 Levetiracetam (KEPPRA) 500 Mg Tablet, 1 TAB PO BID for seizures for 30 Days, #60 TAB 0 Refills 01/29/21 Carvedilol (CARVEDILOL) 25 Mg Tablet, 25 MG PO BIDWMEALS for HTN, #2 TAB 01/29/21 Amlodipine Besylate (AMLODIPINE BESYLATE) 10 Mg Tablet, 10 MG PO DAILY for HTN, TAB 01/29/21 Alprazolam (ALPRAZOLAM) 1 Mg Tablet, 1 TAB PO TID for agitation, #60 TAB 01/29/21 Acetaminophen (TYLENOL) 325 Mg Tablet, 2 TAB PO PRN Q4HRS for pain or fever , #30 TAB 01/29/21 Hydrocodone Bit/Acetaminophen (HYDROCODONE-APAP 7.5-325 ) 1 Each Tablet, 1 TAB PO PRN Q6HRS PRN for PAIN, TAB 0 Refills 01/12/16 Amlodipine Besylate (AMLODIPINE BESYLATE) 5 Mg Tablet, 5 MG PO DAILY, #30 01/12/16 Baclofen (BACLOFEN) 10 Mg Tablet, 10 MG PO BID, #120 01/12/16 Amitriptyline Hcl (AMITRIPTYLINE HCL) 25 Mg Tablet, 25 MG PO HS, #30 01/12/16 Hydrochlorothiazide (HYDROCHLOROTHIAZIDE TABLET ) 25 Mg Tablet, 25 MG PO DAILY, #30 01/12/16 Dicyclomine Hcl (DICYCLOMINE HCL) 10 Mg Capsule, 10 MG PO BID, #120 01/12/16 Lisinopril (LISINOPRIL) 40 Mg Tablet, 40 MG PO DAILY, #30 01/12/16 Sertraline Hcl (SERTRALINE HCL) 100 Mg Tablet, 100 MG PO BID, #60 01/12/16 Omeprazole (OMEPRAZOLE) 20 Mg Capsule., 20 MG PO DAILY, #30 01/12/16 JOSE PACK III DO Mar 14, 2021 12:48
--- NOTE | 2021-03-14 12:54 | SNU/HH DC ---
DISCHARGE ORDERS DISCHARGE INFORMATION: FINAL DIAGNOSIS Problems Medical Problems: (1) Acute encephalopathy Status: Acute (2) Acute kidney injury superimposed on chronic kidney disease Status: Acute (3) NSTEMI (non-ST elevated myocardial infarction) Status: Acute (4) Sepsis Status: Acute (5) UTI (urinary tract infection) Status: Acute CONDITION ON DISCHARGE: Stable CODE STATUS: Code Status: DNR/DNI FPC: SNF STAY <30 DAYS: No HOSPICE: HOSPICE: Yes HOSPICE EVAL & TREAT: Yes LTAC: ADMIT TO LTAC: No POST DISCHARGE ORDERS: ACTIVITY ORDERS: No restrictions WEIGHT BEARING STATUS: As tolerated DIET AFTER DISCHARGE: Cardiac OTHER ORDERS: Emergency admit to long-term care with hospice CHECKS AFTER DISCHARGE: CHECKS AFTER DISCHARGE: Check blood press - daily, Check blood sugar, ac/hs FOLLOW-UP: Additional Instructions: Emergency admit to long-term care (terminal illness fewer than 6-month prognosis) TREATMENT/EQUIPMENT ORDERS: ADAPTIVE EQUIPMENT NEEDED: None DISCHARGE MEDICATIONS: Home Meds Active Scripts Spironolactone (ALDACTONE) 25 Mg Tablet, 25 MG PO DAILY for 30 Days Prov:FAVIO CHESTER MD 01/21/16 Metoprolol Tartrate (METOPROLOL TARTRATE) 25 Mg Tablet, 25 MG PO BID for 30 Days Prov:FAVIO CHESTER MD 01/21/16 Insulin Detemir (Levemir Flextouch) 100 Unit/1 Ml Insuln.pen, 20 UNITS SQ QHS for 30 Days Prov:FAVIO CHESTER MD 01/21/16 Insulin Aspart (NOVOLOG FLEXPEN) 100 Unit/1 Ml Insuln.pen, 4 UNITS SQ TIDAC for 30 Days Prov:FAVIO CHESTER MD 01/21/16 Bumetanide (BUMETANIDE) 1 Mg Tablet, 1 MG PO DAILY for 30 Days Prov:FAVIO CHESTER MD 01/21/16 Atorvastatin Calcium (ATORVASTATIN CALCIUM) 40 Mg Tablet, 40 MG PO QHS for 30 Days Prov:FAVIO CHESTER MD 01/21/16 Aspirin (ASPIRIN EC) 81 Mg Tablet.dr, 81 MG PO DAILYWBKFT for 30 Days Prov:FAVIO CHESTER MD 01/21/16 Reported Medications Lidocaine Hcl (LIDOCAINE HCL) 5 Ml Jel..ml., 1 ION TP BID for wound care 02/22/21 [glucose GE] No Conflict Check, 1 PACKET PO q15 min PRN for hypoglycemia 02/22/21 Glucagon,Human Recombinant (GLUCAGON EMERGENCY KIT) 1 Mg Kit, 1 MG IM q15 minut es for hypoglycemia, EACH 02/22/21 Glipizide (GLIPIZIDE) 5 Mg Tablet, 5 MG PO DAILY for DM, TAB 02/22/21 Esomeprazole Magnesium (NEXIUM CAPSULE) 20 Mg Capsule.dr, 20 MG PO DAILYAC for GERD, #30 CAP 0 Refills 02/22/21 Ascorbic Acid (VITAMIN C) 500 Mg Capsule.er, 500 MG PO DAILY for promote healing, CAP.SR 02/22/21 Olanzapine (ZYPREXA) 20 Mg Tablet, 25 MG PO HS for agitation 01/29/21 Trazodone Hcl (TRAZODONE HCL) 50 Mg Tablet, 1 TAB PO QHS for insomnia, #30 TAB 1 Refill 01/29/21 Metformin Hcl (METFORMIN HCL) 500 Mg Tablet, 500 MG PO DAILY for ANTI-DIABETIC, TAB 0 Refills 01/29/21 Lacosamide (VIMPAT) 200 Mg Tablet, 200 MG PO BID for seizures, TAB 01/29/21 Levetiracetam (KEPPRA) 500 Mg Tablet, 1 TAB PO BID for seizures for 30 Days, #60 TAB 0 Refills 01/29/21 Carvedilol (CARVEDILOL) 25 Mg Tablet, 25 MG PO BIDWMEALS for HTN, #2 TAB 01/29/21 Amlodipine Besylate (AMLODIPINE BESYLATE) 10 Mg Tablet, 10 MG PO DAILY for HTN, TAB 01/29/21 Alprazolam (ALPRAZOLAM) 1 Mg Tablet, 1 TAB PO TID for agitation, #60 TAB 01/29/21 Acetaminophen (TYLENOL) 325 Mg Tablet, 2 TAB PO PRN Q4HRS for pain or fever , #30 TAB 01/29/21 Hydrocodone Bit/Acetaminophen (HYDROCODONE-APAP 7.5-325 ) 1 Each Tablet, 1 TAB PO PRN Q6HRS PRN for PAIN, TAB 0 Refills 01/12/16 Amlodipine Besylate (AMLODIPINE BESYLATE) 5 Mg Tablet, 5 MG PO DAILY, #30 01/12/16 Baclofen (BACLOFEN) 10 Mg Tablet, 10 MG PO BID, #120 01/12/16 Amitriptyline Hcl (AMITRIPTYLINE HCL) 25 Mg Tablet, 25 MG PO HS, #30 01/12/16 Hydrochlorothiazide (HYDROCHLOROTHIAZIDE TABLET ) 25 Mg Tablet, 25 MG PO DAILY, #30 01/12/16 Dicyclomine Hcl (DICYCLOMINE HCL) 10 Mg Capsule, 10 MG PO BID, #120 01/12/16 Lisinopril (LISINOPRIL) 40 Mg Tablet, 40 MG PO DAILY, #30 01/12/16 Sertraline Hcl (SERTRALINE HCL) 100 Mg Tablet, 100 MG PO BID, #60 01/12/16 Omeprazole (OMEPRAZOLE) 20 Mg Capsule.dr, 20 MG PO DAILY, #30 01/12/16 JOSE PACK III DO Mar 14, 2021 12:54
--- NOTE | 2021-03-14 13:08 | SNU/HH DC ---
DISCHARGE ORDERS DISCHARGE INFORMATION: FINAL DIAGNOSIS Problems Medical Problems: (1) Acute encephalopathy Status: Acute (2) Acute kidney injury superimposed on chronic kidney disease Status: Acute (3) NSTEMI (non-ST elevated myocardial infarction) Status: Acute (4) Sepsis Status: Acute (5) UTI (urinary tract infection) Status: Acute CONDITION ON DISCHARGE: Stable CODE STATUS: Code Status: DNR/DNI LONG-TERM: SNF STAY <30 DAYS: No HOSPICE: HOSPICE: Yes HOSPICE EVAL & TREAT: Yes LTAC: ADMIT TO LTAC: No POST DISCHARGE ORDERS: ACTIVITY ORDERS: No restrictions, Bedrest today WEIGHT BEARING STATUS: As tolerated DIET AFTER DISCHARGE: Cardiac OTHER ORDERS: Emergency admit to long-term care with hospice CHECKS AFTER DISCHARGE: CHECKS AFTER DISCHARGE: Check blood press - daily, Check blood sugar, ac/hs FOLLOW-UP: Additional Instructions: Emergency admit to long-term care with hospice terminal illness fewer than 6 months prognosis TREATMENT/EQUIPMENT ORDERS: ADAPTIVE EQUIPMENT NEEDED: None DISCHARGE MEDICATIONS: Home Meds Active Scripts Insulin Aspart (NOVOLOG FLEXPEN) 100 Unit/1 Ml Insuln.pen, 4 UNITS SQ TIDAC for 30 Days Prov:FAVIO CHESTER MD 01/21/16 Reported Medications Lidocaine Hcl (LIDOCAINE HCL) 5 Ml Jel..ml., 1 ION TP BID for wound care 02/22/21 [glucose GE] No Conflict Check, 1 PACKET PO q15 min PRN for hypoglycemia 02/22/21 Glucagon,Human Recombinant (GLUCAGON EMERGENCY KIT) 1 Mg Kit, 1 MG IM q15 minutes for hypoglycemia, EACH 02/22/21 Olanzapine (ZYPREXA) 20 Mg Tablet, 25 MG PO HS for agitation 01/29/21 Trazodone Hcl (TRAZODONE HCL) 50 Mg Tablet, 1 TAB PO QHS for insomnia, #30 TAB 1 Refill 01/29/21 Levetiracetam (KEPPRA) 500 Mg Tablet, 1 TAB PO BID for seizures for 30 Days, #60 TAB 0 Refills 01/29/21 Acetaminophen (TYLENOL) 325 Mg Tablet, 2 TAB PO PRN Q4HRS for pain or fever , #30 TAB 01/29/21 Hydrocodone Bit/Acetaminophen (HYDROCODONE-APAP 7.5-325 ) 1 Each Tablet, 1 TAB PO PRN Q6HRS PRN for PAIN, TAB 0 Refills 01/12/16 Omeprazole (OMEPRAZOLE) 20 Mg Capsule., 20 MG PO DAILY, #30 01/12/16 JOSE PACK III DO Mar 14, 2021 13:08
--- NOTE | 2021-03-14 13:20 | DS ---
DATE OF DISCHARGE: 03/14/2021 ADMITTING DIAGNOSES: Sepsis, severe metabolic encephalopathy, hypoxia, respiratory failure, hypernatremia, acute kidney injury, anemia, malnutrition, seizures, diabetes, depression, gastroesophageal reflux disease, hyperlipidemia, hypertension, history of cocaine abuse and elevated troponin. DISCHARGE DIAGNOSES: 1. Resolving sepsis. 2. Multiple comorbidities (please see above). 3. Resolving acute kidney injury secondary to acute tubular necrosis (required dialysis but she has been off dialysis for the last few days and it is improving). 4. Chronic kidney disease stage III. 5. Sacral ulcer. HOSPITAL COURSE: The patient is a pleasant elderly female who presented with multiple comorbidities and acute sepsis with severe metabolic encephalopathy. She was admitted. We gave her IV antibiotics. We consulted Infectious Disease, General Surgery and Nephrology. We gave her fluids and home meds and over the past few days, she slowly returned to a baseline, but is still very debilitated. She has multiple comorbidities. We suspect her long-term prognosis is poor, probably less than 6 months. We plan to discharge with hospice. DISPOSITION: Long-term care with hospice. ACTIVITY: As tolerated. DIET: Renal. DISCHARGE MEDICATIONS: Please see the MRAD. TOTAL TIME: 34 minutes.. TAMIE/EDOUARD DR: Estrella TID: [id number]
--- NOTE | 2021-03-14 13:57 | NUR ---
Patients central line was discontinued around 1330. Pressure was held and site was monitored for bleeding. Dressing placed with tape and secured. No signs of complications noted from line removal. Catheter tip intact. Will continue to monitor.
--- NOTE | 2021-03-14 14:21 | NUR ---
Wound/Ostomy Care Wound Type/Assessment: Patient seen again today per wound care. The left kent is closed and the right medial foot is now closed. The sacrum wound and the rectum wounds are both cleansed, assessed, measured, and pictured. Patient soiled and chux changed. patient is scheduled to discharge today [facility]. Treatment Recommendations/Plan: Recommendations for xeroform gauze and foam dressing to the sacrum, the rectum is left open to air at this time. Education provided: Unable to educate due to mental status, however she is more alert today than she was on previous assessments. Offloading surface/device: Patient is currently on a P-500 bed at this time. Patient repositioned to left side using wedge. Bilateral heels floated. Recommended Referrals/Tests: N/A Discharge Recommendations for dressings: Continue current treatment, patient to discharge today. Bed lowered and alarm in place. Call light in reach.
[2021-03-14 14:23] VITALS: BP 154/85
[2021-03-14] MEDS ORDERED: POTASSIUM CHLORIDE 20 MEQ TABLET.ER. PO ONE (16:00)
--- NOTE | 2021-03-14 17:48 | NUR ---
Patient left with EMS around 1740 in a stretcher. Report called to Vlad SANTOYO at [facility] around 1504. Previous IV site dressing CDI. Palacio still in place per doctor. Patient was changed and her wound care dressing were CDI. Paperwork and belongings given to EMS for transportation. No concerns noted at discharge.
== END 2021-03-14 17:50 | DRG 871 ==
LOC: ER 11:28 → ED HOLD 14:30 → 6 SOUTH 15:49
PROVIDERS: ADMIT Internal Medicine; ATTEND Internal Medicine
PROC: 02HV33Z Insertion of Infusion Device into Superior Vena Cava, Percutaneous Approach (ICD-10-PCS; 2021-02-24)
PROC: B548ZZA Ultrasonography of Superior Vena Cava, Guidance (ICD-10-PCS; 2021-02-24)
PROC: B5181ZA Fluoroscopy of Superior Vena Cava using Low Osmolar Contrast, Guidance (ICD-10-PCS; 2021-02-24)
PROC: 30233N1 Transfusion of Nonautologous Red Blood Cells into Peripheral Vein, Percutaneous Approach (ICD-10-PCS; principal; 2021-02-25)
PROC: 5A1D70Z Performance of Urinary Filtration, Intermittent, Less than 6 Hours Per Day (ICD-10-PCS; 2021-02-25)
PROC: 5A1D70Z Performance of Urinary Filtration, Intermittent, Less than 6 Hours Per Day (ICD-10-PCS; 2021-02-27)
PROC: 5A1D70Z Performance of Urinary Filtration, Intermittent, Less than 6 Hours Per Day (ICD-10-PCS; 2021-03-01)
PROC: 5A1D70Z Performance of Urinary Filtration, Intermittent, Less than 6 Hours Per Day (ICD-10-PCS; 2021-03-03)
DX: A41.9 Sepsis, unspecified organism (principal); N17.0 Acute kidney failure with tubular necrosis; G93.41 Metabolic encephalopathy; E43 Unspecified severe protein-calorie malnutrition; I21.4 Non-ST elevation (NSTEMI) myocardial infarction; J96.91 Respiratory failure, unspecified with hypoxia; K65.1 Peritoneal abscess; E87.0 Hyperosmolality and hypernatremia; I13.0 Hypertensive heart and chronic kidney disease with heart failure and stage 1 through stage 4 chronic kidney disease, or unspecified chronic kidney disease; N39.0 Urinary tract infection, site not specified; D63.8 Anemia in other chronic diseases classified elsewhere; E11.22 Type 2 diabetes mellitus with diabetic chronic kidney disease; E11.65 Type 2 diabetes mellitus with hyperglycemia; E78.00 Pure hypercholesterolemia, unspecified; E78.5 Hyperlipidemia, unspecified; E87.6 Hypokalemia; F32.9 Major depressive disorder, single episode, unspecified; I50.9 Heart failure, unspecified; J45.909 Unspecified asthma, uncomplicated; K21.9 Gastro-esophageal reflux disease without esophagitis; K56.41 Fecal impaction; L89.159 Pressure ulcer of sacral region, unspecified stage; L98.419 Non-pressure chronic ulcer of buttock with unspecified severity; N18.32 Chronic kidney disease, stage 3b; R56.9 Unspecified convulsions; R65.20 Severe sepsis without septic shock; Z20.822 Contact with and (suspected) exposure to COVID-19; Z66 Do not resuscitate; Z82.49 Family history of ischemic heart disease and other diseases of the circulatory system; Z86.73 Personal history of transient ischemic attack (TIA), and cerebral infarction without residual deficits; Z98.51 Tubal ligation status; Z99.3 Dependence on wheelchair; F14.10 Cocaine abuse, uncomplicated; K57.90 Diverticulosis of intestine, part unspecified, without perforation or abscess without bleeding; M19.90 Unspecified osteoarthritis, unspecified site
CPT/HCPCS: 36415; 36430; 36556; 70450; 71045; 73502; 74176; 76937; 77001; 80048; 80053; 80069; 80177; 80329; 81001; 82550; 82607; 82962; 83540; 83550; 83605; 83735; 84100; 84478; 84484; 85007; 85025; 86704; 86706; 86850; 86900; 86901; 86920; 87040; 87071; 87075; 87077; 87086; 87106; 87186; 87340; 87426; 87493; 93005; 96365; 96368; A4314; C1892; C9113; J0360; J0610; J0692; J0878; J1644; J1815; J1953; J2020; J2060; J2248; J2405; J2543; J3010; J3370; J3475; J3480; J3490; J7050; J7060; P9016; U0003; U0005; 92526-GN; 92610-GN; 99285-25; G0378; G0480; J7030